=== PATIENT | male | born 1955 | race Caucasian/White ===

== ENCOUNTER 2019-03-19 01:50 | Outpatient (CLI) | payer MEDICARE, BC, SELFPAY ==
--- NOTE | 2019-03-19 14:05 | DI.US_ITS ---
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 The posterior wall thickness is normal. The septum is normal. Left ventricular systolic function is normal. There is normal LV segmental wall motion. LVEF is estimated to be 60-65%. Diastolic function is indeterminate though there is indication of elevat ed LV filling pressures. Right Ventricle : Right ventricle is mildly enlarged. The right ventricular systolic function appears normal. Atria : Left atrium is normal. Right atrium is mildly dilated. Aortic Valve : Aortic valve is trileaflet. No aortic regurgitation is present. There is no aortic dorothy vular stenosis. Mitral Valve : Mitral valve leaflets are mildly thickened. Mild mitral regurgitation. No evidence of mitral valve stenosis. Tricuspid Valve : Mild tricuspid regurgitation. Great Vessels : IVC is normal in size and collapses >50% with inspiration. Estimated RSVP is 36-40 m mHg. There is no prior echocardiogram available for comparison. Wall motion Left Ventricle The left ventricle is normal. Left ventricular systolic function is normal. The posterior wall thickn ess is normal. The septum is normal. There is normal LV segmental wall motion. Diastolic function is indeterminate though there is indication of elevated LV filling pressures. LVEF is estimated to be 60 -65%. Right Ventricle Right ventricle is mildly enlarged. The right ventricular systolic function appears normal. Atria Left atrium is normal. Right atrium is mildly dilated. Aortic Valve Aortic valve is trileaflet. There is no aortic valvular stenosis. No aortic regurgitation is present. Mitral Valve Mitral valve leaflets are mildly thickened. No evidence of mitral valve stenosis. Mild mitral regurgi tation. Tricuspid Valve The tricuspid valve is normal in structure. Mild tricuspid regurgitation. Pulmonic Valve Pulmonic valve is not well visualized. Great Vessels The aortic root size is normal. IVC is normal in size and collapses >50% with inspiration. Estimated RSVP is 36-40 mmHg. Pericardium Prominent anterior epicardial fat pad is present. 2D Dimensions IVSd 1.20 cm M: 0.6-1.2 LV EDV A2C 89.90 mL PWd 0.90 cm M: 0.6 - 1.2 LV EDV A4C 96.80 mL LVDd 4.60 cm M: 4.2 - 5.8 LA Volume Index A2C 25.56 mL/m2 LVDs 2.85 cm M: 2.5 - 4.0 LA Volume Index A4C 34.23 mL/m2 Aortic Root 3.60 cm M: 3.1 - 3.7 LA Volume Index Biplane 30.50 mL/m2 RVID Base (AP4) 4.03 cm (M/F) 2.5-4.1 LA Area A4C 23.20 cm2 RA Area A4C 20.12 cm2 LA Area A2C 19.44 cm2 LVOT 2.15 cm (M/F) 1.5-2.5 EF AP4 62.50 % LVEF (Teich) 68.92 % EF AP2 69.52 % LVEF (Oshea's) 66.24 % M: 52 - 72 EF BP 66.24 % LV Volume 69.88 mL M: 62 - 150 LV Volume Index 30.12 mL/m2 M: 34 - 74 FS 38.55 % LV Diastology E/A Ratio 1.1 MED E' 0.08 (>0.07 m/s) LV E/e MED 13.20 (<14) LAT E' 0.08 (>0.1 m/s) LV E/e LAT 12.85 (<14) Pulm Vein s 0.64 m/s PV S/D Ratio 0.92 Pulm Vein d 0.69 m/s Pulm Vein a 0.35 m/s Aortic Valve LVOT Area 3.74 cm2 LVOT Peak Regino. 1.00 m/s LVOT Mean Regino. 0.65 m/s LVOT Peak Gr. 4.35 mmHg TERRY Vmax Index 1.32 cm2/m2 LVOT Mean Gr. 2.00 mmHg LVOT VTI 0.20 m TERRY Mean Regino. Index 1.11 cm2/m2 AoV Peak Regino. 1.27 (0.5-1.3 m/s) AoV Mean Regino. 0.94 m/s AO Peak GR. 6.46 mmHg AO Mean GR. 3.88 (<5 mmHg) TERRY (VTI) 2.95 (2.5-4.5 cm2) TERRY (VTI) Index 1.27 cm/m2 Mitral Valve MV E Max Regino. 1.00 (0.4-1.3 m/s) MV A Velocity 0.95 (0.4-1.3 m/s) E/A Ratio 1.03 MV Decel. Time 173.20 (160-240 msec) MV Regurg Volume 33.64 mL MV PHT 50.23 msec MV RF 29.43 % MVA PHT 4.35 cm2 Tricuspid Valve TR P. Velocity 3.03 m/s TV Regurg Vmax 3.03 m/s RAP Estimate 3.00 mmHg RVSP 40.00 mmHg TR P. Gradient 36.65 mmHg
== END 2019-03-19 02:10 ==
PROVIDERS: PCP Nurse Practitioner Family; Visit Provider Nurse Practitioner Family
DX: I48.91 Unspecified atrial fibrillation (principal); I34.0 Nonrheumatic mitral (valve) insufficiency; I10 Essential (primary) hypertension
CPT/HCPCS: 93306

== ENCOUNTER 2019-03-19 02:10 | Outpatient (CLI) | payer MEDICARE, BC, SELFPAY ==
--- NOTE | 2019-03-19 08:00 | PFT_ITS ---
DATE: MARCH 19, 2019 REQUESTING PROVIDER: Roseanne Carrington N.P. INTERPRETATION SPIROMETRY: Spirometry shows very severe obstructive airways disease with significant bronchodilator response. IMPRESSION: Very severe obstructive airways disease with significant bronchodilator response. When compared to previous studies on 03/25/07, 05/06/07 and 07/04/08, the patient has substantial decline in FVC of a total of almost 2000 cc., FEV-1 has also almost 1500 cc. decline and there is a sudden decline from 2008 to 2018, before then lung functions were fairly stable.
[2019-03-19] MEDS: Inhaler, Assist Device 1 EACH MC (16:42)
[2019-03-19] MEDS: Albuterol HFA 18 GM 200 PUFF INH IH (16:42)
== END 2019-03-19 02:30 ==
PROVIDERS: PCP Nurse Practitioner Family; Visit Provider Nurse Practitioner Family
DX: J44.9 Chronic obstructive pulmonary disease, unspecified (principal); I48.91 Unspecified atrial fibrillation; I34.0 Nonrheumatic mitral (valve) insufficiency; I10 Essential (primary) hypertension
CPT/HCPCS: 93306; 94060

== ENCOUNTER 2019-03-24 12:07 | Outpatient (RCR) | payer MEDICARE, BC, SELFPAY | END 2019-04-13 23:59 | disposition home or self-care (01) | LOC: PRC 12:07 | PROVIDERS: PCP Nurse Practitioner Family; Visit Provider Family Medicine | DX: Z51.89 Encounter for other specified aftercare (principal) ==

== ENCOUNTER 2019-05-31 16:07 | Outpatient (RCR) | payer MEDICARE, BC, SELFPAY | END 2019-06-12 23:59 | disposition home or self-care (01) | LOC: PRC 16:07 | PROVIDERS: PCP Nurse Practitioner Family; Visit Provider Nurse Practitioner Family | DX: Z51.89 Encounter for other specified aftercare (principal) ==

== ENCOUNTER 2020-03-03 01:58 | Outpatient (CLI) | payer MEDICARE, BC, SELFPAY ==
[2020-03-03 14:21] LABS: Ferritin 226 ng/mL (26-388)
== END 2020-03-03 02:18 ==
PROVIDERS: PCP Nurse Practitioner Family; Visit Provider Nurse Practitioner
DX: M25.569 Pain in unspecified knee (principal)
CPT/HCPCS: 36415; 82728

== ENCOUNTER 2020-12-28 03:22 | Outpatient (CLI) | payer MEDICARE, BC, SELFPAY | END 2020-12-28 03:23 | disposition home or self-care (01) | LOC: RT 03:23 | PROVIDERS: PCP Nurse Practitioner Family; Visit Provider Internal Medicine Interventional Cardiology | DX: Z53.9 Procedure and treatment not carried out, unspecified reason (principal) ==

== ENCOUNTER 2021-02-09 12:40 | Outpatient (REF) | payer MEDICARE, BC, SELFPAY ==
[2021-02-09 13:13] LABS: Abs Immature Grans 0.06 10^3/uL (0.0-0.06); Absolute Basophil Count 0.09 10^3/uL (0.0-0.2); Absolute Eosinophil Count 0.31 10^3/uL (0.0-0.7); Absolute Lymphocyte Count 1.47 10^3/uL (1.2-3.4); Absolute Monocyte Count 0.67 10^3/uL (0.1-0.8); Absolute Neutrophil Count 6.73 10^3/uL (1.2-6.7); Eosinophils % 3.3; HCT 52.3 % (40.0-50.0); Immature Grans % 0.6; Lymphocytes % 15.8; MCH 29.3 pg (27.0-33.0); MCHC 32.5 % (32.0-36.0); MPV 9.9 fL (8.0-11.0); Monocytes % 7.2; Neutrophils % 72.1; Nucleated RBC 0 %; Platelet Count 292 10^3/uL (130-400); RBC 5.81 10^6/uL (4.36-5.78); RDW-SD 43.2 fL; WBC 9.33 10^3/uL (4.4-10.8)
[2021-02-12 09:54] LABS: IgE 127 IU/mL (<158)
== END 2021-02-09 12:41 | disposition home or self-care (01) ==
LOC: LBN 12:40
PROVIDERS: PCP Nurse Practitioner Family; Visit Provider Student in an Organized Health Care Education/Training Program
DX: J44.9 Chronic obstructive pulmonary disease, unspecified (principal)
CPT/HCPCS: 82785; 85025

== ENCOUNTER 2021-08-30 02:55 | Outpatient (CLI) | payer MEDICARE, BC, SELFPAY ==
--- NOTE | 2021-08-30 10:32 | DI.CTLCSR_ITS ---
Exam(s) CT CHEST LUNG CANCER SCREEN EXAM: CT CHEST LUNG CANCER SCREEN CLINICAL HISTORY: SCREENING FOR LUNG CA, FORMER SMOKER, FZ87.891 TECHNIQUE: Imaging Protocol: Axial computed tomography images with coronal and sagittal reformatted images were created and reviewed COMPARISON: No exams were available for comparison FINDINGS: Tracheobronchial tree: Patent where visualized. Pulmonary parenchyma: There is a 3.6 x 3.8 x 4.2 cm soft tissue masslike area centrally in the left l ower lobe. No architectural distortion. There is scarring seen in the lingula and right middle lobe. Lung Nodules: None. Mediastinum and Bettina: No dominant adenopathy or fluid collection. The esophagus is unremarkable. Thyroid gland: Unremarkable. Lymph nodes: Unremarkable. Pleura: No effusion or pneumothorax. Heart: The heart is not dilated. Coronary artery calcifications are present. No pericardial effusion . Aorta: Thoracic aorta non-dilated.Atherosclerosis. Upper abdomen: There is a 3.9 x 3.4 cm right adrenal nodule. The Hounsfield units are -5. Soft Tissues: Bilateral gynecomastia. Bones: Within normal limits. IMPRESSION: 1. 3.6 x 3.8 x 4.2 cm soft tissue mass in the left lower lobe centrally. Neoplasm should be consider ed. A PET-CT scan may be obtained for further evaluation. 2. 3.9 x 3.4 cm hypodense right adrenal nodule. The findings are most suggestive of an adrenal adeno ma. MRI may be obtained for complete confirmation. Category Lung-RADS 1.0 CATEGORIES: Category 0 - Prior chest CT exam(s) being located for comparison. Category 1 - Annual screening in 12 months. No nodules or definitely benign nodules. Category 2 - Annual screening in 12 months. Benign appearance. Nodules with low likelihood of becomin g active cancer. Category 3 - 6-month follow-up. Probably benign. Short-term follow-up suggested. Nodules with low lik elihood of becoming active cancer. Category 4A - 3-month follow-up and CT/PET if >8 mm in size. Suspicious finding. Findings which requi re additional testing. Category 4B - Findings which require additional testing and tissue sampling. Suspicious finding. Category 4X - Category 3 or 4 nodules with additional features or imaging findings that increases the suspicion of malignancy. Modifier S- Potentially clinically significant finding. (Non lung cancer) RADIATION DOSE DELIVERED: 102.08mGy.cm Total DLP !Error CTDIvol 102.08mGy.cm Total DLP 2.21mGy CTDIvol DATA REPOSITORY: All CT scans at this facility are submitted to the National Radiology Data Registry (NRDR) Dose Index Registry (DIR) with the [employer] (A[employer]). RADIATION OPTIMIZATION: All CT scans at this facility use at least one of these dose optimization te chniques: automated exposure control; mA and/or kV adjustment per patient size (includes targeted exa ms where dose is matched to clinical indication); or iterative reconstruction.
== END 2021-08-30 03:15 ==
PROVIDERS: PCP Nurse Practitioner Family; Visit Provider Student in an Organized Health Care Education/Training Program
DX: Z12.2 Encounter for screening for malignant neoplasm of respiratory organs (principal); Z87.891 Personal history of nicotine dependence; R91.8 Other nonspecific abnormal finding of lung field; J98.4 Other disorders of lung; D35.01 Benign neoplasm of right adrenal gland
CPT/HCPCS: 71271

== ENCOUNTER → 2021-10-16 01:49 | Outpatient (CLI) | payer MEDICARE, BC, SELFPAY ==
--- NOTE | 2021-10-16 09:30 | DI.CT_ITS ---
Exam(s) CT CHEST WO EXAM: CT CHEST WO CLINICAL HISTORY: f/u mass after PNA treatment, LUNG MASS, R91.8. TECHNIQUE: Multi planar reconstructions were performed. CONTRAST MATERIAL: None COMPARISON: CT CT CHEST LUNG CANCER SCREEN from 08/30/2021 FINDINGS: CHEST: LUNGS: Again noted is is mass-infiltrate in the left lower lobe infrahilar region without improvement and suspicious for neoplasm. Also some infiltrate medially lower lobe. No pleural effusions on eit her side. Platelike atelectasis noted in the left upper lobe. MEDIASTINUM: There appears to be left hilar adenopathy contiguous with the infiltrate-mass. No right hilar adenopathy. Small subcarinal lymph nodes are noted.Visualized thyroid unremarkable. CARDIAC: Heart size upper normal. No pericardial effusion. Mild coronary artery calcification noted .Caliber of the thoracic aorta is within normal limits. VISUALIZED UPPER ABDOMEN:Hypodense right adrenal gland mass measuring 3.5 x 2.9 centimetres is again noted OSSEOUS: No significant osseous lesions.. Bilateral gynecomastia again noted. IMPRESSION: 1. Compared to 08/30/2021 there is no radiographic improvement in the left para-infrahilar infiltrate -mass. This is suspicious for neoplasm. Appropriate referral recommended. 2. Unchanged right adrenal nodule 3. No pleural effusions. RADIATION DOSE DELIVERED: 841.08mGy.cm Total DLP DATA REPOSITORY: All CT scans at this facility are submitted to the National Radiology Data Registry (NRDR) Dose Index Registry (DIR) with the [employer] (ACR). RADIATION OPTIMIZATION: All CT scans at this facility use at least one of these dose optimization te chniques: automated exposure control; mA and/or kV adjustment per patient size (includes targeted exa ms where dose is matched to clinical indication); or iterative reconstruction.
== END ==
PROVIDERS: PCP Nurse Practitioner Family; Visit Provider Student in an Organized Health Care Education/Training Program
DX: R91.8 Other nonspecific abnormal finding of lung field (principal); E27.9 Disorder of adrenal gland, unspecified
CPT/HCPCS: 71250

== ENCOUNTER 2021-11-12 04:28 | Outpatient (CLI) | payer MEDICARE, BC, SELFPAY ==
[2021-11-12] MEDS: Albuterol HFA 18 GM 200 PUFF INH IH (11:43)
[2021-11-12] MEDS: Inhaler, Assist Device 1 EACH MC (11:43)
--- NOTE | 2021-11-13 18:24 | W.PFT ---
Date of service: 11/12/21 Time of Service: 10:03 Pulmonary Function Test Result Requesting Provider Duchene Indications: Lung mass Interpretation Spirometry: There is severe airflow limitation. There is no significant bronchodilator response. The FVC is low. Lung Volumes: There is significant hyperinflation and air trapping. Diffusion Capacity: The diffusion is low. Airway Pressure: Airways resistance is increased. Impression Severe airflow obstruction with airtrapping a reduced diffusion. The FVC is low due to severe obstruction. Clinical Correlation therefore is recommended.
== END 2021-11-12 04:29 | disposition home or self-care (01) ==
LOC: RT 04:29
PROVIDERS: PCP Nurse Practitioner Family; Visit Provider Student in an Organized Health Care Education/Training Program
DX: R94.2 Abnormal results of pulmonary function studies (principal); R91.8 Other nonspecific abnormal finding of lung field; Z87.891 Personal history of nicotine dependence
CPT/HCPCS: 94060; 94726; 94729

== ENCOUNTER 2021-12-13 05:07 | Outpatient (CLI) | payer MEDICARE, BC, SELFPAY ==
[2021-12-13 10:21] LABS: Abs Immature Grans 0.05 10^3/uL (0.0-0.06); Absolute Basophil Count 0.08 10^3/uL (0.0-0.2); Absolute Eosinophil Count 0.41 10^3/uL (0.0-0.7); Absolute Lymphocyte Count 1.52 10^3/uL (1.2-3.4); Absolute Monocyte Count 0.65 10^3/uL (0.1-0.8); Absolute Neutrophil Count 7.26 10^3/uL (1.2-6.7); Basophils % 0.8; Eosinophils % 4.1; HCT 53.3 % (40.0-50.0); HGB 17.7 g/dL (13.5-17.5); Immature Grans % 0.5; Lymphocytes % 15.2; MCH 29.6 pg (27.0-33.0); MCHC 33.2 % (32.0-36.0); MCV 89 fL (80-95); MPV 9.3 fL (8.0-11.0); Monocytes % 6.5; Neutrophils % 72.9; Platelet Count 261 10^3/uL (130-400); RBC 5.98 10^6/uL (4.36-5.78); RDW 13.5 % (11.8-14.1); RDW-SD 43.8 fL; WBC 9.97 10^3/uL (4.4-10.8)
[2021-12-13 12:28] LABS: ALT 28 U/L (16-63); AST 16 U/L (15-37); Albumin 3.8 g/dL (3.4-5.0); Alkaline Phosphatase 83 U/L (46-116); BUN 14 mg/dL (7-18); Bilirubin, Total 0.8 mg/dL (0.2-1.0); CREATININE 1.1 mg/dL (0.70-1.30); Calcium 8.9 mg/dL (8.5-10.1); Chloride 102 mmol/L (98-107); Estimated GFR 73.58 (mL/min/1.73m2); Glucose 122 mg/dL (74-106); Sodium 140 mmol/L (136-145); Total Protein 7.4 g/dL (6.4-8.2)
== END 2021-12-13 05:08 | disposition home or self-care (01) ==
LOC: LBO 05:07
PROVIDERS: PCP Nurse Practitioner Family; Visit Provider Internal Medicine Medical Oncology
DX: C34.32 Malignant neoplasm of lower lobe, left bronchus or lung (principal)
CPT/HCPCS: 36415; 80053; 85025

== ENCOUNTER 2021-12-31 13:14 | Outpatient (REF) | payer MEDICARE, BC, SELFPAY ==
[2021-12-31 11:51] LABS: Abs Immature Grans 0.06 10^3/uL (0.0-0.06); Absolute Basophil Count 0.11 10^3/uL (0.0-0.2); Absolute Lymphocyte Count 1.72 10^3/uL (1.2-3.4); Absolute Monocyte Count 0.73 10^3/uL (0.1-0.8); Absolute Neutrophil Count 6.43 10^3/uL (1.2-6.7); Basophils % 1.2; Eosinophils % 4.2; HCT 51.6 % (40.0-50.0); Immature Grans % 0.6; Lymphocytes % 18.2; MCH 29.4 pg (27.0-33.0); MCHC 32.9 % (32.0-36.0); MCV 89 fL (80-95); MPV 9.5 fL (8.0-11.0); Monocytes % 7.7; Neutrophils % 68.1; Platelet Count 268 10^3/uL (130-400); RBC 5.79 10^6/uL (4.36-5.78); RDW 13.7 % (11.8-14.1); RDW-SD 44.3 fL; WBC 9.45 10^3/uL (4.4-10.8)
[2021-12-31 12:10] LABS: ALT 30 U/L (16-63); AST 16 U/L (15-37); Albumin 3.7 g/dL (3.4-5.0); Alkaline Phosphatase 87 U/L (46-116); Anion Gap 5.2 mmol/L (3-11); BUN 15 mg/dL (7-18); Bilirubin, Total 0.7 mg/dL (0.2-1.0); CO2 32.8 mmol/L (21.0-32.0); CREATININE 1.1 mg/dL (0.70-1.30); Calcium 9.2 mg/dL (8.5-10.1); Chloride 100 mmol/L (98-107); Estimated GFR 73.58 (mL/min/1.73m2); Glucose 123 mg/dL (74-106); Potassium 4.8 mmol/L (3.5-5.1); Sodium 138 mmol/L (136-145); Total Protein 7.5 g/dL (6.4-8.2)
== END 2021-12-31 13:15 | disposition home or self-care (01) ==
LOC: LBO 13:14
PROVIDERS: PCP Nurse Practitioner Family; Visit Provider Internal Medicine Medical Oncology
DX: C34.32 Malignant neoplasm of lower lobe, left bronchus or lung (principal)
CPT/HCPCS: 36415; 80053; 85025

== ENCOUNTER 2022-01-07 08:33 | Outpatient (CLI) | payer MEDICARE, BC, SELFPAY ==
[2022-01-07 08:33] LABS: Absolute Basophil Count 0.05 10^3/uL (0.0-0.2); Absolute Eosinophil Count 0.39 10^3/uL (0.0-0.7); Absolute Lymphocyte Count 0.59 10^3/uL (1.2-3.4); Basophils % 0.6; Eosinophils % 4.7; HCT 49.5 % (40.0-50.0); HGB 16.4 g/dL (13.5-17.5); Immature Grans % 1.2; Lymphocytes % 7.2; MCH 29.4 pg (27.0-33.0); MCHC 33.1 % (32.0-36.0); MCV 89 fL (80-95); MPV 9.7 fL (8.0-11.0); Monocytes % 2.4; Neutrophils % 83.9; Platelet Count 223 10^3/uL (130-400); RBC 5.57 10^6/uL (4.36-5.78); RDW 13.2 % (11.8-14.1); RDW-SD 43.2 fL; WBC 8.23 10^3/uL (4.4-10.8)
[2022-01-07 08:55] LABS: ALT 32 U/L (16-63); AST 16 U/L (15-37); Albumin 3.4 g/dL (3.4-5.0); Alkaline Phosphatase 91 U/L (46-116); Anion Gap 5.8 mmol/L (3-11); BUN 12 mg/dL (7-18); Bilirubin, Total 0.7 mg/dL (0.2-1.0); CO2 32.2 mmol/L (21.0-32.0); CREATININE 1.1 mg/dL (0.70-1.30); Calcium 9.2 mg/dL (8.5-10.1); Chloride 100 mmol/L (98-107); Estimated GFR 73.58 (mL/min/1.73m2); Glucose 139 mg/dL (74-106); Potassium 4.7 mmol/L (3.5-5.1); Sodium 138 mmol/L (136-145)
== END 2022-01-07 08:34 | disposition home or self-care (01) ==
LOC: LBO 08:34
PROVIDERS: PCP Nurse Practitioner Family; Visit Provider Internal Medicine Medical Oncology
DX: C34.32 Malignant neoplasm of lower lobe, left bronchus or lung (principal)
CPT/HCPCS: 36415; 80053; 85025

== ENCOUNTER 2022-01-07 09:25 | Emergency (ER) | payer MEDICARE, BC, SELFPAY ==
[2022-01-07] VITALS (37 sets, daily range): BP systolic 108–140; BP diastolic 44–97; PULSE 86–162; RESP 4–31; TEMP 31.6–34.2; O2SAT 91–98
--- NOTE | 2022-01-07 09:45 | DI.RAD_ITS ---
Exam(s) XR PORTABLE CHEST AP EXAM: XR PORTABLE CHEST AP CLINICAL HISTORY: cough TECHNIQUE: 2D digital imaging was performed. COMPARISON: CT CT CHEST WO from 10/16/2021 FINDINGS: LUNGS: Clear. No pleural abnormality seen. Stable prominence of the left parahilar region from prior CT. A mass was noted in this location. It is or mass is seen. HEART: Normal. AORTA: Normal. Calcified. Mildly tortuous. BONES: Unremarkable for age. Soft tissues: Unremarkable. IMPRESSION: Left perihilar prominence. Mass seen on prior CT. DATA REPOSITORY: RADIATION DOSE DELIVERED:
--- NOTE | 2022-01-07 09:49 | RT.EKG_ITS ---
APPROVED REPORT Exam: Resting ECG Reason for Exam: fatigue Patient Location: E HR:105 bpm ECG Measurements Heart Rate 105 AXIS AK 175 P 71 QRSd 86 QRS 85 QT 367 T 57 QTc 487 Conclusion Sinus tachycardia...rate> 99 Low voltage, extremity leads...all extremity leads <0.5mV sinus tachycardia at 105, normal axis, low voltage in the extremity leads, no STEMI, nondiagnostic EK G, no prior for comparison
--- NOTE | 2022-01-07 09:56 | ED.GENADUL_ITS ---
Discharge Plan Disposition Patient Disposition: AGAINST MEDICAL ADVICE Discharge Details Clinical Impression: Cough, Atrial fibrillation with rapid ventricular response Primary Care Provider: Roseanne Carrington ED Provider: Kelly Buckley Home Meds and New Rx's Prescriptions: New diltiazem HCl 120 mg capsule,extended release 24 hr 120 mg PO DAILY Qty: 30 0RF Continued metoprolol succinate [Toprol XL] 100 MG tablet extended release 24 hr 100 mg PO BID Eliquis 5 mg tablet 5 mg PO BID Spiriva Respimat 2.5 mcg/actuation mist 2 inh inhalation QAM Qty: 12 3RF albuterol sulfate [Ventolin HFA] 90 mcg/actuation HFA aerosol inhaler 2 puff IH .COMPLEX PRN (Reason: shortness of breath or wheezing) Qty: 25.5 1RF Rx Instructions: 2 puffs inhaled every 4-6 hours PRN; budesonide-formoterol [Symbicort] 160-4.5 mcg/actuation HFA aerosol inhaler 2 puff Inhalation BID Qty: 30.6 12RF Discharge Instructions Instructions: A-fib (Atrial Fibrillation) (ED), Acute Cough (ED) Additional Instructions: You have elected to leave the emergency department AGAINST MEDICAL ADVICE. The risks of doing so are or permanent disability. You may return to emergency department anytime if you change your mind. Please return immediately to the emergency department if you develop any new or worsening symptoms, if your condition does not improve as expected, or if you become otherwise concerned. It is extremely important that you call soon as possible to make an appointment to be seen in follow-up for this visit by your primary care doctor and your oncologist. Referrals: Roseanne Carrington [Primary Care Provider] - Discharge Data Discharge Date/Time-TO BE ENTERED AT DEPARTURE: 01/07/22 13:23 Medical Decision Making Plan for EKG, chest x-ray, screening labs (patient did have CBC and CMP performed earlier today as an outpatient), IV placement, IV fluid hydration, telemetry. Will monitor and reassess. 11:25 patient stated that he needed to get up and move around as he was feeling stiff from lying in the stretcher. With patient moving, heart rate increased to 160s, variable. Patient denying any new symptoms. EKG shows atrial fibrillation. 11:32 patient with rate reduced to 115 after being seated. No change in symptoms. 12:20 patient states that he feels basically well other than feeling tired and would like to go home at this point. Patient sitting up in bed, heart rate 160 on monitor, atrial fibrillation versus atrial flutter. Heart rate decreases to 120 when patient lies back in bed. I discussed with patient that his tachycardia has not been appropriately treated or evaluated at this point, particularly in the setting of his recent illness. I recommended patient be admitted for further treatment. Patient states that he does not want to be hospitalized under any circumstance right now and wants to go home. I discussed with patient the risks of leaving AGAINST MEDICAL ADVICE including , permanent disability. Patient verbalized understanding of these risks and continued to wish to leave AGAINST MEDICAL ADVICE. I did ask if patient would stay for me to discuss his presentation with Dr. Morel of cardiology over the phone. Patient was amenable. Plan for IV diltiazem for A. fib with RVR. 1250: Discussed patient presentation/results with Dr. Morel of cardiology. She states that initial EKG read as sinus tachycardia likely to be atrial flutter. She recommends that 120 mg p.o. diltiazem daily be added to patient's current medication regimen of 100 mg twice daily metoprolol. Recently discussed plan with patient, patient did reiterate that he refuses admission. Patient with decision-making capacity. I had a discussion with Patient regarding return to emergency department precautions, home care, and importance of outpatient follow-up. Pt verbalizes understanding of the plan and is amenable. Patient discharged to home with clear plan for outpatient follow- up. All questions were answered. Disposition decision was made weighing the risks and benefits of hospitalization versus outpatient treatment, the risk for further decompensation, and the patient's wishes. Medical Records Medical records reviewed: Yes I reviewed the patient's medical records. Imaging Data Radiologic Study: Attestation: I personally reviewed and interpreted this imaging study as follows: Radiologist's impression: EXAM:? XR PORTABLE CHEST AP CLINICAL HISTORY:? cough TECHNIQUE:? 2D digital imaging was performed. COMPARISON:? CT CT CHEST WO from 10/16/2021 FINDINGS: LUNGS: Clear. No pleural abnormality seen.? Stable prominence of the left parahilar region from prior CT.? A mass was noted in this location.? It is or mass is seen. HEART: Normal. AORTA: Normal.? Calcified.? Mildly tortuous. BONES: Unremarkable for age.? Soft tissues: Unremarkable. IMPRESSION: Left perihilar prominence.? Mass seen on prior CT.? Lab Data Lab results reviewed: Yes I reviewed the patient's lab results. Labs: 01/07/22 12:35 Blood Blood Culture - Final NO GROWTH 120 HOURS 01/07/22 10:20 Blood Blood Culture - Final NO GROWTH 120 HOURS Laboratory Tests Range/Units 01/07/22 01/07/22 01/07/22 10:00 10:20 10:20 D-Dimer (<500) ng/mlFEU 254 VBG Lactate (0.6-1.4) mmol/L Troponin I (<or=60) ng/L < 50 COVID-19 Source Not Applicable SARS-CoV-2 (PCR) (Negative) Negative Influenza Type A (PCR) (Negative) Negative Influenza Type B (PCR) (Negative) Negative RSV (PCR) (Negative) Negative Range/Units 01/07/22 01/07/22 10:20 12:50 D-Dimer (<500) ng/mlFEU VBG Lactate (0.6-1.4) mmol/L 1.7 H Troponin I (<or=60) ng/L Cancelled COVID-19 Source SARS-CoV-2 (PCR) (Negative) Influenza Type A (PCR) (Negative) Influenza Type B (PCR) (Negative) RSV (PCR) (Negative) ECG Data Attestation: I personally reviewed and interpreted this ECG (s) as follows: Interpretation: EKG shows sinus tachycardia at 105, normal axis, low voltage in the extremity leads, no STEMI, nondiagnostic EKG, no prior for comparison EKG 11:27 shows atrial fibrillation, right axis deviation, ST depression, no STEMI HPI General Mode of arrival: ambulatory . Date/Time Provider Initiated Documentation: 01/07/22 09:33 . Limitations to Documentation: no limitations . Information obtained by: patient, RN notes reviewed and old records reviewed . HPI Narrative: Bipin Rowley is a 66-year-old man with a history of atrial fibrillation on Eliquis, COPD, pulmonary hypertension, recently diagnosed with lung cancer presenting to the emergency department with cough. Patient reports that he started chemotherapy 1 week ago and is due for his second infusion today. Patient reports that for the past 4 to 5 days he has had fatigue, feels rundown, has had cough worse than his baseline with significant sputum production, also with congestion. He denies any pain, SOB, fevers, vomiting, diarrhea, numbness, focal weakness, rash, swelling. He reports that he has had constipation over the past week or so that he is using [id number] meds for and is having improvement with. Patient reports that he has been using his al buterol inhaler regularly which does help with his cough. He reports that he has been eating and drinking fluids well, reports good appetite. Related Data Home Medications Medication Instructions Recorded Confirmed metoprolol succinate 100 mg 100 mg PO BID 07/07/14 01/07/22 tablet,extended release 24 hr (Toprol XL) apixaban 5 mg tablet (Eliquis) 5 mg PO BID 05/04/19 01/07/22 tiotropium bromide 2.5 2 inh inhalation QAM #12 grams 03/05/21 01/07/22 mcg/actuation mist for inhalation (Spiriva Respimat) albuterol sulfate 90 mcg/actuation 2 puff inhalation .COMPLEX PRN 09/21/21 01/07/22 aerosol inhaler (Ventolin HFA) shortness of breath or wheezing #25.5 grams budesonide-formoterol HFA 160 2 puff inhalation BID #30.6 grams 10/26/21 01/07/22 mcg-4.5 mcg/actuation aerosol inhaler (Symbicort) diltiazem HCl 120 mg capsule,24 120 mg PO DAILY #30 caps 01/07/22 hr,extended release Previous Rx's Medication Instructions Recorded tiotropium bromide 2.5 2 inh inhalation QAM #12 grams 03/05/21 mcg/actuation mist for inhalation (Spiriva Respimat) albuterol sulfate 90 mcg/actuation 2 puff inhalation .COMPLEX PRN 09/21/21 aerosol inhaler (Ventolin HFA) shortness of breath or wheezing #25.5 grams budesonide-formoterol HFA 160 2 puff inhalation BID #30.6 grams 10/26/21 mcg-4.5 mcg/actuation aerosol inhaler (Symbicort) diltiazem HCl 120 mg capsule,24 120 mg PO DAILY #30 caps 01/07/22 hr,extended release Allergies Allergy/AdvReac Type Severity Reaction Status Date / Time fluoxetine Allergy rash Unverified 01/07/22 09:45 Penicillins Allergy rash Unverified 01/07/22 09:45 codeine AdvReac N/V, Unverified 01/07/22 09:45 fatigue General Stated Complaint: RespSymp VIKI: 3 Review of Systems Narrative: Constitutional: denies fevers, reports fatigue Eyes: denies eye pain ENT: denies ear pain, dental pain, sore throat Cardiovascular: denies chest pain, edema Respiratory: denies SOB, reports cough GI: denies abdominal pain, vomiting, diarrhea : denies flank pain MSK: denies back pain, neck pain, arthralgias, myalgias Skin: denies rash Neuro: denies headaches, numbness, weakness PFSH All Active Problems (Updated 01/16/22 @ 16:49 by Allegra Pierce MD) Non-small cell carcinoma of lung, stage 3 (Acute) Cough (Acute) Atrial fibrillation with rapid ventricular response (Acute) Personal history of nicotine dependence (Acute) Pulmonary hypertension (Acute) Sleep apnea (Acute) Atrial fibrillation (Chronic) COPD (chronic obstructive pulmonary disease) (Chronic) Medical History (Updated 01/16/22 @ 16:49 by Allegra Pierce MD) Anal condyloma Atrial fibrillation Cervical disc disorder with radiculopathy COPD (chronic obstructive pulmonary disease) Depression ETOH abuse Hyperlipidemia Hypertension Impaired fasting glucose Lung mass Surgical History Fulguration, Anal Warts Repair, Hypospadious Social History Smoking/Tobacco Use Status: Former Tobacco Use Smoking risk assessment performed?: Yes Alcohol Intake: former Drug use: Never Additional Social history: quit smoking 8 years ago 37 months sober from alcohol Exam Narrative Exam Narrative: Constitutional: well and [id number]-ohigdenvq, pleasant, conversing normally HENT: head atraumatic/normocephalic/normal inspection, mucous membranes moist Eyes: conjunctiva normal, sclera normal, pupils 3mm b/l Neck: no stridor, normal ROM, trachea midline Chest: normal inspection Resp: normal work of breathing, LCTAB Cardio: tachycardic rate, normal rhythm GI: abdomen soft, non-tender, non-distended Back: normal inspection, no rash Skin: warm, dry, normal color, no rash Neuro: alert, not altered, grossly non-focal, normal tone Ext: no edema, no posterior calf tenderness to palpation Psych: normal mood, normal affect, normal behavior Course Vital Signs Vital signs: Vital Signs Temperature 31.6 C L 01/07/22 09:28 Pulse 107 H 01/07/22 09:28 Respiratory Rate 22 01/07/22 09:28 Blood Pressure 123/80 01/07/22 09:28 Pulse Oximetry 93 01/07/22 09:28 Temperature 31.6 C L 01/07/22 09:28 Temperature Source Skin 01/07/22 09:28 Pulse 107 H 01/07/22 09:28 Respiratory Rate 01/07/22 09:28 Respiratory Effort 01/07/22 09:47 Blood Pressure 123/80 01/07/22 09:28 Blood Pressure Position Sitting 01/07/22 09:28 Pulse Oximetry 93 01/07/22 09:28 Oxygen Delivery Method Room Air 01/07/22 09:28 Oxygen Flow Rate 0 01/07/22 09:28 Pain Level 0 01/07/22 09:28 Comment hx a-fib 01/07/22 09:28 Lab/Test Results Lab/Test Results: 01/07/22 09:52 Blood Blood Culture - Pending 01/07/22 09:52 Blood Blood Culture - Pending
[2022-01-07] MEDS: Normal Saline 1,000 ML 1000 ML IV (10:20)
[2022-01-07] MEDS: Albuterol/Ipratropium 3 ML UPD VIAL UPD (10:25)
[2022-01-07 10:30] LABS: Lactate 1.7 mmol/L (0.6-1.4)
[2022-01-07 10:55] LABS: Troponin I < 50 ng/L (<or=60)
[2022-01-07 11:04] LABS: D-Dimer 254 ng/mlFEU (<500)
[2022-01-07 11:06] LABS: COVID-19 PCR Negative (Negative); Influenza A PCR Negative (Negative); Influenza B PCR Negative (Negative); RSV PCR Negative (Negative)
--- NOTE | 2022-01-07 11:15 | RT.EKG_ITS ---
APPROVED REPORT Exam: Resting ECG Reason for Exam: tachycardia Patient Location: E HR:143 bpm ECG Measurements Heart Rate 143 AXIS AZ [id number] P [id number] QRSd 73 QRS 93 QT 295 T 27 QTc 456 Conclusion Atrial fibrillation...? atrial activity Right axis deviation...QRS axis ( 91,269) Low voltage, extremity and precordial leads...extremity<0.5mV, precordial<1.0mV no STEMI I have reviewed and interpreted ECG and agree with software generated interpretation.
[2022-01-07] MEDS: Normal Saline Flush 10 ML SYR IVP (12:25)
[2022-01-07] MEDS: dilTIAZem 25 MG/5 ML VIAL 10 MG IVP (12:25)
[2022-01-07] MEDS: Normal Saline 500 ML IV (12:30)
--- NOTE | 2022-01-07 14:59 | NUR.NOTE ---
pt unable to give urine sample not wishing to stay for further treatment/testing Nursing Note:
--- NOTE | 2022-01-10 13:56 | CMACTNOTE_ITS ---
- If Service Date Differs Date of service: 01/10/22 Time of Service: 13:56 Care Management Activity Note Bipin is seen in the ED for a cough and atrial fibrillation with rapid ventricular response. At the request of ED provider, CM contacts his former PCP's office to inquire if he is still an active patient. CM is advised that he is considered active but has not yet been assigned to a new provider. CM faxes his ED Visit Note to [facility] in [place]. The triage nurse wi ll outreach to him to schedule a follow up appointment.
== END 2022-01-07 13:23 | disposition left against medical advice (07) ==
PROVIDERS: Emergency Provider Student in an Organized Health Care Education/Training Program; PCP Nurse Practitioner Family
DX: I48.91 Unspecified atrial fibrillation (principal); R05.9 Cough, unspecified; I10 Essential (primary) hypertension; J44.9 Chronic obstructive pulmonary disease, unspecified; Z79.01 Long term (current) use of anticoagulants; Z79.51 Long term (current) use of inhaled steroids; Z87.891 Personal history of nicotine dependence; C34.90 Malignant neoplasm of unspecified part of unspecified bronchus or lung; Z20.822 Contact with and (suspected) exposure to COVID-19
CPT/HCPCS: 36415; 80053; 87040; 87637; 93005; 94640; 96361; 96374; 99284; 71045; 83605; 84484; 85025; 85379; 93010; J7620

== ENCOUNTER 2022-01-14 04:46 | Outpatient (CLI) | payer MEDICARE, BC, SELFPAY ==
[2022-01-14 08:42] LABS: Abs Immature Grans 0.05 10^3/uL (0.0-0.06); Absolute Basophil Count 0.06 10^3/uL (0.0-0.2); Absolute Lymphocyte Count 0.67 10^3/uL (1.2-3.4); Absolute Monocyte Count 0.11 10^3/uL (0.1-0.8); Absolute Neutrophil Count 3.45 10^3/uL (1.2-6.7); Basophils % 1.3; Eosinophils % 4.4; HCT 43.4 % (40.0-50.0); HGB 14.6 g/dL (13.5-17.5); Immature Grans % 1.1; Lymphocytes % 14.8; MCH 29.9 pg (27.0-33.0); MCHC 33.6 % (32.0-36.0); MCV 89 fL (80-95); MPV 9.8 fL (8.0-11.0); Monocytes % 2.4; Platelet Count 192 10^3/uL (130-400); RBC 4.89 10^6/uL (4.36-5.78); RDW 13.4 % (11.8-14.1); RDW-SD 42.7 fL; WBC 4.54 10^3/uL (4.4-10.8)
[2022-01-14 09:00] LABS: ALT 35 U/L (16-63); AST 20 U/L (15-37); Albumin 3.4 g/dL (3.4-5.0); Alkaline Phosphatase 79 U/L (46-116); Anion Gap 6.2 mmol/L (3-11); BUN 13 mg/dL (7-18); Bilirubin, Total 0.8 mg/dL (0.2-1.0); CO2 28.8 mmol/L (21.0-32.0); CREATININE 0.9 mg/dL (0.70-1.30); Calcium 8.8 mg/dL (8.5-10.1); Chloride 101 mmol/L (98-107); Estimated GFR 93.61 (mL/min/1.73m2); Glucose 132 mg/dL (74-106); Potassium 4.5 mmol/L (3.5-5.1); Sodium 136 mmol/L (136-145); Total Protein 6.8 g/dL (6.4-8.2)
== END 2022-01-14 04:47 | disposition home or self-care (01) ==
LOC: LBO 04:46
PROVIDERS: PCP Nurse Practitioner Family; Visit Provider Internal Medicine Medical Oncology
DX: C34.32 Malignant neoplasm of lower lobe, left bronchus or lung (principal)
CPT/HCPCS: 36415; 80053; 85025

== ENCOUNTER 2022-01-21 02:55 | Outpatient (CLI) | payer MEDICARE, BC, SELFPAY ==
[2022-01-21 08:59] LABS: Abs Immature Grans 0.07 10^3/uL (0.0-0.06); Absolute Basophil Count 0.05 10^3/uL (0.0-0.2); Absolute Eosinophil Count 0.07 10^3/uL (0.0-0.7); Absolute Lymphocyte Count 0.39 10^3/uL (1.2-3.4); Absolute Monocyte Count 0.17 10^3/uL (0.1-0.8); Absolute Neutrophil Count 1.92 10^3/uL (1.2-6.7); Basophils % 1.9; Eosinophils % 2.6; HCT 40.4 % (40.0-50.0); HGB 14.1 g/dL (13.5-17.5); Immature Grans % 2.6; Lymphocytes % 14.6; MCH 30.5 pg (27.0-33.0); MCHC 34.9 % (32.0-36.0); MCV 87 fL (80-95); MPV 9.2 fL (8.0-11.0); Monocytes % 6.4; Neutrophils % 71.9; Platelet Count 226 10^3/uL (130-400); RBC 4.63 10^6/uL (4.36-5.78); RDW 14.3 % (11.8-14.1); RDW-SD 42.2 fL; WBC 2.67 10^3/uL (4.4-10.8)
[2022-01-21 09:14] LABS: ALT 38 U/L (16-63); AST 18 U/L (15-37); Albumin 3.3 g/dL (3.4-5.0); Alkaline Phosphatase 78 U/L (46-116); Anion Gap 7.2 mmol/L (3-11); BUN 14 mg/dL (7-18); Bilirubin, Total 0.5 mg/dL (0.2-1.0); CO2 28.8 mmol/L (21.0-32.0); CREATININE 0.9 mg/dL (0.70-1.30); Calcium 8.7 mg/dL (8.5-10.1); Chloride 103 mmol/L (98-107); Estimated GFR 93.61 (mL/min/1.73m2); Glucose 125 mg/dL (74-106); Potassium 4.2 mmol/L (3.5-5.1); Sodium 139 mmol/L (136-145); Total Protein 6.5 g/dL (6.4-8.2)
== END 2022-01-21 02:56 | disposition home or self-care (01) ==
LOC: LBO 02:55
PROVIDERS: PCP Nurse Practitioner Family; Visit Provider Internal Medicine Medical Oncology
DX: C34.32 Malignant neoplasm of lower lobe, left bronchus or lung (principal)
CPT/HCPCS: 36415; 80053; 85025

== ENCOUNTER 2022-01-28 03:34 | Outpatient (CLI) | payer MEDICARE, BC, SELFPAY ==
[2022-01-28 08:45] LABS: Abs Immature Grans 0.08 10^3/uL (0.0-0.06); Absolute Basophil Count 0.04 10^3/uL (0.0-0.2); Absolute Eosinophil Count 0.02 10^3/uL (0.0-0.7); Absolute Lymphocyte Count 0.41 10^3/uL (1.2-3.4); Absolute Neutrophil Count 2.36 10^3/uL (1.2-6.7); Basophils % 1.3; Eosinophils % 0.6; HGB 14.1 g/dL (13.5-17.5); Immature Grans % 2.6; Lymphocytes % 13.2; MCH 30.3 pg (27.0-33.0); MCHC 34.4 % (32.0-36.0); MCV 88 fL (80-95); MPV 9.2 fL (8.0-11.0); Monocytes % 6.4; Neutrophils % 75.9; Platelet Count 147 10^3/uL (130-400); RBC 4.65 10^6/uL (4.36-5.78); RDW 15.1 % (11.8-14.1); WBC 3.11 10^3/uL (4.4-10.8)
[2022-01-28 08:56] LABS: ALT 39 U/L (16-63); AST 13 U/L (15-37); Albumin 3.5 g/dL (3.4-5.0); Alkaline Phosphatase 81 U/L (46-116); Anion Gap 7.7 mmol/L (3-11); BUN 15 mg/dL (7-18); Bilirubin, Total 0.4 mg/dL (0.2-1.0); CO2 29.3 mmol/L (21.0-32.0); Calcium 8.9 mg/dL (8.5-10.1); Chloride 103 mmol/L (98-107); Estimated GFR 82.49 (mL/min/1.73m2); Glucose 115 mg/dL (74-106); Potassium 4.5 mmol/L (3.5-5.1); Sodium 140 mmol/L (136-145); Total Protein 6.7 g/dL (6.4-8.2)
== END 2022-01-28 03:35 | disposition home or self-care (01) ==
LOC: LBO 03:35
PROVIDERS: PCP Nurse Practitioner Family; Visit Provider Internal Medicine Medical Oncology
DX: C34.32 Malignant neoplasm of lower lobe, left bronchus or lung (principal)
CPT/HCPCS: 36415; 80053; 85025

== ENCOUNTER 2022-02-04 02:35 | Outpatient (CLI) | payer MEDICARE, BC, SELFPAY ==
[2022-02-04 08:45] LABS: Abs Immature Grans 0.02 10^3/uL (0.0-0.06); Absolute Basophil Count 0.02 10^3/uL (0.0-0.2); Absolute Eosinophil Count 0.02 10^3/uL (0.0-0.7); Absolute Lymphocyte Count 0.34 10^3/uL (1.2-3.4); Absolute Monocyte Count 0.17 10^3/uL (0.1-0.8); Absolute Neutrophil Count 1.82 10^3/uL (1.2-6.7); Basophils % 0.8; Eosinophils % 0.8; HCT 38.9 % (40.0-50.0); HGB 13.8 g/dL (13.5-17.5); Immature Grans % 0.8; Lymphocytes % 14.2; MCH 30.9 pg (27.0-33.0); MCHC 35.5 % (32.0-36.0); MCV 87 fL (80-95); MPV 9.9 fL (8.0-11.0); Monocytes % 7.1; Neutrophils % 76.3; Platelet Count 121 10^3/uL (130-400); RBC 4.46 10^6/uL (4.36-5.78); RDW 15.9 % (11.8-14.1); RDW-SD 45.4 fL; WBC 2.39 10^3/uL (4.4-10.8)
[2022-02-04 09:00] LABS: ALT 38 U/L (16-63); AST 15 U/L (15-37); Albumin 3.8 g/dL (3.4-5.0); Alkaline Phosphatase 89 U/L (46-116); Anion Gap 6.4 mmol/L (3-11); BUN 18 mg/dL (7-18); Bilirubin, Total 0.9 mg/dL (0.2-1.0); CO2 30.6 mmol/L (21.0-32.0); Calcium 9.3 mg/dL (8.5-10.1); Chloride 103 mmol/L (98-107); Estimated GFR 82.49 (mL/min/1.73m2); Glucose 117 mg/dL (74-106); Potassium 3.9 mmol/L (3.5-5.1); Sodium 140 mmol/L (136-145); Total Protein 7.1 g/dL (6.4-8.2)
== END 2022-02-04 02:36 | disposition home or self-care (01) ==
LOC: LBO 02:35
PROVIDERS: PCP Nurse Practitioner Family; Visit Provider Internal Medicine Medical Oncology
DX: C34.32 Malignant neoplasm of lower lobe, left bronchus or lung (principal)
CPT/HCPCS: 36415; 80053; 85025

== ENCOUNTER 2022-02-14 03:16 | Outpatient (CLI) | payer MEDICARE, BC, SELFPAY ==
[2022-02-14] MEDS: Inhaler, Assist Device 1 EACH MC (15:22)
[2022-02-14] MEDS: Albuterol HFA 18 GM 200 PUFF INH IH (15:22)
--- NOTE | 2022-02-15 14:32 | W.PFT ---
Date of service: 02/14/22 Time of Service: 13:09 Pulmonary Function Test Result Requesting Provider Yogi Rachel Indications: Lung cancer, recent radiation and chemo Interpretation Spirometry: There is severe airflow limitation. There is a significant bronchodilator response.The FVC is low. Lung Volumes: There is hyperinflation and air trapping Diffusion Capacity: The diffusion is reduced Airway Pressure: Increased airways resistance Impression Severe obstruction with a bronchodilator response, reduced diffusion and air trapping. This is consistent with severe COPD with emphysema. The FVC is due to severe obstruction. Note: When compared to 11/12/21, there is an improvement in the FEV1 and FVC. The diffusion has decreased. Clinical Correlation therefore is recommended.
== END 2022-02-14 03:17 | disposition home or self-care (01) ==
LOC: RT 03:17
PROVIDERS: PCP Nurse Practitioner Family; Visit Provider Internal Medicine Medical Oncology
DX: C34.32 Malignant neoplasm of lower lobe, left bronchus or lung (principal); J44.9 Chronic obstructive pulmonary disease, unspecified; Z92.21 Personal history of antineoplastic chemotherapy; Z92.3 Personal history of irradiation
CPT/HCPCS: 94060; 94726; 94729

== ENCOUNTER → 2022-02-15 01:00 | Outpatient (CLI) | payer MEDICARE, BC, SELFPAY ==
--- OUTSIDE RECORDS SUMMARY | 2022-02-15 01:02 | XMS_ITS | Encounter Summary ---
:1955 [place] [address] Care Team Providers Name Role Phone None Primary Care Provider Unavailable Encounter Details Date Type Department Care Team Description 02/05/2022 Orders Only Hematology/Oncology Yogi Rachel, Pr imary malignant neoplasm of left lower lobe of lung; at [facility] Medication management [address] [place] [id number] HEMATOLOGY/ONCOLOGY [phone] DEPT [place], [place] [address] (Wo rk) Social History Tobacco Use Types Packs/Day Years Used Date Former Smoker Cigarettes 1 Quit: 01/12/20 14 Smokeless Tobacco: Never Used Alcohol Use Standard Drinks/Week Comments Not Currently 0 (1 standard drink = 0.6 oz pure alcoho l) recovering alcoholic 2018 Alcohol Habits Answer Date Recorded How often do you have a drink containing Not asked alcohol? How many drinks containing alcohol do you Not asked have on a typical day when you are drinking? How often do you have six or more drinks on Not asked one occasion? Comment: recovering alcoholic 201812/12/2021 Financial Resource Strain Answer Date Recorded How hard is it for you to pay for the very basics like Not h clarita at all 12/12/2021 food, housing, medical care, and heating? Food Insecurity Answer Date Recorded Within the past 12 months, you worried that your food would Never true 12/12/2021 run out before you got money to buy more. Within the past 12 months, the food you bought just didn't N ever true 12/12/2021 last and you didn't have money to get more. Transportation Needs Answer Date Recorded In the past 12 months, has lack of transportation kept you f rom No 12/12/2021 medical appointments or from getting medications? In the past 12 months, has lack of transportation kept you f rom No 12/12/2021 meetings, work, or getting things needed for daily living? Housing Stability Answer Date Recorded In the last 12 months, was there a time when you were not No 12/12/2021 able to pay the mortgage or rent on time? In the last 12 months, how many places have you lived? Not a sked In the last 12 months, was there a time when you did not hav e No 12/12/[address] or slept in a intermediate (including now)? Sex Assigned at Date Recorded Not on file documented as of this encounter Plan of Treatment Upcoming Encounters Date Type Specialty Care Team Description 02/18/2022 Office Visit Hematology and Oncology Iain Rachel MD [facility] [address] HEMATOLOGY/[place] [address] Whit Sung APRN [facility] [address] [place] [address] 02/18/2022 Infusion Hematology and Oncology Scheduled Orders Name Type Priority Associated Diagnoses Order S chedule TSH Lab Routine Primary malignant neoplasm o f left Expected: 02/12/2022, Expires: lower lobe of lynn ng 08/14/2022 Medication management documented as of this encounter Visit Diagnoses Diagnosis 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
--- OUTSIDE RECORDS SUMMARY | 2022-02-15 01:02 | XMS_ITS | Encounter Summary ---
:1955 Author Organization [facility] [place] [address] Care Team Providers Name Role Phone None Primary Care Provider Unavailable Encounter Details Date Type Department Care Team Description 02/08/2022 Notes Only Radiation Oncology at [facility] Louis MD [address] [facility] RADIATION ONCOLOGY [place], [place] [phone] [place] [address] (Wo rk) Social History Tobacco Use Types [...] place to sleep or slept in a snf (including now)? 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
--- OUTSIDE RECORDS SUMMARY | 2022-02-15 01:02 | XMS_ITS | Clinical Summary ---
:1955 Author Organization [facility] [place] [address] Care Team Providers Name Role Phone None Primary Care Provider Unavailable Allergies Active Allergy Reactions Severity Noted Date Comments Codeine Phosphate Nausea And Vomiting Penicillins Hives Medications Medication Sig Dispensed Refills Start Date End Date Status albuteroL 90 INHALE TWO PUFFS 0 09/21/2021 Active mcg/actuation HFA BY MOUTH EVERY 4 Aerosol Inhaler TO 6 HOURS NEEDED FOR SHORTNESS OF BREATH OR WHEEZING Eliquis 5 mg Tablet Take 5 mg by 0 07/25/2021 Active mouth 2 times daily. budesonide-formoteroL Inhale 2 puffs 0 06/12/2021 Active (Symbicort) 160-4.5 into the lungs 2 mcg/actuation HFA times daily. Aerosol Inhaler Spiriva Respimat 2.5 INHALE 2 PUFFS 0 09/21/2021 Active mcg/actuation Mist BY MOUTH EVERY MORNING metoprolol succinate XL Take 100 mg by 0 08/10/2021 Active (Toprol-XL) 100 mg mouth 2 times Tablet Sustained Release daily. 24 hr ibuprofen (Advil) 200 mg Take 800 mg by 0 Active Tablet mouth every 6 hours as needed for Pain (joint, back pain head ache). prochlorperazine Take 1 tablet by 30 tablet 3 12/31/2021 Active (Compazine) 10 mg Tablet mouth every 6 hours as needed for Nausea. Additional Information Patient not taking. Reported on 01/24/2022 acetaminophen (Tylenol) 500 mg Take 1,000 mg by mouth 0 Active Tablet every 6 hours as needed for Pain. Occasional Stuffy head ache sucralfate (Carafate) 100 Take 10 mLs by mouth 4 420 mL 1 1 Active mg/mL Suspension times daily as needed. Additional Information Patient not taking. Reported on 01/28/2022 omeprazole (PriLOSEC) 20 Take 1 capsule by 30 capsule 3 202101/21/2023 Active mg Capsule, Delayed mouth daily. Release(E.C.) Additional Information Patient not taking. Reported on 02/07/2022 dilTIAZem (TIAZAC) 120 mg Take 1 capsule by 30 capsule 1 01/28 Active Capsule,Sustained Action 24 hr mouth daily. Active Problems Problem Noted Date Primary malignant neoplasm of left lower lobe of lung 11/30/2021 Cancer Staging: Clinical stage from 12/01: Stage IIIA (cT3, cN1, cM0) - Signed by Yogi Rachel MD on 12/01/2021 COPD (chronic obstructive pulmonary disease) Pulmonary hypertension 10/23/2021 Sleep apnea 10/23/2021 Atrial fibrillation 10/23/2021 Depression 10/23/2021 Hypertension 10/23/2021 Hyperlipidemia 10/23/2021 Encounters Date Type Specialty Care Team Description 02/11/2022 Notes Only Radiation Skyla Velazquez Oncology MD Saloni 02/08/2022 Notes Only Radiation Louis Brown Oncology MD Lisa 02/07/2022 Office Visit Radiation Louis Brown Primary tayler Gonzalez MD neoplasm of lef t lower lobe of l edil 02/07/2022 Travel 02/05/2022 Orders Only Hematology and Yogi Rachel ma neoplasm of left lower lobe of lung; Oncology MD Franny Medication xu gement 02/05/2022 Travel 02/04/2022 Infusion Hematology and Primary tayler moon Oncology neoplasm of lef t lower lobe of l edil 02/04/2022 Office Visit Hematology and Yogi Rachel ma Oncology MD Franny neoplasm of left Forauer, Hwit lower lobe of lung A, GYPSUM ROOFER 02/04/2022 Notes Only Hematology and Corina Lawson Oncology ANGELINA Guallpa 01/31/2022 Office Visit Radiation Louis Brown Primary tayler moon Oncology MD Lisa neoplasm of lef t lower lobe of l edil 01/31/2022 Orders Only Hematology and Yogi Rachel ma Oncology MD Franny neoplasm of lef t lower lobe of l edil 01/31/2022 Notes Only Hematology and Renny, Lora Oncology Saloni, RN 01/29/2022 Infusion Hematology and Primary malig nant Oncology neoplasm of lef t lower lobe of l edil 01/29/2022 Notes Only Radiation Renny, Corina Oncology L, RN 01/29/2022 Notes Only Hematology and Fariha Veloz Oncology RESOURCE SPECIALIST TEACHER 01/28/2022 Office Visit Hematology and Yogi Rachel ma neoplasm of left lower lobe of lung; Oncology DMD Chronic obstructive pulmonary disease, u nspecified COPD type; Whit Sung Paroxysmal at rial fibrillation A, GYPSUM ROOFER 01/28/2022 Orders Only Hematology and Yogi Rachel maant Oncology MD Franny neoplasm of lef t lower lobe of l edil 01/28/2022 Notes Only Radiation Sibley, Corina Oncology Saloni, RN 01/24/2022 Office Visit Radiation Louis Brown Primary tayler moon Oncology MD Lisa neoplasm of lef t lower lobe of l edil 01/22/2022 Orders Only Hematology and Yogi Rachel maant Oncology MD Franny neoplasm of lef t lower lobe of l edil 01/22/2022 Telephone Hematology and Cecilia Gutierrez Prior Auth orization Oncology 01/21/2022 Infusion Hematology and Primary malig nant Oncology neoplasm of lef t lower lobe of l edil 01/21/2022 Office Visit Hematology and Yogi Rachel maant Oncology MD Franny neoplasm of left Whit Sung lower lobe of lung A, GYPSUM ROOFER 01/21/2022 Notes Only Radiation Sibley, Lora Oncology Saloni, RN 01/18/2022 Orders Only Hematology and Yogi Rachel ma lignant Oncology MD Franny neoplasm of lef t lower lobe of l edil 01/17/2022 Office Visit Radiation Louis Brown Primary malig nant Oncology SMD neoplasm of lef t lower lobe of l edil 01/17/2022 Notes Only Radiation Renny, Corina Oncology Saloni, RN 01/14/2022 Infusion Hematology and Primary malig nant Oncology neoplasm of lef t lower lobe of l edil 01/14/2022 Office Visit Hematology and Yogi Rachel ma lignant neoplasm of left lower lobe of lung; Oncology DMD Paroxysmal atrial fibrillation Whit Sung A, GYPSUM ROOFER 01/14/2022 Notes Only Hematology and Fariha Veloz Oncology RESOURCE SPECIALIST TEACHER 01/14/2022 External Results Pharmacy Yogi Rachel MD 01/10/2022 Office Visit Radiation Louis Brown Primary tayler moon Oncology MD Lisa neoplasm of lef t lower lobe of l edil 01/09/2022 Notes Only Radiation Renny, Corina Oncology Saloni, RN 01/08/2022 Infusion Hematology and Primary malpro nant Oncology neoplasm of lef t lower lobe of l edil 01/08/2022 Telephone Hematology and Conrado Oncology Anh Gonzalez RN 01/07/2022 Infusion Hematology and Primary malig nant Oncology neoplasm of lef t lower lobe of l edil 01/07/2022 Office Visit Hematology and Yogi Rachel ma neoplasm of left lower lobe of lung; Oncology MD Franny Paroxysmal atrial fibrillation Whit Sung A, GYPSUM ROOFER 01/07/2022 Notes Only Radiation RennyCorina hoff Oncology Saloni RN 01/07/2022 Telephone Hematology and Conrado Oncology Anh Gonzalez RN 01/03/2022 [facility] Lisa neoplasm of lef t lower lobe of l edil 01/03/2022 Notes Only Radiation Corina Lawson Oncology Saloni RN 01/02/2022 Telephone Hematology and Judy, Follow-up (S/ p Oncology Roseanne Parham RN chemotherapy 12/31) 12/31/2021 Infusion Hematology and Primary malpro sidhut Oncology neoplasm of lef t lower lobe of l edil 12/31/2021 Office Visit Hematology and Yogi Rachel ma Oncology MD Franny neoplasm of left Whit Sung lower lobe of lung A, GYPSUM ROOFER 12/31/2021 Notes Only Hematology and Fariha Veloz Oncology RESOURCE SPECIALIST TEACHER 12/31/2021 Orders Only Hematology and Yogi Rachel ma Oncology MD Franny neoplasm of lef t lower lobe of l edil 12/31/2021 Notes Only Radiation Renny, Corina Oncology Saloni RN 12/25/2021 Telephone Radiation Corina Lawson Oncology Saloni RN 12/12/2021 Ancillary Appointment Radiation Louis Brown Oncology MD Lisa 12/12/2021 Office Visit Radiation Stephanie, Louis Primary tayler moon Oncology SMD neoplasm of lef t lower lobe of l edil 12/12/2021 Notes Only Radiation Fariha Veloz L, Oncology RESOURCE SPECIALIST TEACHER 12/12/2021 Orders Only Hematology and Yogi Rachel Primary sq uamous Oncology MD 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 12/05/2021 Hospital Encounter Radiology Yogi Rachel Primar y squamous D, cell carcinoma of lower lobe of l eft lung 12/05/2021 Orders Only Hematology and Yogi Rachel Primary sq uamous Oncology Franny, cell carcinoma of lower lobe of l eft lung 12/04/2021 Multidisciplinary Care Thoracic Surgery Sheldon Corrales , Committee MD 12/03/2021 Hospital Encounter Radiology Sheldon Corrales, Pre-op erative cardiovascular examination, high risk surgery; Malignant neopl asm of bronchus of left lower lobe 11/30/2021 Hospital Encounter Radiology Sheldon Corrales, Malign ant neoplasm MD of bronchus of left lower lobe 11/30/2021 Office Visit Thoracic Surgery Sheldon Corrales, Malignan t neoplasm MD of bronchus of left lower lobe 11/30/2021 Hospital Encounter Hematology and Oncology 11/30/2021 Office Visit Hematology and Yogi Rachel Primary ma lignant Oncology MD Franny neoplasm of left Karley Chairezissa lower lobe o f lung C, GYPSUM ROOFER 11/30/2021 Hospital Encounter Hematology and 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; Oncology Medication xu gement 11/29/2021 Orders Only Hematology and Yogi Rachel Primary sq uamous cell carcinoma of lower lobe of left lung; Oncology MD Franny Medication xu gement 11/29/2021 Telephone Pulmonology Shabana Thomas RN 11/28/2021 Telephone Thoracic Surgery Pratik Gaines 11/28/2021 Orders Only Thoracic Surgery Yunior, Pre-operati ve cardiovascular examination, high risk surgery; Radha Guallpa RN Malignant neopl asm of bronchus of left lower lobe 11/28/2021 Orders Only Thoracic Surgery Yunior, Pulmonary h ypertension; Radha Guallpa RN Malignant neopl asm of bronchus of left lower lobe 11/28/2021 Orders Only Radiation Skyla Velazquez Primary malign ant Oncology MD Saloni neoplasm of lef t lower lobe of l edil 11/20/2021 Telephone Ginny Sanchez Prior Authori scar Gonzalez ([facility] er testing CPT 814 55 is a covered benef it. ) 11/15/2021 Orders Only Hematology and Jada Chairez Primary sq uamous Oncology C, GYPSUM ROOFER cell carcinoma of lower lobe of l eft lung from Last 3 Months Social History Tobacco Use Types Packs/Day Years [...] place to sleep or slept in a long term (including now)? Sex Assigned at Date Recorded Not on file Last Filed Vital Signs Vital Sign Reading Time Taken Comments Blood Pressure 121/68 02/07/2022 10:00 AM EDT Pulse 80 02/07/2022 10:00 AM EDT Temperature 36.1 ??C (97 ??F) 02/07/2022 10:00 AM EDT Respiratory Rate 20 02/07/2022 10:00 AM EDT Oxygen Saturation 98% 02/07/2022 10:00 AM EDT Inhaled Oxygen Concentration - - Weight 123.1 kg (271 lb 6.4 oz) 02/07/2022 10:00 AM EDT Height 177.7 cm (5' 9.96) 02/04/2022 9:00 AM EDT Body Mass Index 38.99 02/04/2022 9:00 AM EDT Plan of Treatment Upcoming Encounters Date Type Specialty Care Team Description 02/18/2022 Office Visit Hematology and Oncology Iain Rachel MD [facility] DR HEMATOLOGY/[place] [address] Whit Sung APRN [facility] [address] [place]EMAT[place]Y [place] [address] 02/18/2022 Infusion Hematology and Oncology Health Maintenance Due Date Last Done Comments Covid-19 Vaccine (#1) 1955 Pneumoccocal Vaccine: 65+ (1 - PCV) 1960 Lipid Screening 1972 Tdap adult 1973 Tetanus vaccine 1973 Colonoscopy 1999 Zoster vaccine (1 of 2) 2004 Advance Directive 2009 AAA Screen 2019 Influenza (Flu) vaccine (1 of 1 - Influenza standard 12/13/2021 series) Diabetes Screening (HgbA1C or Glucose) 11/30/2024 Hepatitis C Screening Completed 11/30/2021 Procedures Procedure Name Priority Date/Time Associated Diagnosis Comme nts LAB SCAN 02/04/2022 12:00 Results for this AM EDT procedure are i n the results section. LAB SCAN 01/28/2022 12:00 Results for this AM EDT procedure are i n the results section. LAB SCAN 01/28/2022 12:00 Results for this AM EDT procedure are i n the results section. LAB SCAN 01/23/2022 12:00 Results for this AM EDT procedure are i n the results section. LAB SCAN 01/21/2022 12:00 Results for this AM EDT procedure are i n the results section. CLINICAL TRIAL SCAN Routine 01/14/2022 CLINICAL TRIAL SCAN Routine 01/14/2022 LAB SCAN 01/14/2022 12:00 Results for this AM EDT procedure are i n the results section. LAB SCAN 01/11/2022 12:00 Results for this AM EDT procedure are i n the results section. LAB SCAN 01/09/2022 12:00 Results for this AM EDT procedure are i n the results section. LAB SCAN 01/07/2022 12:00 Results for this AM EDT procedure are i n the results section. ORDS - PROVIDER CARE 01/04/2022 12:00 Res ults for this SCAN AM EDT procedure are i n the results section. LAB SCAN 12/13/2021 12:00 Results for this AM EDT procedure are i n the results section. CT RAD ONC CHEST Routine 12/12/2021 2:05 Malignant neoplasm of Results for this INTERP ONLY PM EDT lower lobe, left procedure a re in bronchus or lung the results section. RECIST 1.1 Routine 12/05/2021 2:00 Primary squamous cell Res ults for this PM EDT carcinoma of lower procedure are in lobe of left lung the result s section. NM LUNG PERFUSION STAT 12/03/2021 3:29 Pre-operative Result s for this SPECT/CT PM EDT cardiovascular procedure are in examination, high the result s risk surgery section. Malignant neoplasm of bronchus of left lower lobe CT CHEST W CONTRAST Routine 11/30/2021 2:28 Malignant neoplasm of Results for this PM EDT bronchus of left procedure a re in lower lobe the results section. HC HIV SCREEN, 4TH STAT 11/30/2021 11:22 Primary squamous c ell Results for this GENERATION AM EDT carcinoma of lower procedure are in lobe of left lung the result s section. HC HCV QUANTIFICATION STAT 11/30/2021 11:22 Primary squamou s cell Results for this AM EDT carcinoma of lower procedure are in lobe of left lung the result s section. HC HEPATITIS B SURFACE STAT 11/30/2021 11:22 Primary squamo us cell Results for this AB AM EDT carcinoma of lower procedure are in lobe of left lung the result s section. HC TOTAL T3 STAT 11/30/2021 11:22 Primary squamous cell Re sults for this AM EDT carcinoma of lower procedure are in lobe of left lung the result s section. HC FREE THYROXINE (T4) STAT 11/30/2021 11:22 Primary squamo us cell Results for this AM EDT carcinoma of lower procedure are in lobe of left amparo g the results Medication management sectio n. HC THYROID STIMULATING STAT 11/30/2021 11:22 Primary squamo us cell Results for this HORMONE, SERUM AM EDT carcinoma of lower procedu re are in lobe of left amparo g the results Medication management sectio n. EKG 12-LEAD Routine 11/30/2021 10:56 Primary squamous cell Re sults for this AM EDT carcinoma of lower procedure are in lobe of left lung the result s section. EKG 12-LEAD Routine 11/30/2021 10:56 AM EDT DIFFERENTIAL, STAT 11/30/2021 7:50 Primary squamous cell Re sults for this AUTOMATED AM EDT carcinoma of lower procedure are in lobe of left lung the result s section. HEMOGRAM STAT 11/30/2021 7:50 Primary squamous cell Res ults for this AM EDT carcinoma of lower procedure are in lobe of left lung the result s section. HC LACTIC STAT 11/30/2021 7:50 Primary squamous cell Res ults for this DEHYDROGENASE AM EDT carcinoma of lower procedur e are in lobe of left lung the result s section. COMPREHENSIVE STAT 11/30/2021 7:50 Primary squamous cell Re sults for this METABOLIC PANEL AM EDT carcinoma of lower proced ure are in (NON-FASTING) lobe of left lung the resul ts section. HC CBC,PLT & AUTO DIFF STAT 11/30/2021 7:50 Primary squamou s cell AM EDT carcinoma of lower lobe of left lung PFT SCAN 11/15/2021 12:00 Results for this AM EDT procedure are i n the results section. from Last 3 Months Results SCAN DOC: LAB (02/04/2022 12:00 AM EDT)Only the most recent of10 resultswithin the time period is included. Narrative 02/04/2022 12:00 AM EDT This result has an attachment that is no t available. Ordered by an unspecified provider. Scanning Provider MEDIA MGR SCAN EXT ORDR/RSLT Scan Doc: Clinical Trial (01/14/2022)Only the most recent of2 resultswithin the time period is included. Narrative This result has an attachment that is no t available. Yogi Rachel MD MEDIA MGR SCAN EXT ORDR/RSLT SCAN DOC: ORDS - PROVIDER CARE (01/04/2022 12:00 AM EDT) Narrative 01/04/2022 12:00 AM EDT This result has an attachment that is no t available. Ordered by an unspecified provider. Scanning Provider MEDIA MGR SCAN EXT ORDR/RSLT CT Rad Onc Chest Interp Only (12/12/2021 2:05 PM EDT) Anatomical Region Laterality Modality Chest Computed Tomography Specimen (Source) Anatomical Location Collection Method / Collectio n Time Received Time / Laterality Volume Impressions 12/12/2021 3:32 PM EDT Radiation planning CT. No change compared to 11/30/2021. Known 6.5 cm malignancy perihilar in the left lower lobe. Thank you for letting us participate in the care of this patient. ??If you are a health care provider and have any questi ons regarding this report, please contact the number below. ??For patients who have questions please contact the health rn progressive care unit that requested your imaging first. ? Narrative 12/12/2021 3:32 PM EDT EXAMINATION: CT RAD ONC CHEST INTERP ONLY CLINICAL HISTORY: 66M T3N1 adenoca LLL. On [id number]. TECHNIQUE: Limited CT without the use of oral or IV contrast enhancement, performed for the purposes of localizati on for radiation treatment. COMPARISON: 11/30/2021 FINDINGS: Pulmonary parenchyma: Known approximatel y 6.5 cm malignancy perihilar in the left lower lobe. Airways: Minimal layering mucus in the t rachea. Otherwise the central and segmental airways are stable. Mass effec t onto the left lower lobe bronchus from the malignancy as before. Pleura: No effusion. Lymph nodes: No interval enlargement of lymph nodes. Conglomerate left hilar lymphadenopathy is unchanged. Heart and vasculature: Stable findings. Moderate to severe coronary artery atherosclerotic calcifications. Limited upper abdomen: Again seen is the right adrenal mass, favored to be benign on prior PET. Skeleton: Degenerative changes. No acute pathology. Procedure Note Rafaela Gilliland MD - 2021 EXAMINATION: CT RAD ONC CHEST INTERP ONL Y CLINICAL HISTORY: 66M T3N1 adenoca LLL. On [id number]. TECHNIQUE: Limited CT without the use of oral or IV contrast enhancement, performed for the purposes of localizati on for radiation treatment. COMPARISON: 11/30/2021 FINDINGS: Pulmonary parenchyma: Known approximatel y 6.5 cm malignancy perihilar in the left lower lobe. Airways: Minimal layering mucus in the t rachea. Otherwise the central and segmental airways are stable. Mass effec t onto the left lower lobe bronchus from the malignancy as before. Pleura: No effusion. Lymph nodes: No interval enlargement of lymph nodes. Conglomerate left hilar lymphadenopathy is unchanged. Heart and vasculature: Stable findings. Moderate to severe coronary artery atherosclerotic calcifications. Limited upper abdomen: Again seen is the right adrenal mass, favored to be benign on prior PET. Skeleton: Degenerative changes. No acute pathology. IMPRESSION Radiation planning CT. No change compared to 11/30/2021. Known 6.5 cm malignancy perihilar in the left lower lobe. Thank you for letting us participate in the care of this patient. If you are a health care provider and have any questi ons regarding this report, please contact the number below. For patients w ho have questions please contact the health rn progressive care unit that requested your imaging first. Louis Brown MD IMG OUTSIDE INTERPRETATION O RDERABLES RECIST 1.1 (12/05/2021 2:00 PM EDT) Anatomical Region Laterality Modality Other Specimen (Source) Anatomical Location Collection Method / Collectio n Time Received Time / Laterality Volume Narrative 12/06/2021 11:32 AM EDT EXAMINATION: RECIST 1.1 CLINICAL HISTORY: Pt in screening for pr otocol [id number], please perform recist read on CT scan done on 11/30/21. The following indicator lesions were michelle sured using RECIST 1.1 Criteria: Prior study date: 11/30/2021 Current scan date: 10/16/2021 Lesion #1: LEFT lower lobe mass ??Prior study: Series 7, Image 357, 64 mm ??Current study: Series 4, Image 49, 66 mm Lesion #2: LEFT hilar node ??Prior study: Series 2, Image 35, 11 m m ??Current study: Series 3, Image 46, 17 mm short axis Thank you for letting us participate in the care of this patient. ??If you are a health care provider and have any questi ons regarding this report, please contact the number below. ??For patients who have questions please contact the health rn progressive care unit that requested your imaging first. ? Procedure Note Diana Duckworth MD - 12/06/2021Formattin g of this note might be different from the original. EXAMINATION: RECIST 1.1 CLINICAL HISTORY: Pt in screening for pr otocol [id number], please perform recist read on CT scan done on 11/30/21. The following indicator lesions were michelle sured using RECIST 1.1 Criteria: Prior study date: 11/30/2021 Current scan date: 10/16/2021 Lesion #1: LEFT lower lobe mass Prior study: Series 7, Image 357, 64 mm Current study: Series 4, Image 49, 66 m m Lesion #2: LEFT hilar node Prior study: Series 2, Image 35, 11 mm Current study: Series 3, Image 46, 17 m m short axis Thank you for letting us participate in the care of this patient. If you are a health care provider and have any questi ons regarding this report, please contact the number below. For patients w ho have questions please contact the health rn progressive care unit that requested your imaging first. Yogi Rachel MD IMG RESEARCH ORDERABLES NM Lung Perfusion Spect/CT (12/03/2021 3:29 PM EDT) Anatomical Region Laterality Modality Nuclear Medicine Specimen (Source) Anatomical Location Collection Method / Collectio n Time Received Time / Laterality Volume Impressions 12/04/2021 9:33 AM EDT FINDINGS/IMPRESSION: 1. ??Heterogeneous pattern of perfusion throughout both lungs. 2. ??Differential lung perfusion is 40% to the left lung and 60% to the right lung. 3. ??Left lower lobe perfusion is 15% of the total (right plus left) lung perfusion. Thank you for letting us participate in the care of this patient. ??If you are a health care provider and have any questi ons regarding this report, please contact the number below. ??For patients who have questions please contact the health rn progressive care unit that requested your imaging first. ? Narrative 12/04/2021 9:33 AM EDT EXAMINATION: NM LUNG PERFUSION SPECT/CT CLINICAL HISTORY: Surgical Planning 6cm LLL mass, eval for surgical candidac y TECHNIQUE: Following IV administration of 4 mCi ann marie hnetium 99m MAA, SPECT-CT of the lungs was obtained. COMPARISON: None Procedure Note Ender Schultz MD - 12/04/2021Formatti ng of this note might be different from the original. EXAMINATION: NM LUNG PERFUSION SPECT/CT CLINICAL HISTORY: Surgical Planning 6cm LLL mass, eval for surgical candidac y TECHNIQUE: Following IV administration of 4 mCi ann marie hnetium 99m MAA, SPECT-CT of the lungs was obtained. COMPARISON: None IMPRESSION FINDINGS/IMPRESSION: 1. Heterogeneous pattern of perfusion th roughout both lungs. 2. Differential lung perfusion is 40% to the left lung and 60% to the right lung. 3. Left lower lobe perfusion is 15% of t he total (right plus left) lung perfusion. Thank you for letting us participate in the care of this patient. If you are a health care provider and have any questi ons regarding this report, please contact the number below. For patients w ho have questions please contact the health rn progressive care unit that requested your imaging first. Sheldon Corrales MD IMG NM ORDERABLES CT Chest w Contrast (11/30/2021 2:28 PM EDT) Anatomical Region Laterality Modality Chest Computed Tomography Specimen (Source) Anatomical Collection Method Collection Time Re ceived Time Location / / Volume Laterality 11/30/2021 2:39 PM EDT Impressions 11/30/2021 5:29 PM EDT 1. ??6 cm LEFT lower lobe mass extending into LEFT hilar nodes with narrowing of the LEFT lower lobe bronchus. This close ly abuts the LEFT lower lobe pulmonary artery, descending thoracic aorta and LE FT inferior pulmonic vein. 2. ??3 cm RIGHT adrenal myelolipoma/moe rudy Thank you for letting us participate in the care of this patient. ??If you are a health care provider and have any questi ons regarding this report, please contact the number below. ??For patients who have questions please contact the health rn progressive care unit that requested your imaging first. ? Narrative 11/30/2021 5:29 PM EDT EXAMINATION: CT CHEST W CONTRAST CLINICAL HISTORY: Non-small cell lung ca ncer (NSCLC), staging; Surgical Planning Patient with LLL 6cm mass, eval for surg ical candidacy TECHNIQUE: 3.75 mm thick axial contiguou s sections were obtained through the chest via helical acquisition after the intravenous administration of contrast, 60 cc Omnipaque 350. Thin-section recons tructions as well as coronal and sagittal reformatted images were generat ed. COMPARISON: Study from [facility] dated 10/16/2021 FINDINGS: Pulmonary parenchyma: Emphysema. There i s a 6.6 x 4.1 x 6.4 cm LEFT lower lobe mass which abuts the hilum and the LEFT inferior pulmonic vein and LEFT lower lobe pulmonary artery. Similar to recent study It is narrowing the LEFT lower lobe bronchus but the bronchus remains p atent. There is a narrow 5 cm transverse soft tissue which extends inferiorly adj acent to the aorta (best seen on coronal series 601 image 79) which may be furthe r tumor extension versus atelectasis. The LEFT lower lobe mass closely abuts t he aorta and there is no clear fat plane between the mass and aortic wall at the level of the LEFT main bronchus (see series 5 images 235-255) Airways: Dependent fluid in the trachea. Pleura: No significant findings. Lymph nodes: LEFT lower lobe mass is con tinuous with LEFT hilar adenopathy, with an approximately 3 cm LEFT hilar node on conglomerate Heart, pericardium, and great vessels: N o significant findings. Other mediastinal structures: No signifi cant findings. Lower neck: No significant findings. Upper abdomen: 3 cm fat-containing RIGHT adrenal mass consistent with a myelolipoma Body wall soft tissues: Bilateral gyneco mastia Skeletal structures: No significant find ings. Procedure Note Diana Duckworth MD - 11/30/2021Formattin g of this note might be different from the original. EXAMINATION: CT CHEST W CONTRAST CLINICAL HISTORY: Non-small cell lung ca ncer (NSCLC), staging; Surgical Planning Patient with LLL 6cm mass, eval for surg ical candidacy TECHNIQUE: 3.75 mm thick axial contiguou s sections were obtained through the chest via helical acquisition after the intravenous administration of contrast, 60 cc Omnipaque 350. Thin-section recons tructions as well as coronal and sagittal reformatted images were generat ed. COMPARISON: Study from [facility] dated 10/16/2021 FINDINGS: Pulmonary parenchyma: Emphysema. There i s a 6.6 x 4.1 x 6.4 cm LEFT lower lobe mass which abuts the hilum and the LEFT inferior pulmonic vein and LEFT lower lobe pulmonary artery. Similar to recent study It is narrowing the LEFT lower lobe bronchus but the bronchus remains p atent. There is a narrow 5 cm transverse soft tissue which extends inferiorly adj acent to the aorta (best seen on coronal series 601 image 79) which may be furthe r tumor extension versus atelectasis. The LEFT lower lobe mass closely abuts t he aorta and there is no clear fat plane between the mass and aortic wall at the level of the LEFT main bronchus (see series 5 images 235-255) Airways: Dependent fluid in the trachea. Pleura: No significant findings. Lymph nodes: LEFT lower lobe mass is con tinuous with LEFT hilar adenopathy, with an approximately 3 cm LEFT hilar node on conglomerate Heart, pericardium, and great vessels: N o significant findings. Other mediastinal structures: No signifi cant findings. Lower neck: No significant findings. Upper abdomen: 3 cm fat-containing RIGHT adrenal mass consistent with a myelolipoma Body wall soft tissues: Bilateral gyneco mastia Skeletal structures: No significant find ings. IMPRESSION 1. 6 cm LEFT lower lobe mass extending i nto LEFT hilar nodes with narrowing of the LEFT lower lobe bronchus. This close ly abuts the LEFT lower lobe pulmonary artery, descending thoracic aorta and LE FT inferior pulmonic vein. 2. 3 cm RIGHT adrenal myelolipoma/adenom a Thank you for letting us participate in the care of this patient. If you are a health care provider and have any questi ons regarding this report, please contact the number below. For patients w ho have questions please contact the health rn progressive care unit that requested your imaging first. Sheldon Corrales MD IMG CT ORDERABLES Hepatitis C RNA, quantitative, PCR (11/30/2021 11:22 AM EDT) Component Value Ref Test Analysis Performed At [facility] gist Range Method Time Signature HCV Viral <12 IU/mL [facility] LABORATORY HCV Viral Result: <12 IU/mL (Target Not Detected) [facility] Indication for Study: Hepatitis C Infection [facility] Analysis: The [employer] HCV assay is an i n vitro reverse transcriptase LABORATORY polymerase chain reaction (RT-PCR)for the quanti fication of hepatitis C viral (HCV) RNA in human serum or plasma (EDTA) from HCV-infected indivi duals. Sample: plasma/serum Method: [employer] m HCV Assay Linear Range: 12 IU/mL - 100,000,000IU/mL Note: The [employer] HCV Assay has b een approved by the U.S. Food and Drug Administration. Comment: [VERIFIED DATE]11.30.21 Verified By:Maggie Sanford (Electronic Signature) Specimen Anatomical Collection Method Collection Time Receive d Time (Source) Location / / Volume Laterality Blood 11/30/2021 11:22 11/30/2021 AM EDT 11:37 AM EDT Resulting Agency Comment Spec In Lab Yogi Rachel MD IMMUNOLOGY ORDERABLES Performing Organization Address City/State/Z[place] [address] HIV Screen, 4th Generation ([facility]/CGP/APD/NLH) (11/30/2021 11:22 AM EDT) Analysis Performed At [facility] logist Time Signature HIV-1/2 Ab and Negative Negative [facility] LABORATORY Comment: This 4th Generation HIV test screens for the presence of the HIV-1 p24 antigen as well as antibodies reactive against H IV-1 and HIV-2. A negative screen does not rule out an acute HIV infection. If acute HIV infection is suspected, testing should be repeated in 2 - 3 week s or HIV nucleic acid testing performed. HIV Comment Low Risk of HIV Infection [facility] LABORATORY Specimen Anatomical Collection Method Collection Time Receive d Time (Source) Location / / Volume Laterality Blood 11/30/2021 11:22 11/30/2021 AM EDT 11:37 AM EDT Resulting Agency Comment Spec In Lab Yogi Rachel MD IMMUNOLOGY ORDERABLES Performing Organization Address City/[facility]/ZIP Code Phon e Number [address] Hepatitis B Surface Antibody (11/30/2021 11:22 AM EDT) P athologist Signature HepB Surface <3.5 IU/L [facility] Ab Quant [facility] LABORATORY Comment: HepB Surface Ab Quant: Unvaccinated: < 8.5 IU/L Vaccinated: > 11.5 IU/L HepB Surface Ab Negative [facility] LABORATORY Comment: Patient is presumed to be not vaccinated or immune to HBV infection. Expected Results: Vaccinated: Positive Unvaccinated: Negative Specimen Anatomical Collection Method Collection Time Receive d Time (Source) Location / / Volume Laterality Blood 11/30/2021 11:22 11/30/2021 AM EDT 11:37 AM EDT Resulting Agency Comment Spec In Lab Yogi Rachel MD IMMUNOLOGY ORDERABLES Performing Organization Address City/[facility]/[place] [address] T3 Total (11/30/2021 11:22 AM EDT) P athologist Signature T3, Total 120 80 - 200 [facility] ng/dL [facility] LABORATORY Specimen Anatomical Collection Method Collection Time Receive d Time (Source) Location / / Volume Laterality Blood 11/30/2021 11:22 11/30/2021 AM EDT 11:37 AM EDT Resulting Agency Comment Spec In Lab Yogi Rachel MD CHEMISTRY ORDERABLES Performing Organization Address City/[facility]/ZIP Code Phon e Number [address] TSH (11/30/2021 11:22 AM EDT) P athologist Signature TSH 1.75 0.27 - 4.20 [facility] mcIU/mL [facility] LABORATORY Comment: Reference Interval (mcIU/mL): Females: ??First Trimester: 0.23-3.88 ??Second Trimester: 0.22-3.90 ??Third Trimester: 0.44-4.66 Specimen Anatomical Collection Method Collection Time Receive d Time (Source) Location / / Volume Laterality Blood 11/30/2021 11:22 11/30/2021 AM EDT 11:37 AM EDT Resulting Agency Comment Spec In Lab Yogi Rachel MD CHEMISTRY ORDERABLES Performing Organization Address [facility]/ZIP Code Phon e Number [address] T4, free (11/30/2021 11:22 AM EDT) P athologist Signature Free T4 1.28 0.93 - 1.70 [facility] TAYLA ng/dL [facility] LABORATORY Comment: Reference Interval (ng/dL): Females: ??First Trimester: 0.97-1.68 ??Second Trimester: 0.77-1.51 ??Third Trimester: 0.77-1.49 Specimen Anatomical Collection Method Collection Time Receive d Time (Source) Location / / Volume Laterality Blood 11/30/2021 11:22 11/30/2021 AM EDT 11:37 AM EDT Resulting Agency Comment Spec In Lab Yogi Rachel MD CHEMISTRY ORDERABLES Performing Organization Address City/[facility]/ZIP Code Phon e Number [address] EKG 12 Lead (11/30/2021 10:56 AM EDT) Component Value Ref Range Test Analysis Performed Pathologis t Method Time At Signature Ventricular rate 101 BPM MUSE SYSTEM Atrial Rate 101 BPM MUSE SYSTEM P-R Interval 162 ms MUSE SYSTEM QRS Duration 72 ms MUSE SYSTEM Q-T Interval 350 ms MUSE SYSTEM QTC Calculated 453 ms MUSE SYSTEM (Bezet) Calculated P [place] 16 degrees MUSE SYSTEM Calculated R [place] 101 degrees MUSE SYSTEM Calculated T [place] 60 degrees MUSE SYSTEM INTERPRETATION Sinus tachycardia MUSE SY STEM Rightward axis Low voltage QRS Nonspecific ST abnormality Poor R wave progression Abnormal ECG No previous ECGs available I personally reviewed the tracing and edited the fellows int erpretation Confirmed by fellow MD Tip, Marissa ([id number]) on 11/30/2021 7:52:29 PM Confirmed by MD Yunior, Tony ([id number]) on 12/02/2021 12:26:03 PM Specimen Anatomical Collection Method Collection Time Receive d Time (Source) Location / / Volume Laterality 11/30/2021 10:56 12/02/2021 AM EDT 12:26 PM EDT Yogi Rachel MD ECG ORDERABLES Performing Organization Address City/State/ZIP Code Phon e Number MUSE SYSTEM (ABNORMAL) Hemogram (11/30/2021 7:50 AM EDT) Analysis Performed At Patho logist Time Signature WBC 10.1 (H) 4.0 - 9.5 [facility]IAN TAYLA x10(3)/[facility] LABORATORY RBC 6.12 (H) 4.58 - [facility] 5.[address] [facility] x10(6)/[facility] LABORATORY Hemoglobin 18.2 (H) 13.7 - [employer] 16.5 g/dL [facility] LABORATORY Hematocrit 53.8 (H) 40.5 - [employer] 48.5 % [facility] LABORATORY MCV 87.9 82.9 - [employer] 93.1 [facility] LABORATORY MCH 29.7 27.5 - CRISTIAN TAYLA 32.1 pg [facility] LABORATORY MCHC 33.8 32.0 - [employer] 35.7 g/dL [facility] LABORATORY Platelets 263 145 - 357 [employer] x10(3)/[facility] LABORATORY RDWSD 42.5 36.0 - [employer] 45.0 [facility] LABORATORY RDWCV 13.2 11.4 - [employer] 13.8 % [facility] LABORATORY MPV 9.5 7.6 - 12.9 aka-aki networksCK [facility] LABORATORY nRBC % Auto 0.0 % [facility] LABORATORY nRBC Abs Auto 0.000 0.000 - [facility] 0.[address] [facility] x10(3)/[facility] LABORATORY Specimen Anatomical Collection Method Collection Time Receive d Time (Source) Location / / Volume Laterality Blood 11/30/2021 7:50 AM 7:56 EDT AM EDT Resulting Agency Comment Spec In Lab Jada Chairez GYPSUM ROOFER HEMATOLOGY ORDERABLES Performing Organization Address City/State/[place] [address] (ABNORMAL) Differential, Automated (11/30/2021 7:50 AM EDT) [facility] gist Method Time Signature Neutrophils % 70.3 % [facility] LABORATORY Neutr Abs (ANC) 7.10 (H) 1.70 - [facility] 6.[address] [facility] x10(3)/[facility] LABORATORY Lymphocytes % 16.5 % [facility] LABORATORY Lymphocytes Abs 1.7 0.9 - 3.2 [facility] x10(3)/[facility] LABORATORY Monocytes % 6.9 % [facility] LABORATORY Monocyte Abs 0.7 0.3 - 0.9 [facility] x10(3)/[facility] LABORATORY Eosinophils % 4.5 % [facility] LABORATORY Eosinophils Abs 0.4 0.0 - 0.4 [facility] x10(3)/[facility] LABORATORY Basophils % 0.8 % [facility] LABORATORY Basophils Abs 0.1 0.0 - 0.1 [facility] x10(3)/[facility] LABORATORY Immature Gran % 1.00 % [facility] LABORATORY Comment: Immature granulocytes(IG's)percentage an d absolute count will include metamyelocytes, myelocytes, and promyelo cytes. Blood smears from CBCs yielding IG's will be scanned manually for concor dance. If this scan disagrees with the automated IG or if promyelocytes are not ed, a manual differential will be performed. Sharon Gran Abs 0.10 (H) 0.00 - 0.04 x10(3)/[facility] LABORATORY Specimen Anatomical Collection Method Collection Time Receive d Time (Source) Location / / Volume Laterality Blood 11/30/2021 7:50 AM 2 7:56 EDT AM EDT Resulting Agency Comment Spec In Lab Jada Chairez GYPSUM ROOFER HEMATOLOGY ORDERABLES Performing Organization Address City/[facility]/ZIP Code Phon e Number [address] Lactate Dehydrogenase (11/30/2021 7:50 AM EDT) P athologist Signature LDH 170 110 - 220 [facility] unit/L [facility] LABORATORY Specimen Anatomical Collection Method Collection Time Receive d Time (Source) Location / / Volume Laterality Blood 11/30/2021 7:50 AM 2 7:55 EDT AM EDT Resulting Agency Comment Spec In Lab Jada Chairez GYPSUM ROOFER CHEMISTRY ORDERABLES Performing Organization Address City/[facility] [place] [address] Comprehensive metabolic panel (non-fasting) (11/30/2021 7:50 AM EDT) P athologist Signature Glucose Lvl 130 65 - 199 [facility] mg/dL [facility] LABORATORY Comment: Diabetes: >=200 mg/dL plus symp toms BUN 12 10 - 20 mg/dL [facility] LABORATORY Creatinine 0.94 0.80 - 1.50 mg/dL [facility] LABORATORY Sodium 138 135 - 145 mmol/L [facility] LABORATORY Potassium 4.6 3.5 - 5.0 mmol/L [facility] LABORATORY Comment: Please note: ??Patients with WBC >100,00 0 may have falsely elevated Potassium levels. ??For accurate Potassium quantif ication in these patients send serum separator tube (gold top) for subsequent determinations. ??Contact the Clinical Chemistry Laboratory if there are any qu estions. Chloride 99 98 - 107 mmol/L [facility] LABORATORY CO2 29 22 - 31 mmol/L [facility] LABORATORY Anion Gap 10 5 - 15 mmol/L [facility] LABORATORY Calcium 9.2 8.5 - 10.5 mg/dL [facility] LABORATORY Total Protein 7.4 6.1 - 8.0 g/dL [facility] LABORATORY Albumin 4.7 3.2 - 5.2 g/dL [facility] LABORATORY AST 18 0 - 39 unit/L [facility] LABORATORY ALT 19 0 - 55 unit/L [facility] LABORATORY Alk Phos 93 40 - 130 unit/L [facility] LABORATORY Total Bilirubin 0.7 0.2 - 1.3 mg/dL [facility] LABORATORY Estimated GFR 89 >=60 mL/min/1.73 m?? [facility] LABORATORY Comment: This patient's estimated GFR was calcula da using the 2020 CKD-EPI equation. The estimated GFR can vary from the melissa ured GFR by up to 30% in the absence of rapidly changing kidney function. Assess ment of the estimated GFR is not appropriate when creatinine concentratio ns are rapidly changing. For clinical situations in which a more precise estim ate of GFR is necessary, consider alternative methods of GFR estimation hernandez ch as a 24-hour urine creatinine clearance. Assignment of CKD stage 1-5 for patients with an eGFR near the transition point between stages may be based on clinical assessment of muscle mass and symptoms in addition to eGFR. Specimen Anatomical Collection Method Collection Time Receive d Time (Source) Location / / Volume Laterality Blood 11/30/2021 7:50 AM 2 7:55 EDT AM EDT Resulting Agency Comment Spec In Lab Jada Chairez GYPSUM ROOFER CHEMISTRY ORDERABLES Performing Organization Address City/State/[place] [address] SCAN DOC: PFT (11/15/2021 12:00 AM EDT) Narrative This result has an attachment that is no t available. Unknown MEDIA MGR SCAN EXT ORDR/RSLT from Last 3 Months Insurance Payer Benefit Plan / Subscriber ID Effective Phone Address T ype Group Dates MEDICARE MEDICARE PART [id number] 2012-Pres [phone] [place] [address] [employer] [place] [id number] 2018-Prese [phone] [address] [place] [address] [place] [address] Care Teams Dramatic Director Relationship Specialty Start Date End Date None PCP - General 10/25/21 None
--- OUTSIDE RECORDS SUMMARY | 2022-02-15 01:02 | XMS_ITS | Encounter Summary ---
:1955 Author Organization [facility] [place] [address] Care Team Providers Name Role Phone None Primary Care Provider Unavailable Encounter Details Date Type Department Care Team Description 02/07/2022 Travel Social History Tobacco Use Types Packs/Day Years [...] place to sleep or slept in a retirement (including now)? Sex Assigned at Date Recorded Not on file documented as of this encounter Plan of Treatment Upcoming Encounters Date Type Specialty Care Team Description 02/18/2022 Office Visit Hematology and Oncology Iain Rachel MD [facility] DR HEMATOLOGY/[place] [address] Whit Sung APRN [facility] [place] [address] 02/18/2022 Infusion Hematology and Oncology documented as of this encounter Visit Diagnoses Not on filedocumented in this encounter Care Teams National Recruiter Relationship Specialty Start Date End Date None PCP - General 10/25/21 None documented as of this encounter
--- OUTSIDE RECORDS SUMMARY | 2022-02-15 01:03 | XMS_ITS | Encounter Summary ---
:1955 Author Organization [facility] [place] [address] Care Team Providers Name Role Phone None Primary Care Provider Unavailable Encounter Details Date Type Department Care Team Description 01/28/2022 [facility] [address] [phone] Social History Tobacco Use Types Packs/Day Years [...] place to sleep or slept in a group home (including now)? Sex Assigned at Date Recorded Not on file documented as of this encounter Progress Notes Corina Lawson RN - 01/28/2022 9:33 AM EDT RESEARCH NURSE OFFICE NOTE 01/28/2022Friday [id number]: Randomized Phase 3 trial of MED [id number] (durvalumab) as concurrent and consolidative therapy or consolidative therapy alone for unresectable stage 3 NSCLC Randomized to ARM B : [place] and [employer] alone SUBJECTIVE Bipin Franny Rowley presented to med onc clinic as per protocol for day 29 weekly Carbo/taxol planned infusion tomorrow Pt was evaluated by Dr Rachel , please see his note. RN AE table were reviewed and updated accordingly. STUDY ASSESSMENTS COMPLETED Coughing : a little bit. He states is mild and mostly a dry cough. He states that the older blood that he mentioned last month has still resolved. He still coughs up some clear sputum. Some KEYES that has not gotten worse. He uses the Albuterol inhaler BID. He states his breathing status is the same. Denies constipation No nausea or vomiting. He states heart burn that started last week is mild and intermittent. He picked up Prilosec and carafate that Dr Rachel prescribed last week , but has not started taking it yet because he feels it is notsevere enough. No recent stuffy head aches He has not had to take any Tylenol since last week. He is no longer taking Ibuprofen. He states he has these sinus head aches if he keeps the windows open. Some left hip chronic intermittent pain .Chronic Lower back & knee pain, but denying any pain atthis time Hasn't needed Tylenol since last week. Patient reports his fatigue is more this today and since over the weekend . Missed catholic due to fatigue which bothers him him a great deal. He reports feeling easily aggitated. Denies depression. He continues on his new med for A fib(Diltazem) and is feeling better. He will run out in 4 days. German still not found a PCP or film color tester. Edema of both ankles. Right side slightly worse. He denies pain in ether legs. He said he didn't have this when he woke up. PREVIOUS CYCLE SUPPLIES & MEDICATION COLLECTED ??? n/a MEDICATION DISPENSED n/a SUPPLIES DISPENSED ??? na Non Solicited AE/SIDE EFFECT MONITORING # AE Grade (CTCAE v. ) Start date Stop Date Study Related Intervention/Outcome 1 constipation 1 0 0 12/31/21 01/21/22 01/28/22 01/06/22 1 GERD 2 1 01/18/22 01/28/22 Prescribed Prilosec and Carafate 01/21/22 ? Solicited AEs Grade (CTCAE v. ?? Start date?? Stop Date?Study Related Intervention/Outcome?? 1 vomiting 0 ? 2 cough 1 1 1 1 1 1 Baseline 12/31/21 01/07/22 01/14/22 01/21/22 01/28/22 ? Pt states is less?? 3 nausea 0 ? 4 fatigue 1 1 1 1 1 1 Baseline 12/31/21 01/07/22 01/14/22 01/21/22 01/28/22 ? 5 Abdominal pain 0 ? 6 diarrhea 0 ? 7 Edema of limbs 0 1 1 01/19/22 01/28/22? 8 fever 0 ? 9 ALT increased 0 ? 10 AST increased 0 ? 11 Creatinine increased 0 ? 12 anorexia 0 ? 13 myalgia 0 ? 14 dysuria 0 ? 15 pruitus 0 ? 16 pneumonitis 0 ? 17 dypnea 1 1 1 1 1 1 Baseline 12/31/21 01/07/22 01/14/22 01/21/22 01/28/22 ? On exertion 18 hypoxia 0 ? 19 anemia 0 ? 20 Febrile neutropenia 0 ? 21 Neutrophil count decreased 0 ? 22 Heart failure 0 ? 23 Myocardial infraction 0 ? 24 Pericardial effusion 0 ? 25 Ventricular arrhythmia 0 ? 26 myocarditis 0 ? 27 Chest pain-cardiac 0 ? 28 Atrial fibrilation 2 1 1 1 ??01/07/22 patient states h/o 01/08/22 01/21/22 01/28/22 ? See media section [facility] ER note?EDUCATION PROVIDED Advised to contact this office for any questions/concerns, as well as for any new or worsening symptoms. Eat soft bland diet. Contact [employer] regarding getting PCP coverage. PLAN 1. Subject agrees to continue on study [id number] per protocol. Continue daily radiation treatments. 2. Day #29 chemo tomorrow. Will need the optional research blood work ( Misc lab kit) prior to infusion. 3. Dr Rachel & weekly chemo next Friday02/04/22. Patient verbalizes understanding of, and agreement with, plan. documented in this encounter Plan of Treatment Upcoming Encounters Date Type Specialty Care Team Description 02/18/2022 Office Visit Hematology and Oncology Iain Rachel MD [facility] DR HEMATOLOGY/[place] [address] Whit Sung APRN [facility] HEMATOLOGY [place] [address] 02/18/2022 Infusion Hematology and Oncology documented as of this encounter Visit Diagnoses Not on filedocumented in this encounter Care Teams Paving Rammer Relationship Specialty Start Date End Date None PCP - General 10/25/21 None documented as of this encounter
--- OUTSIDE RECORDS SUMMARY | 2022-02-15 01:03 | XMS_ITS | Encounter Summary ---
:1955 Author Organization [facility] [place] [address] Care Team Providers Name Role Phone None Primary Care Provider Unavailable Encounter Details Date Type Department Care Team Description 12/12/2021 Orders Only Hematology and Yogi Rachel, Primary squamous cell Oncology at [facility] [place] carcinoma of [facility] lob e of left lung Drive [address] [place] HEMATOLOGY/ONCOLOGY [id number] DEPT [phone] [place], [place] [address] (Wo rk) Social History Tobacco [...] place to sleep or slept in a assisted (including now)? Sex Assigned at Date Recorded Not on file documented as of this encounter Plan of Treatment Upcoming Encounters Date Type Specialty Care Team Description 02/18/2022 Office Visit Hematology and Oncology Iain Rachel MD [facility] DR HEMATOLOGY/[place] [address] Whit Sung APRN [facility] [address] HEMATOLOGY [place] [address] 02/18/2022 Infusion Hematology and Oncology Scheduled Orders Name Type Priority Associated Diagnoses Order S chedule CBC (with Diff) Lab Routine Primary squamous cell Exp ected: 12/13/2021 carcinoma of lower lobe (Hannah roximate), of left lung Expires: 2022 Comprehensive metabolic Lab Routine Primary squamous cell Expected: 12/13/2021 panel (non-fasting) carcinoma of lower lo be (Approximate), of left lung Expires: 2022 documented as of this encounter Visit Diagnoses Diagnosis 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
--- OUTSIDE RECORDS SUMMARY | 2022-02-15 01:03 | XMS_ITS | Encounter Summary ---
:1955 Author Organization [place] [address] Care Team Providers Name Role Phone None Primary Care Provider Unavailable Encounter Details Date Type Department Care Team Description 12/31/2021 Notes Only [facility] CARE [address], [place] [phone] Social History Tobacco Use Types Packs/Day Years [...] place to sleep or slept in a fpc (including now)? Sex Assigned at Date Recorded Not on file documented as of this encounter Progress Notes Fariha Veloz MSW - 12/31/2021 2:14 PM EDT Follow up with pt during his first infusion. Met after his sim. Inquired is any changes in his situation or if he had any specific needs now. Pt indicated he is managing well. He has a good support system. He drove himself but has others who have offered to help if needed. He did not identify any new needs today. Offered support. Reminded pt of PROBATION AND PATROL AGENT availability and contact information. Will follow as indicated. Brief assessment Supportive Counseling documented in this encounter Plan of Treatment Upcoming Encounters Date Type Specialty Care Team Description 02/18/2022 Office Visit Hematology and Oncology Iain Rachel MD [facility] DR HEMATOLOGY/[place] [address] Whit Sung APRN [facility] [address] HEMATOLOGY [place] [address] 02/18/2022 Infusion Hematology and Oncology documented as of this encounter Visit Diagnoses Not on filedocumented in this encounter Care Teams Adjunct Latin Professor Relationship Specialty Start Date End Date None PCP - General 10/25/21 None documented as of this encounter
--- OUTSIDE RECORDS SUMMARY | 2022-02-15 01:03 | XMS_ITS | Encounter Summary ---
:1955 Author Organization [facility] [place] [address] Care Team Providers Name Role Phone None Primary Care Provider Unavailable Encounter Details Date Type Department Care Team Description 01/14/2022 Office Visit Hematology/Oncology Sarmad Rachel MD [facility] [address] HEMATOLOGY/[place] [address] Primary malignant neoplasm of left lower lobe of lung; at [facility] Whit Sung APRN [facility] [place] [address] Paroxysmal atrial fibrillation [address] [place] [phone] Social History Tobacco Use Types Packs/Day Years [...] place to sleep or slept in a detention (including now)? Sex Assigned at Date Recorded Not on file documented as of this encounter Last Filed Vital Signs Vital Sign Reading Time Taken Comments Blood Pressure 105/71 01/14/2022 9:38 AM EDT Pulse 70 01/14/2022 9:38 AM EDT Temperature 36.5 ??C (97.7 ??F) 01/14/2022 9:38 AM EDT Respiratory Rate 20 01/14/2022 9:38 AM EDT Oxygen Saturation 97% 01/14/2022 9:38 AM EDT Inhaled Oxygen Concentration - - Weight 124.9 kg (275 lb 6.4 oz) 01/14/2022 9:38 AM EDT Height 177.7 cm (5' 9.96) 01/14/2022 9:38 AM EDT Body Mass Index 39.56 01/14/2022 9:38 AM EDT documented in this encounter Progress Notes Yogi Rachel MD - 01/14/2022 9:30 AM EDT Images from the original note were not included. Thoracic Oncology [facility] [place] [address] [phone] Bipin Rowley is being seen for the evaluation of lung cancer. Assessment & Plan: Bipin Rowley is a 66 y.o. male patient with a past medical history significant for COPD, atrial fibrillation, hypertension, hyperlipidemia, depression with a 10-ezrp-bggc smoking history who quit [id number] who underwent a lung cancer screening CT scan on August 30, 2021 that demonstrated a left hilar mas s and as detailed below he was ultimately diagnosed with a [id number] Stage IIIA of the left lower lobewith a station 11 L lymph node involved. He as ultimately determined not to be a surgical candidate. He is enrolled on a clinical trial [id number] A Randomized Phase III trial of durvalumab as concurrent and consolidative therapy or consolidative therapy alone for Unresectable Stage 3 non-small cell lung cancer. He has been randomized to the standard of care arm (Carboplatin/Paclitaxel with concurrent RT) Plan: - Labs and toxicities assessed and acceptable for ongoing treatment with cytotoxic chemotherapy - Atrial fibrillation better rate controlled with the addition of the CCB. His soaker helper has relocated so he is in the process of getting a new PCP and soaker helper -Recommended again that he received the COVID vaccine and he indicated that he was be willing to do so. Plans to do it next week mid-week - Continue concurrent chemotherapyRT as per [id number] protocol Yogi Rachel MD, MS 01/14/2022 Medical Oncology & Hematology [facility] CC: HPI/Interval History/Subjective: Last seen 01/07/2022 Trying to connect with cardiology and new PCP Taking diltiazem. Feels much better than last week Its a miracle drug Breathing energy are better. Feels a little run down by the end of the week. Nothing disabling. A little constipated. Left sided chest discmfort when he went out in the cold. Nothing like a heart attack. Correlates with his tumor site. When he go tback inside it resolved.. Not there currently Did not get a COVID vaccine because he was worried about side but plans to do it next Friday [place] like he was coming down with something he past three days. No fevers. Started coughing. No hemoptysis [place] very light headed and weak. as baseline dyspnea on exertion. Inhalers do help. He can walk 50 yards on flat ground without stopping and can climb 5-6 stairs before needing to stopdue to his low back pain and shortness of breath. Constipated of late- better with prune juice Not covid vaccination to date Hasn't told anyone- father turned 90 and is independent. Daughter 2 grandchildren. 21 and 15. Social History/Support Network: Home situation: . Lives in [facility]. Lives alone. Has a daughter who lives nearby and WEmergycey contact is daughter Carmen Corrales Employment: Retired. Previously worked in the [employer] department Tobacco use: 63-exfl-usvi smoking history. Quit in 2013. Alcohol use: Quit drinking in 2019. 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 Previously [employer] Distress: No reported service: [employer] . No connection to [facility] for himself but father goes there and he hasbeen impressed. Likes hunting and being in the outdoors. Very active in youth baseball soccer and softball. 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 Family History: Mother- at age 43 from complications of smoking and alcoholism Father-alive at age 90 without history of cancer. Lives independently Brother alive and well in his 60s with prior history of CABG surgery No known history of lung cancer Oncology Overview: Cancer Staging Primary malignant neoplasm of left lower lobe of lung Staging form: Lung, AJCC 8th Edition - Clinical stage from 12/01/2021: Stage IIIA (cT3, cN1, cM0) - Signed by Yogi Rachel MD on 12/01/2021 Presentation: Bipin Rowley is a 66 y.o. male patient with a past medical history significant for COPD, atrial fibrillation, hypertension, hyperlipidemia, depression with a 98-vjep-eegb smoking history who quit in 2013 who underwent a lung cancer screening CT scan on August 30, 2021 that demonstrated aleft hilar mass. He was ill at that time and therefore was treated with levofloxacin. A repeat CT scan was obtained on October 16 which showed a persistent left hilar mass with further evaluation as detailed below. Staging/PreTx Eval: October 16 CT chest 11/01/21 Bronchoscopy EBUS-TBNA The Olympus EBUS ([id number]) scope was inserted, lymph node inspection undertaken and transbronchialneedle aspiration obtained from the following stations using the Olympus ViziShot-1 22 gauge TBNA needle: 1) Station 11Rs(superior) with 1 pass (this lymph node was small/unable to re-identify after the first pass) obtained with ROBBIE absent. 2) Station 4R with 3 passes obtained with ROBBIE absent. 3) Station 7 with 3 passes obtained with ROBBIE absent. 4) Station 11L (enlarged/adjacent to LLL mass but not contiguous) with 3 passes obtained with ROBBIE absent. 5) Left lower lobe mass with 6 passes obtainedwith ROBBIE absent. Abundant material was collected in 10% neutral buffered formalin and sent for cytology review. Note, all mediastinal, hilar, lobar and segmental stations are evaluated during the procedure and those not listed were not biopsied due to small lymph node diameter, positive ROBBIE on higher adina staging, alternative diagnosis or inability to continue with the procedure. Specifically, station 4L was not identified 11/09/21 PET scan 1. Approximately 6 cm FDG avid left lower lobe mass contiguous with the posterior left hilum and major fissure, consistent with biopsy-proven lung malignancy. 2. No mediastinal or distant sites of metastasis. 3. Incidental finding of a 3 cm right adrenal myelolipoma. 11/13/2021 MRI brain No metastatic disease 11.15.21 pulmonary function test done at [facility] FEV1 1.31 L which is 37% of predicted post bronchodilators it was 1.42 which is 40% DLCO corrected was 55% Pathology: 11.01.21 Bronchoscopy EBUS-TBNA 11L positive for adenocarcinoma Level 4R negative for malignancy, lymphocytes identified Level 7 negative for malignancy, lymphocytes identified 11R - non diagnostic Left lower lobe of the lung Tissue: Lung, left lower lobe (EBUS-guided FNA) Tumor Proportion Score (TPS): % Expression: 1% DISCUSSION Lung, left lower lobe (EBUS-guided FNA): Non-small cell carcinoma, compatible with adenocarcinoma (see note). Note: The lesional cells are immunoreactive for TTF1(DAKO); they are negative for p40 and synaptophysin. Special stain for mucicarmine highlights intracytoplasm Molecular Data: No actionable EGFR or ALK variants identified. Treatment Course: 12.31.21 Began treatment on a clinical trial [id number] A Randomized Phase III trial of durvalumab as concurrent and consolidative therapy or consolidative therapy alone for Unresectable Stage 3 non-small cell lung cancer. He has been randomized to the standard of care arm (Carboplatin/Paclitaxel with concurrent RT) ONCBCN ONCOLOGY (AMB) 12/31/2021 01/08/2022 CARBOplatin (Paraplatin) IV 282 mg 282 mg PACLitaxeL (Taxol) IV 112 mg 112 mg Patient Active Problem List Diagnosis Date Noted ??? Primary malignant neoplasm of left lower lobe of lung 11/30/2021 ??? COPD (chronic obstructive pulmonary disease) 10/23/2021 ??? Pulmonary hypertension 10/23/2021 ??? Sleep apnea 10/23/2021 ??? Atrial fibrillation 10/23/2021 ??? Depression 10/23/2021 ??? Hypertension 10/23/2021 ??? Hyperlipidemia 10/23/2021 Allergies Allergen Reactions ??? Codeine Phosphate Nausea And Vomiting ??? Penicillins Hives Medications 01/14/22 0951 Medication Sig Taking? dilTIAZem (TIAZAC) 120 mg Capsule,Sustained Action 24 hr Take 120 mg by mouth daily. Yes prochlorperazine (Compazine) 10 mg Tablet Take 1 tablet by mouth every 6 hours as needed for Nausea.Yes albuteroL 90 mcg/actuation HFA Aerosol Inhaler INHALE TWO PUFFS BY MOUTH EVERY 4 TO 6 HOURS NEEDED FOR SHORTNESS OF BREATH OR WHEEZING Yes Eliquis 5 mg Tablet Take 5 mg by mouth 2 times daily. Yes budesonide-formoteroL (Symbicort) 160-4.5 mcg/actuation HFA Aerosol Inhaler Inhale 2 puffs into the lungs 2 times daily. Yes Spiriva Respimat 2.5 mcg/actuation Mist INHALE 2 PUFFS BY MOUTH EVERY MORNING Yes metoprolol succinate XL (Toprol-XL) 100 mg Tablet Sustained Release 24 hr Take 100 mg by mouth 2 times daily. Yes ibuprofen (Advil) 200 mg Tablet Take 800 mg by mouth every 6 hours as needed for Pain (joint, back pain head ache). I reviewed the problem list, allergies, medications, past medical history, social history and familyhistory within the EPIC encounter. Pertinent details are noted above. Pertinent positives and negative from the Review of Systems are as summarized above in the HPI. Physical Exam: Wt Readings from Last 3 Encounters: 01/14/22 124.9 kg (275 lb 6.4 oz) 01/10/22 122.2 kg (269 lb 6.4 oz) 01/08/22 123.4 kg (272 lb) Temp Readings from Last 3 Encounters: 01/14/22 36.5 ??C (97.7 ??F) (Temporal) 01/10/22 36.7 ??C (98 ??F) 01/08/22 36.5 ??C (97.7 ??F) (Temporal) BP Readings from Last 3 Encounters: 01/14/22 105/71 01/10/22 112/51 01/08/22 117/62 Pulse Readings from Last 3 Encounters: 01/14/22 70 01/10/22 84 01/08/22 (!) 160 Body surface area is 2.48 meters squared. Wt Readings from Last 3 Encounters: 01/14/22 124.9 kg (275 lb 6.4 oz) 01/10/22 122.2 kg (269 lb 6.4 oz) 01/08/22 123.4 kg (272 lb) KPS Score ECOG Grade Definition 90-100 0 Fully active, able to carry on all pre-disease performance without restriction X 70-80 1 Restricted in physically strenuous activity but ambulatory and able to carry out work of alight or sedentary nature, e.g., light house work, office work 50-60 2 Ambulatory and capable of all selfcare but unable to carry out any work activities; up and about more than 50% of waking hours 30-40 3 Capable of only limited selfcare; confined to bed or chair more than 50% of waking hours 10-20 4 Completely disabled; cannot carry on any selfcare; totally confined to bed or chair ECOG 1 Physical Exam BP 105/71 (Patient Position: Sitting) Pulse 70 Temp 36.5 ??C (97.7 ??F) (Temporal) Resp 20 Ht 177.7 cm (5' 9.96) Wt 124.9 kg (275 lb 6.4 oz) SpO2 97% BMI 39.56 kg/m?? Physical Exam Constitutional: General: Not in acute distress. Appearance: Normal appearance. Normal weight. Not ill-appearing, toxic- appearing or diaphoretic. HENT: Head: Atraumatic. Eyes: General: No scleral icterus. Right eye: No discharge. Left eye: No discharge. Conjunctiva/sclera: Conjunctivae normal. Pulmonary: Effort: Pulmonary effort is normal. Neurological: General: No focal deficit present. Mental Status: Alert and oriented to person, place, and time. Mental status is at baseline. Psychiatric: Mood and Affect: Mood normal. Behavior: Behavior normal. Thought Content: Thought content normal. Judgment: Judgment normal. Review of Laboratory Data: 01/14/22 With blood cell count 4.54 hemoglobin 14.6 platelet count 192,000 absolute neutrophil count 3.45 Sodium 136 potassium 4.5 chloride 101 BUN 13 creatinine 0.9 from 1.1 glucose 132 calcium 8.8 total bilirubin 0.8 AST 20 ALT 35 alk phos 79 albumin 3.4 01/07/22 White blood cell count 8.23 hemoglobin 16.4 platelet count 223,000 absolute neutrophil count 6.90 Calcium 9.2 glucose 139 BUN 12 creatinine 1.1 total protein 7.0 albumin 3.4 total bilirubin 0.7 alk phos 91 sodium 138 potassium 4.7 CO2 32.2 AST 16 ALT 32 12/31/21 Calcium 9.2 glucose 123 BUN 15 creatinine 1.1 total protein 7.5 albumin 3.7 total bilirubin 0.7 alk phos 87 sodium 138 potassium 4.8 chloride 100 AST 16 ALT 30 CBC generally within normal limits Review of Imaging Data: No new data Review of Pathology Data: No new data Jc Matias RN - 01/14/2022 9:30 AM EDT RESEARCH NURSE OFFICE NOTE 01/14/2022 ? [id number]: Randomized Phase 3 trial of MED 65423 (durvalumab) as concurrent and consolidative therapy or consolidative therapy alone for unresectable stage 3 NSCLC ?? Randomized to ARM B : [place] and BUILDING SERVICES ENGINEER alone ? SUBJECTIVE Bipin Franny Amrik presented to med onc clinic as per protocol, I spoke with Bipin via the telephone during his visit. Pt was evaluated by Dr Rachel , please see his note/s. See RN AE table were reviewed and will be updated accordingly. STUDY ASSESSMENTS COMPLETED He notes having an episode of left sided achy chest pain on Friday that only allowed him to take 1/2a breath, he denied being short of breath and feels his KEYES at baseline. He contributed the pain to the cold air, the pain resolved when back inside and watching the game. He denies fevers, chills, nausea, vomiting or diarrhea. He has continued constipation and is taking prune juice, LBM Friday. He has been monitoring his BP at home and feels it is running a bit low for him, he denies dizziness. Stable energy level. ? PREVIOUS CYCLE SUPPLIES & MEDICATION COLLECTED ?? n/a ?? MEDICATION DISPENSED n/a SUPPLIES DISPENSED ?? na ?? Non Solicited AE/SIDE EFFECT MONITORING # AE Grade (CTCAE v. ) Start date Stop Date Study Related Intervention/Outcome 1 constipation 1 01/14/2022? Taking prune juice? Solicited AEs ? Grade (CTCAE v. ?? Start date?? Stop Date?Study Related Intervention/Outcome?? 1 vomiting 0 ? 2 cough 1 baseline ? Pt states is less?? 3 nausea 0 ? 4 fatigue 1 baseline ? 5 Abdominal pain 0 ? 6 diarrhea 0 ? 7 Edema of limbs 0 ? 8 fever 0 ? 9 ALT increased 0 ? 10 AST increased 0 ? 11 Creatinine increased 0 ? 12 anorexia 0 ? 13 myalgia 0 ? 14 dysuria 0 ? 15 pruitus 0 ? 16 pneumonitis 0 ? 17 dypnea 1 ? On exertion 18 hypoxia 0 ? 19 anemia 0 ? 20 Febrile neutropenia 0 ? 21 Neutrophil count decreased 0 ? 22 Heart failure 0 ? 23 Myocardial infraction 0 ? 24 Pericardial effusion 0 ? 25 Ventricular arrhythmia 0 ? 26 myocarditis 0 ? 27 Chest pain-cardiac 0 ? 28 Atrial fibrilation 2 ??patient states h/o ? See media section [facility] ER note?EDUCATION PROVIDED Advised to contact this office for any questions/concerns, as well as for any new or worsening symptoms. Dr Rachel advised that he get COVID vaccine, pt agreed to do so . Pt instructed to report to ER with any new symptoms of lightheaded or ness chest pain. ? PLAN 1. Subject agrees to continue on study [id number] per protocol. Continue daily radiation treatments. 2. Dr Rachel, weekly chemo as scheduled ? Patient verbalizes understanding of, and agreement with, plan. documented in this encounter Plan of Treatment Upcoming Encounters Date Type Specialty Care Team Description 02/18/2022 Office Visit Hematology and Oncology Iain Rachel MD [facility] DR HEMATOLOGY/[place] [address] Whit Sung APRN [facility] [place] [address] 02/18/2022 Infusion Hematology and Oncology documented as of this encounter Visit Diagnoses Diagnosis Primary malignant neoplasm of left lower lobe of lung Malignant neoplasm of lower lobe, bronch us, or lung Paroxysmal atrial fibrillation Atrial fibrillation documented in this encounter Care Teams Photographic Editor Relationship Specialty Start Date End Date None PCP - General 10/25/21 None documented as of this encounter
--- OUTSIDE RECORDS SUMMARY | 2022-02-15 01:03 | XMS_ITS | Encounter Summary ---
:1955 Author Organization [facility] [address] Care Team Providers Name Role Phone None Primary Care Provider Unavailable Encounter Details Date Type Department Care Team Description 01/31/2022 Office Visit Radiation Oncology at [facility] rim[facility] malignant [facility] neoplasm of left [address] lower lobe of lung [place], [place] RADIATION ONCOL OGY [id number] [place], [place] [phone] (Wo rk) Social History Tobacco Use Types [...] place to sleep or slept in a mcc (including now)? Sex Assigned at Date Recorded Not on file documented as of this encounter Last Filed Vital Signs Vital Sign Reading Time Taken Comments Blood Pressure 110/67 01/31/2022 9:00 AM EDT Pulse 78 01/31/2022 9:00 AM EDT Temperature 36.5 ??C (97.7 ??F) 01/31/2022 9:00 AM EDT Respiratory Rate 20 01/31/2022 9:00 AM EDT Oxygen Saturation 97% 01/31/2022 9:00 AM EDT Inhaled Oxygen Concentration - - Weight 122.5 kg (270 lb) 01/31/2022 9:00 AM EDT Height - - Body Mass Index 38.78 01/29/2022 8:22 AM EDT documented in this encounter Progress Notes Skyla Velazquez MD - 01/31/2022 10:45 AM EDT Images from the original note were not included. [facility] Medicine Radiation Oncology Radiation Oncology On-treatment Visit Note Patient ID Patient name: Bipin Rowley Date of : 1955 Referring: Tawana Rivera APRN PCP: None Chief complaint: Cancer Staging Primary malignant neoplasm of left lower lobe of lung Staging form: Lung, AJCC 8th Edition - Clinical stage from 12/01/2021: Stage IIIA (cT3, cN1, cM0) - Signed by Yogi Rachel MD on 12/01/2021 Bipin Rowley is a 66 y.o. year old male with Stage III NSCLC of the LLL. On study- [id number] (control arm). Treatment Details Intent: Definitive (Curative) Concurrent Therapy: Carboplatin/Paclitaxel (from Dr Rachel) Modality: VMAT Treatment Site Left Lung Prescribed Dose 60Gy in 30 fractions Current Dose: 48 Gy in 24 fractions Flamer After Lasting Campbell from Current Plan (minimum 30 Gy isodose volume shown): Interval Clinical Course General: Overall feels well. Continued fatigue. GI: Some GERD with spicy food yesteraday. Has carafate and omperazole, hasn't started using either yet. Lungs: Increased cough w/ white sputum production periodically. No hemoptysis. Baseline SOB. Pain: Pain score today is 0/10 in his chest. Chronic back and hip pain. Nutrition: Weight at start of therapy was 274lbs. Eating normal diet. Performance Status KPS Score ECOG Grade Definition 90-100 0 Fully active, able to carry on all pre-disease performance without restriction 70-80 1 Restricted in physically strenuous activity but ambulatory and able to carry out work of a light or sedentary nature, e.g., light house work, office work XX 50-60 2 Ambulatory and capable of all selfcare but unable to carry out any work activities; up and about more than 50% of waking hours 30-40 3 Capable of only limited selfcare; confined to bed or chair more than 50% of waking hours 10-20 4 Completely disabled; cannot carry on any selfcare; totally confined to bed or chair Medications Medications 01/31/22 0950 Medication Sig Taking? dilTIAZem (TIAZAC) 120 mg Capsule,Sustained Action 24 hr Take 1 capsule by mouth daily. Yes omeprazole (PriLOSEC) 20 mg Capsule, Delayed Release(E.C.) Take 1 capsule by mouth daily. Yes acetaminophen (Tylenol) 500 mg Tablet Take 1,000 mg by mouth every 6 hours as needed for Pain. Occasional Stuffy head ache Yes ibuprofen (Advil) 200 mg Tablet Take 800 mg by mouth every 6 hours as needed for Pain (joint, back pain head ache). Yes albuteroL 90 mcg/actuation HFA Aerosol Inhaler INHALE [...] mg by mouth 2 times daily. Yes sucralfate (Carafate) 100 mg/mL Suspension Take 10 mLs by mouth 4 times daily as needed. Patient not taking: No sig reported prochlorperazine (Compazine) 10 mg Tablet Take 1 tablet by mouth every 6 hours as needed for Nausea. Patient not taking: No sig reported Exam Vitals: BP 110/67 (Patient Position: Sitting) Pulse 78 Temp 36.5 ??C (97.7 ??F) Resp 20 Wt 122.5 kg(270 lb) SpO2 97% BMI 38.78 kg/m?? General: Appears well, in no distress CV Regular rate and rhythm Resp Expiratory wheezes in left lower lobe. Imaging/Labs Interval setup imaging has been checked and approved. See [facility] for details. Impression/Plan Tolerance to radiotherapy: Tolerating as anticipated. Continue as planned. Has prescription for carafate and omeprazole from Dr. Rachel- we recommended start using omeprazole given heartburn. Followup: RTC for on-treatment assessment next week. Sohail Velazquez MD PGY3 No orders of the defined types were placed in this encounter. ??? National Cancer Coker (NCI) Comprehensive Cancer [facility] ??? [employer] Commission on Cancer (ACS Lyn) Accredited Cancer Program ??? [employer] (ACR) Accredited Radiation Oncology Program I have seen the patient in person, reviewed and edited the resident's above history and I agree withthe details as written. The assessment and plan were formulated in discussion with me and I agree with them as documented. Pertinent History: Patient stable. Pertinent Exam: Appears well, in no distress. Major issues addressed: Assess for toxic effects of radiation therapy and whether to continue. Assessment / Plan: he is tolerating treating as expected. No significant toxicity noted other than those described above. Continue RT without changes. [facility] MD, [facility] Hospice Registered Nurse Radiation Oncology documented in this encounter Plan of Treatment Upcoming Encounters Date Type Specialty Care Team Description 02/18/2022 Office Visit Hematology and Oncology Iain Rachel MD [facility] DR HEMATOLOGY/[place] [address] Whit Sung APRN [facility] [place] [address] 02/18/2022 Infusion Hematology and Oncology documented as of this encounter Visit Diagnoses Diagnosis Primary malignant neoplasm of left lower lobe of lung Malignant neoplasm of lower lobe, bronch us, or lung documented in this encounter Care Teams Real Estate Marketing Coordinator Relationship Specialty Start Date End Date None PCP - General 10/25/21 None documented as of this encounter
--- OUTSIDE RECORDS SUMMARY | 2022-02-15 01:03 | XMS_ITS | Encounter Summary ---
:1955 Author Organization [facility] [place] [address] Care Team Providers Name Role Phone None Primary Care Provider Unavailable Encounter Details Date Type Department Care Team Description 01/21/2022 [facility] [address] [phone] Social History Tobacco Use [...] place to sleep or slept in a half-way (including now)? Sex Assigned at Date Recorded Not on file documented as of this encounter Progress Notes Corina Lawson RN - 01/21/2022 1:08 PM EDT RESEARCH NURSE OFFICE NOTE 01/21/2022Friday [id number]: Randomized Phase 3 trial of MED [id number] (durvalumab) as concurrent and consolidative therapy or consolidative therapy alone for unresectable stage 3 NSCLC Randomized to ARM B : [place] and COAL OR ORE CONTROLLER alone SUBJECTIVE Bipin Franny Rowley presented to med onc clinic as per protocol for day #22 weekly Carbo/taxol Pt was evaluated by Dr Rachel , please see Note. RN AE table were reviewed and updated accordingly. STUDY ASSESSMENTS COMPLETED Coughing : a little bit mostly following inhaler use. He states is mild. He states that the older blood that he mentioned last month has still resolved. He still coughs up some clear sputum. Some KEYES that has not gotten worse. C/o constipation relieved by prune juice and and tried Miralax. However it caused some fecal incontinence on day #2 after taking 1 cap daily , 2 days in a row and he is afraid to continue using it. No nausea or vomiting. He has not taken any compazine since last week. He has denied recent bloatedfeelings. He has developed tremendous indigestion or heart burn. This started Friday evening 3 days ago. No recent stuffy head aches He has not had to take any Tylenol since last week. He is no longer taking Ibuprofen. He states he has these sinus head aches if he keeps the windows open. Some left hip chronic intermittent pain . Lower back chronic Knees are grading 2/10 today. Hasn't needed Tylenol since last week. Patient reports his fatigue is more this today and since over the weekend . He reports good mood andattitude. Denies depression. He continues on his new med for A fib and is feeling better. He c/o occasional lightheadedness from time to time. orthostatic vitals were checked today with no changes. See flow sheet. He states he is drinking plenty of fluids. He still has not hard word on a new PCP yet and plans to go [facility] to [facility] soon if he doesn't hear of something soon. He is hopeful that when he sees his [employer] Dr Portillo later this week he can mention it and that might get things moving. He developed edema of both ankles. Right side slightly worse. He denies pain in ether legs. He said this started Friday. 2 days ago. PREVIOUS CYCLE SUPPLIES & MEDICATION COLLECTED ??? n/a MEDICATION DISPENSED n/a SUPPLIES DISPENSED ??? na Non Solicited AE/SIDE EFFECT MONITORING # AE Grade (CTCAE v. ) Start date Stop Date Study Related Intervention/Outcome 1 constipation 1 0 12/31/21 01/21/22 01/06/22 1 GERD 2 01/18/22 Start Prilosec and Carafate 01/21/22 ? Solicited AEs Grade (CTCAE v. ?? Start date?? Stop Date?Study Related Intervention/Outcome?? 1 vomiting 0 ? 2 cough 1 1 1 1 1 Baseline 12/31/21 01/07/22 01/14/22 01/21/22 ? Pt states is less?? 3 nausea 0 ? 4 fatigue 1 1 1 1 1 Baseline 12/31/21 01/07/22 01/14/22 01/21/22 ? 5 Abdominal pain 0 ? 6 diarrhea 0 ? 7 Edema of limbs 0 1 01/19/22? 8 fever 0 ? 9 ALT increased 0 ? 10 AST increased 0 ? 11 Creatinine increased 0 ? 12 anorexia 0 ? 13 myalgia 0 ? 14 dysuria 0 ? 15 pruitus 0 ? 16 pneumonitis 0 ? 17 dypnea 1 1 1 1 1 Baseline 12/31/21 01/07/22 01/14/22 01/21/22 ? On exertion 18 hypoxia 0 ? 19 anemia 0 ? 20 Febrile neutropenia 0 ? 21 Neutrophil count decreased 0 ? 22 Heart failure 0 ? 23 Myocardial infraction 0 ? 24 Pericardial effusion 0 ? 25 Ventricular arrhythmia 0 ? 26 myocarditis 0 ? 27 Chest pain-cardiac 0 ? 28 Atrial fibrilation 2 1 1 ??01/07/22 patient states h/o 01/08/22 01/21/22 ? See media section [facility] ER note?EDUCATION PROVIDED Advised to contact this office for any questions/concerns, as well as for any new or worsening symptoms. Eat soft bland diet. Contact [employer] Work Instructor regarding getting PCP coverage. PLAN 1. Subject agrees to continue on study [id number] per protocol. Continue daily radiation treatments. 2. Dr Rachel & weekly chemo next Friday01/28/22. Will need the optional research blood work priorto infusion. Patient verbalizes understanding of, and agreement with, plan. documented in this encounter Plan of Treatment Upcoming Encounters Date Type Specialty Care Team Description 02/18/2022 Office Visit Hematology and Oncology Iain Rachel MD [facility] HEMATOLOGY/[place] [address] Whit Sung APRN [facility] HEMATOLOGY [place] [address] 02/18/2022 Infusion Hematology and Oncology documented as of this encounter Visit Diagnoses Not on filedocumented in this encounter Care Teams Building Operator Relationship Specialty Start Date End Date None PCP - General 10/25/21 None documented as of this encounter
--- OUTSIDE RECORDS SUMMARY | 2022-02-15 01:03 | XMS_ITS | Encounter Summary ---
:1955 Author Organization [facility] [address] Care Team Providers Name Role Phone None Primary Care Provider Unavailable Encounter Details Date Type Department Care Team Description 12/31/2021 [facility] [address] [phone] Social History Tobacco Use [...] encounter Progress Notes Corina Lawson RN - 12/31/2021 1:18 PM EDT RESEARCH NURSE OFFICE NOTE DAY #1 12/31/2021 [id number]: Randomized Phase 3 trial of MED [id number] (durvalumab) as concurrent and consolidative therapy or consolidative therapy alone for unresectable stage 3 NSCLC Randomized to ARM B : [place] and EMPLOYEE 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 Pt was evaluated by Dr Rachel, please see his note. See RN AE table were reviewed and will be updated accordingly. STUDY ASSESSMENTS COMPLETED Coughing : a little bit mostly following inhaler use.tickle in back of throat. He states is mild. Brings up older blood that is he sees this daily most every AM. Not at any particuar time of day. Usually after heavy coughing spell. Ever since bronchoscopy. He attributes to Eliquis. He denies seeing bright red newer blood. C/o Shortness of breath with exertion. not able to walk up stairs easily. albuter inhaler helps BID. C/o constipation with last BM yesterday. Some left hip chronic intermittent pain . Lower back chronic Intermittent pain. He denies any pain at the moment of clinic visit. PREVIOUS CYCLE SUPPLIES & MEDICATION COLLECTED ?[place] [facility] [place] to [place] administered. Shipped per protocol via [employer] with assistance of Wagner PA. MEDICATION DISPENSED n/a SUPPLIES DISPENSED ??? na Non Solicited AE/SIDE EFFECT MONITORING # AE Grade (CTCAE v. ) Start date Stop Date Study Related Intervention/Outcome 1 constipatoin 1 12/31/21 ? Solicited AEs ? 1 vomiting 0 ? 2 cough 1 bsaeline ? 3 nausea 0 ? 4 fatigue 1 [...] 16 pneumonitis 0 ? 17 dypnea 1 baseline? On exertion 18 hypoxia 0 ? 19 anemia 0 ? 20 Febrile neutropenia 0 ? 21 Neutrophil count decreased 0 ? 22 Heart failure 0 ? 23 Myocardial infraction 0 ? 24 Pericardial effusion 0 ? 25 Ventricular arrhythmia 0 ? 26 myocarditis 0 ? 27 Chest pain-cardiac 0 ? 28 Atrial fibrilation 0 ?EDUCATION PROVIDED Call clinic with any questions or concerns. Take 1 tablespoon miralax as needed for constipation. PLAN 1. Subject agrees to continue on study [id number] per protocol. Daily radiation treatment 2. Next visit next week to include: weekly labs. Patient verbalizes understanding of, and agreement with, plan. Advised to contact this office for any questions/concerns, as well as for any new or worsening symptoms. documented in this encounter Plan of Treatment Upcoming Encounters Date Type Specialty Care Team Description 02/18/2022 Office Visit Hematology and Oncology Iain Rachel MD [facility] DR HEMATOLOGY/[place] [address] Whit Sung APRN [facility] [place] [address] 02/18/2022 Infusion Hematology and Oncology documented as of this encounter Visit Diagnoses Diagnosis Primary malignant neoplasm of left lower lobe of lung Malignant neoplasm of lower lobe, bronch us, or lung documented in this encounter Care Teams Fast Food Shift Supervisor Relationship Specialty Start Date End Date None PCP - General 10/25/21 None documented as of this encounter
--- OUTSIDE RECORDS SUMMARY | 2022-02-15 01:03 | XMS_ITS | Encounter Summary ---
:1955 Author Organization [facility] [place] [address] Care Team Providers Name Role Phone None Primary Care Provider Unavailable Encounter Details Date Type Department Care Team Description 12/31/2021 Office Visit Hematology/Oncology Sarmad Rachel MD [facility] DR HEMATOLOGY/[place] [address] Primary malignant at [facility] Whit Sung APRN [facility] HEMATOLOGY [place] [address] neoplasm of left [address] [place] [address] Drive [place] [address] Social History Tobacco Use Types Packs/Day [...] Not asked one occasion? Comment: recovering alcoholic 2019 12/12/2021 Financial Resource Strain Answer Date Recorded How [...] place to sleep or slept in a custodial (including now)? Sex Assigned at Date Recorded Not on file documented as of this encounter Last Filed Vital Signs Vital Sign Reading Time Taken Comments Blood Pressure 128/77 12/31/2021 12:00 PM EDT Pulse 103 12/31/2021 12:00 PM EDT Temperature 36.1 ??C (96.9 ??F) 12/31/2021 12:00 PM EDT Respiratory Rate 20 12/31/2021 12:00 PM EDT Oxygen Saturation 94% 12/31/2021 12:00 PM EDT Inhaled Oxygen Concentration - - Weight 125.8 kg (277 lb 6.4 oz) 12/31/2021 12:00 PM EDT Height 177.7 cm (5' 9.96) 12/31/2021 12:00 PM EDT Body Mass Index 39.85 12/31/2021 12:00 PM EDT documented in this encounter Patient Instructions Patient InstructionsYogi Rachel MD - 12/31/2021 12:00 PM EDT The plan is for you to receive TWO chemotherapy drugs (Carboplatin & Paclitaxel) WEEKLY with concurrent DAILY RADIATION for 6-7 weeks (schedules may vary a touch) to treat your lung cancer. This isbeing done as part of the clinical trial that you kindly agreed to participate in. Antitumor Therapy Schedule: Pre-medications are given to prevent nausea and reduce the chance of reactions to the treatments Carboplatin infuses over 30 minutes Paclitaxel infuses over 60 minutes Plan for approximately 2-3 hrs in infusion on the days that your receive chemotherapy. The days thatyour receive just radiation will be shorter. Laboratory Tests: Prior to each treatment we will check blood counts, kidney and liver function and electrolytes. Sometimes if these are too low we will need to delay your treatment or reduce your dose Provider Visits: Weekly during treatment Possible Side Effects include, but are not limited to: Carboplatin and Paclitaxel: The most common side effects include decrease in blood counts (decrease in white blood cells, red blood cells and platelets resulting in increased risk of infection, anemia and bleeding), nausea and vomiting, taste changes, decreased appetite, constipation (or less likely di arrhea), fatigue. Less common side effects include infusion reaction, rash, mouth sores, kidney dysfunction, electrolyte abnormalities. Medications: the following prescriptions should be picked up before starting treatment Prochlorperazine (aka Compazine) 10 mg oral every 6 hours as needed for nausea Optional: Ondansetron (aka Zofran) 4-8 mg oral every 8 hours as needed for nausea (do not take for 3days after chemotherapy because we give you a long acting form of this on the day of infusion that lasts 72 hours) General recommendations: Call if temperature of 100.4 or greater or signs of symptoms of an infection. It is very important to practice good hand hygiene and wash your hands frequently. Please call if your experience bleeding, new/increasing SOB, or chest pain chest pain. Call if nausea/vomiting persists despite trying your antinausea medcations. Try to stay hydrated. Water is the best option Smaller/ more frequent meals and blander foods may be better tolerated. Call if you develop mouth sores so we can discuss mouth rinses, dietary recommendations and strategies for pain management. Please tell us if you experience numbness/tingling/changes in sensation in hands or feet You should use a barrier method of protection if sexually active on days of chemotherapy and for 48 hours afterwards Try to stay active if at all possible. This helps reduce or limit fatigue. It is ok to take naps andrest if you need to. At the end of the 6-7 week period we will repeat a CT scan. Then, assuming the results look fine, we would consider starting a monthly drug called Durvalumab. This is a immunotherapy drug (as opposed to a chemotherapy drug) that helps the bodies immune system attack rogue left over cancer cells that are still left behind. This has been shown in studies to increase the chances that the chemotherapy and radiation therapy will cure you of this cancer. We will talk more about this drug later on in your treatment. It generally has fewer side effects and easier to tolerate than the chemotherapy and radiation. It is given monthly for 12 months. It takes about 1 hour to be infused. documented in this encounter Progress Notes Yogi Rachel MD - 12/31/2021 12:00 PM EDT Images from the original note were not included. [place] [address] [phone] Bipin Rowley is being seen for the evaluation of lung cancer. Assessment & Plan: Bipin Rowley is a 66 y.o. male patient with a past medical history significant for COPD, atrial fibrillation, hypertension, hyperlipidemia, depression with a 30-xgbt-ifpr smoking history who quit [id number] who underwent a lung cancer screening CT scan on August 30, 2021 that demonstrated a left hilar mas s and as detailed below he was ultimately diagnosed with a [id number] Stage IIIA of the left lower lobewith a station 11 L lymph node involved. He as ultimately determined not to be a surgical candidate. He is enrolled on a clinical trial CU9025 A Randomized Phase III trial of durvalumab as concurrent and consolidative therapy or consolidative therapy alone for Unresectable Stage 3 non-small cell lung cancer. He has been randomized to the standard of care arm (Carboplatin/Paclitaxel with concurrent RT) Plan: - Labs and toxicities assessed and acceptable for ongoing treatment. - Start concurrent chemotherapyRT as per [id number] protocol - Discussed precautions and management of side effects as detailed in the patient instructions below. Yogi Rachel MD, MS 12/31/2021 Medical Oncology & Hematology [facility]: Patient Instructions The plan is for you to receive TWO chemotherapy drugs (Carboplatin & Paclitaxel) WEEKLY with concurrent DAILY RADIATION for 6-7 weeks (schedules may vary a touch) to treat your lung cancer. This isbeing done as part of the clinical trial that you kindly agreed to participate in. Antitumor Therapy Schedule: Pre-medications are given to prevent nausea and reduce the chance of reactions to the treatments Carboplatin infuses over 30 minutes Paclitaxel infuses over 60 minutes Plan for approximately 2-3 hrs in infusion on the days that your receive chemotherapy. The days thatyour receive just radiation will be shorter. Laboratory Tests: Prior to each treatment we will check blood counts, kidney and liver function and electrolytes. Sometimes if these are too low we will need to delay your treatment or reduce your dose Provider Visits: Weekly during treatment Possible Side Effects include, but are not limited to: Carboplatin and Paclitaxel: The most common side effects include decrease in blood counts (decrease in white blood cells, red blood cells and platelets resulting in increased risk of infection, anemia and bleeding), nausea and vomiting, taste changes, decreased appetite, constipation (or less likely di arrhea), fatigue. Less common side effects include infusion reaction, rash, mouth sores, kidney dysfunction, electrolyte abnormalities. Medications: the following prescriptions should be picked up before starting treatment ??? Prochlorperazine (aka Compazine) 10 mg oral every 6 hours as needed for nausea ??? Optional: Ondansetron (aka Zofran) 4-8 mg oral every 8 hours as needed for nausea (do not take for 3 days after chemotherapy because we give you a long acting form of this on the day of infusion that lasts 72 hours) General recommendations: ??? Call if temperature of 100.4 or greater or signs of symptoms of an infection. ??? It is very important to practice good hand hygiene and wash your hands frequently. ??? Please call if your experience bleeding, new/increasing SOB, or chest pain chest pain. ??? Call if nausea/vomiting persists despite trying your antinausea medcations. ??? Try to stay hydrated. Water is the best option ??? Smaller/ more frequent meals and blander foods may be better tolerated. ??? Call if you develop mouth sores so we can discuss mouth rinses, dietary recommendations and strategies for pain management. ??? Please tell us if you experience numbness/tingling/changes in sensation in hands or feet ??? You should use a barrier method of protection if sexually active on days of chemotherapy and for48 hours afterwards ??? Try to stay active if at all possible. This helps reduce or limit fatigue. It is ok to take napsand rest if you need to. At the end of the 6-7 week period we will repeat a CT scan. Then, assuming the results look fine, we would consider starting a monthly drug called Durvalumab. This is a immunotherapy drug (as opposed to a chemotherapy drug) that helps the bodies immune system attack rogue left over cancer cells that are still left behind. This has been shown in studies to increase the chances that the chemotherapy and radiation therapy will cure you of this cancer. We will talk more about this drug later on in your treatment. It generally has fewer side effects and easier to tolerate than the chemotherapy and radiation. It is given monthly for 12 months. It takes about 1 hour to be infused. HPI/Interval History/Subjective: Generally doing well. Has some occasional blood mixed in with the mucus that he coughs up. Remains on the eliquis Bowels are ok-tending towards constipation of late. Started using prune juice No baseline neuropathy Has baseline dyspnea on exertion. Inhalers do help. He can walk 50 yards on flat ground without stopping and can climb 5-6 stairs before needing to stopdue to his low back pain and shortness of breath. Constipated of late Not covid vaccinationt to date Hasn't told anyone- father turned 90 and is independent. Daughter 2 grandchildren. 21 and 15. Social History/Support Network: Home situation: . Lives in [facility]. Lives alone. Has a daughter who lives nearby and [facility] is daughter Carmen Corrales Employment: Retired. Previously worked in the [employer] department Tobacco use: 67-krrv-biks smoking history. Quit in 2014. Alcohol use: Quit drinking in 2019. 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 Previously [employer] Distress: No reported service: [employer] . No connection to [facility] for himself but father goes there and he hasbeen impressed. Likes hunting and being in the outdoors. Very active in youth baseball soccer and softball. 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 Family History: Mother- at age 43 from [...] IIIA (cT3, cN1, cM0) - Signed by oYgi Rachel MD on 12/01/2021 Presentation: Bipin Rowley is a 66 y.o. male patient with a past medical history significant for COPD, atrial fibrillation, hypertension, hyperlipidemia, depression with a 90-dqsc-nglw smoking history who quit in 2013 who [...] chest 11/01/21 Bronchoscopy EBUS-TBNA The Olympus EBUS ([id number]) scope was inserted, lymph node inspection undertaken [...] 12.31.21 Began treatment on a clinical trial [id number] A Randomized Phase III trial of durvalumab as concurrent and consolidative therapy or consolidative therapy alone for Unresectable Stage 3 non-small cell lung cancer. He has been randomized to the standard of care arm (Carboplatin/Paclitaxel with concurrent RT) No flowsheet data found. Patient Active Problem List Diagnosis Date Noted ??? Primary malignant neoplasm of left lower lobe of lung 11/30/2021 ??? COPD (chronic obstructive pulmonary disease) 10/23/2021 ??? Pulmonary hypertension 10/23/2021 ??? Sleep apnea 10/23/2021 ??? Atrial fibrillation 10/23/2021 ??? Depression 10/23/2021 ??? Hypertension 10/23/2021 ??? Hyperlipidemia 10/23/2021 Allergies Allergen Reactions ??? Codeine Phosphate Nausea And Vomiting ??? Penicillins Hives Medications 12/31/21 1210 Medication Sig Taking? ibuprofen (Advil) 200 mg Tablet Take 800 [...] mg by mouth 2 times daily. Yes prochlorperazine (Compazine) 10 mg Tablet Take 1 tablet by mouth every 6 hours as needed for Nausea. I reviewed the problem list, allergies, medications, past medical history, social history and familyhistory within the EPIC encounter. Pertinent details are noted above. Pertinent positives and negative from the Review of Systems are as summarized above in the HPI. Physical Exam: Wt Readings from Last 3 Encounters: 12/31/21 125.8 kg (277 lb 6.4 oz) 12/12/21 126.1 kg (278 lb) 11/30/21 125 kg (275 lb 9.6 oz) Temp Readings from Last 3 Encounters: 12/31/21 36.1 ??C (96.9 ??F) 12/12/21 36.7 ??C (98.1 ??F) 11/30/21 36.8 ??C (98.2 ??F) BP Readings from Last 3 Encounters: 12/31/21 128/77 12/12/21 (!) 138/95 11/30/21 138/76 Pulse Readings from Last 3 Encounters: 12/31/21 (!) 103 12/12/21 96 11/30/21 100 Body surface area is 2.49 meters squared. Wt Readings from Last 3 Encounters: 12/31/21 125.8 kg (277 lb 6.4 oz) 12/12/21 126.1 kg (278 lb) 11/30/21 125 kg (275 lb 9.6 oz) KPS Score ECOG Grade Definition 90-100 0 [...] confined to bed or chair ECOG 1 Constitutional: Oriented to person, place, and time. No distress. Appears well- developed. Due to hischronic back issues he walks hesitantly HENT: Mouth/Throat: Wearing a mask Eyes: No scleral icterus. Cardiovascular: Normal rate and regular rhythm. Exam reveals no friction rub. No murmur heard. Pulmonary/Chest: Effort normal. No stridor. No respiratory distress. No wheezes. No rales. Abdominal: Soft. No distension. No tenderness.No rebound. Musculoskeletal: Normal range of motion. No edema. Lymphadenopathy: No cervical adenopathy. Neurological: Alert and oriented to person, place, and time. CN are grossly intact and non-focal. Skin: Skin is warm and dry. No rash noted. No erythema. Psychiatric: Normal mood and affect. Behavior is normal. Thought content normal. Review of Laboratory Data: 12/31/21 Calcium 9.2 glucose 123 BUN 15 creatinine 1.1 total protein 7.5 albumin 3.7 total bilirubin 0.7 alk phos 87 sodium 138 potassium 4.8 chloride 100 AST 16 ALT 30 CBC generally within normal limits Review of Imaging Data: No new data Review of Pathology Data: No new data documented in this encounter Plan of Treatment Upcoming Encounters Date Type Specialty Care Team Description 02/18/2022 Office Visit Hematology and Oncology Iain Rachel MD [facility] DR HEMATOLOGY/[place] [address] Whit Sung APRN [facility] HEMATOLOGY [place] [address] 02/18/2022 Infusion Hematology and Oncology documented as of this encounter Visit Diagnoses Diagnosis Primary malignant neoplasm of left lower lobe of lung Malignant neoplasm of lower lobe, bronch us, or lung documented in this encounter Care Teams Web Application Dev Specialist Relationship Specialty Start Date End Date None PCP - General 10/25/21 None documented as of this encounter
--- OUTSIDE RECORDS SUMMARY | 2022-02-15 01:03 | XMS_ITS | Encounter Summary ---
:1955 Author Organization [facility] [place] [address] Care Team Providers Name Role Phone None Primary Care Provider Unavailable Encounter Details Date Type Department Care Team Description 12/31/2021 Orders Only Hematology/Oncology Yogi Rachel, Pr imary malignant at [facility] MD neoplasm of [address] [place] [address] HEMATOLOGY/ONCOLOGY [phone] [place], [place] [address] (Wo rk) Social History Tobacco Use Types [...] place to sleep or slept in a halfway (including now)? Sex Assigned at Date Recorded Not on file documented as of this encounter Plan of Treatment Upcoming Encounters Date Type Specialty Care Team Description 02/18/2022 Office Visit Hematology and Oncology Iain Rachel MD [facility] DR HEMATOLOGY/[place] [address] Whit Sung APRN [facility] DR [place] [address] 02/18/2022 Infusion Hematology and Oncology Scheduled Orders Name Type Priority Associated Diagnoses Order S chedule Miscellaneous Lab request Lab Routine Primary maligna nt Expected: 12/31/2021, neoplasm of left lower Expir es: 07/02/2022 lobe of lung documented as of this encounter Visit Diagnoses Diagnosis 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
--- OUTSIDE RECORDS SUMMARY | 2022-02-15 01:03 | XMS_ITS | Encounter Summary ---
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 Yogi Rachel MD Procedures CT Chest w Contrast [facility] HEMATOLOGY/[place] [address] Referral ID Status Reason Start Expiration Visits Visits Date Date Requested Authorized [id number] New Request Specialty 07/20/2023 1 1 Service 2 Requested Encounter Details Date Type Department Care Team Description 01/18/2022 Orders Only Hematology/Oncology Yogi Rachel, Pr imary malignant at [facility] MD neoplasm of [address] [place] [address] HEMATOLOGY/ONCOLOGY [phone] DEPT [place], [place] [address] (Wo rk) Social History Tobacco Use Types [...] place to sleep or slept in a fci (including now)? Sex Assigned at Date Recorded Not on file documented as of this encounter Plan of Treatment Upcoming Encounters Date Type Specialty Care Team Description 02/18/2022 Office Visit Hematology and Oncology Iain Rachel MD [facility] DR HEMATOLOGY/[place] [address] Whit Sung APRN [facility] DR HEMATOLOGY [place] [address] 02/18/2022 Infusion Hematology and Oncology Scheduled Orders Name Type Priority Associated Diagnoses Order S chedule CT Chest w Contrast Imaging Routine Primary malignant Exp ected: 02/15/2022 neoplasm of left lower (Appr oximate), Expires: lobe of lung 08/17/2022 documented as of this encounter Visit Diagnoses Diagnosis 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
--- OUTSIDE RECORDS SUMMARY | 2022-02-15 01:03 | XMS_ITS | Encounter Summary ---
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 Yogi Rachel MD [facility] Hem Onc Infusion Oncology Procedures TC CARBOPLATIN, 50MG, INJECTION (PARAPLATIN) TC PACLITAXEL, 1MG, INJ [id number] CARBOPLATIN [id number] TAXOL [address] [place] [address] [place] [id number] Referral ID Status Reason Start Date Expiration Date Visits V isits Requested Authorized [id number] Authorized 12/31/2021 04/13/2022 99 99 Encounter Details Date Type Department Care Team Description 01/14/2022 Infusion Hematology Oncology at [facility] malignant neoplasm [facility] of left lower lobe of lung [address] [place] [phone] Social History Tobacco Use Types [...] place to sleep or slept in a fdc (including now)? Sex Assigned at Date Recorded Not on file documented as of this encounter Progress Notes Ramses Colin RN - 01/14/2022 10:00 AM EDT INFUSION THERAPY ADMINISTRATION NOTES DIAGNOSIS: Lung cancer CYCLE #:1, Day15 Cabo/Taxol (research protocol) REASON FOR VISIT: Chemotherapy SUBJECTIVE Bipin Rowley offers no complaints. Seen by Provider and cleared for treatment. OBJECTIVE LAB DATA: Within normal limits for today's chemo IV ACCESS: PIV placed and removed after treatment. Pre administration: Chemotherapy orders independently verified for drug name, route, and dosage per patient's height, weight and BSA by RAMSES COLIN RN & on-site pharmacist. REACTIONS (DESCRIPTION, TIME, INTERVENTION AND EFFECTIVENESS) none ASSESSMENT Bipin Rowley was awake, alert and tolerated treatment well. Study labs drawn and sent via [employer] PLAN Return to clinic per routine. 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 Malignant neoplasm of lower lobe, bronch us, or lung documented in this encounter Administered Medications Inactive Administered Medications - up to 3 most recent administrations Medication Order MAR Action Action Date Dose Rate Site aprepitant (CINVANTI) injection Given 01/14/2022 11:57 AM EDT 13 0 mg Emul 130 mg 130 mg, Intravenous, ONCE, 1 dose, On Fri01/14/22 at 1130, Pre-PALitaxel Alternative administration of IV push over 2 minutes is a recommendation from the ductfixing plumber., Routine CARBOplatin (Paraplatin) 300 mg in New Bag 01/14/2022 1:55 PM EDT 300 mg 560 mL/hr dextrose 5% 280 mL infusion 300 mg, Intravenous, ONCE, 1 dose, On Fri01/14/22 at 1145, Administer over 30 Minutes, Warning Vesicant/Irritant Medication dexAMETHasone (Decadron) (10 mg/mL) injection Given 11:50 AM EDT 10 mg 10 mg 10 mg, Intravenous, ONCE, 1 dose, On Fri01/14/22 at 1130, 30 minutes Pre-PACLitaxel diphenhydrAMINE (Benadryl) (50 mg/mL) Given 01/14/2022 11:50 AM EDT 25 mg injection 25 mg 25 mg, Intravenous, ONCE, 1 dose, On Fri01/14/22 at 1130, 30 minutes Pre-PACLitaxel, Routine famotidine (Pepcid) (10 mg/mL) injection 20 Given 01/14/2022 11:50 AM EDT 20 mg mg 20 mg, Intravenous, ONCE, 1 dose, On Fri01/14/22 at 1130, 30 minutes Pre-PACLitaxel PACLitaxeL (Taxol) 112 mg in New Bag 01/14/2022 12:36 PM EDT 112 m g 268.7 mL/hr sodium chloride 0.9% Non-PVC 268.67 mL infusion 112 mg, Intravenous, ONCE, 1 dose, On Fri01/14/22 at 1145, Administer over 1 Hours, Warning Vesicant/Irritant Medication palonosetron (Aloxi) (0.05 mg/mL) injection Given 06/2021 11:57 AM EDT 0.25 mg 0.25 mg 0.25 mg, Intravenous, ONCE, 1 dose, On Fri01/14/22 at 1130, Pre-PAClitaxel, Routine documented in this encounter Care Teams Detective Sergeant Relationship Specialty Start Date End Date None PCP - General 10/25/21 None documented as of this encounter
--- OUTSIDE RECORDS SUMMARY | 2022-02-15 01:03 | XMS_ITS | Encounter Summary ---
:1955 Author Organization [facility] [place] [address] Care Team Providers Name Role Phone None Primary Care Provider Unavailable Encounter Details Date Type Department Care Team Description 01/09/2022 [facility] [address] [phone] Social History Tobacco Use [...] place to sleep or slept in a nursing home (including now)? Sex Assigned at Date Recorded Not on file documented as of this encounter Progress Notes Corina Lawson RN - 01/09/2022 11:35 AM EDT RESEARCH NURSE OFFICE NOTE 01/09/2022 [id number]: Randomized Phase 3 trial of MED [id number] (durvalumab) as concurrent and consolidative therapy or consolidative therapy alone for unresectable stage 3 NSCLC Randomized to ARM B : [place] and UTILITY MANAGER alone SUBJECTIVE Bipin Franny Rowley presented to rad onc clinic as per protocol for daily radiation treatments. STUDY ASSESSMENTS COMPLETED He states he picked up his new med for his A fib (Diltiazem 120mg per ER records found in the media section of ed ) pt states he is taking it once a day and within hours of taking it he began to feel better. He has a BP monitor at home th. at checks bp and pulse and BP runs around 135/80 and puls is around 55 to 70's. He said his pulse used to be in the 120's He states his second time worker is Dr Bipin Morales at ( [facility] in [facility]. However, he moved to [facility] and he has decided that is too far for him to travel to. According to note from yesterday , he is working with local [facility] Automatic Paint Sprayer Operator to obtain local PCP and a local second time worker. He is feeling much better now today. Vitals were checked by Izabella Gallardo RN: T 97.3 - P 73 94% 111/78 she said the pulse 73 was taken by the machine and she checked it manually and was 55. PREVIOUS CYCLE SUPPLIES & MEDICATION COLLECTED ??? n/a MEDICATION DISPENSED n/a SUPPLIES DISPENSED ??? na Non Solicited AE/SIDE EFFECT MONITORING # AE Grade (CTCAE v. ) Start date Stop Date Study Related Intervention/Outcome 1 constipation 1 12/31/21 01/06/22 ? Solicited AEs Grade (CTCAE v. ?? Start date?? Stop Date?Study Related Intervention/Outcome?? 1 vomiting 0 ? 2 cough 1 1 1 Baseline 12/31/21 01/07/22 ? Pt states is less?? 3 nausea 0 ? 4 fatigue 1 1 1 Baseline 12/31/21 01/07/22 ? 5 Abdominal pain 0 ? 6 diarrhea 0 ? 7 Edema of limbs 0 ? 8 fever 0 ? 9 ALT increased 0 ? 10 AST increased 0 ? 11 Creatinine increased 0 ? 12 anorexia 0 ? 13 myalgia 0 ? 14 dysuria 0 ? 15 pruitus 0 ? 16 pneumonitis 0 ? 17 dypnea 1 1 1 Baseline 12/31/21 ? On exertion 18 hypoxia 0 ? 19 anemia 0 ? 20 Febrile neutropenia 0 ? 21 Neutrophil count decreased 0 ? 22 Heart failure 0 ? 23 Myocardial infraction 0 ? 24 Pericardial effusion 0 ? 25 Ventricular arrhythmia 0 ? 26 myocarditis 0 ? 27 Chest pain-cardiac 0 ? 28 Atrial fibrilation 2 1 ??01/07/22 patient states h/o 01/08/22 ? See media section [facility] ER note?? Improved once he started diltiazem ?EDUCATION PROVIDED Advised to contact this office for any questions/concerns, as well as for any new or worsening symptoms. Dr Rachel advised that he get COVID vaccine, pt agreed to do so . Pt instructed to report to ER with any new symptoms of lightheaded or ness chest pain. PLAN 1. Subject agrees to continue on study [id number] per protocol. Continue daily radiation treatments. 2. Dr Rachel, weekly chemo tomorrow due to lateness in day today [facility]. Patient verbalizes understanding of, and agreement with, plan. documented in this encounter Plan of Treatment Upcoming Encounters Date Type Specialty Care Team Description 02/18/2022 Office Visit Hematology and Oncology Iain Rachel MD [facility] DR HEMATOLOGY/[place] [address] Whit Sung APRN [facility] [place] [address] 02/18/2022 Infusion Hematology and Oncology documented as of this encounter Visit Diagnoses Not on filedocumented in this encounter Care Teams Field Sales Engineer Relationship Specialty Start Date End Date None PCP - General 10/25/21 None documented as of this encounter
--- OUTSIDE RECORDS SUMMARY | 2022-02-15 01:03 | XMS_ITS | Encounter Summary ---
:1955 Author Organization [facility] Address [facility] [place] [address] Care Team Providers Name Role Phone None Primary Care Provider Unavailable Encounter Details Date Type Department Care Team Description 01/14/2022 External Results Pharmacy Yogi Rachel MD [facility] [address] HEMATOLOGY/[place] [address] DEPT [phone] [place], [place] [address] (Wo rk) Social History Tobacco [...] place to sleep or slept in a senior living (including now)? Sex Assigned at Date Recorded Not on file documented as of this encounter Plan of Treatment Upcoming Encounters Date Type Specialty Care Team Description 02/18/2022 Office Visit Hematology and Oncology Iain Rachel MD [facility] DR HEMATOLOGY/[place] [address] Whit Sung APRN [facility] [place] [address] 02/18/2022 Infusion Hematology and Oncology documented as of this encounter Procedures Procedure Name Priority Date/Time Associated Diagnosis Comme nts CLINICAL TRIAL SCAN Routine 01/14/2022 CLINICAL TRIAL SCAN Routine 01/14/2022 documented in this encounter Results Scan Doc: Clinical Trial (01/14/2022) Narrative This result has an attachment that is no t available. Yogi Rachel MD MEDIA MGR SCAN EXT ORDR/RSLT Scan Doc: Clinical Trial (01/14/2022) Narrative This result has an attachment that is no t available. Yogi Rachel MD MEDIA MGR SCAN EXT ORDR/RSLT documented in this encounter Visit Diagnoses Not on filedocumented in this encounter Care Teams Mincing Machine Operator Relationship Specialty Start Date End Date None PCP - General 10/25/21 None documented as of this encounter
--- OUTSIDE RECORDS SUMMARY | 2022-02-15 01:03 | XMS_ITS | Encounter Summary ---
:1955 Author Organization [facility] [place] [address] Care Team Providers Name Role Phone None Primary Care Provider Unavailable Encounter Details Date Type Department Care Team Description 02/04/2022 Notes [facility] [address] [phone] Social History Tobacco Use [...] encounter Progress Notes Corina Lawson RN - 02/04/2022 9:38 AM EDT RESEARCH NURSE OFFICE NOTE 02/04/2022Friday [id number]: Randomized Phase 3 trial of MED 43229 (durvalumab) as concurrent and consolidative therapy or consolidative therapy alone for unresectable stage 3 NSCLC Randomized to ARM B : [place] and FIELD CONSULTANT alone SUBJECTIVE Bipin Franny Rowley presented to med onc clinic as per protocol for day 36 weekly Carbo/taxol planned infusion. Pt was evaluated by Dr Rachel , please see his note. RN AE table was reviewed and updated accordingly. STUDY ASSESSMENTS COMPLETED Cough :He c/o light chest cough that is more consistent. ??denying hemoptysis. Stating it is mostly a dry cough, but will occasionally bring up some white sputum. His inhalers help and he notices his cough is worse when he is due for his inhalers. He is not using any cough syrup or cough drops as he he feels it is not severe enough. He is sleeping well. His cough does not interrupt his sleep. He is able to sleep flate. His KEYES is no worse or better this week. ?? Denies constipation or diarrhea. No nausea or vomiting. He states heart burn that started last week is mild and intermittent. He picked up Prilosec and carafate that Dr Rachel prescribed , but has not started taking it yet because he feels it is not severe enough. He had pepperoni pizza recently and tolerated it well and enjoyed it. He lost some weight from last week, ( 270lbs last week and 267.4lbs this week). He states this weekend he was very fatigued. So tired that yesterday he didn't go anywhere. He denies problems with his apppetite, how he admits he didn't eat much because he was tired. He admits to some light headedness when he first stand up. BP sitting 131/83 pulse 108 and Standing 107/[address] Rachel notified. ?? He continues on his med for A fib(Diltazem) and is feeling well. He picked up his refill that Dr Rachel prescribed for him. Last I spoke to him last week, he has still not found a PCP or manager case management. Mild bilateral edema of both ankles. No pitting. Improvement christian last week. He denies pain in ether legs. He said he doesnt have this when he wakes up. He also states this has happened in the past and his previous manager case management was not concerned. He took Tylenol this morning for a mild stuffy head ache with relief. Some left hip chronic intermittent pain .Chronic Lower back & knee pain, but denying any pain atthis time in these areas although he c/o of being stff today. PREVIOUS CYCLE SUPPLIES & MEDICATION COLLECTED ??? n/a MEDICATION DISPENSED n/a SUPPLIES DISPENSED ??? na Non Solicited AE/SIDE EFFECT MONITORING # AE Grade (CTCAE v. ) Start date Stop Date Study Related Intervention/Outcome 1 constipation 1 0 0 0 12/31/21 01/21/22 01/28/22 02/04/22 01/06/22 2 GERD 2 1 1 01/18/22 01/28/22 02/04/22 Prescribed Prilosec and Carafate 01/21/22 3 Low platelets 1 02/04/22 02/04/22 platelets 121 ? Solicited AEs Grade (CTCAE v. ?? Start date?? Stop Date?Study Related Intervention/Outcome?? 1 vomiting 0 ? 2 cough 1 1 1 1 1 1 1 Baseline 12/31/21 01/07/22 01/14/22 01/21/22 01/28/22 02/04/22 ? 3 nausea 0 ? 4 fatigue 1 1 1 1 1 1 1 Baseline 12/31/21 01/07/22 01/14/22 01/21/22 01/28/22 02/04/22 ? 5 Abdominal pain 0 ? 6 diarrhea 0 ? 7 Edema of limbs 0 1 1 1 1 01/19/22 01/28/22 01/29/22 02/04/22 ? 8 fever 0 ? 9 ALT increased 0 ? 10 AST increased 0 ? 11 Creatinine increased 0 ? 12 anorexia 0 ? 13 myalgia 0 ? 14 dysuria 0 ? 15 pruitus 0 ? 16 pneumonitis 0 ? 17 dypnea 1 1 1 1 1 1 1 Baseline 12/31/21 01/07/22 01/14/22 01/21/22 01/28/22 02/04/22 ? On exertion 18 hypoxia 0 ? 19 anemia 0 ? 20 Febrile neutropenia 0 ? 21 Neutrophil count decreased 0 ? 22 Heart failure 0 ? 23 Myocardial infraction 0 ? 24 Pericardial effusion 0 ? 25 Ventricular arrhythmia 0 ? 26 myocarditis 0 ? 27 Chest pain-cardiac 0 ? 28 Atrial fibrilation 2 1 1 1 1 ??01/07/22 patient states h/o 01/08/22 01/21/22 01/28/22 02/04/22 ? See media section [facility] ER note?EDUCATION PROVIDED Advised to contact this office for any questions/concerns, as well as for any new or worsening symptoms. Drink more fluids. PLAN 1. Subject agrees to continue on study [id number] per protocol. Continue daily radiation treatments. 2. Day #36 chemo today 3. Last radiation treatment 02/08/22. 3. PFT and CT next week at [facility]. Will need to have appointment with Dr Rachel after this to review results and determine eligibility into consolidation phase. Patient verbalizes understanding of, and agreement with, plan. documented in this encounter Plan of Treatment Upcoming Encounters Date Type Specialty Care Team Description 02/18/2022 Office Visit Hematology and Oncology Iain Rachel MD [facility] DR HEMATOLOGY/[place] [address] Whit Sung APRN [facility] DR HEMATOLOGY [place] [address] 02/18/2022 Infusion Hematology and Oncology documented as of this encounter Visit Diagnoses Not on filedocumented in this encounter Care Teams Finisher Operator Relationship Specialty Start Date End Date None PCP - General 10/25/21 None documented as of this encounter
--- OUTSIDE RECORDS SUMMARY | 2022-02-15 01:03 | XMS_ITS | Encounter Summary ---
:1955 Author Organization [facility] [place] [address] Care Team Providers Name Role Phone None Primary Care Provider Unavailable Encounter Details Date Type Department Care Team Description 01/28/2022 Office Visit Hematology/Oncology Sarmad Rachel MD [facility] HEMATOLOGY/[place] [address] Primary malignant neoplasm of left lower lobe of lung; at [facility] Whit Sung APRN [facility] [place] [address] Chronic obstructive pulmonary disease, u nspecified COPD type; [address] Paroxysmal [place] [address] Social History Tobacco Use Types [...] place to sleep or slept in a skilled nursing (including now)? Sex Assigned at Date Recorded Not on file documented as of this encounter Last Filed Vital Signs Vital Sign Reading Time Taken Comments Blood Pressure 105/69 01/28/2022 9:00 AM EDT Pulse 94 01/28/2022 9:00 AM EDT Temperature 36.1 ??C (97 ??F) 01/28/2022 9:00 AM EDT Respiratory Rate 22 01/28/2022 9:00 AM EDT Oxygen Saturation 97% 01/28/2022 9:00 AM EDT Inhaled Oxygen Concentration - - Weight 123.4 kg (272 lb) 01/28/2022 9:00 AM EDT Height 177.7 cm (5' 9.96) 01/28/2022 9:00 AM EDT Body Mass Index 39.07 01/28/2022 9:00 AM EDT documented in this encounter Progress Notes Yogi Rachel MD - 01/28/2022 9:30 AM EDT Images from the original note were not included. Thoracic Oncology [facility] [place] [address] [phone] Bipin Rowley is being seen for the evaluation of lung cancer. Assessment & Plan: Bipin Rowley is a 66 y.o. male patient with a past medical history significant for COPD, atrial fibrillation, hypertension, hyperlipidemia, depression with a 53-bydp-htqo smoking history who quit [id number] who underwent a lung cancer screening CT scan on August 30, 2021 that demonstrated a left hilar mas s and as detailed below he was ultimately diagnosed with a [id number] Stage IIIA of the left lower lobewith a station 11 L lymph node involved. He as ultimately determined not to be a surgical candidate. He is enrolled on a clinical trial [id number] A Randomized Phase III trial of durvalumab [...] with the addition of the CCB. His lathmaker has relocated so he is in the process of getting a new PCP and lathmaker. I will write for the diltiazem now but emphasized the need for him to again get a new PCP - Management of dysphagia with PRN carafate if it worsens -Recommended again that he received the COVID vaccine and he indicated that he was be willing to do so but just hasn't yet - Continue concurrent chemotherapyRT as per [id number] protocol Yogi Rachel MD, MS 01/28/2022 Medical Oncology & Hematology [facility] CC: HPI/Interval History/Subjective: Last seen 01/21/2022 Did not need the PPI or the carafate. Dysphagia wasn't that bad he felt. Would use them if he neededthem Had a good visit with Dr. Mcgraw pulmonary- no changes to his meds. 6 months followup planned Taking diltiazem. Afib is not acting up and he feels good. Will run out of the diltiazem in about 2 weeks. Does have less and less energy week by week. He was expecting it but its hard. Had to miss Religious onSunday. Able to take care of his household needs though. Did not get the COVID vaccine but plans to Breathing is stable Bowels have been good. No issues with constipation. No neuropathy symptoms. . Has baseline dyspnea on exertion. Inhalers do help. He can walk 50 yards on flat ground without stopping and can climb 5-6 stairs before needing to stopdue to his low back pain and shortness of breath. Spoke with is father about his diagnosis. Daughter Also aware 2 grandchildren. 21 and 15. Social History/Support Network: Home situation: . Lives in [facility]. Lives alone. Has a daughter who lives nearby and WEmergycey contact is daughter Carmen Corrales Employment: Retired. Previously worked in the [employer] department Tobacco use: 11-hkxv-lkwv smoking history. Quit in 2013. Alcohol use: Quit drinking in 2019. 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 Previously [employer] Distress: No reported service: [employer] . No connection to [facility] for himself but father goes there and he hasbeen impressed. Likes hunting and being in the outdoors. Very active in youth baseball soccer and softball. 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 Family History: Mother- at age 43 from [...] atrial fibrillation, hypertension, hyperlipidemia, depression with a 99-qjds-fvgq smoking history who quit in 2013 who [...] chest 11/01/21 Bronchoscopy EBUS-TBNA The Olympus EBUS (BF-[id number]) scope was inserted, lymph node inspection undertaken [...] myelolipoma. 11/13/2021 MRI brain No metastatic disease .08.03 pulmonary function test done at [facility] [...] 12.31.21 Began treatment on a clinical trial [id number] A Randomized Phase III trial of durvalumab as concurrent and consolidative therapy or consolidative therapy alone for Unresectable Stage 3 non-small cell lung cancer. He has been randomized to the standard of care arm (Carboplatin/Paclitaxel with concurrent RT) ONCBCN ONCOLOGY (AMB) 12/31/2021 01/08/2022 01/14/2022 01/21/2022 CARBOplatin (Paraplatin) IV 282 mg 282 mg 300 mg 300 mg PACLitaxeL (Taxol) IV 112 mg 112 mg 112 mg 112 mg Patient Active Problem List Diagnosis Date Noted ??? Primary malignant neoplasm of left lower lobe of lung 11/30/2021 ??? COPD (chronic obstructive pulmonary disease) 10/23/2021 ??? Pulmonary hypertension 10/23/2021 ??? Sleep apnea 10/23/2021 ??? Atrial fibrillation 10/23/2021 ??? Depression 10/23/2021 ??? Hypertension 10/23/2021 ??? Hyperlipidemia 10/23/2021 Allergies Allergen Reactions ??? Codeine Phosphate Nausea And Vomiting ??? Penicillins Hives Medications 01/28/22 09 Medication Sig Taking? dilTIAZem (TIAZAC) 120 mg Capsule,Sustained Action 24 hr Take 120 mg by mouth daily. Yes albuteroL 90 mcg/actuation HFA Aerosol Inhaler [...] needed. Patient not taking: No sig reported omeprazole (PriLOSEC) 20 mg Capsule, Delayed Release(E.C.) Take 1 capsule by mouth daily. Patient not taking: Reported on 01/28/2022 acetaminophen (Tylenol) 500 mg Tablet Take 1,000 mg by mouth every 6 hours as needed for Pain. Occasional Stuffy head ache prochlorperazine (Compazine) 10 mg Tablet Take 1 tablet by mouth every 6 hours as needed for Nausea. Patient not taking: No sig reported ibuprofen (Advil) 200 mg Tablet Take 800 [...] Exam: Wt Readings from Last 3 Encounters: 01/28/22 123.4 kg (272 lb) 01/21/22 124.4 kg (274 lb 3.2 oz) 01/17/22 123.6 kg (272 lb 6.4 oz) Temp Readings from Last 3 Encounters: 01/28/22 36.1 ??C (97 ??F) 01/24/22 36.3 ??C (97.3 ??F) 01/21/22 36.1 ??C (97 ??F) (Temporal) BP Readings from Last 3 Encounters: 01/28/22 105/69 01/24/22 107/60 01/21/22 107/61 Pulse Readings from Last 3 Encounters: 01/28/22 94 01/24/22 74 01/21/22 71 Body surface area is 2.47 meters squared. Wt Readings from Last 3 Encounters: 01/28/22 123.4 kg (272 lb) 01/21/22 124.4 kg (274 lb 3.2 oz) 01/17/22 123.6 kg (272 lb 6.4 oz) KPS Score ECOG Grade Definition 90-100 [...] or chair ECOG 1 Physical Exam BP 105/69 Pulse 94 Temp 36.1 ??C (97 ??F) Resp 22 Ht 177.7 cm (5' 9.96) Wt 123.4 kg (272 lb) SpO2 97% BMI 39.07 kg/m?? Physical Exam Constitutional: General: Not in [...] Judgment: Judgment normal. Review of Laboratory Data: 01.28.22 White blood cell count 3.11 hemoglobin 14.1 platelet count 147,000 absolute neutrophil count 2.36 Sodium 140 potassium 4.5 BUN 15 creatinine 1.0 glucose 115 calcium 8.9 total bilirubin 0.4 AST 13 ALT 39 alk phos 81 total protein 6.7 albumin 3.5 01.21.22 White blood cell count 2.67 hemoglobin 14.1 platelet count 226,000 absolute neutrophil count 1.92 absolute lymphocyte count 0.39 Calcium 8.7 glucose 125 BUN 14 creatinine 0.9 which is stable total protein 6.5 albumin 3.3 total bilirubin 0.5 alk phos 78 sodium 139 potassium 4.2 chloride 103 AST 18 ALT 38 01/14/22 With blood cell count 4.54 hemoglobin [...] Visit Hematology and Oncology Iain Rachel MD [facility] DR HEMATOLOGY/[place] [address] Whit Sung APRN [facility] [place] [address] 02/18/2022 Infusion Hematology and Oncology documented as of this encounter Visit Diagnoses Diagnosis Primary malignant neoplasm of left lower lobe of lung Malignant neoplasm of lower lobe, bronch us, or lung Chronic obstructive pulmonary disease, u nspecified COPD type Paroxysmal atrial fibrillation Atrial fibrillation documented in this encounter Care Teams Special Delivery Carrier Relationship Specialty Start Date End Date None PCP - General 10/25/21 None documented as of this encounter
--- OUTSIDE RECORDS SUMMARY | 2022-02-15 01:03 | XMS_ITS | Encounter Summary ---
:1955 Author Organization [facility] [place] [address] Care Team Providers Name Role Phone None Primary Care Provider Unavailable Encounter Details Date Type Department Care Team Description 01/14/2022 Notes Only [facility] OFFICE OF CARE [address] [place] [phone] Social History Tobacco Use Types Packs/Day Years [...] place to sleep or slept in a [place] health care facility (including now)? Sex Assigned at Date Recorded Not on file documented as of this encounter Progress Notes Fariha Veloz MSW - 01/14/2022 12:06 PM EDT Follow up with Bipin during his infusion visit today. He indicated he is managing day to day at home. He has not issues with transportation. He has told only a couple of people about his situation. He has some people as a back up if he needs anything. He is managing this his way. Bipin did not identify any new needs today. Offered support. Reminded Bipin of SW availability and contact information. Will continue to follow as indicated. Brief assessment Supportive Counseling documented in this encounter Plan of Treatment Upcoming Encounters Date Type Specialty Care Team Description 02/18/2022 Office Visit Hematology and Oncology Iain Rachel MD [facility] DR HEMATOLOGY/[place] [address] Whit Sung APRN [facility] [place] [address] 02/18/2022 Infusion Hematology and Oncology documented as of this encounter Visit Diagnoses Not on filedocumented in this encounter Care Teams Barrel Bung Remover And Dumper Relationship Specialty Start Date End Date None PCP - General 10/25/21 None documented as of this encounter
--- OUTSIDE RECORDS SUMMARY | 2022-02-15 01:03 | XMS_ITS | Encounter Summary ---
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 Yogi Rachel MD [facility] Hem Onc Infusion Oncology Procedures TC CARBOPLATIN, 50MG, INJECTION (PARAPLATIN) TC PACLITAXEL, 1MG, INJ [id number] CARBOPLATIN [id number] TAXOL [address] [place] [address] [place] [id number] Referral ID Status Reason Start Date Expiration Date Visits V isits Requested Authorized [id number] Authorized 12/31/2021 04/13/2022 99 99 Encounter Details Date Type Department Care Team Description 12/31/2021 Infusion Hematology Oncology at [facility] malignant neoplasm [facility] of left lower lobe of lung [address] [place] [phone] Social History Tobacco Use Types [...] place to sleep or slept in a penitentiary (including now)? Sex Assigned at Date Recorded Not on file documented as of this encounter Progress Notes Ramses Colin RN - 12/31/2021 12:30 PM EDT INFUSION THERAPY ADMINISTRATION NOTES DIAGNOSIS: Lung cancer CYCLE #:1, Day 1 Cabo/Taxol (research protocol) REASON FOR VISIT: Chemotherapy SUBJECTIVE Bipin Rowley offers no complaints. Seen by Provider and cleared for treatment. OBJECTIVE LAB DATA: WDL for today's chemo IV ACCESS: PIV placed and removed after treatment. Pre administration: Chemotherapy orders independently verified for drug name, route, and dosage per patient's height, weight and BSA by RAMSES COLIN, ANGELINA & REACTIONS (DESCRIPTION, TIME, INTERVENTION AND EFFECTIVENESS) none ASSESSMENT Bipin Rowley was awake, alert and tolerated treatment well. Initial study labs drawn and given torolivia RN. PLAN Return to clinic per routine. Pt. chemo teaching instructions included: During clinic hours (8am-5pm Friday-Friday): pt. can call [phone] with questions or concerns. After clinic hours (5pm-8am Friday-Friday and weekends) pt can call [phone] and ask for the mule tender/oncologist operations associate. Bipin Rowley verbalized understanding of potential chemotherapy side effects and home care including but not limited to- handwashing to prevent infection, signs and symptoms of low blood counts (fever, fatigue, bleeding), to call with a fever of 100.4 or greater, any significant constipation/diarrhea, importance of nutrition and fluid intake (drinking at least 32-64 ounces of non-caffeinated beverages/day), mouth care. Bipin Rowley verbalized understanding of how to take prescription medications given for home use after chemotherapy. documented in this encounter Plan of Treatment Upcoming Encounters Date Type Specialty Care Team Description 02/18/2022 Office Visit Hematology and Oncology Iain Rachel MD [facility] DR HEMATOLOGY/[place] [address] Whit Sung APRN [facility] [place] [address] 02/18/2022 Infusion Hematology and Oncology documented as of this encounter Visit Diagnoses Diagnosis Primary malignant neoplasm of left lower lobe of lung Malignant neoplasm of lower lobe, bronch us, or lung documented in this encounter Administered Medications Inactive Administered Medications - up to 3 most recent administrations Medication Order MAR Action Action Date Dose Rate Site aprepitant (CINVANTI) injection Given 12/31/2021 1:23 PM EDT 130 mg Emul 130 mg 130 mg, Intravenous, ONCE, 1 dose, On Fri12/31/21 at 1315, Pre-PALitaxel Alternative administration of IV push over 2 minutes is a recommendation from the bone crusher., Routine CARBOplatin (Paraplatin) 282 mg New Bag 12/31/2021 3:19 PM EDT 282 mg 556.4 mL/hr in dextrose 5% 278.2 mL infusion 282 mg, Intravenous, ONCE, 1 dose, On Fri12/31/21 at 1315, Administer over 30 Minutes, Warning Vesicant/Irritant Medication dexAMETHasone (Decadron) (10 mg/mL) injection Given 1:15 PM EDT 10 mg 10 mg 10 mg, Intravenous, ONCE, 1 dose, On Fri12/31/21 at 1315, 30 minutes Pre-PACLitaxel diphenhydrAMINE (Benadryl) (50 mg/mL) Given 12/31/2021 1:23 PM E DT 25 mg injection 25 mg 25 mg, Intravenous, ONCE, 1 dose, On Fri12/31/21 at 1315, 30 minutes Pre-PACLitaxel, Routine famotidine (Pepcid) (10 mg/mL) injection 20 mg Given 12/31/2021 1:15 PM EDT 20 mg 20 mg, Intravenous, ONCE, 1 dose, On Fri12/31/21 at 1315, 30 minutes Pre-PACLitaxel PACLitaxeL (Taxol) 112 mg in New Bag 12/31/2021 2:06 PM EDT 112 mg 268.7 mL/hr sodium chloride 0.9% Non-PVC 268.67 mL infusion 112 mg, Intravenous, ONCE, 1 dose, On Fri12/31/21 at 1315, Administer over 1 Hours, Warning Vesicant/Irritant Medication palonosetron (Aloxi) (0.05 mg/mL) injection Given 12/13 1:23 PM EDT 0.25 mg 0.25 mg 0.25 mg, Intravenous, ONCE, 1 dose, On Fri12/31/21 at 1315, Pre-PAClitaxel, Routine documented in this encounter Care Teams Croze Cutter Relationship Specialty Start Date End Date None PCP - General 10/25/21 None documented as of this encounter
--- OUTSIDE RECORDS SUMMARY | 2022-02-15 01:03 | XMS_ITS | Encounter Summary ---
:1955 [place] [address] Care Team Providers Name Role Phone None Primary Care Provider Unavailable Encounter Details Date Type Department Care Team Description 01/22/2022 Orders Only Hematology and Yogi Rachel, Primary malignant Oncology at [facility] MD neoplasm of left [facility] low er lobe of lung [address] [place] HEMATOLOGY/ONCOLOGY [address] DEPT [phone] [place], [place] [address] (Wo rk) Social History Tobacco [...] place to sleep or slept in a care home (including now)? Sex Assigned at Date Recorded Not on file documented as of this encounter Plan of Treatment Upcoming Encounters Date Type Specialty Care Team Description 02/18/2022 Office Visit Hematology and Oncology Iain Rachel MD [facility] DR HEMATOLOGY/[place] [address] Whit Sung APRN [facility] [place] [address] 02/18/2022 Infusion Hematology and Oncology Scheduled Orders Name Type Priority Associated Diagnoses Order S chedule Pulmonary Function PFT Routine Primary malignant Expe cted: 02/21/2022 Testing neoplasm of left lower (Appr oximate), lobe of lung Expires: 2022 documented as of this encounter Visit Diagnoses Diagnosis Primary malignant neoplasm of left lower lobe of lung Malignant neoplasm of lower lobe, bronch us, or lung documented in this encounter Care Teams Foreign Service Teacher Relationship Specialty Start Date End Date None PCP - General 10/25/21 None documented as of this encounter
--- OUTSIDE RECORDS SUMMARY | 2022-02-15 01:03 | XMS_ITS | Encounter Summary ---
:1955 Author Organization [place] [address] Care Team Providers Name Role Phone None Primary Care Provider Unavailable Encounter Details Date Type Department Care Team Description 12/12/2021 [facility] OFFICE OF CARE [address] [place] [phone] Social History Tobacco Use Types Packs/Day Years [...] place to sleep or slept in a [facility] (including now)? Sex Assigned at Date Recorded Not on file documented as of this encounter Progress Notes Magdiel Fariha L, RICKSHAW DRIVER - 12/12/2021 2:31 PM EDT Reason for Referral: Brief assessment of social and emotional needs. Met with pt after his sim todayto introduce myself and role of social service liaison to assess/address barriers to getting to and through treatments; address support needs and connect with community services and resources as needed. Family/Social Supports: Pt identified his daughter Carmen as his primary support. She has a daughter and a son. Pt's father lives in the area and he mentioned a brother in [place]. Living Situation/Daily Activities/Transportation: Pt lives alone and manages his daily chores and activities. He does not expect any issues with transportation. Work/Finances/Insurance: Pt retired in 2009 from work in [employer]. He has Medicare and BCBS for insurance. Advance Directives: Pt has not completed his advance directive. He may be interested in completing. If interested can discuss again once he starts his treatments. Utilization of Community Resources: None at this time. Fatou/Spirtuality: Pt shared he is a man of great fatou. Adjustment to Illness/Mental Health Concerns: Pt indicated he has not told anyone other than his brother about his health situation. He plans to tell a hand full of people when the time is right. He plans to tell his daughter, her children, their fathers. He plans to tell his father tonight. He feels as though he is coping as best he can. He has a lot of fatou which is a comfort to him. Offered support. Identified Needs: Pt did not identify any specific needs at this time. Referrals: None at this time. Social Work Interventions: Brief assessment Supportive Counseling Advance care planning Plan: Informed pt of RICKSHAW DRIVER availability and contact information. Will follow to assess/address psychosocial needs. SUNIL Hauser, HEAD CHOPPER, OSW-C [place] [facility] documented in this encounter Plan of Treatment Upcoming Encounters Date Type Specialty Care Team Description 02/18/2022 Office Visit Hematology and Oncology Iain Rachel MD [facility] DR HEMATOLOGY/[place] [address] Whit Sung APRN [facility] [place] [address] 02/18/2022 Infusion Hematology and Oncology documented as of this encounter Visit Diagnoses Not on filedocumented in this encounter Care Teams Mine Geologist Relationship Specialty Start Date End Date None PCP - General 10/25/21 None documented as of this encounter
--- OUTSIDE RECORDS SUMMARY | 2022-02-15 01:03 | XMS_ITS | Encounter Summary ---
:1955 Author Organization [place] [address] Care Team Providers Name Role Phone None Primary Care Provider Unavailable Encounter Details Date Type Department Care Team Description 01/07/2022 [facility] [address] [phone] Social History Tobacco Use [...] place to sleep or slept in a prison (including now)? Sex Assigned at Date Recorded Not on file documented as of this encounter Progress Notes Corina Lawson RN - 01/07/2022 4:09 PM EDT RESEARCH NURSE OFFICE NOTE 01/07/2022 [id number]: Randomized Phase 3 trial of MED 15817 (durvalumab) as concurrent and consolidative therapy or consolidative therapy alone for unresectable stage 3 NSCLC Randomized to ARM B : Cahto and FISH FILLETER alone SUBJECTIVE Bipin Franny Rowley presented to med onc clinic as per protocol. Pt was evaluated by Dr Rachel , please see his note/s. See RN AE table were reviewed and will be updated accordingly. STUDY ASSESSMENTS COMPLETED Coughing : a little bit mostly following inhaler use. He states is mild. He states that the older blood that he mentioned last week has still resolved. . He has not seen it for the last since last week. He still coughs up some clear sputum. Patient state he had a bad coughing spell yesterday C/o constipation relieved by prune juice. No nausea or vomiting. Not taking any antiemetics.No difficulty or pain with swallowing. He had what he describes as a slight head ache this AM that was relieved by Ibuprofen. He states he has these sinus head aches if he keeps the windows open. Some left hip chronic intermittent pain . Lower back chronic Intermittent pain. He denies any pain at the moment of clinic visit. Patient reports his fatigue has improved some since a couple days ago . He reports a very good mood and attitude. Denies depression. He reported to clinic today with c/o lightheadedness and feeling very weak and feeling like he mighthave the flu or COVID. He was seen by the clinical program coordinator this morning and it was agreed pt & oil well services supervisor that he would got to [facility] ER for evaluation. He comes to us now about 3 hours later stating that he had a spell of A Fib which he has a H/O. He states he takes metoprolol and eliquis for it. He said he has had spells like this before, he just didn't think to put it together that it would be the A Fib causing his symptoms. He states his clinical exercise specialist is Dr Bipin Morales at ( [facility]) [facility] in [facility]. He is feeling much better now. PREVIOUS CYCLE SUPPLIES & MEDICATION COLLECTED ??? n/a MEDICATION DISPENSED n/a SUPPLIES DISPENSED ??? na Non Solicited AE/SIDE EFFECT MONITORING # AE Grade (CTCAE v. ) Start date Stop Date Study Related Intervention/Outcome 1 constipation 1 0 12/31/21 01/06/22 ? Solicited AEs Grade (CTCAE [...] 16 pneumonitis 0 ? 17 dypnea 1 ??baseline ? On exertion 18 hypoxia 0 ? 19 anemia 0 ? 20 Febrile neutropenia 0 ? 21 Neutrophil count decreased 0 ? 22 Heart failure 0 ? 23 Myocardial infraction 0 ? 24 Pericardial effusion 0 ? 25 Ventricular arrhythmia 0 ? 26 myocarditis 0 ? 27 Chest pain-cardiac 0 ? 28 Atrial fibrilation 2 ??01/07/22 patient states h/o ? See media section [facility] ER note?EDUCATION PROVIDED Advised to contact this office for any questions/concerns, as well as for any new or worsening symptoms. Dr Rachel advised that he get COVID vaccine, pt agreed to do so . PLAN 1. Subject agrees to continue on study [id number] per protocol. Continue daily radiation treatments. 2. Dr Rachel, weekly chemo tomorrow due to lateness in day today 3. Misc lab kit due next week. Patient verbalizes understanding of, and agreement with, plan. documented in this encounter Plan of Treatment Upcoming Encounters Date Type Specialty Care Team Description 02/18/2022 Office Visit Hematology and Oncology Iain Rachel MD [facility] DR HEMATOLOGY/[place] [address] Whit Sung APRN [facility] [place] [address] 02/18/2022 Infusion Hematology and Oncology documented as of this encounter Visit Diagnoses Not on filedocumented in this encounter Care Teams Gill Net Stringer Relationship Specialty Start Date End Date None PCP - General 10/25/21 None documented as of this encounter
--- OUTSIDE RECORDS SUMMARY | 2022-02-15 01:03 | XMS_ITS | Encounter Summary ---
:1955 Author Organization [facility] [place] [address] Care Team Providers Name Role Phone None Primary Care Provider Unavailable Encounter Details Date Type Department Care Team Description 01/07/2022 [facility] [address] [place], [place] [phone] Social History Tobacco Use Types [...] on file documented as of this encounter Miscellaneous Notes Telephone Encounter - Anh Camp RN - 01/07/2022 10:22 AM EDT Patient presented to [facility] for appt with Dr. Rachel and consideration of concurrent chemo/XRT. Reports that he is not feeling well. Reports symptoms of fatigue, weakness, dizziness beginning last. Reports that he developed sore throat, chest congestion and worsening cough on Friday. Feels very weak today. He has not taken temp throughout weekend, no chills this weekend but felt cold this morning. States I feel like I'm coming down with the flu. He has not taken a COVID test. He is unvaccinated. Instructed that patient needed to go to have COVID test, recommended that he could go to local pharmacy and picking belt operator rapid test to take. He stated that he didn't feel well enough to do that but wants toget his chemo. Advised that we would not be able to give him chemo without COVID test and/or if he is feeling this poorly. Advised that if he didn't feel well enough to go get a COVID test that he should go to ED for evaluation and testing. Mr. Rowley agreed with this plan and will go to ED now. RN call to [facility] ED with report including diagnosis, current treatment, symptoms and concern for COVID infection. Spoke with ANGELINA Peña. Dr. Rachel updated and agrees with treatment plan. documented in this encounter Plan of Treatment Upcoming Encounters Date Type Specialty Care Team Description 02/18/2022 Office Visit Hematology and Oncology Iain Rachel MD [facility] DR HEMATOLOGY/[place] [address] Whit Sung APRN [facility] [address] [place] [address] 02/18/2022 Infusion Hematology and Oncology documented as of this encounter Visit Diagnoses Not on filedocumented in this encounter Care Teams Academic Computing Director Relationship Specialty Start Date End Date None PCP - General 10/25/21 None documented as of this encounter
--- OUTSIDE RECORDS SUMMARY | 2022-02-15 01:03 | XMS_ITS | Encounter Summary ---
:1955 Author Organization [facility] [place] [address] Care Team Providers Name Role Phone None Primary Care Provider Unavailable Encounter Details Date Type Department Care Team Description 02/04/2022 Office Visit Hematology/Oncology Sarmad Rachel MD [facility] DR HEMATOLOGY/[place] [address] Primary malignant at [facility] Whit Sung APRN [facility] [place] [address] neoplasm of left [address] [place] [address] Drive [place] [address] Social History Tobacco Use Types [...] place to sleep or slept in a chcf (including now)? Sex Assigned at Date Recorded Not on file documented as of this encounter Last Filed Vital Signs Vital Sign Reading Time Taken Comments Blood Pressure 107/65 02/04/2022 9:34 AM EDT Pulse 108 02/04/2022 9:34 AM EDT Temperature 36.4 ??C (97.5 ??F) 02/04/2022 9:00 AM EDT Respiratory Rate 20 02/04/2022 9:00 AM EDT Oxygen Saturation 97% 02/04/2022 9:00 AM EDT Inhaled Oxygen Concentration - - Weight 121.3 kg (267 lb 6.4 oz) 02/04/2022 9:00 AM EDT Height 177.7 cm (5' 9.96) 02/04/2022 9:00 AM EDT Body Mass Index 38.41 02/04/2022 9:00 AM EDT documented in this encounter Progress Notes Yogi Rachel MD - 02/04/2022 9:30 AM EDT Images from the original note were not included. Thoracic Oncology [facility] [place] [address] [phone] Bipin Rowley is being seen for the evaluation of lung cancer. Assessment & Plan: Bipin Rowley is a 66 y.o. male patient with a past medical history significant for COPD, atrial fibrillation, hypertension, hyperlipidemia, depression with a 28-elcs-tiua smoking history who quit [id number] who underwent a lung cancer screening CT scan on August 30, 2021 that demonstrated a left hilar mas s and as detailed below he was ultimately diagnosed with a [id number] Stage IIIA of the left lower lobewith a station 11 L lymph node involved. He as ultimately determined not to be a surgical candidate. He is enrolled on a clinical trial [id number] A Randomized Phase III trial of durvalumab [...] with the addition of the CCB. His resolution expert has relocated so he is in the process of getting a new PCP and resolution expert. I will write for the diltiazem for now but emphasized the need for him to again get a new PCP - Management of dysphagia with PRN carafate if it worsens - Have previously Recommended that he received the COVID vaccine and he indicated that he was be willing to do so but just hasn't yet - Continue concurrent chemotherapyRT as per [id number] protocol - Restage and get PFTS with aim to start immunotherapy withn 14 days of the end of treatment Yogi Rachel MD, MS 02/04/2022 Medical Oncology & Hematology [facility] CC: HPI/Interval History/Subjective: Last seen 01/28/2022 ATte a pizza and that was really satisfying Energy getting less but hanging in there. Moves slowly and staying at home but he's up and around. Cough is bit worse. No fevers. Otherwise breathing is stable Not hydrating Did not need the PPI or the carafate. Dysphagia wasn't that bad he felt. Would use them if he neededthem Taking diltiazem. Afib is not acting up and he feels good. Did not get the COVID vaccine but plans to Bowels have been good. No issues with [...] History/Support Network: Home situation: . Lives in [facility]. Lives alone. Has a daughter who lives nearby and WEmeryungy contact is daughter Carmen Corrales Employment: Retired. Previously worked in the [employer] department Tobacco use: 23-ywrq-iptq smoking history. Quit in 2013. Alcohol use: Quit drinking in 2019. 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 Previously [employer] Distress: No reported service: [employer] . No connection to [facility] for himself but father goes there and he hasbeen impressed. Likes hunting and being in the outdoors. Very active in youth baseball soccer and softball. 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 Family History: Mother- at age 43 from [...] atrial fibrillation, hypertension, hyperlipidemia, depression with a 67-baev-cipu smoking history who quit in 2013 who [...] chest 11/01/21 Bronchoscopy EBUS-TBNA The Olympus EBUS (BF-AR701S) scope was inserted, lymph node inspection undertaken [...] 12.31.21 Began treatment on a clinical trial [id number] A Randomized Phase III trial of durvalumab as concurrent and consolidative therapy or consolidative therapy alone for Unresectable Stage 3 non-small cell lung cancer. He has been randomized to the standard of care arm (Carboplatin/Paclitaxel with concurrent RT) ONCBCN ONCOLOGY (AMB) 12/31/2021 01/08/2022 01/14/2022 01/21/2022 01/29/2022 CARBOplatin (Paraplatin) IV 282 mg 282 mg 300 mg 300 mg 300 mg PACLitaxeL (Taxol) IV 112 mg 112 mg 112 mg 112 mg 112 [...] Nausea And Vomiting ??? Penicillins Hives Medications 02/04/22 0937 Medication Sig Taking? dilTIAZem (TIAZAC) 120 mg Capsule,Sustained Action 24 hr Take 1 capsule by mouth daily. Yes acetaminophen (Tylenol) 500 mg Tablet Take 1,000 mg by mouth every 6 hours as needed for Pain. Occasional Stuffy head ache Yes albuteroL 90 mcg/actuation HFA Aerosol Inhaler [...] mouth daily. Patient not taking: Reported on 02/04/2022 prochlorperazine (Compazine) 10 mg Tablet Take 1 [...] Exam: Wt Readings from Last 3 Encounters: 02/04/22 121.3 kg (267 lb 6.4 oz) 01/31/22 122.5 kg (270 lb) 01/29/22 123.4 kg (272 lb 0.8 oz) Temp Readings from Last 3 Encounters: 02/04/22 36.4 ??C (97.5 ??F) 01/31/22 36.5 ??C (97.7 ??F) 01/29/22 36.4 ??C (97.5 ??F) (Temporal) BP Readings from Last 3 Encounters: 02/04/22 107/65 01/31/22 110/67 01/29/22 96/63 Pulse Readings from Last 3 Encounters: 02/04/22 (!) 108 01/31/22 78 01/29/22 91 Body surface area is 2.45 meters squared. Wt Readings from Last 3 Encounters: 02/04/22 121.3 kg (267 lb 6.4 oz) 01/31/22 122.5 kg (270 lb) 01/29/22 123.4 kg (272 lb 0.8 oz) KPS Score ECOG Grade Definition 90-100 [...] or chair ECOG 1 Physical Exam BP 107/65 (Patient Position: Standing) Pulse (!) 108 Temp 36.4 ??C (97.5 ??F) Resp 20 Ht 177.7 cm (5' 9.96) Wt 121.3 kg (267 lb 6.4 oz) SpO2 97% BMI 38.41 kg/m?? Physical Exam Physical Exam BP 107/65 (Patient Position: Standing) Pulse (!) 108 Temp 36.4 ??C (97.5 ??F) Resp 20 Ht 177.7 cm (5' 9.96) Wt 121.3 kg (267 lb 6.4 oz) SpO2 97% BMI 38.41 kg/m?? Constitutional: Oriented to person, place, and time. Appears well-developed. No distress. Mouth/Throat: Oropharynx is clear and moist. No oropharyngeal exudate. Eyes: No conjunctival icterus. Cardiovascular: Irregular rhythm. Exam reveals no friction rub. No murmur heard. Pulmonary/Chest: Normal respiratory effort. Lung clear to ascultation bilaterally. No wheezes or rales. Abdominal: +BS. Soft. No distension. No tenderness. No rebound. Musculoskeletal: Generally normal strength UE and LE. Normal range of motion. No edema. Lymphadenopathy: No cervical adenopathy. Neurological: Alert and oriented to person, place, and time. Grossly non-focal. Skin: Skin is warm and dry. No rash noted. No erythema. Psychiatric: Normal mood and affect. Thought content normal. Review of Laboratory Data: 02.04.22 White blood cell count 2.39 hemoglobin 13.8 platelet count 121,000 absolute neutrophil count 1.82 Sodium 140 potassium 3.9 chloride 103 BUN creatinine 1.0 with a BUN of 18 Glucose 117 calcium 9.3 total bilirubin 0.9 AST 15 ALT 38 alk phos 89 albumin 3.8 01.28.22 White blood cell count 3.11 hemoglobin 14.1 platelet count 147,000 absolute neutrophil count 2.36 Sodium 140 potassium 4.5 BUN 15 creatinine 1.0 glucose 115 calcium 8.9 total bilirubin 0.4 AST 13 ALT 39 alk phos 81 total protein 6.7 albumin 3.5 10..22 White blood cell count 2.67 hemoglobin 14.1 [...] Visit Hematology and Oncology Iain Rachel MD [facility] DR HEMATOLOGY/[place] [address] Whit Sung APRN [facility] [place] [address] 02/18/2022 Infusion Hematology and Oncology documented as of this encounter Visit Diagnoses Diagnosis Primary malignant neoplasm of left lower lobe of lung Malignant neoplasm of lower lobe, bronch us, or lung documented in this encounter Care Teams Souvenir Assembler Relationship Specialty Start Date End Date None PCP - General 10/25/21 None documented as of this encounter
--- OUTSIDE RECORDS SUMMARY | 2022-02-15 01:03 | XMS_ITS | Encounter Summary ---
:1955 Author Organization [facility] [place] [address] Care Team Providers Name Role Phone None Primary Care Provider Unavailable Encounter Details Date Type Department Care Team Description 02/05/2022 Travel Social History Tobacco Use Types Packs/Day [...] Visit Hematology and Oncology Iain Rachel MD [facility] DR HEMATOLOGY/[place] [address] Whit Sung APRN [facility] [place] [address] 02/18/2022 Infusion Hematology and Oncology documented as of this encounter Visit Diagnoses Not on filedocumented in this encounter Care Teams Shop Worker Relationship Specialty Start Date End Date None PCP - General 10/25/21 None documented as of this encounter
--- OUTSIDE RECORDS SUMMARY | 2022-02-15 01:03 | XMS_ITS | Encounter Summary ---
:1955 Author Organization [facility] [place] [address] Care Team Providers Name Role Phone None Primary Care Provider Unavailable Encounter Details Date Type Department Care Team Description 01/17/2022 Notes [facility] [address] [phone] Social History Tobacco Use [...] encounter Progress Notes Corina Lawson RN - 01/17/2022 11:54 AM EDT RESEARCH NURSE OFFICE NOTE 01/17/2022 [id number]: Randomized Phase 3 trial of MED [id number] (durvalumab) as concurrent and consolidative therapy or consolidative therapy alone for unresectable stage 3 NSCLC Randomized to ARM B : [place] and PHOTOGRAPHIC HAND DEVELOPER alone SUBJECTIVE Bipin Rowley presented to med onc clinic as per protocol. Pt was evaluated by Dr Mariely Velazquez & Stephanie , please see their note/s. See RN AE table were reviewed and will be updated accordingly. STUDY ASSESSMENTS COMPLETED Coughing : a little bit mostly following inhaler use. He states is mild. He states that the older blood that he mentioned last month has still resolved. He still coughs up some clear sputum. Some KEYES that has not gotten worse. C/o constipation relieved by prune juice. No nausea or vomiting. He has taken the compazine for a bloated feeling Which helped. No difficulty or pain with swallowing. He has occasional stuffy head aches that are relieved by ylenol. He is no longer taking Ibuprofen. He states he has these sinus head aches if he keeps the windows open. Some left hip chronic intermittent pain . Lower back chronic Knees are grading 2/10 today Patient reports his fatigue is more this today . He reports good mood and attitude. Denies depression. He continues on his new med for A fib and is feeling better. He still has not hard word on a new PCPyet and plans to go [facility] to [facility] if he doesn't hear of something soon. PREVIOUS CYCLE SUPPLIES & MEDICATION COLLECTED ??? n/a MEDICATION DISPENSED n/a SUPPLIES DISPENSED ??? na Non Solicited AE/SIDE EFFECT MONITORING # AE Grade (CTCAE v. ) Start date Stop Date Study Related Intervention/Outcome 1 constipation 1 12/31/21 01/06/22 ? Solicited AEs Grade (CTCAE v. ?? Start date?? Stop Date?Study Related Intervention/Outcome?? 1 vomiting 0 ? 2 cough 1 1 1 1 Baseline 12/31/21 01/07/22 01/14/22 ? Pt states is less?? 3 nausea 0 ? 4 fatigue 1 1 1 1 Baseline 12/31/21 01/07/22 01/14/22 ? 5 Abdominal pain 0 ? 6 diarrhea 0 ? 7 Edema of limbs 0 ? 8 fever 0 ? 9 ALT increased 0 ? 10 AST increased 0 ? 11 Creatinine increased 0 ? 12 anorexia 0 ? 13 myalgia 0 ? 14 dysuria 0 ? 15 pruitus 0 ? 16 pneumonitis 0 ? 17 dypnea 1 1 1 1 Baseline 12/31/21 01/14/22 ? On exertion 18 hypoxia 0 ? [...] as for any new or worsening symptoms. PLAN 1. Subject agrees to continue on study [id number] per protocol. Continue daily radiation treatments. 2. Dr Rachel & weekly chemo next Friday01/21/22 Patient verbalizes understanding of, and agreement with, plan. documented in this encounter Plan of Treatment Upcoming Encounters Date Type Specialty Care Team Description 02/18/2022 Office Visit Hematology and Oncology Iain Rachel MD [facility] DR HEMATOLOGY/[place] [address] Whit Sung APRN [facility] [place] [address] 02/18/2022 Infusion Hematology and Oncology documented as of this encounter Visit Diagnoses Not on filedocumented in this encounter Care Teams Human Services Instructor Relationship Specialty Start Date End Date None PCP - General 10/25/21 None documented as of this encounter
--- OUTSIDE RECORDS SUMMARY | 2022-02-15 01:03 | XMS_ITS | Encounter Summary ---
:1955 Author Organization [facility] [place] [address] Care Team Providers Name Role Phone None Primary Care Provider Unavailable Encounter Details Date Type Department Care Team Description 01/29/2022 Notes [facility] OFFICE OF CARE [address] [place] [phone] Social History Tobacco Use Types Packs/Day Years [...] encounter Progress Notes Fariha Veloz MSW - 01/29/2022 9:20 AM EDT Follow up with Bipin during his infusion visit today. He indicated he is 5 weeks into his treatments. He shared he feels all has gone really well. He is appreciative of the care he has received. He continues to manage at home. He has only told a limited number of people which is how he prefers it. Bipin did not identify any new needs today. Offered support. Reminded pt of MONOTYPER availability and will continue to follow. Brief assessment Supportive Counseling documented in this encounter Plan of Treatment Upcoming Encounters Date Type Specialty Care Team Description 02/18/2022 Office Visit Hematology and Oncology Iain Rachel MD [facility] DR HEMATOLOGY/[place] [address] Whit Sugn APRN [facility] DR HEMATOLOGY [place] [address] 02/18/2022 Infusion Hematology and Oncology documented as of this encounter Visit Diagnoses Not on filedocumented in this encounter Care Teams Apigee Developer Relationship Specialty Start Date End Date None PCP - General 10/25/21 None documented as of this encounter
--- OUTSIDE RECORDS SUMMARY | 2022-02-15 01:03 | XMS_ITS | Encounter Summary ---
:1955 Author Organization [facility] [place] [address] Care Team Providers Name Role Phone None Primary Care Provider Unavailable Encounter Details Date Type Department Care Team Description 01/17/2022 Office Visit Radiation Oncology at [facility] malignant [facility] neoplasm of left [address] lower lobe of lung [place], [place] RADIATION ONCOL OGY [address] [place], [place] [phone] (Wo rk) Social History Tobacco Use Types [...] place to sleep or slept in a long-term (including now)? Sex Assigned at Date Recorded Not on file documented as of this encounter Last Filed Vital Signs Vital Sign Reading Time Taken Comments Blood Pressure 104/65 01/17/2022 11:00 AM EDT Pulse 74 01/17/2022 11:00 AM EDT Temperature 36.7 ??C (98 ??F) 01/17/2022 11:00 AM EDT Respiratory Rate 24 01/17/2022 11:00 AM EDT Oxygen Saturation 98% 01/17/2022 11:00 AM EDT Inhaled Oxygen Concentration - - Weight 123.6 kg (272 lb 6.4 oz) 01/17/2022 11:00 AM EDT Height - - Body Mass Index 39.13 01/14/2022 9:38 AM EDT documented in this encounter Progress Notes Skyla Velazquez MD - 01/17/2022 11:15 AM EDT Images from the original note were not included. [facility] Medicine Radiation Oncology Radiation Oncology On-treatment [...] III NSCLC of the LLL. On study- [id number]. Treatment Details Intent: Definitive (Curative) Concurrent Therapy: Carboplatin/Paclitaxel (from Dr Rachel) Modality: VMAT Treatment Site Left Lung Prescribed Dose 60Gy in 30 fractions Current Dose: 28 Gy in 14 fractions Professional Employer Consultant Campbell from Current Plan (minimum 30 Gy isodose volume shown): Interval Clinical Course General: Overall feels fair. Continued fatigue. Lungs: Less coughing. No new SOB but ongoing severe KEYES (requires w/c here in clinic). No hemoptysis. Some chest discomfort on Friday with cold air. Uses inhalers daily. Pain: Pain score today is 0/10 in his chest. Chronic back and hip pain. Nutrition: Weight today at start of therapy was 274lbs --> 269lbs today. Eating normal diet. Performance Status KPS Score [...] confined to bed or chair Medications Medications 01/17/22 1150 Medication Sig Taking? acetaminophen (Tylenol) 500 mg Tablet Take 1,000 mg by mouth every 6 hours as needed for Pain. Occasional Stuffy head ache Yes dilTIAZem (TIAZAC) 120 mg Capsule,Sustained Action 24 [...] for Pain (joint, back pain head ache). Exam Vitals: BP 104/65 Pulse 74 Temp 36.7 ??C (98 ??F) Resp 24 Wt 123.6 kg (272 lb 6.4 oz) SpO2 98% BMI 39.13 kg/m?? General: Appears well, in no distress CV Irregular heart rhythm, heart rate WNL Resp CTAB- decreased breath sounds in all lung [facility] Interval setup imaging has been checked and approved. See Aria for details. Impression/Plan Tolerance to radiotherapy: Tolerating as anticipated. Continue as planned. Followup: RTC for on-treatment assessment next week. Sohail Velazquez MD PGY3 No orders of the defined types were placed in this encounter. ??? National Cancer [place] (NCI) Comprehensive Cancer Center ??? [employer] Commission on Cancer (ACS Lyn) Accredited Cancer Program ??? [employer] (ACR) Accredited Radiation Oncology [...] RT without changes. Louis Brown MD, MS Station Tender Radiation Oncology documented in this encounter Plan of Treatment Upcoming Encounters Date Type Specialty Care Team Description 02/18/2022 Office Visit Hematology and Oncology Iain Rachel MD [facility] DR HEMATOLOGY/[place] [address] Whit Sung APRN [facility] DR [place] [address] 02/18/2022 Infusion Hematology and Oncology documented as of this encounter Visit Diagnoses Diagnosis Primary malignant neoplasm of left lower lobe of lung Malignant neoplasm of lower lobe, bronch us, or lung documented in this encounter Care Teams Bar And Filler Assembler Relationship Specialty Start Date End Date None PCP - General 10/25/21 None documented as of this encounter
--- OUTSIDE RECORDS SUMMARY | 2022-02-15 01:03 | XMS_ITS | Encounter Summary ---
:1955 Author Organization [facility] [place] [address] Care Team Providers Name Role Phone None Primary Care Provider Unavailable Encounter Details Date Type Department Care Team Description 01/08/2022 Telephone Hematology Oncology at [facility], Maxim[facility] RN [address] [place] [phone] Social History Tobacco Use Types [...] place to sleep or slept in a longterm (including now)? Sex Assigned at Date Recorded Not on file documented as of this encounter Miscellaneous Notes Telephone Encounter - Anh Camp RN - 01/08/2022 3:48 PM EDT Phone call to [facility] cardiology to discuss seeing patient as NPW as patient was found to be in A-Fib while in ED yesterday. Left message from ANGELINA García in cardiology. ANGELINA García called back. She discussed with Carmen Marina RN primary care pediatrician for Emergency Room at [facility]. Patient does not have PCP either so they will work with patient to get PCP. Cardiology is booking out into March so will not be able to see patient in timely manner but will collaborate with PCP in management. Plan: Carmen from [facility] primary care pediatrician will help to set patient up with new PCP. Nursing to follow-up with patient tomorrow to see if he has spoken with Carmen to find PCP, make sure that he picked up Diltiazem and assess HR while in clinic. documented in this encounter Plan of Treatment Upcoming Encounters Date Type Specialty Care Team Description 02/18/2022 Office Visit Hematology and Oncology Iain Rachel MD [facility] HEMATOLOGY/[place] [address] Whit Sung APRN [facility] [place] [address] 02/18/2022 Infusion Hematology and Oncology documented as of this encounter Visit Diagnoses Not on filedocumented in this encounter Care Teams Junior Systems Administrator Relationship Specialty Start Date End Date None PCP - General 10/25/21 None documented as of this encounter
--- OUTSIDE RECORDS SUMMARY | 2022-02-15 01:03 | XMS_ITS | Encounter Summary ---
:1955 Author Organization [facility] [place] [address] Care Team Providers Name Role Phone None Primary Care Provider Unavailable Reason for Visit Consultation (Routine) - Closed Specialty Diagnoses / Procedures Referred By Contact Refer red To Contact Radiation Oncology Diagnoses Primary malignant neoplasm of left lower lobe of lung Skyla Velazquez MD [facility] Rad Onc Office Procedures Simulation for Radiation Therapy Planning [address] [place] [phone] Fax: Referral ID Status Reason Start Date Expiration Date Visits V isits Requested Authorized [id number] Closed Consult, 11/28/2021 02/11/2022 30 30 Test & Treat Encounter Details Date Type Department Care Team Description 12/12/2021 Ancillary Appointment Radiation Oncology at [facility] [address] [place] [address] RADIATION ONCOL OGY [id number] [place], [place] [phone] (Wo rk) Social History Tobacco Use Types [...] documented as of this encounter Progress Notes Louis Brown MD - 12/12/2021 1:00 PM EDT Simulation Note for External Beam Radiation Treatment Planning [facility] Coy Rowley is a 66 y.o. year old male with Stage III NSCLC who was simulated for definitive radiotherapy to the left lung and hilum today. No changes were made from the plan as documented in the original simulation order and instructions. Briefly, he was immobilized using a vacloc bag and a 2.5mm slice thickness CT scan of the patient's chest was then obtained. This scan was performed to delineate both target volumes and organs/structures at risk. These images will be used to create a customized treatment plan employing multileaf collimators and beams-eye view to treat the target to prescription dose while maximally sparing organs at risk, with the overall goal of maximizing the likelihood of a favorable disease response while minimizing the likelihood of any short term side effects or lobsterman complications of therapy. In addition, respiratory gating was used to determine the extent of target motion during the normal respiratory cycle. During the planning process, a determination will be made regarding whether an internal target volume (ITV) or gated plan will be necessary to treat this patient. I anticipate his prescription dose will be 60 Gy to the lung tumor and regional lymph nodes, delivered in daily 2 Gy fractions over the course of 6 weeks. Anticipate therapy to begin within the next 7-10 days. Furthermore, I anticipate this patient will require 3D conformal treatment planning as multiple conformal portals will be contructed to adequately cover the critical structures of interest (in this case, the tumor) with close margins that protect immediately adjacent sensitive structures (including his esophagus, normal lung, heart, skin and spinal cord). If dosimetric constraints for a safe and efficacious radiotherapy plan cannot be met using 3D conformal therapy, a IMRT or VMAT approach will be considered. The patient tolerated this procedure well, and was provided instructions with regard to upcoming appointments. documented in this encounter Plan of Treatment Upcoming Encounters Date Type Specialty Care Team Description 02/18/2022 Office Visit Hematology and Oncology Iain Rachel MD [facility] DR HEMATOLOGY/[place] [address] [facility] [address] [place]EMATOLOGY [place] [address] 02/18/2022 Infusion Hematology and Oncology Scheduled Orders Name Type Priority Associated Diagnoses Order S chedule Simulation for Procedures Routine Primary malignant Ordered: 11/28/2021 Radiation Therapy neoplasm of left lower Planning lobe of lung documented as of this encounter Visit Diagnoses Not on filedocumented in this encounter Care Teams Commissary Helper Relationship Specialty Start Date End Date None PCP - General 10/25/21 None documented as of this encounter
--- OUTSIDE RECORDS SUMMARY | 2022-02-15 01:03 | XMS_ITS | Encounter Summary ---
:1955 Author Organization [facility] [address] Care Team Providers Name Role Phone None Primary Care Provider Unavailable Encounter Details Date Type Department Care Team Description 01/03/2022 Notes [facility] [address] [phone] Social History Tobacco Use [...] for the very basics like Not h calrita at all 12/12/2021 food, housing, medical care, [...] place to sleep or slept in a usp (including now)? Sex Assigned at Date Recorded Not on file documented as of this encounter Progress Notes Corina Lawson RN - 01/03/2022 12:32 PM EDT RESEARCH NURSE OFFICE NOTE 01/03/2022 [id number]: Randomized Phase 3 trial of MED [id number] (durvalumab) as concurrent and consolidative therapy or consolidative therapy alone for unresectable stage 3 NSCLC Randomized to ARM B : [place] and ROCKET [employer]OR MECH[employer]IC alone SUBJECTIVE Bipin Rowley presented to rad onc clinic for daily radiation treatment as per protocol. Pt was evaluated by Dee Dee Velazquez and Stephanie for weekly on-treatment visit , please see their note/s. See RN AE table were reviewed and will be updated accordingly. STUDY ASSESSMENTS COMPLETED Coughing : a little bit mostly following inhaler use. He states is mild. He states that the older blood that he mentioned 3 days ago has stopped. He has not seen it for the last 2 days. He still coughs up some clear sputum. Patient state he is coughing less , very infrequent. He states he rushed in from the rain and experienced some shortness of breath upon arrival for his daily radiation treatment today and requested a wheelchair. He states he is feeling better now howeversince he still has the wheel chair, he prefers to keep it for the convenience. He still has the baseline shortness of breath with exertion. not able to walk up stairs easily. albuter inhaler helps BID. C/o constipation with last BM yesterday. He has not tried the miralax that was recommended at Dr Rachel's recent visit. He is afraid of diarrhea and incontinence. He is drinking prune juice. He admits that he isn't drinking as much water these last couple days. No nausea or vomiting. Not taking any antiemetics.No difficulty or pain with swallowing. He had what he describes as a slight head ache this AM that was relieved by Ibuprofen. Some left hip chronic intermittent pain . Lower back chronic Intermittent pain. He denies any pain at the moment of clinic visit. Patient reports his fatigue has improved some since a couple days ago . He reports a very good mood and attitude. Denies depression. PREVIOUS CYCLE SUPPLIES & MEDICATION COLLECTED ??? n/a MEDICATION DISPENSED n/a SUPPLIES DISPENSED ??? na Non Solicited AE/SIDE EFFECT MONITORING # AE Grade (CTCAE v. ) Start date Stop Date Study Related Intervention/Outcome 1 constipation 1 ? Solicited AEs ? 1 vomiting 0 ? 2 cough 1 bsaeline ? Pt states is less?? 3 nausea [...] ? 28 Atrial fibrilation 0 ?EDUCATION PROVIDED Advised to contact this office for any questions/concerns, as well as for any new or worsening symptoms. Take 1 tablespoon miralax as needed for constipation. Drink more water and juices. Obtain a thermometer to monitor for fever as needed ( he states he doesn't have one ) He agreed to do this. PLAN 1. Subject agrees to continue on study [id number] per protocol. Continue daily radiation treatments. 2. 01/07/22 weekly labs , Dr Rachel, weekly chemo Patient verbalizes understanding of, and agreement with, plan. documented in this encounter Plan of Treatment Upcoming Encounters Date Type Specialty Care Team Description 02/18/2022 Office Visit Hematology and Oncology Iain Rachel MD [facility] DR HEMATOLOGY/[place] [address] [facility] [place] [address] 02/18/2022 Infusion Hematology and Oncology documented as of this encounter Visit Diagnoses Not on filedocumented in this encounter Care Teams It Applications Analyst Relationship Specialty Start Date End Date None PCP - General 10/25/21 None documented as of this encounter
--- OUTSIDE RECORDS SUMMARY | 2022-02-15 01:03 | XMS_ITS | Encounter Summary ---
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 of left lower lobe of lung [address] [place] [phone] Social History Tobacco Use Types [...] place to sleep or slept in a correction (including now)? Sex Assigned at Date Recorded Not on file documented as of this encounter Plan of Treatment Upcoming Encounters Date Type Specialty Care Team Description 02/18/2022 Office Visit Hematology and Oncology Iain Rachel MD [facility] DR HEMATOLOGY/[place] [address] Whit Sung APRN [facility] [address] HEMATOLOGY [place] [address] 02/18/2022 Infusion Hematology and Oncology documented as of this encounter Visit Diagnoses Diagnosis Primary malignant neoplasm of left lower lobe of lung Malignant neoplasm of lower lobe, bronch us, or lung documented in this encounter Care Teams Cinema Operator Relationship Specialty Start Date End Date None PCP - General 10/25/21 None documented as of this encounter
--- OUTSIDE RECORDS SUMMARY | 2022-02-15 01:03 | XMS_ITS | Encounter Summary ---
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 Yogi Rachel MD [facility] Hem Onc Infusion Oncology Procedures TC CARBOPLATIN, 50MG, INJECTION (PARAPLATIN) TC PACLITAXEL, 1MG, INJ J9045 CARBOPLATIN [id number] TAXOL [address] [place] [address] [place] [id number] Referral ID Status Reason Start Date Expiration Date Visits V isits Requested Authorized [id number] Authorized 12/31/2021 04/13/2022 99 99 Encounter Details Date Type Department Care Team Description 01/08/2022 Infusion Hematology Oncology at [facility] malignant neoplasm [facility] of left lower lobe of lung [address] [place] [phone] Social History Tobacco Use Types [...] Sign Reading Time Taken Comments Blood Pressure 117/62 01/08/2022 10:23 AM EDT Pulse 160 01/08/2022 10:23 AM EDT Temperature 36.5 ??C (97.7 ??F) 01/08/2022 10:23 AM EDT Respiratory Rate 20 01/08/2022 10:23 AM EDT Oxygen Saturation 100% 01/08/2022 10:23 AM EDT Inhaled Oxygen Concentration - - Weight 123.4 kg (272 lb) 01/08/2022 10:23 AM EDT Height - - Body Mass Index 39.07 01/07/2022 2:00 PM EDT documented in this encounter Progress Notes Estefany Munoz RN - 01/08/2022 10:00 AM EDT INFUSION THERAPY ADMINISTRATION NOTES DIAGNOSIS: Lung cancer CYCLE #:1, Day 8 Cabo/Taxol (research protocol) REASON FOR VISIT: Chemotherapy SUBJECTIVE Bipin Rowley offers no complaints. Seen by Provider yesterday and cleared for treatment. OBJECTIVE LAB DATA: Within normal limits for today's chemo IV ACCESS: PIV placed and removed after treatment. Pre administration: Chemotherapy orders independently verified for drug name, route, and dosage per patient's height, weight and BSA by Estefany Justin RN & on-site pharmacist. REACTIONS (DESCRIPTION, TIME, INTERVENTION AND EFFECTIVENESS) none ASSESSMENT Bipin Rowley was awake, alert and tolerated treatment well. RN spoke with Dr. Rachel about patient's status prior to starting treatment. Manual apical pulse was 160 bpm and RN was concerned regarding his pulse due to being seen in the emergency room yesterday with afib RVR. Dr. Rachel stated as long julisa was feeling better than yesterday that because his treatment had curative intent, we should continue with treatment today. He was educated on the necessity to pickle solution maker his Diltiazem that he was prescribed yesterday in the ER and to start taking immediately. He was also educated on the necessity to follow up with his PCP or portfolio assistant. During this conversation Bipin elaborated that his PCP had re tired from [place] and he did not currently have a new one. Also, his portfolio assistant retired as well and did not have one at the moment. RN is working on setting up a new patient appointment with the cardiology department at [facility] and contacting his doctor's office to set up a follow up with a provider there or determining if he needs to transfer to an office closer to be seen. Dr. Rachel stressed that he needed to be working with his portfolio assistant while getting chemotherapy and XRT. PLAN Return to clinic per routine. documented in this encounter Plan of Treatment Upcoming Encounters Date Type Specialty Care Team Description 02/18/2022 Office Visit Hematology and Oncology Iain Rachel MD [facility] DR HEMATOLOGY/[place] [address] Whit Sung APRN [facility] HEMATOLOGY [place] [address] 02/18/2022 Infusion Hematology and Oncology documented as of this encounter Visit Diagnoses Diagnosis Primary malignant neoplasm of left lower lobe of lung Malignant neoplasm of lower lobe, bronch us, or lung documented in this encounter Administered Medications Inactive Administered Medications - up to 3 most recent administrations Medication Order MAR Action Action Date Dose Rate Site aprepitant (CINVANTI) injection Given 01/08/2022 11:39 AM EDT 13 0 mg Emul 130 mg 130 mg, Intravenous, ONCE, 1 dose, On 01/08/22 at 1000, Pre-PALitaxel Alternative administration of IV push over 2 minutes is a recommendation from the buckle inspector., Routine CARBOplatin (Paraplatin) 282 mg New Bag 01/08/2022 1:47 PM EDT 282 mg 556.4 mL/hr in dextrose 5% 278.2 mL infusion 282 mg, Intravenous, ONCE, 1 dose, On 01/08/22 at 1130, Administer over 30 Minutes, Warning Vesicant/Irritant Medication dexAMETHasone (Decadron) (10 mg/mL) injection Given 11:32 AM EDT 10 mg 10 mg 10 mg, Intravenous, ONCE, 1 dose, On 01/08/22 at 1000, 30 minutes Pre-PACLitaxel diphenhydrAMINE (Benadryl) (50 mg/mL) Given 01/08/2022 11:34 AM EDT 25 mg injection 25 mg 25 mg, Intravenous, ONCE, 1 dose, On 01/08/22 at 1000, 30 minutes Pre-PACLitaxel, Routine famotidine (Pepcid) (10 mg/mL) injection 20 Given 01/08/2022 11:31 AM EDT 20 mg mg 20 mg, Intravenous, ONCE, 1 dose, On 01/08/22 at 1000, 30 minutes Pre-PACLitaxel PACLitaxeL (Taxol) 112 mg in New Bag 01/08/2022 12:25 PM EDT 112 m g 268.7 mL/hr sodium chloride 0.9% Non-PVC 268.67 mL infusion 112 mg, Intravenous, ONCE, 1 dose, On 01/08/22 at 1030, Administer over 1 Hours, Warning Vesicant/Irritant Medication palonosetron (Aloxi) (0.05 mg/mL) injection Given 12/14 11:38 AM EDT 0.25 mg 0.25 mg 0.25 mg, Intravenous, ONCE, 1 dose, On Fri01/08/22 at 1000, Pre-PAClitaxel, Routine documented in this encounter Care Teams Visual Inspector Relationship Specialty Start Date End Date None PCP - General 10/25/21 None documented as of this encounter
--- OUTSIDE RECORDS SUMMARY | 2022-02-15 01:03 | XMS_ITS | Encounter Summary ---
:1955 Author Organization [facility] [place] [address] Care Team Providers Name Role Phone None Primary Care Provider Unavailable Reason for Visit Consultation (Routine) - Closed Specialty Diagnoses / Procedures Referred By Contact Refer red To Contact Radiation Oncology Diagnoses Lung mass Tawana Rivera Thomas, Charles R APRN Jr., MD [facility] Pulmonary Medicine RADIATION [place]COLOG[place], [place] [id number] [place] [phone] Fax: Referral ID Status Reason Start Date Expiration Date Visits V isits Requested Authorized [id number] Closed Consult, 11/16/2021 11/16/2022 1 1 Test & Treat Encounter Details Date Type Department Care Team Description 12/12/2021 [facility] neoplasm of left [address] lower lobe of lung [place], [place] RADIATION ONCOL OGY [address] [place], [place] [phone] (Wo rk) Social History Tobacco Use Types [...] Sign Reading Time Taken Comments Blood Pressure 138/95 12/12/2021 11:00 AM EDT Pulse 96 12/12/2021 11:00 AM EDT Temperature 36.7 ??C (98.1 ??F) 12/12/2021 11:00 AM EDT Respiratory Rate 20 12/12/2021 11:00 AM EDT Oxygen Saturation 96% 12/12/2021 11:00 AM EDT Inhaled Oxygen Concentration - - Weight 126.1 kg (278 lb) 12/12/2021 11:00 AM EDT Height - - Body Mass Index 39.93 11/30/2021 9:04 AM EDT documented in this encounter Progress Notes Louis Brown MD - 12/12/2021 12:00 PM EDT Images from the original note were not included. Radiation Oncology Consult Note Louis Brown MD, MS [facility] [phone] PATIENT IDENTIFICATION: PATIENT NAME: Bipin Rowley DATE OF : 1955 REFERRING PROVIDER: Dr Savanna Pierce PRIMARY CARE PROVIDER: James Calle REASON FOR CONSULTATION: Cancer Staging Primary malignant neoplasm of left lower lobe of lung Staging form: Lung, AJCC 8th Edition - Clinical stage from 12/01/2021: Stage IIIA (cT3, cN1, cM0) - Signed by Yogi Rachel MD on 12/01/2021 DATE OF SERVICE: 12/12/2021 HISTORY OF PRESENT ILLNESS: Bipin is a 66M diagnosed with a locally advanced NSCLC in the setting of a screening CT of the chest. He was referred to Dr Davies after diagnostic CT chest 10/18/21 showed a left hilar mass. Working withEBUS, PET/CT and brain MRI were recommended. The endoscopy 11/01/21 showed no obvious endobronchial disease. LN sampling of stations 11R/L, 4R, 7 and the mass itself demonstrated adenocarcinoma in the mass and the 11L node. PET/CT 11/09/21 and MRI brain 11/13/21 did not show any evidence of distant disease. He established care with Dee Dee Corrales and Virginie subsequently. Based on tumor location and PFTs he is not medically operable. Dr Rachel discussed a definitive chemoradiation approach as well as clinical trial [id number], for which Bipin has consented. I am meeting Bipin today to review the role of radiotherapy in the management of his locally advanced NSCLC. REVIEW OF SYSTEMS: On further questioning, he reports some KEYES, sometimes feels SOB with anxiety. No cough or hemoptysis. He has some back pain. REVIEW OF SYSTEMS 12/12/2021 Constitutional Weight gain, Fatigue, lack of energy, Drowsiness Ear / nose / throat / mouth Hearing difficulty, Change in the way food tastes, Hoarseness Eyes Blurry vision Respiratory Wheezing, Shortness of breath, Other respiratory symptoms (lungs, breathing) Cardiovascular None of the above Gastrointestinal Feeling bloated Skin, hair None of the above Musculoskeletal Joint stiffness, Reduced range of motion, Unable to walk/difficulty walking Neurological Balance difficulty, dizziness Hematologic / Lymphatic None of the above He is not vaccinated for COVID. A comprehensive 14 point review of systems was conducted with this patient and is otherwise negativeexcept as documented above. PAST MEDICAL AND SURGICAL HISTORY: No past medical history on file. Past Surgical History: Procedure Laterality Date ? ? PRO [facility] EBUS GUIDED SAMPL 3/> NODE STATION/STRUX N/A 11/01/2021 BRONCH, W ENDOBRONCHIAL ULTRASOUND (EBUS) GUIDED SAMPLING, 3+ NODES (WRVU 5.21) performed by Alek Davies MD at [facility] ENDOSCOPY CONTRAINDICATIONS TO RADIATION THERAPY: None Prior Radiation to this Site: No Active Connective Tissue Disease (Lupus or Scleroderma) No MEDICATIONS AND ALLERGIES: Medications 12/01/21 0717 Medication Sig Taking? albuteroL 90 mcg/actuation HFA Aerosol Inhaler INHALE [...] for Pain (joint, back pain head ache). buPROPion (WELLBUTRIN SR) 100 mg 12 hr tablet 100 MG = 1 Tablet(s), PO, Once daily X 3 days then Twice daily Allergies Allergen Reactions ??? Codeine Phosphate Nausea And Vomiting ??? 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 PHYSICAL EXAM BP (!) 138/95 Pulse 96 Temp 36.7 ??C (98.1 ??F) Resp 20 Wt 126.1 kg (278 lb) SpO2 96% BMI 39.93 kg/m?? General: alert, appears stated age, and in no distress sitting in exam room Resp: clear bilaterally TODAY'S PERFORMANCE STATUS: KPS Score ECOG Grade Definition 90-100 0 Fully active, able to carry on all pre-disease performance without restriction XX 70-80 1 Restricted in physically strenuous activity [...] selfcare; totally confined to bed or chair IMAGING REVIEW: PET/CT 11/09/21 FDG avid left hilar mass No distant disease Application Defense Manager Images: PATHOLOGY REVIEW: Source: EBUS Provider / Location: Dr Davies Date: 11/01/21 Histology / Grade Adenocarcinoma - LLL mass, L11 Other PDL1 = 1% ASSESSMENT / PLAN: Bipin is a 66-year-old man with a locally advanced non-small cell lung cancer. He is consented forinical trial [id number], with randomization pending at time of today's consultation. He has already met with Drs. Corrales and Virginie, and as such is very well-informed regarding the rationale and intent of therapy. Today's conversation focused on the logistics, toxicities and potential complications. He is aware that prior to beginning radiotherapy a planning simulation CT must be performed. This is scheduled for later this afternoon. We discussed the radiation fractionation regimen of 60 Bustillo in 30 fractions, to be delivered concurrently with chemotherapy. He may also receive additional immunotherapy as part of the clinical trial mentioned above. I anticipate treatment to start on 12/31/21, which will allow for time for radiation planning and to obtain external review as required forthe trial. In terms of toxicities, we reviewed the risks of fatigue, radiation induced dyspnea as well as cough. We also discussed the likelihood of radiation esophagitis towards the middle or end of treatment. In terms of long-term complications, he is aware of the risk of symptomatic radiation pneumonitis and/or fibrosis. Informed consent was obtained today in clinic, with simulation to follow. All of Bipin's questionswere answered to his fullest satisfaction, and we have provided him with our contact information should any further questions or concerns arise. SUMMARY OF PLAN / RECOMMENDATION: 1. Intent of therapy: Curative 2. Clinical Trial Availability: Yes - patient enrolled on [id number] 3. Informed consent obtained for radiotherapy to the left lung/hilum, anticipate 30 fractions to be delivered in St. . 4. Simulation later today TIME ATTESTATION: I certify spending at least 60 minutes in providing care to this patient today, 12/12/21 as reflected by the following activities: - review of his medical record in the chart, including interpretation of imaging, laboratory and pathologic studies referenced above - discussion of the above with the patient as part of shared medical decision making - documenting the outcome of today's visit as above LOUIS BROWN MD, MS Corina Lawson RN - 12/12/2021 12:00 PM EDT RADIATION ONCOLOGY NURSING INITIAL NURSING ASSESSMENT IDENTIFICATION: Bipin Rowley is a 66 y.o. year-old male with lung ca REVIEW OF SYSTEMS: Review of Systems - Oncology REVIEW OF SYSTEMS 12/12/2021 Constitutional Weight gain, Fatigue, lack of energy, Drowsiness Ear / nose / throat / mouth Hearing difficulty, Change in the way food tastes, Hoarseness Eyes Blurry vision Respiratory Wheezing, Shortness of breath, Other respiratory symptoms (lungs, breathing) Cardiovascular None of the above Gastrointestinal Feeling bloated Skin, hair None of the above Musculoskeletal Joint stiffness, Reduced range of motion, Unable to walk/difficulty walking Neurological Balance difficulty, dizziness Hematologic / Lymphatic None of the above pt states he has COPD. Denies coughing. Some shortness of breath with anxiety, but otherwise e not at rest. IN THE PAST 12 MONTHS HAVE YOU: Fallen more than one time? No Injured yourself as result of the fall? No Experienced difficulty with walking/problems with balance? Yes he attributes to his A fib Do you use any assistive devices? No Any history of collagen vascular diseases:Yes A fib Any Implanted Devices/Hardware: No If yes please put alert in ARIA patient summary Prior Radiotherapy: No Prior Chemotherapy: No Prior Hormone Therapy: N/A Other: Patient denies history of Scleroderma and Lupus Patient states he has not received COVID vaccination. LEARNING ASSESSMENT REVIEWED: Yes ADVANCED DIRECTIVE: Not discussed today. PAIN ASSESSMENT: [2] out of 10 *eD-H Adult PCS Flow Sheet if 4 or above Lower back SOCIAL ASSESSMENT: See EDH social assessment information entered. Support Systems: lives alone. Daughter lives in the area ( doesn't know his dx) . Brother in [place] knows he as cancer. Barriers to treatment: none discussed today Referrals/Interventions: clam bed worker visit on per routine. RADIATION SPECIFIC TEACHING:Will provide the following information on day [facility] Radiation Therapy and You Site specific teaching : Other: PLAN: Per Dr Brown documented in this encounter Plan of Treatment Upcoming Encounters Date Type Specialty Care Team Description 02/18/2022 Office Visit Hematology and Oncology Iain Rachel MD [facility] [address] HEMATOLOGY/[place] [address] Whit Sung APRN [facility] HEMATOLOGY [place] [address] 02/18/2022 Infusion Hematology and Oncology documented as of this encounter Visit Diagnoses Diagnosis Primary malignant neoplasm of left lower lobe of lung Malignant neoplasm of lower lobe, bronch us, or lung documented in this encounter Care Teams Universal Grinder Tool Relationship Specialty Start Date End Date None PCP - General 10/25/21 None documented as of this encounter
--- OUTSIDE RECORDS SUMMARY | 2022-02-15 01:03 | XMS_ITS | Encounter Summary ---
:1955 Author Organization [facility] [place] [address] Care Team Providers Name Role Phone None Primary Care Provider Unavailable Encounter Details Date Type Department Care Team Description 01/21/2022 Office Visit Hematology/Oncology Sarmad Rachel MD [facility] [address] HEMATOLOGY/[place] [address] Primary malignant at [facility] Whit Sung APRN [facility] [address] [place]ATOLOGY [place] [address] neoplasm of left [address] [place] [address] Drive [place] [address] Social History Tobacco Use Types [...] Sign Reading Time Taken Comments Blood Pressure 112/62 01/21/2022 9:29 AM EDT Pulse 92 01/21/2022 9:00 AM EDT Temperature 36.4 ??C (97.5 ??F) 01/21/2022 9:00 AM EDT Respiratory Rate 20 01/21/2022 9:00 AM EDT Oxygen Saturation 99% 01/21/2022 9:29 AM EDT Inhaled Oxygen Concentration - - Weight 124.4 kg (274 lb 3.2 oz) 01/21/2022 9:00 AM EDT Height 177.7 cm (5' 9.96) 01/21/2022 9:00 AM EDT Body Mass Index 39.39 01/21/2022 9:00 AM EDT documented in this encounter Patient Instructions Patient InstructionsYogi Rachel MD - 01/21/2022 9:30 AM EDT I think you are doing very well. The symptoms and side effects you are experiencing are par for thecourse. They will likely get worse before they get better but that is typical. Therefore our plan to help with the indigestion and difficulty swallowing will be : 1) Start taking OMEPRAZOLE 20mg each morning. This will reduce the stomach acid. It works dfiferently than TUMS so you need to take it every day to work. Not just when you feel the symptoms. 2) Start using SULCRAFATE (aka CARAFATE) three or four times a day as needed to help soothe and coatyour esophagus. This works best if you use it 1-2 hours BEFORE eating. 3) Do try to get the COVID vaccine and the FLU shot as soon as you can. There is no perfect time so just get them when you can. 4) For the constipation - if you get blocked up again try a smaller dose (like 1 teaspoon) of the miralax to try and get things moving again. documented in this encounter Progress Notes Yogi Rachel MD - 01/21/2022 9:30 AM EDT Images from the original note were not included. Thoracic Oncology [facility] [place] [address] [phone] Bipin Rowley is being seen for the evaluation of lung cancer. Assessment & Plan: Bipin Rowley is a 66 y.o. male patient with a past medical history significant for COPD, atrial fibrillation, hypertension, hyperlipidemia, depression with a 57-mjbz-wvek smoking history who quit [id number] who underwent a lung cancer screening CT scan on August 30, 2021 that demonstrated a left hilar mas s and as detailed below he was ultimately diagnosed with a [id number] Stage IIIA of the left lower lobewith a station 11 L lymph node involved. He as ultimately determined not to be a surgical candidate. He is enrolled on a clinical trial [id number] A Randomized Phase III trial of durvalumab [...] with the addition of the CCB. His senior paralegal has relocated so he is in the process of getting a new PCP and senior paralegal - Management of dysphagia as below in the patient instructions -Recommended again that he received the COVID vaccine and he indicated that he was be willing to do so but just hasn't yet - Continue concurrent chemotherapyRT as per [id number] protocol Yogi Rachel MD, MS 01/21/2022 Medical Oncology & Hematology [facility]: Patient Instructions I think you are doing very well. The symptoms and side effects you are experiencing are par for thecourse. They will likely get worse before they get better but that is typical. Therefore our plan to help with the indigestion and difficulty swallowing will be : 1) Start taking OMEPRAZOLE 20mg each morning. This will reduce the stomach acid. It works dfiferently than TUMS so you need to take it every day to work. Not just when you feel the symptoms. 2) Start using SULCRAFATE (aka CARAFATE) three or four times a day as needed to help soothe and coatyour esophagus. This works best if you use it 1-2 hours BEFORE eating. 3) Do try to get the COVID vaccine and the FLU shot as soon as you can. There is no perfect time so just get them when you can. 4) For the constipation - if you get blocked up again try a smaller dose (like 1 teaspoon) of the miralax to try and get things moving again. HPI/Interval History/Subjective: Last seen 01/14/2022 Still trying to connect with cardiology and new PCP. Has an a with pulmonary Dr. Mcgraw this Friday. Taking diltiazem. Feels much better than two weeks ago. Did not get the COVID vaccine. More dysphagia and indigestion Breathing energy are better. Feels a little run down by the end of the week. Nothing disabling. Had some issues with constipation and doing well. Did not get a COVID vaccine because he was worried about side but plans to do it next Friday Brandon very light headed and weak. as baseline [...] History/Support Network: Home situation: . Lives in [facility] [place]. Lives alone. Has a daughter who lives nearby and WEmergycey contact is daughter Carmen Corrales Employment: Retired. Previously worked in the [employer] department Tobacco use: 20-ltjk-zjwo smoking history. Quit in 2013. Alcohol use: Quit drinking in 2019. 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 Previously [employer] Distress: No reported service: Friendsee . No connection to [facility] for himself but father goes there and he hasbeen impressed. Likes hunting and being in the outdoors. Very active in youth baseball soccer and softball. 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 Family History: Mother- at age 43 from [...] atrial fibrillation, hypertension, hyperlipidemia, depression with a 53-mfdv-kzpo smoking history who quit in 2013 who [...] chest 11/01/21 Bronchoscopy EBUS-TBNA The Olympus EBUS ([id number]) scope was inserted, lymph node inspection undertaken [...] myelolipoma. 11/13/2021 MRI brain No metastatic disease 8.08.03 pulmonary function test done at [facility] [...] 12.31.21 Began treatment on a clinical trial [id number] A Randomized Phase III trial of durvalumab as concurrent and consolidative therapy or consolidative therapy alone for Unresectable Stage 3 non-small cell lung cancer. He has been randomized to the standard of care arm (Carboplatin/Paclitaxel with concurrent RT) ONCN ONCOLOGY (AMB) 12/31/2021 01/08/2022 01/14/2022 CARBOplatin (Paraplatin) IV 282 mg 282 mg 300 mg PACLitaxeL (Taxol) IV 112 mg 112 mg 112 mg Patient [...] Nausea And Vomiting ??? Penicillins Hives Medications 01/21/22 0937 Medication Sig Taking? dilTIAZem (TIAZAC) 120 [...] mg by mouth 2 times daily. Yes acetaminophen (Tylenol) 500 mg Tablet Take 1,000 mg by mouth every 6 hours as needed for Pain. Occasional Stuffy head ache prochlorperazine (Compazine) 10 mg Tablet Take 1 tablet by mouth every 6 hours as needed for Nausea. Patient not taking: Reported on 01/21/2022 ibuprofen (Advil) 200 mg Tablet Take 800 [...] Exam: Wt Readings from Last 3 Encounters: 01/21/22 124.4 kg (274 lb 3.2 oz) 01/17/22 123.6 kg (272 lb 6.4 oz) 01/14/22 124.9 kg (275 lb 6.4 oz) Temp Readings from Last 3 Encounters: 01/21/22 36.4 ??C (97.5 ??F) 01/17/22 36.7 ??C (98 ??F) 01/14/22 36.5 ??C (97.7 ??F) (Temporal) BP Readings from Last 3 Encounters: 01/21/22 112/62 01/17/22 104/65 01/14/22 105/71 Pulse Readings from Last 3 Encounters: 01/21/22 92 01/17/22 74 01/14/22 70 Body surface area is 2.48 meters squared. Wt Readings from Last 3 Encounters: 01/21/22 124.4 kg (274 lb 3.2 oz) 01/17/22 123.6 kg (272 lb 6.4 oz) 01/14/22 124.9 kg (275 lb 6.4 oz) KPS Score ECOG Grade [...] or chair ECOG 1 Physical Exam BP 112/62 (Patient Position: Standing) Pulse 92 Temp 36.4 ??C (97.5 ??F) Resp 20 Wt 124.4 kg(274 lb 3.2 oz) SpO2 99% BMI 39.39 kg/m?? Physical Exam Constitutional: General: Not in [...] Judgment: Judgment normal. Review of Laboratory Data: 01.21.22 White blood cell count 2.67 hemoglobin [...] and Oncology Iain Rachel MD [facility] HEMATOLOGY/[place] [address] Whit Sung APRN [facility] [address] HEMATOLOGY [place] [address] 02/18/2022 Infusion Hematology and Oncology documented as of this encounter Visit Diagnoses Diagnosis Primary malignant neoplasm of left lower lobe of lung Malignant neoplasm of lower lobe, bronch us, or lung documented in this encounter Care Teams Brand Designer Relationship Specialty Start Date End Date None PCP - General 10/25/21 None documented as of this encounter
--- OUTSIDE RECORDS SUMMARY | 2022-02-15 01:03 | XMS_ITS | Encounter Summary ---
:1955 Author Organization [facility] [place] [address] Care Team Providers Name Role Phone None Primary Care Provider Unavailable Encounter Details Date Type Department Care Team Description 01/03/2022 Office Visit Radiation Oncology at [facility] rimary malignant [facility] neoplasm of left [address] lower lobe of lung [place], [place] RADIATION ONCOL OGY [address] [place], [place] [phone] (Wo rk) Social History Tobacco Use Types [...] place to sleep or slept in a residential (including now)? Sex Assigned at Date Recorded Not on file documented as of this encounter Last Filed Vital Signs Vital Sign Reading Time Taken Comments Blood Pressure 111/70 01/03/2022 11:00 AM EDT Pulse 79 01/03/2022 11:00 AM EDT Temperature 36.7 ??C (98 ??F) 01/03/2022 11:00 AM EDT Respiratory Rate 22 01/03/2022 11:00 AM EDT Oxygen Saturation 96% 01/03/2022 11:00 AM EDT Inhaled Oxygen Concentration - - Weight 124.4 kg (274 lb 3.2 oz) 01/03/2022 11:00 AM EDT Height - - Body Mass Index 39.39 12/31/2021 12:00 PM EDT documented in this encounter Progress Notes Skyla Velazquez MD - 01/03/2022 12:00 PM EDT Images from the original note were not included. [facility] Medicine Radiation Oncology Radiation Oncology On-treatment Visit [...] y.o. year old male with Stage III NSCLC. On study- [id number]. Treatment Details Intent: Definitive (Curative) Concurrent Therapy: Carboplatin/Paclitaxel (from Dr Rachel) Modality: VMAT Treatment Site Left Lung Prescribed Dose 60Gy in 30 fractions Current Dose: 8 Gy in 4 fractions Reducing Machine Operator Campbell from Current Plan (minimum 30 Gy isodose volume shown): Interval Clinical Course General: No changes since last seen. Started this week. Lungs: Friday- coughed up some old blood- no further episodes. Coughing up clear sputum currently. Some SOB with exertion, no SOB at rest. Pain: Pain score today is 0/10 in his chest. Chronic back and hip pain. Nutrition: Weight today at start of therapy is 125.8. Eating normal diet. Performance Status KPS Score [...] confined to bed or chair Medications Medications 01/03/22 1206 Medication Sig Taking? ibuprofen (Advil) 200 mg [...] for Nausea. Patient not taking: Reported on 01/03/2022 Exam Vitals: BP 111/70 Pulse 79 Temp 36.7 ??C (98 ??F) Resp 22 SpO2 96% General: Appears well, in no distress Imaging/Labs Interval setup imaging has been checked and approved. See Britney for details. Impression/Plan Tolerance to radiotherapy: Tolerating as anticipated. Continue as planned. Followup: RTC for on-treatment assessment next week. No orders of the defined types were placed in this encounter. Sohail Velazquez MD PGY3 ??? National [facility] [place] (NCI) Comprehensive Cancer [facility] ??? [place] [employer] Commission on Cancer (ACS Lyn) Accredited Cancer Program ??? [place] [employer] (ACR) Accredited Radiation Oncology [...] those described above. Continue RT without changes. Lousi Brown MD, MS [facility] Radiation Oncology documented in this encounter Plan of Treatment Upcoming Encounters Date Type Specialty Care Team Description 02/18/2022 Office Visit Hematology and Oncology Iain Rachel MD [facility] DR HEMATOLOGY/[place] [address] Whit Sung APRN [facility] [place] [address] 02/18/2022 Infusion Hematology and Oncology documented as of this encounter Visit Diagnoses Diagnosis Primary malignant neoplasm of left lower lobe of lung Malignant neoplasm of lower lobe, bronch us, or lung documented in this encounter Care Teams Rougher Merchant Mill Relationship Specialty Start Date End Date None PCP - General 10/25/21 None documented as of this encounter
--- OUTSIDE RECORDS SUMMARY | 2022-02-15 01:03 | XMS_ITS | Encounter Summary ---
:1955 [place] [address] Care Team Providers Name Role Phone None Primary Care Provider Unavailable Encounter Details Date Type Department Care Team Description 01/28/2022 Orders Only Hematology and Yogi Rachel, Primary malignant Oncology at [facility] MD neoplasm of left Replaced by [facility] low er lobe of lung Drive [address] Sosa [place] HEMATOLOGY/ONCOLOGY [address] DEPT [phone] [place], [place] [address] (Wo rk) Social History Tobacco [...] Visit Hematology and Oncology Iain Rachel MD [facility] DR HEMATOLOGY/[place] [address] Whit Sung APRN [facility] [place] [address] 02/18/2022 Infusion Hematology and Oncology Scheduled Orders Name Type Priority Associated Diagnoses Order S chedule Miscellaneous Lab request Lab Routine Primary maligna nt Expected: 01/29/2022 neoplasm of left lower (Appr oximate), lobe of lung Expires: 2022 documented as of this encounter Visit Diagnoses Diagnosis Primary malignant neoplasm of left lower lobe of lung Malignant neoplasm of lower lobe, bronch us, or lung documented in this encounter Care Teams Load Planner Relationship Specialty Start Date End Date None PCP - General 10/25/21 None documented as of this encounter
--- OUTSIDE RECORDS SUMMARY | 2022-02-15 01:03 | XMS_ITS | Encounter Summary ---
:1955 Author Organization [place] [address] Care Team Providers Name Role Phone None Primary Care Provider Unavailable Encounter Details Date Type Department Care Team Description 01/31/2022 Orders Only Hematology/Oncology Yogi Rachel, Pr imary malignant at [facility] MD neoplasm of [address] [place] [address] HEMATOLOGY/ONCOLOGY [phone] [place], [place] [address] (Wo rk) Social History Tobacco Use Types [...] to sleep or slept in a senior care (including now)? Sex Assigned at Date Recorded Not on file documented as of this encounter Plan of Treatment Upcoming Encounters Date Type Specialty Care Team Description 02/18/2022 Office Visit Hematology and Oncology Iain Rachel MD [facility] DR HEMATOLOGY/[place] [address] Whit Sung APRN [facility] [address] [place] [address] 02/18/2022 Infusion Hematology and Oncology Scheduled Orders Name Type Priority Associated Diagnoses Order S chedule RECIST 1.1 Imaging Routine Primary malignant neoplasm o f Expected: 02/15/2022, left lower lobe of lung Expi res: 08/17/2022 documented as of this encounter Visit Diagnoses Diagnosis 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
--- OUTSIDE RECORDS SUMMARY | 2022-02-15 01:04 | XMS_ITS | Encounter Summary ---
:1955 Author Organization [facility] [place] [address] Care Team Providers Name Role Phone None Primary Care Provider Unavailable Reason for Referral Diagnostic Test (Emergency) - Closed Specialty Diagnoses / Procedures Referred By Contact Refer red To Contact Radiology Diagnoses Pre-operative cardiovascular examination, high risk surgery Malignant neoplasm of bronchus of left lower lobe Sheldon Corrales MD [facility] Rad Nuclear Med Procedures NM Lung Perfusion Spect/CT [address] [place] [address] Phone: Fax: Referral ID Status Reason Start Date Expiration Date Visits V isits Requested Authorized [id number] Closed Specialty 11/28/2021 05/31/2023 1 1 Service Requested Encounter Details Date Type Department Care Team Description 11/28/2021 Orders Only Thoracic Surgery at [facility] Pre- operative cardiovascular examination, high risk surgery; [facility], RN Malignant neoplasm of bronch [place] [address] Social History Tobacco Use Types Packs/Day Years Used Date Former Smoker Cigarettes 1 Quit: 01/12/20 14 Smokeless Tobacco: Never Used Financial Resource Strain Answer Date Recorded How [...] Visit Hematology and Oncology Iain Rachel MD [facility] DR HEMATOLOGY/[place] [address] Whit Sung APRN [facility] DR [place] [address] 02/18/2022 Infusion Hematology and Oncology documented as of this encounter Results NM Lung Perfusion Spect/CT (12/03/2021 3:29 PM [...] who have questions please contact the health vehicle care specialist that requested your imaging first. ? Narrative [...] ho have questions please contact the health vehicle care specialist that requested your imaging first. Sheldon Corrales MD IMG NM ORDERABLES documented in this encounter Visit Diagnoses Diagnosis Pre-operative cardiovascular examination , high risk surgery Pre-operative cardiovascular examination Malignant neoplasm of bronchus of left l ower lobe Pre-operative cardiovascular examination , high risk surgery Pre-operative cardiovascular examination Malignant neoplasm of bronchus of left l ower lobe documented in this encounter Care Teams Fishing Captain Relationship Specialty Start Date End Date None PCP - General 10/25/21 None documented as of this encounter
--- OUTSIDE RECORDS SUMMARY | 2022-02-15 01:04 | XMS_ITS | Encounter Summary ---
:[address] [place] [address] Care Team Providers Name Role Phone None Primary Care Provider Unavailable Encounter Details Date Type Department Care Team Description 11/15/2021 Orders Only Hematology and Jada Chairez, Primary squamous cell Oncology at [facility] carcinoma of lower [facility] lob e of left [place] [address] HEMATOLOGY-ONCOLOG [phone] Y DEPT. [place], [place] [address] Social History Tobacco Use Types Packs/Day Years [...] Visit Hematology and Oncology Iain Rachel MD [facility] DR HEMATOLOGY/[place] [address] Whit Sung APRN [facility] DR [place] [address] 02/18/2022 Infusion Hematology and Oncology documented as of this encounter Results Comprehensive metabolic panel (non-fasting) (11/30/2021 7:50 AM EDT) athologist Signature Glucose Lvl 130 65 - 199 [facility] mg/dL [facility] Comment: Diabetes: >=200 mg/dL plus symp toms BUN 12 10 - 20 mg/dL [facility] Creatinine 0.94 0.80 - 1.50 mg/dL [facility] Sodium 138 135 - 145 mmol/L [facility] Potassium 4.6 3.5 - 5.0 mmol/L [facility] Comment: Please note: ??Patients with WBC >100,00 0 may have falsely elevated Potassium levels. ??For accurate Potassium quantif ication in these patients send serum separator tube (gold top) for subsequent determinations. ??Contact the Clinical Chemistry Laboratory if there are any qu estions. Chloride 99 98 - 107 mmol/L [facility] CO2 29 22 - 31 mmol/L [facility] Anion Gap 10 5 - 15 mmol/L [facility] Calcium 9.2 8.5 - 10.5 mg/dL [facility] Total Protein 7.4 6.1 - 8.0 g/dL [facility] Albumin 4.7 3.2 - 5.2 g/dL [facility] AST 18 0 - 39 unit/L [facility] ALT 19 0 - 55 unit/L [facility] Alk Phos 93 40 - 130 unit/L [facility] Total Bilirubin 0.7 0.2 - 1.3 mg/dL [facility] Estimated GFR 89 >=60 mL/min/1.73 m?? [facility] Comment: This patient's estimated GFR [...] Agency Comment Spec In Lab [facility] CHEMISTRY ORDERABLES Performing Organization Address City/State/[place] [address] Lactate Dehydrogenase (11/30/2021 7:50 AM EDT) P athologist Signature LDH 170 110 - 220 [facility] unit/L [facility] Specimen Anatomical Collection Method Collection Time Receive d Time (Source) Location / / Volume Laterality Blood 11/30/2021 7:50 AM 2 7:55 EDT AM EDT Resulting Agency Comment Spec In Lab [facility] CHEMISTRY ORDERABLES Performing Organization Address City/State/[place] [address] documented in this encounter Visit Diagnoses Diagnosis 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
--- OUTSIDE RECORDS SUMMARY | 2022-02-15 01:04 | XMS_ITS | Encounter Summary ---
:1955 Author Organization [facility] [place] [address] Care Team Providers Name Role Phone None Primary Care Provider Unavailable Encounter Details Date Type Department Care Team Description 11/13/2021 Multidisciplinary Care Pulmonology at [facility] Tawana Rivera Committee [facility] C, [address] [facility] [address] [address] Pulmonary [phone] [place] [address] Social History Tobacco Use Types Packs/Day Years [...] documented as of this encounter Progress Notes Tawana Rivera APRN - 11/13/2021 9:03 AM EDT Thoracic - Tumor Board Note Date Presented: 11/13/2021 Presenting Physician: Tawana Rivera APRN Diagnosis/Tumor Site: Left lower lobe lung mass Is this Metastatic Disease: No Synopsis of History/HPI: Mr. Rowley presented with a 6 cm LLL lung mass. He is s/p EBUS and navigational bronchoscopy with NSCLC (adenocarcinoma) findings in his LLL mass and lymph node 11L. Lymphocytesfound in 4R and station 7. PET scan completed on 11/09/2021 with findings of PET avid LLL mass and nodistal mets, the renal mass was not concerning for metastatic disease. Jc MRI was completed todayand is is pending. Imaging: CT chest, PET/CT,brain MRI (pending) Pathology/Histology: NSCLC Stage: T3N1M0 (IIIA) unless findings of metastatic disease from his brain MRI Clinical Data (Exams, Labs, etc.): PFTs completed 07/18/21 with FEV 1.19/33%, and DLCO was not completed, former smoker (quit 8 years ago) Molecular Pathology Results: pending Clinical Trial Availability: not discussed Options Discussed: Med/onc and rad/onc referral. PFTs were scheduled, but Mr. Rowley missed his appt,will attempt to reschedule for DLCO to see if he may be a surgical candidate Recommendations: Medical Oncology consult and Radiation Oncology consult DISCLAIMER: The patient was discussed and the tumor board made recommendations but it is ultimately up to the treatment provider(s) and the patient to determine the patient???s care. documented in this encounter Plan of Treatment Upcoming Encounters Date Type Specialty Care Team Description 02/18/2022 Office Visit Hematology and Oncology Iain Rachel MD [facility] HEMATOLOGY/[place] [address] Whit Sung APRN [facility] [place] [address] 02/18/2022 Infusion Hematology and Oncology documented as of this encounter Visit Diagnoses Not on filedocumented in this encounter Care Teams Investor Relations Manager Relationship Specialty Start Date End Date None PCP - General 10/25/21 None documented as of this encounter
--- OUTSIDE RECORDS SUMMARY | 2022-02-15 01:04 | XMS_ITS | Encounter Summary ---
:1955 Author Organization [facility] [place] [address] Care Team Providers Name Role Phone James Calle MD Primary Care Provider Encounter Details Date Type Department Care Team Description 10/22/2021 Telephone [place]ology at [facility] [place] [address] Social History Tobacco Use Types Packs/Day Years Used Date Never Assessed Financial Resource Strain Answer Date Recorded How [...] Visit Hematology and Oncology Iain Rachel MD [facility] DR HEMATOLOGY/[place] [address] Whit Sung APRN [facility] HEMATOLOGY [place] [address] 02/18/2022 Infusion Hematology and Oncology documented as of this encounter Visit Diagnoses Not on filedocumented in this encounter Care Teams Plywood Layup Line Core Layer Relationship Specialty Start Date End Date James Calle MD PCP - General 03/06/10 10/24/[address] [place] [phone] documented as of this encounter
--- OUTSIDE RECORDS SUMMARY | 2022-02-15 01:04 | XMS_ITS | Encounter Summary ---
:1955 Author Organization [facility] [place] [address] Care Team Providers Name Role Phone None Primary Care Provider Unavailable Encounter Details Date Type Department Care Team Description 11/28/2021 Orders Only Thoracic Surgery at [facility] onary hypertension; [facility] [place], RN Malignant neoplasm of [place] [address] Social History Tobacco Use Types Packs/Day [...] [facility] DR HEMATOLOGY/[place] [address] Whit Sung APRN [facility] DR [place] [address] 02/18/2022 Infusion Hematology and Oncology documented as of this encounter Visit Diagnoses Diagnosis Pulmonary hypertension Other chronic pulmonary heart diseases Malignant neoplasm of bronchus of left l ower lobe documented in this encounter Care Teams Fourdrinier Machine Operator Relationship Specialty Start Date End Date None PCP - General 10/25/21 None documented as of this encounter
--- OUTSIDE RECORDS SUMMARY | 2022-02-15 01:04 | XMS_ITS | Encounter Summary ---
:1955 Author Organization [facility] [place] [address] Care Team Providers Name Role Phone None Primary Care Provider Unavailable Reason for Visit Reason Onset Date Comments Pre Procedure Call 10/31/2021 Bronchoscopy Encounter Details Date Type Department Care Team Description 10/31/2021 Telephone Pul[place]ology at [facility] Shabana Thomas, Pre Procedure Call [facility] Franny michaels RN (Bronchoscopy) [place] [address] Social History Tobacco Use Types Packs/Day [...] this encounter Miscellaneous Notes Telephone Encounter - Shabana Thomas RN - 10/31/2021 8:43 AM EDT Made scheduled call to review instructions prior to interventional pulmonary procedure: 1. [x] Informed patient of date, time, and location of procedure or pre- procedure imaging or tests as applicable. Scheduled Bronchoscopy with EBUS on 11/01/2021 at 3:45 in [facility] under [place] with Dr. Davies. Arrive at 4T at 2:45 to check in. 2. [x] Informed patient they must have armored truck driver who accompanies them into , if asked for a code at the entrance tell them 5288. Pt will be staying at a local hotel and taking a taxi, approved by Najma Dacosta in [facility]. 3. [x] Reviewed home oxygen or ventilation use: [x] Patient not on home ventilator or oxygen [] Patient is on home oxygen and/or ventilator (document amount and type of oxygen device): [x] Patient confirms they will bring necessary supplies for transport to and from pt has upper dentures [] Patient identifies this potential supply issue: Will document and contact their DME for assistance. 4. [x] Medication review: Confirm any new medications since last seen in Pulmonary. Only need to review blood thinners, insulin and rescue inhaler. [x] Patient has rescue inhaler (e.g., albuterol) and will bring to procedure pt has albuterol [x] Anticoagulation and anti-platelet therapy reviewed: [] No anticoagulation or anti-platelet therapy [x] Patient will hold anticoagulation or anti-platelet therapy as directed (See IP job aid for standard instructions or MD note for special instructions) Pt confirms stopping Eliquis on 10/30/2021. [x] Insulin use reviewed: [x] No insulin therapy [] Patient taking insulin: Instructed to take half of long acting dose, and NOT take short acting dose morning of procedure [x] Patient understands they are to take all other medications the day of procedure unless specifically addressed 5. [x] NPO instructions reviewed with patient: Do not have anything to eat after midnight the day of your procedure. You are permitted to have any amount of clear liquids up to two hours before your scheduled procedure. This includes water, laura george, apple juice, black coffee or tea. Sugar or sugarsubstitutes are fine in your coffee or tea, however you are not permitted to have any dairy products(or dairy substitutes) after midnight. You can not have any milk, cream, or creamers (regardless if dairy-free or not). Failure to abide to these instructions may result in cancellation of your procedure. Okay to take small sips of water to take allowed medications. 6. [x] COVID screening [x] Patient denies current symptoms or exposures as per most recent COVID Screening Job Aid 7. Other questions addressed during this call: N/A SANIA Claros, RN Department of Pulmonary 5C, [facility] Pager: [phone] documented in this encounter Plan of Treatment Upcoming Encounters Date Type Specialty Care Team Description 02/18/2022 Office Visit Hematology and Oncology Iain Rachel MD [facility] DR HEMATOLOGY/[place] [address] Whit Sung APRN [facility] [place] [address] 02/18/2022 Infusion Hematology and Oncology documented as of this encounter Visit Diagnoses Not on filedocumented in this encounter Care Teams Shoe Repairer Apprentice Relationship Specialty Start Date End Date None PCP - General 10/25/21 None documented as of this encounter
--- OUTSIDE RECORDS SUMMARY | 2022-02-15 01:04 | XMS_ITS | Encounter Summary ---
:1955 Author Organization [facility] [place] [address] Care Team Providers Name Role Phone None Primary Care Provider Unavailable Reason for Referral Diagnostic Test (Routine) - Closed Specialty Diagnoses / Procedures Referred By Contact Refer red To Contact Radiology Diagnoses Malignant neoplasm of bronchus of left lower lobe Sheldon Corrales MD [facility] Rad Ct Scan Procedures [place] [address] [place] [address] Referral ID Status Reason Start Date Expiration Date Visits V isits Requested Authorized [id number] Closed Specialty 11/30/2021 01/28/2022 1 1 Service Requested Reason for Visit Reason Comments Advice Only Encounter Details Date Type Department Care Team Description 11/30/2021 Office Visit Thoracic Surgery at Sheldon Corrales MD Malignant neoplasm of [facility] [place] [address] [place], [place] [phone] (Work) [phone] Social History Tobacco Use Types Packs/Day Years [...] Sign Reading Time Taken Comments Blood Pressure 138/76 11/30/2021 9:04 AM EDT Pulse 100 11/30/2021 9:04 AM EDT Temperature 36.8 ??C (98.2 ??F) 11/30/2021 9:04 AM EDT Respiratory Rate 22 11/30/2021 9:04 AM EDT Oxygen Saturation 94% 11/30/2021 9:04 AM EDT Inhaled Oxygen Concentration - - Weight - - Height - - Body Mass Index - - documented in this encounter Patient Instructions Patient InstructionsRadha Mojica RN - 11/30/2021 12:15 PM EDT Thank you for visiting Dr. Corrales in clinic 11/30/21 Dr. Corrales would like to see you back in clinic with a CT Scan with Contrast and a VQ Scan of your lungs. Exercise each day for 30 minutes or longer. Daily aerobic exercise for at least 30 minutes will helpimprove your endurance and improve the breathing capacity of your lungs. This means that you are breathing hard, your heart is beating fast and that you are sweating. Examples of this include walking, biking, swimming, and using a treadmill or stationary bike. Please call Thoracic surgery at with any questions or concerns. documented in this encounter H&P Notes Bina Sifuentes APRN - 11/30/2021 12:15 PM EDT Thoracic Surgery Attending Outpatient Consultation Note Sheldon Corrales MD [place] [address] FAX: Date of Consultation: 11/30/2021 This consultation has been requested by PCP: None Phone: None Referring Physician: Yogi Rachel MD Purpose for Consultation: LLL adenocarcinoma HPI: Bipin Rowley is a 66 y.o. male with a PMHx significant for COPD, pulmonary hypertension, JESUS, former smoker, Afib, h/o alcohol abuse (sober 3 years), HTN and HLD. He is followed for his COPD byhis pulmonolgist at an OSH who obtained a lung cancer CT Chest in August 2021 noting this Left hilar mass. He was treated with antibiotics and a repeat CT Chest was obtained on 10/18/21 which noted no changes in the Left hilar mass. He was then referred to IP who performed a Bronch/EBUS noting the Left hilar mass to be positive for adenocarcinoma as well as a positive 11L lymph node. A PET scan and brain MRI were obtained which noted no evidence of metastatic disease. He also had PFTs on 11/12/21 which noted FVC 3.33L (70%), FEV1 1.31 (37%), DLCO 59%. He was seen by Medical Oncology today to discuss chemotherapy and is meeting with radiation oncology next week. He is referred to Thoracic Surgery to discuss role of surgical resection. Today he reports shortness of breath with activity such as walking into clinic today and up 1 flightof stairs, chronic back pain which makes ambulation more difficulty, and wheezing, and since his bronchoscopy on 11/01/21 he notes flecks of blood in his sputum about once per day. He denies chest pain,fever, chills, nausea, vomiting, dysphagia, weight loss. He is a former smoker with a 40 pack year history, quit in 2013. He denies drug use and is sober from alcohol for the last 3 years. 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 Past Medical History: Patient Active Problem List Diagnosis Date Noted ??? Primary malignant neoplasm of left lower lobe of lung 11/30/2021 ??? COPD (chronic obstructive pulmonary disease) 10/23/2021 ??? Pulmonary hypertension 10/23/2021 ??? Sleep apnea 10/23/2021 ??? Atrial fibrillation 10/23/2021 ??? Depression 10/23/2021 ??? Hypertension 10/23/2021 ??? Hyperlipidemia 10/23/2021 No past medical history on file. Past Surgical History: Past Surgical History: Procedure Laterality Date ? ? [facility] EBUS GUIDED SAMPL 3/> NODE STATION/STRUX N/A 11/01/2021 BRONCH, W ENDOBRONCHIAL ULTRASOUND (EBUS) GUIDED SAMPLING, 3+ NODES (WRVU 5.21) performed by Alek Davies MD at [facility] ENDOSCOPY Medications: No outpatient medications have been marked as taking for the 11/30/21 encounter (Office Visit) with Sheldon Corrales MD. Allergies: Allergies Allergen Reactions ??? Codeine Phosphate Nausea And Vomiting ??? Penicillins Hives Family History: No family history on file. Social History: Social History Socioeconomic History ??? Marital status: Spouse name: Not on file ??? Number of children: Not on file ??? Years of education: Not on file ??? Highest education level: Not on file Occupational History ??? Not on file Tobacco Use ??? Smoking status: Former Smoker Packs/day: 1.00 Types: Cigarettes Quit date: 01/11/2014 Years since quittin.8 ??? Smokeless tobacco: Never Used Vaping Use ??? Vaping Use: Never used Substance and Sexual Activity ??? Alcohol use: Not on file ??? Drug use: Not on file ??? Sexual activity: Not on file Other Topics Concern ??? Not on file Social History Narrative ??? Not on file Social Determinants of Health Financial Resource Strain: Not on file Food Insecurity: Not on file Transportation Needs: Not on file Physical Activity: Not on file Housing Stability: Not on file REVIEW OF SYSTEMS: General: Denies fatigue, weight loss, chills, night sweats Neuro: Denies seizure, TIA, CVA, neurologic deficits including tremor, incoordination, paresthesias,difficulties with memory or speech, sensory or motor disturbances, or muscular coordination Psychiatric: Denies depression, anxiety, thoughts of suicide in the past, PTSD, substance abuse, previous hallucinations, other psychiatric diagnoses Cardiovascular: + Afib, HTN, HLD, Denies CAD, family history of cardiac disease, CHF Respiratory: + COPD, hemoptysis, wheezing, Denies asthma, emphysema, dyspnea, stridor, respiratory infection, TB or exposure to TB GI: Denies ulcer disease, irritable bowel syndrome, denies past GI bleed, jaundice : Denies urgency, frequency, dysuria, nocturia, polyuria,denies oliguria, stones, UTI, nephritis Hematologic: Denies history of DVT, PE, petechiae, bleeding diathesis Endocrine: Denies diabetes mellitus, denies thyroid disease, other endocrine disorder Musculoskeletal: + Chronic back pain, Denies fractures, arthritis Integument: Denies skin cancer Physical Exam: Blood Pressure 138/76 Pulse 100 Temperature 36.8 ??C (98.2 ??F) Respiration 22 Oxygen Saturation 94% General Appearance: Alert, cooperative, no distress, appears stated age, appropriate for situation HEENT: PERRL, MMM, non-icteric Neck: Supple, symmetrical, trachea midline, no adenopathy; thyroid: not enlarged, symmetric, no tenderness/mass/nodules Lungs: Clear to auscultation on right, rhonchi heard in left base, respirations unlabored, no wheezes or crackles Heart: Irregularly irregular rate and rhythm, S1 and S2 normal, no murmur, rub, or gallop Abdomen: Soft, non-tender, bowel sounds normo-active in all four quadrants, no masses, no organomegaly Extremities: Extremities normal, no cyanosis, clubbing. +1 pitting edema in bilateral extremities Neurologic: A+Ox3, cranial nerves II-XII grossly intact Musculoskeletal: 5/5 in BUE, 4/5 in BLE, with normal gait, slow to get on exam table Diagnostics: I have independently visualized all relevant imaging studies, including: CT Chest (10/16/21): 1. Compared to 08/30/21 there is no radiographic improvement of the left para- infrahilar infiltrate mass. This is suspicious for neoplasm. 2. Unchanged right adrenal nodule 3. No pleural effusion PET (11/09/21): 1. Approximately 6 cm FDG avid left lower lobe mass contiguous with the posterior left hilum and major fissure, consistent with biopsy-proven lung malignancy. 2. No mediastinal or distant sites of metastasis. 3. Incidental finding of a 3 cm right adrenal myelolipoma. Pathology (11/01/21): LLL mass - Non-small cell carcinoma, compatible with adenocarcinoma (see note). 11L LN - positive for malignancy 4R, 7 LN - negative for malignancy PFT (11/12/21): FVC 3.33L (70%), FEV1 1.31,L (37%) DLCO 59%, DLCO/VA 64% MRI Brain (11/13/21): Age related microvascular ischemic changes in the cerebral white matter bilaterally. No metastatic disease is identified. Incidental note made of developmental venous anomaly within the carline. Assessment: Bipin Rowley is a 66 y.o. male with T3N1M0 adenocarcinoma of the LLL. Further testingis needed to determine whether he is a surgical candidate. Plan of Management: 1. Obtain CT Chest with contrast to better assess hilar involvement 2. Obtain Quant V/Q scan given PFTs 3. Present at [facility] 4. 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 Will follow up after above testing to discuss next steps 6. Follow up with Medical ONcolgoy as scheduled 7. Please call with any questions or concerns Bina Sifuentes APRN 11/30/2021 Thoracic Surgery [facility] Sheldon Corrales MD - 11/30/2021 12:15 PM EDT Thoracic Surgery Attending Outpatient Consultation Note Sheldon Corrales MD [place], [place] [address] FAX: Date of Consultation: 11/30/2021 This consultation has been requested by PCP: None Phone: None Referring Physician: Yogi Rachel MD Purpose for Consultation: LLL adenocarcinoma HPI: Bipin Rowley is a 66 y.o. male with a PMHx significant for COPD, pulmonary hypertension, JESUS, former smoker, Afib, h/o alcohol abuse (sober 3 years), HTN and HLD. He is followed for his COPD byhis pulmonolgist at an OSH who obtained a lung cancer CT Chest in August 2021 noting this Left hilar mass. He was treated with antibiotics and a repeat CT Chest was obtained on 10/18/21 which noted no changes in the Left hilar mass. He was then referred to IP who performed a Bronch/EBUS noting the Left hilar mass to be positive for adenocarcinoma as well as a positive 11L lymph node. A PET scan and brain MRI were obtained which noted no evidence of metastatic disease. He also had PFTs on 11/12/21 which noted FVC 3.33L (70%), FEV1 1.31 (37%), DLCO 59%. He was seen by Medical Oncology today to discuss chemotherapy and is meeting with radiation oncology next week. He is referred to Thoracic Surgery to discuss role of surgical resection. Today he reports shortness of breath with activity such as walking into clinic today and up 1 flightof stairs, chronic back pain which makes ambulation more difficulty, and wheezing, and since his bronchoscopy on 11/01/21 he notes flecks of blood in his sputum about once per day. He denies chest pain,fever, chills, nausea, vomiting, dysphagia, weight loss. He is a former smoker with a 40 pack year history, quit in 2013. He denies drug use and is sober from alcohol for the last 3 years. 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 Past Medical History: Patient Active Problem List Diagnosis Date Noted ??? Primary malignant neoplasm of left lower lobe of lung 11/30/2021 ??? COPD (chronic obstructive pulmonary disease) 10/23/2021 ??? Pulmonary hypertension 10/23/2021 ??? Sleep apnea 10/23/2021 ??? Atrial fibrillation 10/23/2021 ??? Depression 10/23/2021 ??? Hypertension 10/23/2021 ??? Hyperlipidemia 10/23/2021 No past medical history on file. Past Surgical History: Past Surgical History: Procedure Laterality Date ? ? [facility] EBUS GUIDED SAMPL 3/> NODE STATION/STRUX N/A 11/01/2021 BRONCH, W ENDOBRONCHIAL ULTRASOUND (EBUS) GUIDED SAMPLING, 3+ NODES (WRVU 5.21) performed by Alek Davies MD at [facility] ENDOSCOPY Medications: No outpatient medications have been marked as taking for the 11/30/21 encounter (Office Visit) with Sheldon Corrales MD. Allergies: Allergies Allergen Reactions ??? Codeine Phosphate Nausea And Vomiting ??? Penicillins Hives Family History: No family history on file. Social History: Social History Socioeconomic History ??? Marital status: Spouse name: Not on file ??? Number of children: Not on file ??? Years of education: Not on file ??? Highest education level: Not on file Occupational History ??? Not on file Tobacco Use ??? Smoking status: Former Smoker Packs/day: 1.00 Types: Cigarettes Quit date: 01/11/2014 Years since quittin.8 ??? Smokeless tobacco: Never Used Vaping Use ??? Vaping Use: Never used Substance and Sexual Activity ??? Alcohol use: Not on file ??? Drug use: Not on file ??? Sexual activity: Not on file Other Topics Concern ??? Not on file Social History Narrative ??? Not on file Social Determinants of Health Financial Resource Strain: Not on file Food Insecurity: Not on file Transportation Needs: Not on file Physical Activity: Not on file Housing Stability: Not on file REVIEW OF SYSTEMS: General: Denies fatigue, weight loss, chills, night sweats Neuro: Denies seizure, TIA, CVA, neurologic deficits including tremor, incoordination, paresthesias,difficulties with memory or speech, sensory or motor disturbances, or muscular coordination Psychiatric: Denies depression, anxiety, thoughts of suicide in the past, PTSD, substance abuse, previous hallucinations, other psychiatric diagnoses Cardiovascular: + Afib, HTN, HLD, Denies CAD, family history of cardiac disease, CHF Respiratory: + COPD, hemoptysis, wheezing, Denies asthma, emphysema, dyspnea, stridor, respiratory infection, TB or exposure to TB GI: Denies ulcer disease, irritable bowel syndrome, denies past GI bleed, jaundice : Denies urgency, frequency, dysuria, nocturia, polyuria,denies oliguria, stones, UTI, nephritis Hematologic: Denies history of DVT, PE, petechiae, bleeding diathesis Endocrine: Denies diabetes mellitus, denies thyroid disease, other endocrine disorder Musculoskeletal: + Chronic back pain, Denies fractures, arthritis Integument: Denies skin cancer Physical Exam: Blood Pressure 138/76 Pulse 100 Temperature 36.8 ??C (98.2 ??F) Respiration 22 Oxygen Saturation 94% General Appearance: Alert, cooperative, no distress, appears stated age, appropriate for situation HEENT: PERRL, MMM, non-icteric Neck: Supple, symmetrical, trachea midline, no adenopathy; thyroid: not enlarged, symmetric, no tenderness/mass/nodules Lungs: Clear to auscultation on right, rhonchi heard in left base, respirations unlabored, no wheezes or crackles Heart: Irregularly irregular rate and rhythm, S1 and S2 normal, no murmur, rub, or gallop Abdomen: Soft, non-tender, bowel sounds normo-active in all four quadrants, no masses, no organomegaly Extremities: Extremities normal, no cyanosis, clubbing. +1 pitting edema in bilateral extremities Neurologic: A+Ox3, cranial nerves II-XII grossly intact Musculoskeletal: 5/5 in BUE, 4/5 in BLE, with normal gait, slow to get on exam table Diagnostics: I have independently visualized all relevant imaging studies, including: CT Chest (10/16/21): 1. Compared to 08/30/21 there is no radiographic improvement of the left para- infrahilar infiltrate mass. This is suspicious for neoplasm. 2. Unchanged right adrenal nodule 3. No pleural effusion PET (11/09/21): 1. Approximately 6 cm FDG avid left lower lobe mass contiguous with the posterior left hilum and major fissure, consistent with biopsy-proven lung malignancy. 2. No mediastinal or distant sites of metastasis. 3. Incidental finding of a 3 cm right adrenal myelolipoma. Pathology (11/01/21): LLL mass - Non-small cell carcinoma, compatible with adenocarcinoma (see note). 11L LN - positive for malignancy 4R, 7 LN - negative for malignancy PFT (11/12/21): FVC 3.33L (70%), FEV1 1.31,L (37%) DLCO 59%, DLCO/VA 64% MRI Brain (11/13/21): Age related microvascular ischemic changes in the cerebral white matter bilaterally. No metastatic disease is identified. Incidental note made of developmental venous anomaly within the carline. Assessment: Bipin Rowley is a 66 y.o. male with T3N1M0 adenocarcinoma of the LLL. Further testingis needed to determine whether he is a surgical candidate. Plan of Management: 1. Obtain CT Chest with contrast to better assess hilar involvement 2. Obtain Quant V/Q scan given PFTs 3. Present at [facility] 4. 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 Will follow up after above testing to discuss next steps 6. Follow up with Medical ONcolgoy as scheduled 7. Please call with any questions or concerns Bina Sifuentes, MIAH 11/30/2021 Thoracic Surgery [facility] Attending Attestation: I have seen the patient in person and reviewed the resident's above history and I agree with the details as written. The assessment and plan were formulated in discussion with me and I agree with them as documented. Pertinent History: 66y/o male presenting with a left lower lobe lung mass that is biopsy proven adenocarcinoma. He also has hilar lymph node involvement. Pertinent Exam: Older gentleman. Well fed body habitus. Alert and Oriented. Breathing non-labored. RRR. Mild pedal edema. Major issues addressed: Findings on CT scan and PET, treatment options for lung cancer, next steps. Assessment: Mr. Rowley is a very pleasant 66y/o male who presented with a left hilar mass concerning for a lung cancer on a screening CT. His first scan was in August followed by a repeat scan in October 2021 that demonstrated growth of the lesion. He presents to me for surgical consultation. I spent a significant amount of time reviewing his CT scan and PET with him. His scan demonstrates alarge hilar mass of the left lower lobe, however, I explained to him that I am concerned that this mass may also be involving the left upper lobe, and that it may require a pneumonectomy to remove. Unfortunately, his PFTs are prohibitive of this as his FEV1 is 30%. His DLCO is a bit higher at 64% (DLCO/VA). I told him that the next needed steps would be to proceed with Contrast CT along with a quantitativeV/Q scan to assess flow. I will also plan to discuss his case at our [facility] conference this upcoming Friday. I spent the remainder of the appointment answering his questions and concerns. Plan of Management: 1. Obtain CT Chest with contrast to better assess hilar involvement 2. Obtain Quant V/Q scan given PFTs 3. Present at [facility] 4. 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 Will follow up after above testing to discuss next steps 6. Follow up with Medical and Radiation Occolgoy as scheduled 7. Please call with any questions or concerns It was a pleasure meeting Mr. Rowley today. We will speak with him soon following the completion of the above studies. Sheldon Corrales MD Thoracic Surgery documented in this encounter Plan of Treatment Upcoming Encounters Date Type Specialty Care Team Description 02/18/2022 Office Visit Hematology and Oncology Iain Rachel MD [facility] DR HEMATOLOGY/[place] [address] Whit Sung APRN [facility] [address] [place] [address] 02/18/2022 Infusion Hematology and Oncology documented as of this encounter Results CT Chest w Contrast (11/30/2021 2:28 PM [...] who have questions please contact the health md do resident urgent care that requested your imaging first. ? Electronically signed by: Adrianna Meneses, [facility] ([phone]), at 11/30/2021 5:29 PM Narrative 11/30/2021 5:29 PM EDT EXAMINATION: CT [...] images were generat ed. COMPARISON: Study from [facility] dated 10/16/2021 FINDINGS: Pulmonary parenchyma: Emphysema. [...] images were generat ed. COMPARISON: Study from [facility] dated 10/16/2021 FINDINGS: Pulmonary parenchyma: Emphysema. [...] ho have questions please contact the health md do resident urgent care that requested your imaging first. Electronically signed by: Adrianna Meneses, [facility] ([phone]), at 11/30/2021 5:29 PM Sheldon Corrales MD IMG CT ORDERABLES documented in this encounter Visit Diagnoses Diagnosis Malignant neoplasm of bronchus of left l ower lobe Malignant neoplasm of bronchus of left l ower lobe documented in this encounter Care Teams Manager Of Product Relationship Specialty Start Date End Date None PCP - General 10/25/21 None documented as of this encounter
--- OUTSIDE RECORDS SUMMARY | 2022-02-15 01:04 | XMS_ITS | Encounter Summary ---
:1955 [place] [address] Care Team Providers Name Role Phone None Primary Care Provider Unavailable Reason for Visit Reason Onset Date Comments Other 10/26/2021 Holding TheraCell re Bronchoscopy Encounter Details Date Type Department Care Team Description 10/26/2021 Telephone Pulmonology at [facility] Shabana Thomas, Other (Holding [facility] Franny michaels RN before Bronchoscopy) [place] [phone] Social History Tobacco Use Types Packs/Day [...] Telephone Encounter - Shabana Thomas RN - 10/26/2021 12:45 PM EDT I have called pt and instructed to hold Eliquis 2 days before his Bronchoscopy. Pt verbally expressed understanding and repeated back instructions that he will stop Eliquis on 10/30/2021. I have also asked pt if he is currently using home oxygen. Pt states he is currently not on home oxygen. I have notified pt that I will call him back on 10/31/2021 for a more detailed instructions on his Bronchoscopy. No other questions/ concerns from pt at this time. SANIA Claros, RN Department of Pulmonary 5C, [facility] Pager: [phone] documented in this encounter Plan of Treatment Upcoming Encounters Date Type Specialty Care Team Description 02/18/2022 Office Visit Hematology and Oncology Iain Rachel MD [facility] DR HEMATOLOGY/[place] [address] Whit Sung APRN [facility] HEMATOLOGY [place] [address] 02/18/2022 Infusion Hematology and Oncology documented as of this encounter Visit Diagnoses Not on filedocumented in this encounter Care Teams Interactive Multimedia Designer Relationship Specialty Start Date End Date None PCP - General 10/25/21 None documented as of this encounter
--- OUTSIDE RECORDS SUMMARY | 2022-02-15 01:04 | XMS_ITS | Encounter Summary ---
:1955 Author Organization [facility] [place] [address] Care Team Providers Name Role Phone None Primary Care Provider Unavailable Encounter Details Date Type Department Care Team Description 11/30/2021 Hospital Encounter Hematology and Oncol margot at [facility] [place] [address] Social History Tobacco Use Types Packs/Day [...] on file documented as of this encounter Medications at Time of Discharge Medication Sig Dispensed Refills Start Date End Date albuteroL 90 INHALE TWO PUFFS BY 0 09/21/2021 mcg/actuation HFA MOUTH EVERY 4 TO 6 Aerosol Inhaler HOURS NEEDED FOR SHORTNESS OF BREATH OR WHEEZING Eliquis 5 mg Tablet Take 5 mg by mouth 2 0 2021 times daily. budesonide-formoteroL Inhale 2 puffs into 0 06/12 (Symbicort) 160-4.5 the lungs 2 times mcg/actuation HFA daily. Aerosol Inhaler Spiriva Respimat 2.5 INHALE 2 PUFFS BY 0 09/22/19 22 mcg/actuation Mist MOUTH EVERY MORNING metoprolol succinate XL Take 100 mg by mouth 0 (Toprol-XL) 100 mg 2 times daily. Tablet Sustained Release 24 hr levoFLOXacin (Levaquin) Take 750 mg by mouth 0 12/12/2021 750 mg Tablet daily. buPROPion (WELLBUTRIN 100 MG = 1 Tablet(s), 0 12/31/2021 SR) 100 mg 12 hr tablet PO, Once daily X 3 days then Twice daily documented as of this encounter Plan of Treatment Upcoming Encounters Date Type Specialty Care Team Description 02/18/2022 Office Visit Hematology and Oncology Iain Rachel MD [facility] DR HEMATOLOGY/[place] [address] Whit Sung APRN [facility] [place] [address] 02/18/2022 Infusion Hematology and Oncology documented as of this encounter Visit Diagnoses Not on filedocumented in this encounter Care Teams Medicaid Biller Relationship Specialty Start Date End Date None PCP - General 10/25/21 None documented as of this encounter
--- OUTSIDE RECORDS SUMMARY | 2022-02-15 01:04 | XMS_ITS | Encounter Summary ---
:1955 Author Organization [facility] [place] [address] Care Team Providers Name Role Phone None Primary Care Provider Unavailable Encounter Details Date Type Department Care Team Description 10/26/2021 [place] [facility] [place] Paul [facility] [place] [address] Social History Tobacco Use Types Packs/Day [...] Visit Hematology and Oncology Iain Rachel MD [facility] DR HEMATOLOGY/[place] [address] Whit Sung APRN [facility] [place] [address] 02/18/2022 Infusion Hematology and Oncology documented as of this encounter Visit Diagnoses Not on filedocumented in this encounter Care Teams Senior Web Applications Developer Relationship Specialty Start Date End Date None PCP - General 10/25/21 None documented as of this encounter
--- OUTSIDE RECORDS SUMMARY | 2022-02-15 01:04 | XMS_ITS | Encounter Summary ---
:1955 Author Organization [facility] [place] [address] Care Team Providers Name Role Phone None Primary Care Provider Unavailable Encounter Details Date Type Department Care Team Description 12/04/2021 Multidisciplinary Care Thoracic Surgery at Elysia Corrales Committee [facility] MD [facility], [facility] [address], [place] [address] [phone] Social History Tobacco Use Types Packs/Day Years [...] documented as of this encounter Progress Notes Sheldon Corrales MD - 12/04/2021 11:59 PM EDT Thoracic - Tumor Board Note Date Presented: 12/04/2021 Presenting Physician: Sheldon Corrales MD Diagnosis/Tumor Site: Lef t lower lobe Is this Metastatic Disease: NA Synopsis of History/HPI: 66y/o male presenting with large LLL lung mass demonstrating biopsy proven Lung cancer Imaging: CT, PET, Perfusion study Pathology/Histology: Adenocarcinoma Stage: T3-4N0M0 Clinical Data (Exams, Labs, etc.): As per chart Molecular Pathology Results: Pending Clinical Trial Availability: Possible Options Discussed: Definitive chemoRT vs surgical resection. Given low PFTs FEV1 37% and possible need for pneumonectomy, will recommend definitive MEDICAL ASSISTING INSTRUCTOR. Recommendations: Medical Oncology consult and Radiation Oncology consult. Definitive MEDICAL ASSISTING INSTRUCTOR for LLL lung mass with curative intent. DISCLAIMER: The patient was discussed and the tumor board made recommendations but it is ultimately up to the treatment provider(s) and the patient to determine the patient???s care. documented in this encounter Plan of Treatment Upcoming Encounters Date Type Specialty Care Team Description 02/18/2022 Office Visit Hematology and Oncology Iain Rachel MD [facility] DR HEMATOLOGY/[place] [address] Whit Sung APRN [facility] HEMATOLOGY [place] [address] 02/18/2022 Infusion Hematology and Oncology documented as of this encounter Visit Diagnoses Not on filedocumented in this encounter Care Teams Paintings Restorer Relationship Specialty Start Date End Date None PCP - General 10/25/21 None documented as of this encounter
--- OUTSIDE RECORDS SUMMARY | 2022-02-15 01:04 | XMS_ITS | Encounter Summary ---
:1955 Author Organization [place] [address] Care Team Providers Name Role Phone None Primary Care Provider Unavailable Encounter Details Date Type Department Care Team Description 11/01/2021 Anesthesia Event [place]ology [place] [facility] [place]y Fierro MD [facility] [place] [address] [facility] Marine Anglin CRNA [facility] [place] [address] [place] [address] Anesthesia Record Procedure Summary Procedure Name Responsible Anesthesia Start Anesthesia Stop Anesthesiologist Time Time BRONCH, W Jacky Fierro MD 11/01/21 1512 11/01/21 162 3 ENDOBRONCHIAL ULTRASOUND (EBUS) GUIDED SAMPLING, 3+ NODES (WRVU 5.21) (N/A ) Events Date Time Event Comment 11/01/2021 1459 1512 AN Verify 1512 Start 1512 An Start Data 1519 An Induction 1521 An Intubation 1524 Anesthesia Ready 1540 Quick Note Trying multiple different NIBP cuff sizes to obtain BP, treat ing with Phenylephrine in the interim 1619 Extubation/LMA Out 1622 an stop data 1622 Recovery or ICU Handoff Patient care was transferred to the destination unit staff after review of the patient's medica l history, current anesthetic/surgi constance status and plan, according to the Provider Handoff Checklist. 1623 Stop Name Total Propofol 300 mg Propofol INF 733.43 mg PHENYLephrine 1,600 mcg Ondansetron 4 mg Dexamethasone 4 mg Succinylcholine 140 mg Esmolol 100 mg Vasopressin 1 Units Lactated Ringers 900 mL Agents Name O2 Air N2O Sevoflurane (et) Blood No blood administrations on file. Lines, Drains, and Airways Type Details Placement Removal PIV 11/01/21; 1504; cephalic vein 11/01/21 1504 by Wagner bowden, 02/04/22 1124 by Cristi, (lateral side of arm), right; ANGELINA Edgar RN [id number] catheter system; Anatomical Landmarks; US Not Used; 20 gauge; Izabella Quintero RN; LDA not present upon assessment; 02/04/22; 1124 ETT Mask Ventilation: Adjunct (2) 11/01/21 1526 by Adrianna brownlee, 11/01/21 1619 by (100mmOA); ETT Type: Cuffed, RICHMOND Mcmahon Amy L, CRNA Oral; ETT Size: 9 mm; Mac Blade: 4; Notes: Asleep, Pre-O2, Stylette; Attempts: 1; Laryngoscopy Grade: 1; ETT Placement Verified By: Auscultation, Capnometry, Visual; Secured at Teeth: 22 cm; Inserted by: marine conway crna documented in this encounter Social History Tobacco Use Types Packs/Day Years [...] on file documented as of this encounter OR Notes Anesthesia Postprocedure Evaluation - Jacky Fierro MD - 11/01/2021 4:33 PM EDT Department of Anesthesiology Post-procedure Note Patient: Bipin Rowley Procedure Summary Date: 11/01/21 Room / Location: [facility] ENDO 1 / [facility] ENDOSCOPY Anesthesia Start: 1511 Anesthesia Stop: 162 Procedure: BRONCH, W ENDOBRONCHIAL ULTRASOUND (EBUS) GUIDED SAMPLING, 3+ NODES (WRVU 5.21) (N/A ) Diagnosis: Lung mass (Lung mass/ Bronchsocopy with EBUS/ GA/ Aniceto) Surgeons: Alek Davies MD Responsible Provider: Jacky Fierro MD Anesthesia Type: general ASA Status: 3 All Anesthesia Providers: Anesthesiologist: Jacky Fierro MD MANAGER UI: Marine Conway CRNA Vitals Value Taken Time BP 99/68 11/01/21 1700 Temp Pulse Resp 22 11/01/21 1630 SpO2 89 % 11/01/21 1708 Pain Level 0 11/01/21 1639 Vitals shown include unvalidated device data. Patient Location: PACU/[facility] Level of Consciousness: Conscious but Sleepy Pain Management: Satisfactory Analgesia PONV: None Cardiovascular Status: Hemodynamically Stable and At Baseline Respiratory Status: Supplemental O2 (NC or FM) and Stable Respiratory Status Postoperative Fluid Status: Intravascular EUvolemia Possible Anesthetic Complications: NONE apparent at time of evaluation Final Primary Anesthesia Type: General (The anesthetic type performed was the same as planned.) Comments: Anesthesia Preprocedure Evaluation - Jacky Fierro MD - 11/01/2021 2:58 PM EDT Images from the original note were not included. Pre-Anesthesia Evaluation for: Bipin Rowley a 66 y.o. male. Procedure(s): BRONCH, W ENDOBRONCHIAL ULTRASOUND (EBUS) GUIDED SAMPLING, 3+ NODES (WRVU 5.21) Patient Active Problem List Diagnosis Date Noted ??? COPD (chronic obstructive pulmonary disease) 10/23/2021 ??? Pulmonary hypertension 10/23/2021 ??? Sleep apnea 10/23/2021 ??? Atrial fibrillation 10/23/2021 ??? Depression 10/23/2021 ??? Hypertension 10/23/2021 ??? Hyperlipidemia 10/23/2021 No past medical history on file. No past surgical history on file. Social History Tobacco Use ??? Smoking status: Former Smoker Packs/day: 1.00 Types: Cigarettes Quit date: 01/11/2014 Years since quittin.8 ??? Smokeless tobacco: Never Used Substance Use Topics ??? Alcohol use: Not on file Social History Substance and Sexual Activity Drug Use Not on file Allergies Allergen Reactions ??? Codeine Phosphate Nausea And Vomiting ??? Penicillins Hives Medications: MAR and/or home medications have been reviewed. Physical Exam: Preprocedure Vitals Current as of 11/01/21 1458 BP: 146/102 Pulse: 99 Resp: 18 SpO2: 96 Temp: 36.3 ??C (97.3 ??F) Height: 180.3 cm (5' 11) (11/01/21) Weight: 127 kg (280 lb) (11/01/21) BMI: 39.05 IBW: 75.3 kg (165 lb 14.8 oz) Last edited 11/01/21 1454 by KN Airway Assessment: Mallampati: II TM distance: >3 FB Neck ROM: full Cardiovascular Assessment: Rate: normal Pulmonary Assessment: (+) wheezes and decreased breath sounds Dental Assessment: (+) upper dentures Misc Assessment: Last Filed Perioperative Cognitive Screening None Anesthesia Plan: ASA 3 general, with a(n) intravenous induction 66 y/o man with a PMH of A-fib, HTN, HLD, obesity, JESUS, pulm HTN, COPD and lung mass here for EBUS. Denied issues with GA in the past. NPO. Plan for GA, ETT. Region - Intrathoracic Non-Cardiac Informed Consent: Anesthetic plan and risks discussed with patient. Plan discussed with MANAGER UI and attending. Anesthesia Screening documented in this encounter Plan of Treatment Upcoming Encounters Date Type Specialty Care Team Description 02/18/2022 Office Visit Hematology and Oncology Iain Rachel MD [facility] DR HEMATOLOGY/[place] [address] Whit Sung APRN [facility] [place] [address] 02/18/2022 Infusion Hematology and Oncology documented as of this encounter Visit Diagnoses Not on filedocumented in this encounter Administered Medications Inactive Administered Medications - up to 3 most recent administrations Medication Order MAR Action Action Date Dose Rate Site dexAMETHasone (Decadron) injection Given 11/01/2021 3:19 PM EDT 4 mg Intravenous, PRN, Starting on Carisa 11/01/21 at 1519, Until Carisa 11/01/21 at 1623, Anesthesia Intra-op, Routine esmoloL (Brevibloc) (10 mg/mL) injection Given 11/01/2021 3:29 PM EDT 10 mg Intravenous, PRN, Starting on Carisa 11/01/21 at 1526, Until Carisa 11/01/21 at 1623, Anesthesia Intra-op, Routine Given 11/01/2021 3:26 PM EDT 15 mg Given 11/01/2021 3:24 PM EDT 25 mg lactated ringers infusion New Bag 11/01/2021 3:12 PM EDT Intravenous, CONTINUOUS PRN, Starting on Carisa 11/01/21 at 1512, Until Carisa 11/01/21 at 1623, Anesthesia Intra-op ondansetron (pf) (Zofran) (2 mg/mL) inje ction Given 11/01/2021 4:21 PM EDT 4 mg Intravenous, PRN, Starting on Carisa 11/01/21 at 1621, Until Carisa 11/01/21 at 1629, Anesthesia Intra-op, Routine PHENYLephrine in NS (PF) (JADA-SYNEPHRINE) 0.8 Given 4:02 PM EDT 80 mcg mg/10 mL (80 mcg/mL) multi-dose injection Syrg Intravenous, PRN, Starting on Carisa 11/01/21 at 1533, Until Carisa 11/01/21 at 1623, Anesthesia Intra-op, Routine Given 11/01/2021 4:01 PM EDT 160 mcg Given 11/01/2021 3:59 PM EDT 160 mcg propofoL (Diprivan) (10 Rate/Dose 11/01/2021 3:47 100 mcg/kg/min 76. 2 mL/hr mg/mL) infusion Change PM EDT Intravenous, CONTINUOUS PRN, Starting on Carisa 11/01/21 at 1518, Until Carisa 11/01/21 at 1623, Anesthesia Intra-op, Routine Rate/Dose Change 11/01/2021 3:38 PM EDT 150 mcg/kg/min 114.3 mL/hr Rate/Dose Change 11/01/2021 3:27 PM EDT 175 mcg/kg/min 133.35 mL/hr propofoL (Diprivan) 10 mg/mL bolus injection Given 3:25 PM EDT 50 mg (Anesthesia) Intravenous, PRN, Starting on Carisa 11/01/21 at 1519, Until Carisa 11/01/21 at 1623, Anesthesia Intra-op Given 11/01/2021 3:21 PM EDT 50 mg Given 11/01/2021 3:19 PM EDT 200 mg succinylcholine (Anectine;Quelicin) (20 Given 11/01/2021 3:20 PM EDT 140 mg mg/mL) injection Intravenous, PRN, Starting on Carisa 11/01/21 at 1520, Until Carisa 11/01/21 at 1623, Anesthesia Intra-op, Routine vasopressin (Vasostrict) injection Given 11/01/2021 4:06 PM EDT 1 Units Intravenous, PRN, Starting on Carisa 11/01/21 at 1606, Until Carisa 11/01/21 at 1623, Anesthesia Intra-op, Routine documented in this encounter Care Teams Control Supervisor Relationship Specialty Start Date End Date None PCP - General 10/25/21 None documented as of this encounter
--- OUTSIDE RECORDS SUMMARY | 2022-02-15 01:04 | XMS_ITS | Encounter Summary ---
:1955 Author Organization [facility] [place] [address] Care Team Providers Name Role Phone None Primary Care Provider Unavailable Encounter Details Date Type Department Care Team Description 11/06/2021 Multidisciplinary Care Pulmonology at [facility] Jaqueline Moreland [facility] James Parham MD [facility] [address] PULMONARY [phone] [place] [address] Social History Tobacco Use Types Packs/Day Years [...] documented as of this encounter Progress Notes James Moreland MD - 11/06/2021 2:14 PM EDT Thoracic - Tumor Board Note Date Presented: 11/06/2021 Presenting Physician: James Moreland MD Diagnosis/Tumor Site: LLL mass Is this Metastatic Disease: No Synopsis of History/HPI: 66yo with new dx LLL adeno CA Imaging: PET/MRI pending, has R adrenal mass Pathology/Histology: adeno LLL and 11L, lymphs from 4R and 7 Stage: [id number], IIb Clinical Data (Exams, Labs, etc.): PFTs pending Molecular Pathology Results: pending Options Discussed: Await PFTs, PET and MRI. If R adrenal is FDG avid, plan biopsy, if FDG negative will get MRI. If MR brain and PET negative and adrenal is + can consider treating as oligometastatic disease. If all negative likely neoadjuvant chemo / surgery. Recommendations: Plan to re-present at [facility] following PET/MRI DISCLAIMER: The patient was discussed and the tumor board made recommendations but it is ultimately up to the treatment provider(s) and the patient to determine the patient???s care. James Moreland MD, 11/06/2021, 2:15 PM Interventional Pulmonology Section of Pulmonary & Critical Care Pager: [phone] documented in this encounter Plan of Treatment Upcoming Encounters Date Type Specialty Care Team Description 02/18/2022 Office Visit Hematology and Oncology Iain Rachel MD [facility] DR HEMATOLOGY/[place] [address] Whit Sung APRN [facility] [place] [address] 02/18/2022 Infusion Hematology and Oncology documented as of this encounter Visit Diagnoses Not on filedocumented in this encounter Care Teams Knot Cutter Relationship Specialty Start Date End Date None PCP - General 10/25/21 None documented as of this encounter
--- OUTSIDE RECORDS SUMMARY | 2022-02-15 01:04 | XMS_ITS | Encounter Summary ---
:1955 [place] [address] Care Team Providers Name Role Phone None Primary Care Provider Unavailable Encounter Details Date Type Department Care Team Description 12/05/[address] [place] at [facility] [place] Yogi Rachel, Primary [facility] MD cell carcinoma of [facility] [place] [address] HEMATOLOGY/ONCOLOG [phone] Y DEPT [place], [place] [address] Social History Tobacco Use Types [...] [facility] DR HEMATOLOGY/[place] [address] Whit Sung APRN [facility] HEMATOLOGY [place] [address] 02/18/2022 Infusion Hematology and Oncology documented as of this encounter Procedures Procedure Name Priority Date/Time Associated Diagnosis Comme nts RECIST 1.1 Routine 12/05/2021 2:00 PM Primary squamous cell Results for this EDT carcinoma of lower procedure are in the lobe of left lung results se ction. documented in this encounter Results RECIST 1.1 (12/05/2021 2:00 PM EDT) Anatomical Region Laterality Modality Other Specimen (Source) Anatomical Location Collection Method / Collectio n Time Received Time / Laterality Volume Narrative 12/06/2021 11:32 AM EDT EXAMINATION: RECIST 1.1 CLINICAL HISTORY: Pt in screening for pr otocol [id number], please perform recist read on CT scan [...] who have questions please contact the health med care manager that requested your imaging first. ? Procedure Note Diana Duckworth MD - 12/06/2021Formemoryin g of this note might be different from the original. EXAMINATION: RECIST 1.1 CLINICAL HISTORY: Pt in screening for pr otocol [id number], please perform recist read on CT scan [...] ho have questions please contact the health med care manager that requested your imaging first. 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
--- OUTSIDE RECORDS SUMMARY | 2022-02-15 01:04 | XMS_ITS | Encounter Summary ---
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; [place] [facility] [place] Medication management [facility] [address] [place] H[place]ATOLOGY/ONCOLOGY [id number] DEPT [phone] [place], [place] [address] (Wo rk) Social History Tobacco [...] Hematology and Oncology Iain Rachel MD [facility] DR HEMATOLOGY/[place] [address] Whit Sung APRN [facility] [address] [place] [address] 02/18/2022 Infusion Hematology and Oncology documented as of this encounter Results HIV Screen, 4th Generation ([facility]CGP/APD/NLH) (11/30/2021 11:22 AM EDT) Analysis Performed At [facility] logist Time Signature HIV-1/2 Ab and Negative Negative [facility] LABORATORY Comment: This 4th Generation HIV test [...] Low Risk of HIV Infection [facility] LABORATORY Specimen Anatomical Collection Method Collection Time Receive d Time (Source) Location / / Volume Laterality Blood 11/30/2021 11:22 11/30/2021 AM EDT 11:37 AM EDT Resulting Agency Comment Spec In Lab Yogi Rachel MD IMMUNOLOGY ORDERABLES Performing Organization Address City/State/ZIP [place] [address] Hepatitis C RNA, quantitative, PCR (11/30/2021 11:22 AM EDT) Component Value Ref Test Analysis Performed At [facility] gist Range Method Time Signature HCV Viral <12 IU/mL [facility] LABORATORY HCV Viral Result: <12 IU/mL (Target Not Detected) [facility]: Hepatitis C Infection [facility] Analysis: The [place] Alinity m HCV assay is an i n [...] Rachel MD IMMUNOLOGY ORDERABLES Performing Organization Address City/[facility] [place] [address] Hepatitis B Surface Antibody (11/30/2021 11:22 AM EDT) P athologist Signature HepB Surface <3.5 IU/L [facility] Ab Quant [facility] LABOR[facility]ORY Comment: HepB Surface Ab Quant: Unvaccinated: < 8.5 IU/L Vaccinated: > 11.5 IU/L HepB Surface Ab Negative [facility] LABORATORY Comment: Patient is presumed to be not vaccinated or immune to HBV infection. Expected Results: Vaccinated: Positive Unvaccinated: Negative Specimen Anatomical Collection Method Collection Time Receive d Time (Source) Location / / Volume Laterality Blood 11/30/2021 11:22 11/30/2021 AM EDT 11:37 AM EDT Resulting Agency Comment Spec In Lab Yogi Rachel MD IMMUNOLOGY ORDERABLES Performing Organization Address City/[facility] Phon e Number [address] T3 Total (11/30/2021 11:22 AM EDT) athologist Signature T3, Total 120 80 - 200 [facility] TAYLA ng/dL [facility] LABORATORY Specimen Anatomical Collection Method Collection Time Receive d Time (Source) Location / / Volume Laterality Blood 11/30/2021 11:22 11/30/2021 AM EDT 11:37 AM EDT Resulting Agency Comment Spec In Lab Yogi Rachel MD CHEMISTRY ORDERABLES Performing Organization Address City/[facility]/ZIP Code Phon e Number [address] T4, free (11/30/2021 11:22 AM EDT) P athologist Signature Free T4 1.28 0.93 - 1.70 CRISTIAN TAYLA ng/dL [facility] LABOR[facility]ORY Comment: Reference Interval (ng/dL): Females: ??First Trimester: 0.97-1.68 ??Second Trimester: 0.77-1.51 ??Third Trimester: 0.77-1.49 Specimen Anatomical Collection Method Collection Time Receive d Time (Source) Location / / Volume Laterality Blood 11/30/2021 11:22 11/30/2021 AM EDT 11:37 AM EDT Resulting Agency Comment Spec In Lab Yogi Rachel MD CHEMISTRY ORDERABLES Performing Organization Address City/[facility]/ZIP Code Phon e Number [address] TSH (11/30/2021 11:22 AM EDT) P athologist Signature TSH 1.75 0.27 - 4.20 CRISTIAN TAYLA mcIU/mL [facility] LAB[facility] Comment: Reference Interval (mcIU/mL): Females: ??First Trimester: 0.23-3.88 ??Second Trimester: 0.22-3.90 ??Third Trimester: 0.44-4.66 Specimen Anatomical Collection Method Collection Time Receive d Time (Source) Location / / Volume Laterality Blood 11/30/2021 11:22 11/30/2021 AM EDT 11:37 AM EDT Resulting Agency Comment Spec In Lab Yogi Rachel MD CHEMISTRY ORDERABLES Performing Organization Address City/[facility]/ZIP Code Phon e Number [address] EKG 12 Lead (11/30/2021 10:56 AM EDT) Component Value Ref Range Test Analysis Performed Pathologis t Method Time At Signature Ventricular rate 101 BPM MUSE SYSTEM Atrial Rate 101 BPM MUSE SYSTEM P-R Interval 162 ms MUSE SYSTEM QRS Duration 72 ms MUSE SYSTEM Q-T Interval 350 ms MUSE SYSTEM QTC Calculated 453 ms MUSE SYSTEM (Bezet) Calculated P [place] 16 degrees MUSE SYSTEM Calculated R [place] 101 degrees MUSE SYSTEM Calculated T [place] 60 degrees MUSE SYSTEM INTERPRETATION Sinus tachycardia MUSE SY STEM Rightward axis Low voltage QRS Nonspecific ST abnormality Poor R wave progression Abnormal ECG No previous ECGs available I personally reviewed the tracing and edited the fellows int erpretation Confirmed by fellow MD Tip, Marissa ([id number]) on 11/30/2021 7:52:29 PM Confirmed by MD Yunior, Tony ([id number]) on 12/02/2021 12:26:03 PM Specimen Anatomical Collection Method Collection Time Receive d Time (Source) Location / / Volume Laterality 11/30/2021 10:56 12/02/2021 AM EDT 12:26 PM EDT Yogi Rachel MD ECG ORDERABLES Performing Organization Address City/State/ZIP Code Phon e Number MUSE SYSTEM documented in this encounter Visit Diagnoses Diagnosis 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
--- OUTSIDE RECORDS SUMMARY | 2022-02-15 01:04 | XMS_ITS | Encounter Summary ---
:1955 Author Organization [facility] [place] [address] Care Team Providers Name Role Phone None Primary Care Provider Unavailable Encounter Details Date Type Department Care Team Description 11/01/2021 Hospital Encounter [place] [facility] [place]k Davies, [facility] [place] [phone] [facility] [phone] [facility] [place], [place] [address] Social History Tobacco Use Types [...] Sign Reading Time Taken Comments Blood Pressure 146/102 11/01/2021 2:54 PM EDT Pulse 99 11/01/2021 2:54 PM EDT Temperature 36.3 ??C (97.3 ??F) 11/01/2021 2:54 PM EDT Respiratory Rate 22 11/01/2021 4:30 PM EDT Oxygen Saturation 96% 11/01/2021 2:54 PM EDT Inhaled Oxygen Concentration - - Weight 127 kg (280 lb) 11/01/2021 2:54 PM EDT Height 180.3 cm (5' 11) 11/01/2021 2:54 PM EDT Body Mass Index 39.05 11/01/2021 2:54 PM EDT documented in this encounter Medications at Time of Discharge [...] Twice daily documented as of this encounter H&P Notes Alek Davies MD - 11/01/2021 2:53 PM EDT Interventional Pulmonology Pre-Procedure History & Physical SECTION OF PULMONARY/CRITICAL CARE MEDICIE Procedure: Bronchoscopy, endobronchial ultrasound (EBUS) and biopsy Reason for procedure: Lung mass See last note from Tawana Rivera APRN PHYSICAL EXAM: Mental Status: Alert and oriented x3 Airway examination: Feasible Pulmonary: Clear to ausculation bilaterally CV: RRR, no murmurs or gallops ASA Grade: ASA III (Patient has severe systemic disease that is not incapacitating) Assessment & Plan: ?? Consent to be signed ?? Proceed with procedure as stated Alke Davies MD, 11/01/2021, 2:53 PM Interventional Pulmonology Section of Pulmonary & Critical Care Pager: [phone] documented in this encounter Miscellaneous Notes Op Note - Alek Davies MD - 11/01/2021 3:25 PM EDT Images from the original note were not included. INTERVENTIONAL PULMONOLOGY PROCEDURE NOTE SECTION OF PULMONARY & CRITICAL CARE MEDICINE Patient Name: Bipin Rowley Patient Patient : 1955 Procedure Date: 11/01/2021 Procedure(s): A flexible bronchoscopy Airway examination EBUS-TBNA (5 sites(s)) Therapeutic suctioning Procedure Location: Endoscopy unit Indication: Lung mass Attending(s) of Record: Alek Davies MD Others Present: None Medications: General Anesthesia - See anesthesia flowsheet for details Sedation Time: Per anesthesia care provider Time Out: Performed The patient's medical record has been reviewed. The indication for the procedure was reviewed. The necessary history and physical examination was performed and reviewed. The risks, benefits and alternatives of the procedure were discussed with the patient in detail and he had the opportunity to ask questions. I discussed in particular the potential complications including risks of minor or life-threatening bleeding and/or infection, hemoptysis, fever, respiratory failure, voice hoarseness, pneumothorax, and discomfort. Sedation risks were also discussed including abnormal heart rhythms, low blood pressure, and respiratory failure. All questions were answered to the best of my ability. Informed consent was obtained. The proposed procedure and the patient's identification were verified prior to theprocedure by the physician and the nurse. After clinical evaluation and reviewing the indication, risks, alternatives and benefits of the procedure the patient was deemed to be in satisfactory condition to undergo the procedure. Procedure Descriptions: Airway Examination: An Olympus P190 flexible bronchoscope was used for the procedure. The bronchoscope was inserted through the endotracheal tube and inspection undertaken. A complete airway examination was performed from the distal trachea to the subsegmental level in each lobe of both lungs. Pertinent findings include 100% obstruction of LB6 secondary to extrinsic compression; there is no zafar endobronchial tumor however the mucosa here is abnormal/thickened and suspicious for early infiltrative tumor change in the wall. There is mild extrinsic compression of LB9-10. EBUS-TBNA (5 sites): The Olympus EBUS ([id number]-[id number]) scope was inserted, lymph node inspection undertaken and transbronchial needle aspiration obtained from the following stations using the Olympus [id number]-1 22 gauge TBNA needle: 1) Station 11Rs(superior) with 1 pass (this lymph node was small/unable tore-identify after the first pass) obtained with ROBBIE absent. 2) Station 4R with 3 passes obtained with ROBBIE absent. 3) Station 7 with 3 passes obtained with ROBBIE absent. 4) Station 11L (enlarged/adjacent to LLL mass but not contiguous) with 3 passes obtained with ROBBIE absent. 5) Left lower lobe mass with 6 passes obtained with ROBBIE absent. Abundant material was collected in 10% neutral buffered formalin and sent for cytology review. Note, all mediastinal, hilar, lobar and segmental stations are evaluated during the procedure and those not listed were not biopsied due to small lymph node diameter, positive ROBBIE on higher adina staging, alternative diagnosis or inability to continue with the procedure. Specifically, station 4L was not identified. Therapeutic Suctioning (77697): A significant portion of operative time was spent clearing out the airway of debris, blood and/or secretions prior to or during the intervention. Any disposable equipment was visually inspected and deemed to be intact immediately post procedure. Estimated Blood Loss: 5 mL Complications: None Relevant Pictures EBUS-TBNA of LLL mass Recommendations: ??? Successful flexible bronchoscopy and EBUS-TBNA (5 site(s)) ??? Await pending results in the next 3-5 business days ??? Case to be discussed at upcoming tumor board (CTOP) conference ??? Follow-up with referring provider as previously arranged Alek Davies MD, 11/01/2021, 4:01 PM Interventional Pulmonology Section of Pulmonary & Critical Care Pager: [phone] documented in this encounter Plan of Treatment Upcoming Encounters Date Type Specialty Care Team Description 02/18/2022 Office Visit Hematology and Oncology Iain Rachel MD [facility] DR HEMATOLOGY/[place] [address] Whit Sung APRN [facility] HEMATOLOGY [place] [address] 02/18/2022 Infusion Hematology and Oncology documented as of this encounter Procedures Procedure Name Priority Date/Time Associated Comments Diagnosis NON-INFECTION PREVENTION SPECIALIST FINAL REPORT Routine 11/01/2021 4:00 PM R esults for this EDT procedure are i n the results section. NON-INFECTION PREVENTION SPECIALIST FINAL REPORT Routine 11/01/2021 4:00 PM R esults for this EDT procedure are i n the results section. CYTOPATHOLOGY Routine 11/01/2021 4:00 PM Results for this NON-GYNECOLOGICAL EDT procedure are in the results section. CYTOPATHOLOGY Routine 11/01/2021 4:00 PM Results for this NON-GYNECOLOGICAL EDT procedure are in the results section. CYTOPATHOLOGY Routine 11/01/2021 4:00 PM Results for this NON-GYNECOLOGICAL EDT procedure are in the results section. CYTOPATHOLOGY Routine 11/01/2021 4:00 PM Results for this NON-GYNECOLOGICAL EDT procedure are in the results section. CYTOPATHOLOGY Routine 11/01/2021 4:00 PM Results for this NON-GYNECOLOGICAL EDT procedure are in the results section. BRONCH, W 11/01/2021 3:14 PM Lung mass ENDOBRONCHIAL EDT ULTRASOUND (EBUS) GUIDED SAMPLING, 3+ NODES (WRVU 5.21) SOLID TUMOR NGS PANEL Routine 11/01/2021 12:00 PM EDT NON-INFECTION PREVENTION SPECIALIST FINAL REPORT Routine 11/01/2021 12:00 Res ults for this PM EDT procedure are i n the results section. NON-INFECTION PREVENTION SPECIALIST FINAL REPORT Routine 11/01/2021 12:00 Res ults for this PM EDT procedure are i n the results section. NON-INFECTION PREVENTION SPECIALIST FINAL REPORT Routine 11/01/2021 12:00 Res ults for this PM EDT procedure are i n the results section. documented in this encounter Results Non-Tin Container Straightener Final Report (11/01/2021 4:00 PM EDT) Component Value Ref Test Analysis Performed At [facility] Range Method Time Signature Non-Tin Container Straightener Final [id number] ? Location: 4T; EA; [facility] TAYLA The signing pathologist has (i) examined the relevant preparation(s) for the MEMORIAL specimen(s) and (ii) rendered or confirmed the diagnosis(es) . HOSPITAL LABORATORY . ? No n-Tin Container Straightener Final DIAGNOSIS Unsatisfactory Electronically signed by: ?Nelida Olmedo MD Verified: ??11/06/2021 10:30 ??Pathologist Performed at: ??-[facility] [place]. [place], [place], [place] DISCUSSION Lymph node, station 11R (EBUS-guided FNA): Predominantly blood and few respiratory epithelial cells pre sent. No definite evidence of lymph node sampling identified. The material might not be videotape sales representative of the target les ion. Clinical and radiologic correlation is required. CLINICAL INFORMATION Specimen Source : Lymph node, station 11R (EBUS-guided FNA) Pertinent Clinical Data and Significant Therapy: LLL mass Clinical Impression : Possible cancer Pertinent Radiologic Findings ??: (not provided) Gross Description: Received ??in Formalin appro ximately 50 mL total volume of ?? cloudy, pink fluid, with clots. Total Preparation: Cell Block 1. Specimen (Source) Anatomical Collection Method Collection Time Re ceived Time Location / / Volume Laterality 11/01/2021 4:00 PM EDT Alek Davies MD PATHOLOGY/CYTOLOGY ORDERABLE S Performing Organization Address City/State/ZIP Code Phon [place] [address] Non-Tin Container Straightener Final Report (11/01/2021 4:00 PM EDT) Component Value Ref Test Analysis Performed At [facility] Range Method Time Signature Non-Tin Container Straightener [id number] ? Location: 4T; EA09; A [facility] Final Report [place] The signing pathologist has (i) examined the relevant preparation(s) for the MEMORIAL specimen(s) and (ii) rendered or confirmed the diagnosis(es) . HOSPITAL LABORATORY . ? No n-Tin Container Straightener Final DIAGNOSIS Positive for Malignancy Electronically signed by: ?Honorio GAFFNEY, Nelida Verified: ??11/06/2021 10:24 ??Pathologist Performed at: ??-[facility] Dept. of Pathology, [facility], [place], [place] DISCUSSION Lymph node, station 11L (EBUS-guided FNA): Non-small cell carcinoma, compatible with adenocarcinoma (se e note). Note: The lesional cells are immunoreactive for TTF1(DAKO), supporting the diagnosis. In view of patient's histor y of lung mass, the immunostain findings are ? consistent with lung origin if other p ossible ?? primary ??sites can be excluded clinically. Please see the concurrent FN A specimen of ?left lower lobe lung, [id number]. --- Immunohistochemistry Studies --- Interpretation: See note. ? Immunohistochemical a ssays were performed (on paraffin-embedded cell block sections fixed in 10% neutr al buffered formalin for 6-72 hours) using the polymer technique with appropriate controls. The sections are studied for ? TTF1(DAKO). These immunohistochemical st udies provide ancillary information and are used only in conjunction with standard diagnostic procedures. CLINICAL INFORMATION Specimen Source : Lymph node, station 11L (EBUS-guided FNA) Pertinent Clinical Data and Significant Therapy: LLL mass Clinical Impression : LLL mass Pertinent Radiologic Findings ??: (not provided) Gross Description: Received ??in Formalin appro ximately 50 mL total volume of ?? cloudy, red fluid, with clots. Total Preparation: Cell Block 1. Specimen (Source) Anatomical Collection Method Collection Time Re ceived Time Location / / Volume Laterality 11/01/2021 4:00 PM EDT Alek Davies MD PATHOLOGY/CYTOLOGY ORDERABLE S Performing Organization Address City/[facility]/ZIP Code Phon e Number [address] Cytopathology Non-Gynecological (11/01/2021 4:00 PM EDT) Specimen Anatomical Collection Method Collection Time Receive d Time (Source) Location / / Volume Laterality AP Specimen 11/01/2021 4:00 PM 2 4:01 EDT PM EDT Narrative [facility] - 11/01/2021 4:00 PM EDT Specimen requisition ordered. ??Separate Pathology report to follow Alek Davies MD PATHOLOGY/CYTOLOGY ORDERABLE S Performing Organization Address City/[facility]/ZIP Code Phon e Number [address] Cytopathology Non-Gynecological (11/01/2021 4:00 PM EDT) Specimen Anatomical Collection Method Collection Time Receive d Time (Source) Location / / Volume Laterality AP Specimen 11/01/2021 4:00 PM 2 4:00 EDT PM EDT Narrative [facility] - 11/01/2021 4:00 PM EDT Specimen requisition ordered. ??Separate Pathology report to follow Alek Davies MD PATHOLOGY/CYTOLOGY ORDERABLE S Performing Organization Address City/[facility]/ZIP Code Phon e Number [address] Cytopathology Non-Gynecological (11/01/2021 4:00 PM EDT) Specimen Anatomical Collection Method Collection Time Receive d Time (Source) Location / / Volume Laterality AP Specimen 11/01/2021 4:00 PM 2 4:00 EDT PM EDT Narrative [facility] - 11/01/2021 4:00 PM EDT Specimen requisition ordered. ??Separate Pathology report to follow Alek Davies MD PATHOLOGY/CYTOLOGY ORDERABLE S Performing Organization Address [facility]/[place] [address] Cytopathology Non-Gynecological (11/01/2021 4:00 PM EDT) Specimen Anatomical Collection Method Collection Time Receive d Time (Source) Location / / Volume Laterality AP Specimen 11/01/2021 4:00 PM 2 4:00 EDT PM EDT Narrative [facility] - 11/01/2021 4:00 PM EDT Specimen requisition ordered. ??Separate Pathology report to follow Alek Davies MD PATHOLOGY/CYTOLOGY ORDERABLE S Performing Organization Address [facility]/[place] [address] Cytopathology Non-Gynecological (11/01/2021 4:00 PM EDT) Specimen Anatomical Collection Method Collection Time Receive d Time (Source) Location / / Volume Laterality AP Specimen 11/01/2021 4:00 PM 2 4:00 EDT PM EDT Narrative [facility] - 11/01/2021 4:00 PM EDT Specimen requisition ordered. ??Separate Pathology report to follow Alek Davies MD PATHOLOGY/CYTOLOGY ORDERABLE S Performing Organization Address City/[facility]/[place] [address] Non-Tin Container Straightener Final Report (11/01/2021 12:00 PM EDT) Component Value Ref Test Analysis Performed At [facility] Range Method Time Signature Non-Tin Container Straightener Final [id number] ? Location: 4T; EA09; A [facility] Karma TAY[place] The signing pathologist has (i) examined the relevant preparation(s) for the [facility]ORIAL specimen(s) and (ii) rendered or confirmed the diagnosis(es) . HOSPITAL LABORATORY . ? No n-Tin Container Straightener Final DIAGNOSIS Negative for Malignancy Electronically signed by: ?Honorio GAFFNEY, Aprilfranklyn Verified: ??11/06/2021 10:38 ??Pathologist Performed at: ??-[facility] Dept. of [place]ology, [place], [place] DISCUSSION Lymph node, station 7 (EBUS-guided FNA): Fragments of lymphoid tissue present, ?? consist ent with lymph node sampling. Negative for metastatic carcinoma. CLINICAL INFORMATION Specimen Source : Lymph node, station 7 (EBUS-guided FNA) Pertinent Clinical Data and Significant Therapy: LLL mass Clinical Impression : LLL mass Pertinent Radiologic Findings ??: (not provided) Gross Description: Received ??in Formalin appro ximately 50 mL total volume of ?? cloudy, pink fluid, with clots. Total Preparation: Cell Block 1. Specimen (Source) Anatomical Collection Method Collection Time Re ceived Time Location / / Volume Laterality 11/01/2021 12:00 PM EDT Alek Davies MD PATHOLOGY/CYTOLOGY ORDERABLE S Performing Organization Address City/State/[place] [address] Non-Tin Container Straightener Final Report (11/01/2021 12:00 PM EDT) Component Value Ref Test Analysis Performed At [facility] Range Method Time Signature Non-Tin Container Straightener Final [id number] ? Location: 4T; EA09; A [facility] The signing pathologist has (i) examined the relevant preparation(s) for the [facility] specimen(s) and (ii) rendered or confirmed the diagnosis(es) . HOSPITAL LABORATORY . ? No n-Tin Container Straightener Final DIAGNOSIS Negative for Malignancy Electronically signed by: ?Nelida Olmedo MD Verified: ??11/06/2021 10:35 ??Pathologist Performed at: ??-[facility] [place]. of [place], [place], [place] DISCUSSION Lymph node, station 4R (EBUS-guided FNA): Fragments of lymphoid tissue present, ?? consist ent with lymph node sampling. Negative for metastatic carcinoma. CLINICAL INFORMATION Specimen Source : Lymph node, station 4R (EBUS-guided FNA) Pertinent Clinical Data and Significant Therapy: LLL mass Clinical Impression : LLL mass Pertinent Radiologic Findings ??: (not provided) Gross Description: Received ??in Formalin appro ximately 50 mL total volume of ?? cloudy, red fluid, with clots. Total Preparation: Cell Block 1. Specimen (Source) Anatomical Collection Method Collection Time Re ceived Time Location / / Volume Laterality 11/01/2021 12:00 PM EDT Alek Davies MD PATHOLOGY/CYTOLOGY ORDERABLE S Performing Organization Address City/State/ZIP Code Ph[place] [address] [facility] [address] Non-Tin Container Straightener Final Report (11/01/2021 12:00 PM EDT) Component Value Ref Test Analysis Performed At [facility] gist Range Method Time Signature Non-Tin Container Straightener [id number] ? Location: 4T; EA09; A [place] Final Report [place] The signing pathologist has (i) examined the relevant preparation(s) for the [facility] specimen(s) and (ii) rendered or confirmed the diagnosis(es) . HOSPITAL LABORATORY . ? Addendum ADDENDUM DISCUSSION Tissue: ??Lung, left lower lobe (EBUS-guided FNA) Tumor Proportion Score (TPS): ?% Expression: 1% Interpretation Table: PD-L1 assay (22C3 pharmDX) for Keytruda Tumor Proportion Score (TPS): ? <1% ?PD-L1 Negative ? >=1% ? PD-L1 Expression Immunohistochemical assay wa s performed on paraffin-embedded tissue sections fixed in 10% neutral buffered for donn for 6-72 hours using the polymer system technique with appropriate controls. The assay was performed according to the senior oracle soa developer's instructions using Anti-PD-L1 (22C3, pharmDX) antibody. Electronically signed by: ?MD Cora, Cem Al Verified: ??11/09/2021 17:30 ??Pathologist Performed at: ??-[facility] Dept. of Pathology, [place], [place] ? No n-Tin Container Straightener Final DIAGNOSIS Positive for Malignancy Electronically signed by: ?Nelida Olmedo MD Verified: ??11/06/2021 10:11 ??Pathologist Performed at: ??-[facility] Dept. of Pathology, [place], [place] DISCUSSION Lung, left lower lobe (EBUS-guided FNA): Non-small cell carcinoma, compatible with adenocarcinoma (se e note). Note: The lesional cells are immunoreactive for TTF1(DAKO); they are negative for p40 and synaptophysin. Special stain for mucicarmine highlights intracytoplasmic mucin in lesional cells. The special and immu nostain results support the diagnosis. Immunohistochemical assay fo r PD-L1 is being ordered; results will be issued in an addendum report. Molecular studies are being ordered; results will be issued in molecular pathology reports. --- Immunohistochemistry Studies --- Interpretation: See note. ? Immunohistochemical a ssays were performed (on paraffin-embedded cell block sections fixed in 10% neutr al buffered formalin for 6-72 hours) using the polymer technique with appropriate controls. The sections are studied for ? TTF1(DAKO), p40 and synaptophysin. . DISCUSSION These immunohistochemical st udies provide ancillary information and are used only in conjunction with standard diagnostic procedures. CLINICAL INFORMATION Specimen Source : Lung, left lower lobe (EBUS-guided FNA) Pertinent Clinical Data and Significant Therapy: LLL mass Clinical Impression : LLL mass Pertinent Radiologic Findings ??: (not provided) Gross Description: Received ??in Formalin appro ximately 50 mL total volume of ?? cloudy, red fluid, with clots. Total Preparation: Cell Block 1. Specimen (Source) Anatomical Collection Method Collection Time Re ceived Time Location / / Volume Laterality 11/01/2021 12:00 PM EDT Alek Davies MD PATHOLOGY/CYTOLOGY ORDERABLE S Performing Organization Address City/[facility] [place] [address] Solid Tumor NGS Panel (11/01/2021 12:00 PM EDT) Specimen Anatomical Collection Method Collection Time Receive d Time (Source) Location / / Volume Laterality Tissue 11/01/2021 12:00 11/08/2021 8:08 PM EDT AM EDT Resulting Agency Comment Spec In Lab Alek Davies MD PATHOLOGY/CYTOLOGY ORDERABLE S Performing Organization Address City/[facility] [place] [address] documented in this encounter Visit Diagnoses Not on filedocumented in this encounter Care Teams County Manager Relationship Specialty Start Date End Date None PCP - General 10/25/21 None documented as of this encounter
--- OUTSIDE RECORDS SUMMARY | 2022-02-15 01:04 | XMS_ITS | Encounter Summary ---
:1955 Author Organization [facility] [place] [address] Care Team Providers Name Role Phone None Primary Care Provider Unavailable Encounter Details Date Type Department Care Team Description 11/01/2021 Surgery Gastroenterology at [facility] Alek Davies, BRONCH, W ENDOBRONCHIAL [facility] Franny michaels MD ULTRASOUND ([place]US) [place] [address] [employer]UIDED SAMPLING, 3+ [phone] [place] (WRVU 5.21) PULMONARY MEDICINE [place] [address] Social History Tobacco Use Types Packs/Day Years [...] signed ?? Proceed with procedure as stated Alek Davies MD, 11/01/2021, 2:53 PM Interventional Pulmonology Section of Pulmonary & Critical Care Pager: [phone] documented in this encounter Miscellaneous Notes Op [...] LB9-10. EBUS-TBNA (5 sites): The Olympus EBUS ([id number]) scope was inserted, lymph node inspection undertaken [...] station 4L was not identified. Therapeutic Suctioning (31163): A significant portion of operative time was [...] Section of Pulmonary & Critical Care Pager: [phone] documented in this encounter Plan of Treatment Upcoming Encounters Date Type Specialty Care Team Description 02/18/2022 Office Visit Hematology and Oncology Iain Rachel MD [facility] DR HEMATOLOGY/[place] [address] Whit Sung APRN [facility] [place] [address] 02/18/2022 Infusion Hematology and Oncology documented as of this encounter Procedures Procedure Name Priority Date/Time Associated Comments Diagnosis NON-RUNNING RIGGER FINAL REPORT Routine 11/01/2021 4:00 PM R esults for this EDT procedure are i n the results section. NON-RUNNING RIGGER FINAL REPORT Routine 11/01/2021 4:00 PM R [...] NGS PANEL Routine 11/01/2021 12:00 PM EDT NON-RUNNING RIGGER FINAL REPORT Routine 11/01/2021 12:00 Res ults for this PM EDT procedure are i n the results section. NON-RUNNING RIGGER FINAL REPORT Routine 11/01/2021 12:00 Res ults for this PM EDT procedure are i n the results section. NON-RUNNING RIGGER FINAL REPORT Routine 11/01/2021 12:00 Res ults for this PM EDT procedure are i n the results section. documented in this encounter Results Non-Market Analyst Final Report (11/01/2021 4:00 PM EDT) Component Value Ref Test Analysis Performed At [facility] gist Range Method Time Signature Non-Market Analyst Final [id number] ? Location: 4; [facility]; [facility] The signing pathologist has (i) examined the relevant preparation(s) for the MEMORIAL specimen(s) and (ii) rendered or confirmed the diagnosis(es) . HOSPITAL LABORATORY . ? No n-Market Analyst Final DIAGNOSIS Unsatisfactory Electronically signed by: ?Honorio GAFFNEY, Nelida Verified: ??11/06/2021 10:30 ??Pathologist Performed at: ??-[facility] Dept. of Pathology, [place], [place] DISCUSSION Lymph node, station 11R (EBUS-guided FNA): Predominantly blood and few respiratory epithelial cells pre sent. No definite evidence of lymph node sampling identified. The material might not be food products sales representative of the target les ion. [...] City/State/ZIP Code Phon e Number [place] [address] Non-Market Analyst Final Report (11/01/2021 4:00 PM EDT) Component Value Ref Test Analysis Performed At [facility] gist Range Method Time Signature Non-Market Analyst -[id number] ? Location: 4T; EA09; A CRISTIAN Final Report TAYLA The signing pathologist has (i) examined the relevant preparation(s) for the MEMORIAL specimen(s) and (ii) rendered or confirmed the diagnosis(es) . HOSPITAL LABORATORY . ? No n-Market Analyst Final DIAGNOSIS Positive for Malignancy Electronically signed by: ?Honorio GAFFNEY, Nelida Verified: ??11/06/2021 10:24 ??Pathologist Performed at: ??-[facility] Dept. of Pathology, [place], [place] DISCUSSION Lymph node, station 11L (EBUS-guided [...] A specimen of ?left lower lobe lung, 0734. --- Immunohistochemistry Studies --- Interpretation: See note. [...] MD PATHOLOGY/CYTOLOGY ORDERABLE S Performing Organization Address [facility] Phon e Number [address] Cytopathology Non-Gynecological (11/01/2021 4:00 PM EDT) Specimen Anatomical Collection Method Collection Time Receive d Time (Source) Location / / Volume Laterality AP Specimen 11/01/2021 4:00 PM 2 4:01 EDT PM EDT Narrative [facility] OR - 11/01/2021 4:00 PM EDT Specimen requisition ordered. ??Separate Pathology report to follow Alek Davies MD PATHOLOGY/CYTOLOGY ORDERABLE S Performing Organization Address City/[facility]/ZIP Code Phon e Number [address] Cytopathology Non-Gynecological (11/01/2021 4:00 PM EDT) Specimen Anatomical Collection Method Collection Time Receive d Time (Source) Location / / Volume Laterality AP Specimen 11/01/2021 4:00 PM 2 4:00 EDT PM EDT Narrative [facility] ORY - 11/01/2021 4:00 PM EDT Specimen requisition ordered. ??Separate Pathology report to follow Alek Davies MD PATHOLOGY/CYTOLOGY ORDERABLE S Performing Organization Address City/[facility]/ZIP Code Phon e Number [address] Cytopathology Non-Gynecological (11/01/2021 4:00 PM EDT) Specimen Anatomical Collection Method Collection Time Receive d Time (Source) Location / / Volume Laterality AP Specimen 11/01/2021 4:00 PM 2 4:00 EDT PM EDT Narrative [facility] - 11/01/2021 4:00 PM EDT Specimen requisition ordered. ??Separate Pathology report to follow Alek Davies MD PATHOLOGY/CYTOLOGY ORDERABLE S Performing Organization Address [facility]/[place] [address] Cytopathology Non-Gynecological (11/01/2021 4:00 PM EDT) Specimen Anatomical Collection Method Collection Time Receive d Time (Source) Location / / Volume Laterality AP Specimen 11/01/2021 4:00 PM 2 4:00 EDT PM EDT Narrative [facility] - 11/01/2021 4:00 PM EDT Specimen requisition ordered. ??Separate Pathology report to follow Alek Davies MD PATHOLOGY/CYTOLOGY ORDERABLE S Performing Organization Address [facility]/[place] [address] Cytopathology Non-Gynecological (11/01/2021 4:00 PM EDT) Specimen Anatomical Collection Method Collection Time Receive d Time (Source) Location / / Volume Laterality AP Specimen 11/01/2021 4:00 PM 2 4:00 EDT PM EDT Narrative [facility] - 11/01/2021 4:00 PM EDT Specimen requisition ordered. ??Separate Pathology report to follow Alek Davies MD PATHOLOGY/CYTOLOGY ORDERABLE S Performing Organization Address City/[facility]/[place] [address] Non-Market Analyst Final Report (11/01/2021 12:00 PM EDT) Component Value Ref Test Analysis Performed At [facility] gist Range Method Time Signature Non-Market Analyst Final [id number] ? Location: 4T; EA09; A [place] The signing pathologist has (i) examined the relevant preparation(s) for the MEMORIAL specimen(s) and (ii) rendered or confirmed the diagnosis(es) . HOSPITAL LABORATORY . ? No n-Market Analyst Final DIAGNOSIS Negative for Malignancy Electronically signed by: ?Honorio GAFFNEY, Nelida Verified: ??11/06/2021 10:38 ??Pathologist Performed at: ??-[facility] Dept. of Pathology, [place], [place] DISCUSSION Lymph node, station 7 (EBUS-guided [...] City/State/ZIP Code Phon [place] [address] Non-Market Analyst Final Report (11/01/2021 12:00 PM EDT) Component Value Ref Test Analysis Performed At [facility] Range Method Time Signature Non-Market Analyst Final [id number] ? Location: 4T; EA09; A [place] [place] The signing pathologist has (i) examined the relevant preparation(s) for the [facility] specimen(s) and (ii) rendered or confirmed the diagnosis(es) . HOSPITAL LABORATORY . ? No n-Market Analyst Final DIAGNOSIS Negative for Malignancy Electronically signed by: ?Honorio GAFFNEY, Nelida Verified: ??11/06/2021 10:35 ??Pathologist Performed at: ??-[facility] Dept. of Pathology, [place], [place] DISCUSSION Lymph node, station 4R (EBUS-guided [...] Organization Address City/State/[place] [address] [facility] [address] Non-Market Analyst Final Report (11/01/2021 12:00 PM EDT) Component Value Ref Test Analysis Performed At [facility] gist Range Method Time Signature Non-Market Analyst [id number] ? Location: 4T; EA09; A [facility] Final Report [place] The signing pathologist has (i) examined the relevant preparation(s) for the [facility] specimen(s) and (ii) rendered or confirmed the [...] The assay was performed according to the chicken and fish cleaner's instructions using Anti-PD-L1 (22C3, pharmDX) antibody. Electronically signed by: ?MD Cora, Cem Al Verified: ??11/09/2021 17:30 ??Pathologist Performed at: ??-[facility] Dept. of Pathology, [place], [place] ? No n-Market Analyst Final DIAGNOSIS Positive for Malignancy Electronically signed by: ?Honorio GAFFNEY, Nelida Verified: ??11/06/2021 10:11 ??Pathologist Performed at: ??-[facility] Dept. of Pathology, [place], [place] DISCUSSION Lung, left lower lobe (EBUS-guided [...] MD PATHOLOGY/CYTOLOGY ORDERABLE S Performing Organization Address [facility] [place] [address] Solid Tumor NGS Panel (11/01/2021 12:00 PM EDT) Specimen Anatomical Collection Method Collection Time Receive d Time (Source) Location / / Volume Laterality Tissue 11/01/2021 12:00 11/08/2021 8:08 PM EDT AM EDT Resulting Agency Comment Spec In Lab Alek Davies MD PATHOLOGY/CYTOLOGY ORDERABLE S Performing Organization Address [facility] [place] [address] documented in this encounter Visit Diagnoses Diagnosis Lung mass Swelling, mass, or lump in chest documented in this encounter Care Teams Programming Intern Relationship Specialty Start Date End Date None PCP - General 10/25/21 None documented as of this encounter
--- OUTSIDE RECORDS SUMMARY | 2022-02-15 01:04 | XMS_ITS | Encounter Summary ---
:1955 Author Organization [facility] [place] [address] Care Team Providers Name Role Phone None Primary Care Provider Unavailable Reason for Referral Diagnostic Test (Routine) - Closed Specialty Diagnoses / Procedures Referred By Contact Refer red To Contact Radiology Diagnoses Lung mass Alek Davies MD [facility] Rad Nuclear Med Procedures NM PET CT Skull Base to Mid-thigh [facility] [place]ARY [place] [address] [place] [address] Referral ID Status Reason Start Date Expiration Date Visits V isits Requested Authorized [id number] Closed Specialty 10/19/2021 04/21/2023 1 1 Service Requested Reason for Visit Diagnostic Test (Routine) - Closed Specialty Diagnoses / Procedures Referred By Contact Refer red To Contact Radiology Diagnoses Lung mass Alek Davies MD [facility] Rad Nuclear Med Procedures NM PET CT Skull Base to Mid-thigh [facility] [place]MONARY [place] [address] [place] [address] Referral ID Status Reason Start Date Expiration Date Visits V isits Requested Authorized [id number] Closed Specialty 10/19/2021 04/21/2023 1 1 Service Requested Encounter Details Date Type Department Care Team Description 11/09/2021 Hospital Encounter Nuclear Medicine at Judith Davies MD Lung mass Bessie [facility] [address] [place] [address] [place] [address] [phone] (Wo rk) Social History Tobacco Use Types [...] and Oncology Iain Rachel MD [facility] [address] HEMATOLOGY/[place] [address] Whit Sung APRN [facility] HEMATOLOGY [place] [address] 02/18/2022 Infusion Hematology and Oncology documented as of this encounter Procedures Procedure Name Priority Date/Time Associated Diagnosis Comme nts NM PET CT SKULL Routine 11/09/2021 9:50 AM Lung mass Result s for this BASE TO MID-THIGH EDT procedure are in (LCSR) the results section. documented in this encounter Results NM PET CT Skull Base to Mid-thigh (11/09/2021 9:50 AM EDT) Anatomical Region Laterality Modality Positron Emission To mography (PET) Specimen (Source) Anatomical Location Collection Method / Collectio n Time Received Time / Laterality Volume Impressions 11/09/2021 3:49 PM EDT 1. ??Approximately 6 cm FDG avid left lower lobe mass contiguous with the posterior left hilum and major fissure, consistent with biopsy-proven lung malignancy. 2. ??No mediastinal or distant sites of metastasis. 3. ??Incidental finding of a 3 cm right adrenal myelolipoma. I have personally reviewed the image(s) and the resident's interpretation and agree with the findings, Adrianna Hernandez at 11/09/2021 3:49 PM Thank you for letting us participate in the care of this patient. ??If you are a health care provider and have any questi ons regarding this report, please contact the number below. ??For patients who have questions please contact the health primary care provider that requested your imaging first. ? Electronically signed by: Ender Schultz MD, [facility] ([phone]), at 11/09/2021 3:49 PM Narrative 11/09/2021 3:49 PM EDT EXAMINATION: NM PET CT STANDARD SKULL BASE TO MID-THIGH CLINICAL HISTORY: Lower lobe adenocarcin rudy. Initial treatment evaluation. Has not yet started treatment. TECHNIQUE: Following IV injection of 18- hflahg-5-dhnuwsogmevo (FDG) a standard uptake of approximately 60 minutes, a no ncontrast CT scan followed by a PET scan were acquired from the base of the skull to mid thighs. The noncontrast CT was used for anatomic localization and photo n attenuation correction of the PET scan. Blood glucose level: 112 (mg/dL) FDG dose: 18 mCi COMPARISON: CT chest 10/16/2021 FINDINGS: HEAD/NECK: Normal activity in all soft tissue regio ns of the neck and visualized lower head. No adenopathy. CHEST: Approximately 6 cm FDG avid left lower l obe mass contiguous with the posterior left hilum and major fissure (centered o n axial image 109). Outside of the left hilum, there is no s ignificant adenopathy. No other suspicious pulmonary nodule. Coronary and aortic calcifications prese nt. ABDOMEN/PELVIS: Mildly FDG avid 3 cm heterogeneously att enuating right adrenal nodule with small foci of macroscopic fat (axial image 153 ), consistent with a benign adrenal myelolipoma. No significant adenopathy. Small simple appearing hepatic cyst in t he posteromedial right hepatic lobe (axial image 151). SKELETON/EXTREMITIES: Normal activity in all regions of the ax ial and visualized appendicular skeleton. No suspicious osseous lesion. Procedure Note Ender Schultz MD - 11/09/2021Formatti ng of this note might be different from the original. EXAMINATION: NM PET CT STANDARD SKULL BA SE TO MID-THIGH CLINICAL HISTORY: Lower lobe adenocarcin rudy. Initial treatment evaluation. Has not yet started treatment. TECHNIQUE: Following IV injection of 18- cftgfh-0-tdivdqlkkdzf (FDG) a standard uptake of approximately 60 minutes, a no ncontrast CT scan followed by a PET scan were acquired from the base of the skull to mid thighs. The noncontrast CT was used for anatomic localization and photo n attenuation correction of the PET scan. Blood glucose level: 112 (mg/dL) FDG dose: 18 mCi COMPARISON: CT chest 10/16/2021 FINDINGS: HEAD/NECK: Normal activity in all soft tissue regio ns of the neck and visualized lower head. No adenopathy. CHEST: Approximately 6 cm FDG avid left lower l obe mass contiguous with the posterior left hilum and major fissure (centered o n axial image 109). Outside of the left hilum, there is no s ignificant adenopathy. No other suspicious pulmonary nodule. Coronary and aortic calcifications prese nt. ABDOMEN/PELVIS: Mildly FDG avid 3 cm heterogeneously att enuating right adrenal nodule with small foci of macroscopic fat (axial image 153 ), consistent with a benign adrenal myelolipoma. No significant adenopathy. Small simple appearing hepatic cyst in t he posteromedial right hepatic lobe (axial image 151). SKELETON/EXTREMITIES: Normal activity in all regions of the ax ial and visualized appendicular skeleton. No suspicious osseous lesion. IMPRESSION 1. Approximately 6 cm FDG avid left lowe r lobe mass contiguous with the posterior left hilum and major fissure, consistent with biopsy-proven lung malignancy. 2. No mediastinal or distant sites of me tastasis. 3. Incidental finding of a 3 cm right ad renal myelolipoma. I have personally reviewed the image(s) and the resident's interpretation and agree with the findings, Adrianna Hernandez at 11/09/2021 3:49 PM Thank you for letting us participate in the care of this patient. If you are a health care provider and have any questi ons regarding this report, please contact the number below. For patients w ho have questions please contact the health primary care provider that requested your imaging first. Alek Davies MD IMG PET ORDERABLES documented in this encounter Visit Diagnoses Diagnosis Lung mass Swelling, mass, or lump in chest documented in this encounter Administered Medications Inactive Administered Medications - up to 3 most recent administrations Medication Order MAR Action Action Date Dose Rate Site fludeoxyglucose (F-18) FDG Given 11/09/2021 8:30 AM EDT 18 mCi Left Arm injection 0-20 mCi 0-20 mCi, Intravenous, ONCE PRN, 1 dose, Starting on Fri11/09/21 at 0834, Until Fri11/09/21 at 0830, Per Protocol, Radiology Contrast, Routine documented in this encounter Care Teams Restaurant Team Member Relationship Specialty Start Date End Date None PCP - General 10/25/21 None documented as of this encounter
--- OUTSIDE RECORDS SUMMARY | 2022-02-15 01:04 | XMS_ITS | Encounter Summary ---
:1955 [place] [address] Care Team Providers Name Role Phone None Primary Care Provider Unavailable Encounter Details Date Type Department Care Team Description 11/06/2021 Telephone Medicine Critical Ca re Alek Davies MD [facility] [place] [address] PULMONARY MEDICINE [phone] [place], [place] [address] (Wo rk) Social History Tobacco [...] this encounter Miscellaneous Notes Telephone Encounter - Alek Davies MD - 11/06/2021 10:45 AM EDT Interventional Pulmonology Telephone Encounter: I called . Bipin Rowley on 11/06/2021 at 10:46 AM. We discussed the results from his recent bronchoscopy pertinent for non-small cell lung cancer. The lesion is not measured on the outside radiology report and is slightly difficult to measure given irregularity and some surrounding opacity but appears to be >40 mm in largest dimension - at a minimum this is [id number] (IIB) but may be higher stage and stage IV disease not ruled out as the PET/CT and MR brain are still pending for 11/09/21 and 11/13/21 respectively (with attention to be made to the adrenal mass). Unfortunately, his FEV1 is likely prohibitive to surgery if this is lower confirmed lower stage and we do not have a DLco on file. I will start with referral to medical oncology at a minimum and we can plan to present his case at tumor board on 11/13/21. Recommend his in house cra obtain a DLco locally if possible. Mr. Rowley was providedample time to ask questions which were answered to his liking. Alek Davies MD, 11/06/2021, 10:46 AM Interventional Pulmonology Section of Pulmonary & Critical Care Pager: [phone] documented in this encounter Plan of Treatment Upcoming Encounters Date Type Specialty Care Team Description 02/18/2022 Office Visit Hematology and Oncology Iain Rachel MD [facility] HEMATOLOGY/[place] [address] Whit Sung APRN [facility] [place] [address] 02/18/2022 Infusion Hematology and Oncology documented as of this encounter Visit Diagnoses Not on filedocumented in this encounter Care Teams Leaf Stripper Relationship Specialty Start Date End Date None PCP - General 10/25/21 None documented as of this encounter
--- OUTSIDE RECORDS SUMMARY | 2022-02-15 01:04 | XMS_ITS | Encounter Summary ---
:1955 Author Organization [facility] [place] [address] Care Team Providers Name Role Phone None Primary Care Provider Unavailable Reason for Referral Diagnostic Test (Routine) - Closed Specialty Diagnoses / Procedures Referred By Contact Refer red To Contact Radiology Diagnoses Lung mass Alek Davies MD [facility] Rad Mri Procedures MRI Brain wwo Contrast (Generic) [facility] [place] [address] [place] [address] Referral ID Status Reason Start Date Expiration Date Visits V isits Requested Authorized [id number] Closed Specialty 10/19/2021 04/21/2023 1 1 Service Requested Reason for Visit Diagnostic Test (Routine) - Closed Specialty Diagnoses / Procedures Referred By Contact Refer red To Contact Radiology Diagnoses Lung mass Alek Davies MD [facility] Rad Mri Procedures MRI Brain wwo Contrast (Generic) [facility] [place] [address] [place] [address] Referral ID Status Reason Start Date Expiration Date Visits V isits Requested Authorized [id number] Closed Specialty 10/19/2021 04/21/2023 1 1 Service Requested Encounter Details Date Type Department Care Team Description 11/13/2021 Hospital Encounter MRI at [facility] Alek Davies MD Lung mass [place] [address] PULMONARY MEDICINE [phone] [place], [place] [address] (Wo rk) Social History Tobacco Use Types [...] [facility] DR HEMATOLOGY/[place] [address] Whit Sung APRN [facility] [place] [address] 02/18/2022 Infusion Hematology and Oncology documented as of this encounter Procedures Procedure Name Priority Date/Time Associated Diagnosis Comme nts MRI BRAIN WWO Routine 11/13/2021 8:05 AM Lung mass Results for this CONTRAST (GENERIC) EDT procedure are in the results section. documented in this encounter Results MRI Brain wwo Contrast (Generic) (11/13/2021 8:05 AM EDT) Anatomical Region Laterality Modality Head Magnetic Resonance Specimen (Source) Anatomical Location Collection Method / Collectio n Time Received Time / Laterality Volume Impressions 11/13/2021 10:11 AM EDT Age related microvascular ischemic changes in the cerebral white matter bilaterally. No metastatic disease is identified. 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 Thank you for letting us participate in the care of this patient. ??If you are a health care provider and have any questi ons regarding this report, please contact the number below. ??For patients who have questions please contact the health careers counsellor that requested your imaging first. ? Electronically signed by: Jack willis MD, [facility] ([phone]), at 11/13/2021 10:11 AM Narrative 11/13/2021 10:11 AM EDT EXAMINATION: MRI BRAIN WWO CONTRAST (GENERIC) CLINICAL HISTORY: Metastatic disease jef luation LLL lung mass TECHNIQUE: MRI of the brain was performed before an d after the intravenous administration of cc Dotarem. The dose was not documented on the image s COMPARISON: No prior brain studies. Previous PET sca n 11/09/[address] 10/16/2021 FINDINGS: Age-related atrophy is noted. No bone le sions are seen. There are no areas of restricted diffusi on. No significant susceptibility changes. Scattered numerous white matter hyperintensities noted on FLAIR images consistent with microvascular disease. Following contrast administration of int ravenous angioma/developmental venous anomaly is noted in the carline. I note no convincing evidence of parenchymal or leptomeningeal pathologic enhancement. N o brain metastases are seen. The cranial nerves which are visualized appear pablo l. Procedure Note Jack Garcia MD - 11/13/2021Forma tting of this note might be different from the original. EXAMINATION: MRI BRAIN WWO CONTRAST (GEN JOSE FRANCISCO) CLINICAL HISTORY: Metastatic disease jef luation LLL lung mass TECHNIQUE: MRI of the brain was performed before an d after the intravenous administration of cc Dotarem. The dose was not documented on the image s COMPARISON: No prior brain studies. Previous PET sca n 11/09/[address] 10/16/2021 FINDINGS: Age-related atrophy is noted. No bone le sions are seen. There are no areas of restricted diffusi on. No significant susceptibility changes. Scattered numerous white matter hyperintensities noted on FLAIR images consistent with microvascular disease. Following contrast administration of int ravenous angioma/developmental venous anomaly is noted in the carline. I note no convincing evidence of parenchymal or leptomeningeal pathologic enhancement. N o brain metastases are seen. The cranial nerves which are visualized appear pablo l. IMPRESSION Age related microvascular ischemic santiago es in the cerebral white matter bilaterally. No metastatic disease is identified. 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 Thank you for letting us participate in the care of this patient. If you are a health care provider and have any questi ons regarding this report, please contact the number below. For patients w ho have questions please contact the health careers counsellor that requested your imaging first. Electronically signed by: Jack willis MD, [facility] ([phone]), at 11/13/2021 10:11 AM Alek Davies MD IMG MRI ORDERABLES documented in this encounter Visit Diagnoses Diagnosis Lung mass Swelling, mass, or lump in chest documented in this encounter Administered Medications Inactive Administered Medications - up to 3 most recent administrations Medication Order MAR Action Action Date Dose Rate Site gadoterate meglumine (Dotarem) Given 11/13/2021 7:46 AM EDT 26 m Ls (0.5 mMol/mL) injection solution 0-100 mL 0-100 mL, Intravenous, ONCE PRN, 1 dose, Starting on Fri11/13/21 at 0752, Until Fri11/13/21 at 0746, Per Protocol, Radiology Contrast, Routine documented in this encounter Care Teams Immunology Specialist Relationship Specialty Start Date End Date None PCP - General 10/25/21 None documented as of this encounter
--- OUTSIDE RECORDS SUMMARY | 2022-02-15 01:04 | XMS_ITS | Encounter Summary ---
:1955 Author Organization [place] [address] Care Team Providers Name Role Phone None Primary Care Provider Unavailable Encounter Details Date Type Department Care Team Description 11/28/2021 Telephone Thoracic Surgery at [facility] Pratik Gaines [facility] [place] [address] Social History Tobacco Use Types Packs/Day [...] this encounter Miscellaneous Notes Telephone Encounter - Pratik Gaines - 11/28/2021 12:55 PM EDT Message left requesting return call. Dr. Corrales would like patient to have a VQ scan. There is nothing available on 11/30 around patients other appointments, but there is one available 11/29/21. Please confirm patient will be available for this appointment. Spoke to patient, he is unable to come twice. He also wishes to attend his various consults (med onc, rad onc, thoracic surgery) before undergoing additional testing. Appointment cancelled, will be rescheduled after consultations if patient wishes to proceed. documented in this encounter Plan of Treatment Upcoming Encounters Date Type Specialty Care Team Description 02/18/2022 Office Visit Hematology and Oncology Iain Rachel MD [facility] DR HEMATOLOGY/[place] [address] Whit Sung APRN [facility] [address] [place] [address] 02/18/2022 Infusion Hematology and Oncology documented as of this encounter Visit Diagnoses Not on filedocumented in this encounter Care Teams Flaking Roll Operator Relationship Specialty Start Date End Date None PCP - General 10/25/21 None documented as of this encounter
--- OUTSIDE RECORDS SUMMARY | 2022-02-15 01:04 | XMS_ITS | Encounter Summary ---
:1955 Author Organization [facility] Address [facility] [place] [address] Care Team Providers Name Role Phone None Primary Care Provider Unavailable Reason for Visit Reason Onset Date Comments Prior Authorization 11/20/2021 Molecular cancer niru ting CPT 28872 is a covered benefit. Encounter Details Date Type Department Care Team Description 11/20/2021 Telephone Revenue Management Ginny Sanchez Prior Authorization Division (Molecular cancer testing [facility] CPT [address] benefit. ) [place] [address] Social History Tobacco Use Types Packs/Day [...] place to sleep or slept in a jail (including now)? Sex Assigned at Date Recorded Not on file documented as of this encounter Miscellaneous Notes Telephone Encounter - Ginny Sanchez - 11/20/2021 7:30 AM EDTSummary: Genetics Molecular cancer testing: CPT 17477 is a covered benefit: I received an e-mail from Sobia in Clinical web care [employer] ([id number]) requesting coverage review for CPT 61765 which is to be done on the patient's left lung cancer tissue obtained on 11/01/21. Ordering provider: Alek Davies MD. Upon review, the patient's traditional Medicare policy [id number] is active. No secondary policy was found. Per Medicare's website, CPT 34319 is a covered benefit with no authorization needed. I will e-mail Sobia to let her know of approved coverage. documented in this encounter Plan of Treatment Upcoming Encounters Date Type Specialty Care Team Description 02/18/2022 Office Visit Hematology and Oncology Iain Rachel MD [facility] DR HEMATOLOGY/[place] [address] Whit Sung APRN [facility] [place] [address] 02/18/2022 Infusion Hematology and Oncology documented as of this encounter Visit Diagnoses Not on filedocumented in this encounter Care Teams Lithographic Press Feeder Relationship Specialty Start Date End Date None PCP - General 10/25/21 None documented as of this encounter
--- OUTSIDE RECORDS SUMMARY | 2022-02-15 01:04 | XMS_ITS | Encounter Summary ---
:1955 Author Organization [facility] [place] [address] Care Team Providers Name Role Phone None Primary Care Provider Unavailable Reason for Visit Diagnostic Test (Routine) - Closed Specialty Diagnoses / Procedures Referred By Contact Refer red To Contact Radiology Diagnoses Lung mass Alek Davies MD [facility] Rad Nuclear Med Procedures NM PET CT Skull Base to Mid-thigh [facility] [place] [address] [place] [address] Referral ID Status Reason Start Date Expiration Date Visits V isits Requested Authorized [id number] Closed Specialty 10/19/2021 04/21/2023 1 1 Service Requested Encounter Details Date Type Department Care Team Description 11/09/2021 [facility] Cassie [place] [address] [place] [address] [phone] (Wo rk) Social History Tobacco Use Types [...] [facility] DR HEMATOLOGY/[place] [address] Whit Sung APRN [facility] [place] [address] 02/18/2022 Infusion Hematology and Oncology documented as [...] who have questions please contact the health healthcare corporate account director that requested your imaging first. ? Narrative 11/09/2021 3:49 PM EDT EXAMINATION: NM PET CT STANDARD SKULL BASE TO MID-THIGH CLINICAL HISTORY: Lower lobe adenocarcin rudy. Initial treatment evaluation. Has not yet started treatment. TECHNIQUE: Following IV injection of 18- euqrhj-7-vhvvjggdshtn (FDG) a standard uptake of approximately 60 [...] treatment. TECHNIQUE: Following IV injection of 18- bwqspb-1-dtntqfhngvab (FDG) a standard uptake of approximately 60 [...] ho have questions please contact the health healthcare corporate account director that requested your imaging first. Alek Davies MD IMG PET ORDERABLES documented in this encounter Visit Diagnoses Not on filedocumented in this encounter Care Teams Wastewater Plant Operator Relationship Specialty Start Date End Date None PCP - General 10/25/21 None documented as of this encounter
--- OUTSIDE RECORDS SUMMARY | 2022-02-15 01:04 | XMS_ITS | Encounter Summary ---
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 Skyla Velazquez MD [facility] Rad Onc Office Procedures Simulation for Radiation Therapy Planning [address] [place] [phone] Fax: Referral ID Status Reason Start Date Expiration Date Visits V isits Requested Authorized [id number] Closed Consult, 11/28/2021 02/11/2022 30 30 Test & Treat Encounter Details Date Type Department Care Team Description 11/28/2021 Orders Only Radiation Oncology at Skyla Velazquez, Pr imary malignant [facility] neoplasm of left lower [facility] [place] [address] RADIATION ONCOLOGY [phone] [place], [place] [address] Social History Tobacco Use Types [...] [facility] DR HEMATOLOGY/[place] [address] Whit Sung APRN [facility] [place]OLOG[place] [address] 02/18/2022 Infusion Hematology and Oncology Scheduled Orders [...] lung documented in this encounter Care Teams Rad Tech Relationship Specialty Start Date End Date None PCP - General 10/25/21 None documented as of this encounter
--- OUTSIDE RECORDS SUMMARY | 2022-02-15 01:04 | XMS_ITS | Encounter Summary ---
:1955 Author Organization [facility] [place] [address] Care Team Providers Name Role Phone James Calle MD Primary Care Provider Encounter Details Date Type Department Care Team Description 10/16/2021 Ancillary Procedure Radiology Library at Travis Calle [facility] [address] [place] [phone] Social History Tobacco Use Types Packs/Day Years [...] Visit Hematology and Oncology Iain Rachel MD [facility] DR HEMATOLOGY/[place] [address] Whit Sung APRN [facility] [place] [address] 02/18/2022 Infusion Hematology and Oncology documented as of this encounter Procedures Procedure Name Priority Date/Time Associated Diagnosis Comme nts FILM LIBRARY Routine 10/16/2021 12:00 AM Results for this STORAGE ONLY CT EDT procedure ar e in CHEST the results section. documented in this encounter Results Film Library- Storage Only CT Chest (10/16/2021 12:00 AM EDT) Specimen (Source) Anatomical Location Collection Method / Collectio n Time Received Time / Laterality Volume Narrative RAD - 10/18/2021 3:12 PM EDT This exam is auto-finalizing. It's purpo se is for storage only. James Calle MD IM FILM LIBRARY ORDERABLES Performing Organization Address City/State/ZIP Code Phon e Number [place], [place] documented in this encounter Visit Diagnoses Not on filedocumented in this encounter Care Teams Tube Turner Relationship Specialty Start Date End Date James Calle MD PCP - General 03/06/10 10/24/21 [address] [place] [phone] documented as of this encounter
--- OUTSIDE RECORDS SUMMARY | 2022-02-15 01:04 | XMS_ITS | Encounter Summary ---
:1955 Author Organization [facility] [place] [address] Care Team Providers Name Role Phone None Primary Care Provider Unavailable Reason for Referral Consultation (Routine) - Closed Specialty Diagnoses / Procedures Referred By Contact Refer red To Contact Radiation Oncology Diagnoses Lung mass Sosa Rivera, Juan Garces APRN, Jr., MD [facility] Pulmonary Medicine RADIATION ONCOLOGY [place], [place] [address] [place] [address] Fax: Referral ID Status Reason Start Date Expiration Date Visits V isits Requested Authorized [id number] Closed Consult, 11/16/2021 11/16/2022 1 1 Test & Treat Consultation (Routine) - Closed Specialty Diagnoses / Procedures Referred By Contact Refer red To Contact Thoracic Surgery Diagnoses Lung mass Lung mass Sosa Rivera, [facility] [address] [place] [address] Pulmonary Medicine [place] [id number] Referral ID Status Reason Start Date Expiration Date Visits V isits Requested Authorized [id number] Closed Consult, 11/16/2021 11/16/2022 1 1 Test & Treat Encounter Details Date Type Department Care Team Description 11/13/2021 Telephone Pulmonology at [facility] [place] [address] Pulmonary Medicine [phone] [place], [place] [address] (Wo rk) Social History Tobacco [...] documented as of this encounter Miscellaneous Notes Addendum Note - Sosa Rivera APRN - 11/16/2021 4:38 PM EDT Addended by: SOSA RIVERA on: 11/16/2021 04:38 PM Modules accepted: Orders Telephone Encounter - Sosa Rivera APRN - 11/16/2021 4:34 PM EDT I received Mr. Rowley's updated PFTS from 11/12/2021 (in the media tab): Post bronchodilator: FEV1 1.42/40% pred DLCOcor 55% I spoke with Mr. Rowley and he is interested in meeting with both thoracic surgery and radiation oncology. He has an appt scheduled with medical oncology on 11/30/2021. Referrals placed to thoracic surgery as well as radiation oncology. Recommended that Mr. Rowley increase his activity to 30 minutes/day in anticipation for possible surgery. Sosa Rivera APRN, 11/16/2021, 4:38 PM Interventional Pulmonology Section of Pulmonary & Critical Care Pager: [phone] Telephone Encounter - Sosa Rivera APRN - 11/13/2021 11:25 AM EDT Interventional Pulmonology Telephone Encounter: I called Mr. Bipin Rowley on 11/13/2021 at 11:26 AM. We discussed the results from his recent brainMRI and tumor board discussion pertinent for no metastatic disease seen on his brain MRI. Additionally his PFTs had demonstrated a low FEV1 or 1.19/33% predicted in July 2021, DLCO was not completed at this time. He completed PFTs on 11/12/[address] [facility] and we will request these. If his results make him a potential surgical candidate then we will plan to refer him to thoracic surgery in addition to his medical oncology referral. If he's not a surgical candidate, then plan for a referral to radiationoncology. Mr. Rowley is interested in surgery if it is an option. He was provided ample time to ask qu estions which were answered to his liking. Sosa Rivera APRN, 11/13/2021, 11:26 AM Interventional Pulmonology Section of Pulmonary & Critical Care Pager: [phone] documented in this encounter Plan of Treatment Upcoming Encounters Date Type Specialty Care Team Description 02/18/2022 Office Visit Hematology and Oncology Iain Rachel MD [facility] DR HEMATOLOGY/[place] [address] Whit Sung APRN [facility] [place] [address] 02/18/2022 Infusion Hematology and Oncology Scheduled Referrals Name Type Priority Associated Diagnoses Order S chedule Amb Ref To Thoracic Outpatient Referral Routine Lung mass O rdered: Surgery 11/16/2021 Referral to Outpatient Referral Routine Lung mass Ordered: Radiation Oncology 2 documented as of this encounter Visit Diagnoses Diagnosis Lung mass Swelling, mass, or lump in chest documented in this encounter Care Teams Him Assistant Relationship Specialty Start Date End Date None PCP - General 10/25/21 None documented as of this encounter
--- OUTSIDE RECORDS SUMMARY | 2022-02-15 01:04 | XMS_ITS | Encounter Summary ---
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; Oncology at [facility] [place] [place] [address] Social History Tobacco Use Types Packs/Day [...] [facility] DR HEMATOLOGY/[place] [address] Whit Sung APRN [facility] [address] HEMATOLOGY [place] [address] 02/18/2022 Infusion Hematology and Oncology documented as of this encounter Procedures Procedure Name Priority Date/Time Associated Comments Diagnosis HC HCV QUANTIFICATION STAT 11/30/2021 11:22 Primary squamou s Results for this AM EDT cell carcinoma of procedure are in lower lobe of left the resul ts lung section. HC HIV SCREEN, 4TH STAT 11/30/2021 11:22 Primary squamous R esults for this GENERATION AM EDT cell carcinoma of procedure are in lower lobe of left the resul ts lung section. HC HEPATITIS B SURFACE STAT 11/30/2021 11:22 Primary squamo us Results for this AB AM EDT cell carcinoma of procedure are in lower lobe of left the resul ts lung section. HC TOTAL T3 STAT 11/30/2021 11:22 Primary squamous Results for this AM EDT cell carcinoma of procedure are in lower lobe of left the resul ts lung section. HC THYROID STIMULATING STAT 11/30/2021 11:22 Primary squamo us Results for this HORMONE, SERUM AM EDT cell carcinoma of procedur e are in lower lobe of left the resul ts lung section. Medication management HC FREE THYROXINE (T4) STAT 11/30/2021 11:22 Primary squamo us Results for this AM EDT cell carcinoma of procedure are in lower lobe of left the resul ts lung section. Medication management EKG 12-LEAD Routine 11/30/2021 10:56 Primary squamous Results for this AM EDT cell carcinoma of procedure are in lower lobe of left the resul ts lung section. HEMOGRAM STAT 11/30/2021 7:50 AM Primary squamous Resul ts for this EDT cell carcinoma of procedure are in lower lobe of left the resul ts lung section. DIFFERENTIAL, AUTOMATED STAT 11/30/2021 7:50 AM Primary squ amous Results for this EDT cell carcinoma of procedure are in lower lobe of left the resul ts lung section. HC CBC,PLT & AUTO DIFF STAT 11/30/2021 7:50 AM Primary squa mous EDT cell carcinoma of lower lobe of left lung HC LACTIC DEHYDROGENASE STAT 11/30/2021 7:50 AM Primary squ amous Results for this EDT cell carcinoma of procedure are in lower lobe of left the resul ts lung section. COMPREHENSIVE METABOLIC STAT 11/30/2021 7:50 AM Primary squ amous Results for this PANEL (NON-FASTING) EDT cell carcinoma of pro cedure are in lower lobe of left the resul ts lung section. documented in this encounter Results HIV Screen, 4th Generation (MC/CGP/APD/NLH) (11/30/2021 11:22 AM EDT) Analysis Performed At [facility] Time Signature HIV-1/2 Ab and Negative Negative [facility] LABORATORY Comment: This 4th Generation HIV test [...] HIV Comment Low Risk of HIV Infection [facility] Specimen Anatomical Collection Method Collection Time Receive d Time (Source) Location / / Volume Laterality Blood 11/30/2021 11:22 11/30/2021 AM EDT 11:37 AM EDT Resulting Agency Comment Spec In Lab Yogi Rachel MD IMMUNOLOGY ORDERABLES Performing Organization Address City/State/ZIP Code Phon e Number [address] Hepatitis C RNA, quantitative, PCR (11/30/2021 11:22 AM EDT) Component Value Ref Test Analysis Performed At [facility] gist Range Method Time Signature HCV Viral <12 IU/mL [facility] LABORATORY HCV Viral Result: <12 IU/mL (Target Not Detected) [facility] Indication for Study: Hepatitis C Infection [facility] Analysis: The [place] Al[place] m HCV [...] Rachel MD IMMUNOLOGY ORDERABLES Performing Organization Address City/[facility]/ZIP Code Phon e Number [address] Hepatitis B Surface Antibody (11/30/2021 11:22 AM EDT) athologist Signature HepB Surface <3.5 IU/L [facility] Ab Quant [facility] LABORATORY Comment: HepB Surface Ab Quant: Unvaccinated: < 8.5 IU/L Vaccinated: > 11.5 IU/L HepB Surface Ab Negative [facility] LABORATORY Comment: Patient is presumed to be not vaccinated or immune to HBV infection. Expected Results: Vaccinated: Positive Unvaccinated: Negative Specimen Anatomical Collection Method Collection Time Receive d Time (Source) Location / / Volume Laterality Blood 11/30/2021 11:22 11/30/2021 AM EDT 11:37 AM EDT Resulting Agency Comment Spec In Lab Yogi Rachel MD IMMUNOLOGY ORDERABLES Performing Organization Address City/[facility]/ZIP Code Phon e Number [address] T3 Total (11/30/2021 11:22 AM EDT) P athologist Signature T3, Total 120 80 - 200 [facility] ng/dL [facility] LABOR[facility]ORY Specimen Anatomical Collection Method Collection Time Receive d Time (Source) Location / / Volume Laterality Blood 11/30/2021 11:22 11/30/2021 AM EDT 11:37 AM EDT Resulting Agency Comment Spec In Lab Yogi Rachel MD CHEMISTRY ORDERABLES Performing Organization Address City/[facility]/[place] [address] T4, free (11/30/2021 11:22 AM EDT) P athologist Signature Free T4 1.28 0.93 - 1.70 [facility] ng/dL [facility] LABOR[facility]ORY Comment: Reference Interval (ng/dL): Females: ??First Trimester: 0.97-1.68 ??Second Trimester: 0.77-1.51 ??Third Trimester: 0.77-1.49 Specimen Anatomical Collection Method Collection Time Receive d Time (Source) Location / / Volume Laterality Blood 11/30/2021 11:22 11/30/2021 AM EDT 11:37 AM EDT Resulting Agency Comment Spec In Lab Yogi Rachel MD CHEMISTRY ORDERABLES Performing Organization Address City/[facility]/[place] [address] TSH (11/30/2021 11:22 AM EDT) P athologist Signature TSH 1.75 0.27 - 4.20 [facility] mcIU/mL [facility] LABORATORY Comment: Reference Interval (mcIU/mL): Females: ??First Trimester: 0.23-3.88 ??Second Trimester: 0.22-3.90 ??Third Trimester: 0.44-4.66 Specimen Anatomical Collection Method Collection Time Receive d Time (Source) Location / / Volume Laterality Blood 11/30/2021 11:22 11/30/2021 AM EDT 11:37 AM EDT Resulting Agency Comment Spec In Lab Yogi Rachel MD CHEMISTRY ORDERABLES Performing Organization Address City/[facility]/ZIP Code Phon e Number [facility] TAYLA [place] [phone] [facility] [address] EKG 12 Lead (11/30/2021 10:56 AM EDT) Component Value Ref Range Test Analysis Performed Pathologis t Method Time At Signature Ventricular rate 101 BPM MUSE SYSTEM Atrial Rate 101 BPM MUSE SYSTEM P-R Interval 162 ms MUSE SYSTEM QRS Duration 72 ms MUSE SYSTEM Q-T Interval 350 ms MUSE SYSTEM QTC Calculated 453 ms MUSE SYSTEM (Bezet) Calculated P [place] 16 degrees MUSE SYSTEM Calculated R [place] 101 degrees MUSE SYSTEM Calculated T [place] 60 degrees MUSE SYSTEM INTERPRETATION Sinus tachycardia MUSE SY STEM Rightward axis Low voltage QRS Nonspecific ST abnormality Poor R wave progression Abnormal ECG No previous ECGs available I personally reviewed the tracing and edited the fellows int erpretation Confirmed by fellow MD Tip, Marissa ([id number]) on 11/30/2021 7:52:29 PM Confirmed by MD Yunior, Tony ([id number]) on 12/02/2021 12:26:03 PM Specimen Anatomical Collection Method Collection Time Receive d Time (Source) Location / / Volume Laterality 11/30/2021 10:56 12/02/2021 AM EDT 12:26 PM EDT Yogi Rachel MD ECG ORDERABLES Performing Organization Address City/[facility]/ZIP Code Phon e Number MUSE SYSTEM (ABNORMAL) Differential, Automated (11/30/2021 7:50 AM EDT) Patholo gist Method Time Signature Neutrophils % 70.3 % [facility] LABORATORY Neutr Abs (ANC) 7.10 (H) 1.70 - [facility] 6.10 [facility] x10(3)/[facility] LABORATORY Lymphocytes % 16.5 % [facility] LABORATORY Lymphocytes Abs 1.7 0.9 - 3.2 [facility] x10(3)/[facility] LABORATORY Monocytes % 6.9 % [facility] LABORATORY Monocyte Abs 0.7 0.3 - 0.9 [facility] x10(3)/[facility] LABORATORY Eosinophils % 4.5 % [facility] LABORATORY Eosinophils Abs 0.4 0.0 - 0.4 [facility] x10(3)/[facility] LABORATORY Basophils % 0.8 % [facility] LABORATORY Basophils Abs 0.1 0.0 - 0.1 [facility] x10(3)/[facility] LABORATORY Immature Gran % 1.00 % [facility] LABORATORY Comment: Immature granulocytes(IG's)percentage an d absolute count will include metamyelocytes, myelocytes, and promyelo cytes. Blood smears from CBCs yielding IG's will be scanned manually for concor dance. If this scan disagrees with the automated IG or if promyelocytes are not ed, a manual differential will be performed. Sharon Gran Abs 0.10 (H) 0.00 - 0.04 x10(3)/[facility] LABORATORY Specimen Anatomical Collection Method Collection Time Receive d Time (Source) Location / / Volume Laterality Blood 11/30/2021 7:50 AM 7:56 EDT AM EDT Resulting Agency Comment Spec In Lab Jada Chairez CENTRAL CONTROL ROOM OPERATOR HEMATOLOGY ORDERABLES Performing Organization Address City/State/[place] [address] (ABNORMAL) Hemogram (11/30/2021 7:50 AM EDT) Analysis Performed At Patho logist Time Signature WBC 10.1 (H) 4.0 - 9.5 [facility] x10(3)/[facility] LABORATORY RBC 6.12 (H) 4.58 - [facility] 5.54 [facility] x10(6)/[facility] LABORATORY Hemoglobin 18.2 (H) 13.7 - [facility] 16.5 g/dL [facility] LABORATORY Hematocrit 53.8 (H) 40.5 - [facility] 48.5 % [facility] LABORATORY MCV 87.9 82.9 - [facility] 93.1 [facility] LABORATORY MCH 29.7 27.5 - [facility] 32.1 pg [facility] LABORATORY MCHC 33.8 32.0 - [facility] 35.7 g/dL [facility] LABOR[facility]ORY Platelets 263 145 - 357 [facility] x10(3)/[facility] LABORATORY RDWSD 42.5 36.0 - [facility] 45.0 [facility] LABORATORY RDWCV 13.2 11.4 - [facility] 13.8 % [facility] LABORATORY MPV 9.5 7.6 - 12.9 [facility] LABORATORY nRBC % Auto 0.0 % [facility] LABORATORY nRBC Abs Auto 0.000 0.000 - [facility] T[facility]LA 0.000 [facility] x10(3)/[facility] LABORATORY Specimen Anatomical Collection Method Collection Time Receive d Time (Source) Location / / Volume Laterality Blood 11/30/2021 7:50 AM 2 7:56 EDT AM EDT Resulting Agency Comment Spec In Lab Jada Chairez CENTRAL CONTROL ROOM OPERATOR HEMATOLOGY ORDERABLES Performing Organization Address City/[facility]/[place] [address] Lactate Dehydrogenase (11/30/2021 7:50 AM EDT) P athologist Signature LDH 170 110 - 220 [facility] unit/L [facility] LABORATORY Specimen Anatomical Collection Method Collection Time Receive d Time (Source) Location / / Volume Laterality Blood 11/30/2021 7:50 AM 2 7:55 EDT AM EDT Resulting Agency Comment Spec In Lab Jada Chairez CENTRAL CONTROL ROOM OPERATOR CHEMISTRY ORDERABLES Performing Organization Address City/[facility]/[place] [address] Comprehensive metabolic panel (non-fasting) (11/30/2021 7:50 AM EDT) athologist Signature Glucose Lvl 130 65 - 199 [facility] mg/dL [facility] LABOR[facility]ORY Comment: Diabetes: >=200 mg/dL plus symp toms BUN 12 10 - 20 mg/dL [facility] LABORATORY Creatinine 0.94 0.80 - 1.50 mg/dL [facility] LABORATORY Sodium 138 135 - 145 mmol/L [facility] LABORATORY Potassium 4.6 3.5 - 5.0 mmol/L [facility] LABOR[facility]ORY Comment: Please note: ??Patients with WBC >100,00 0 may have falsely elevated Potassium levels. ??For accurate Potassium quantif ication in these patients send serum separator tube (gold top) for subsequent determinations. ??Contact the Clinical Chemistry Laboratory if there are any qu estions. Chloride 99 98 - 107 mmol/L [facility] LABORATORY CO2 29 22 - 31 mmol/L [facility]OR[facility] Anion Gap 10 5 - 15 mmol/L [facility] LAB[facility]ATORY Calcium 9.2 8.5 - 10.5 mg/dL [facility] Total Protein 7.4 6.1 - 8.0 g/dL [facility] LABOR[facility]ORY Albumin 4.7 3.2 - 5.2 g/dL [facility] LABOR[facility] AST 18 0 - 39 unit/L [facility] ALT 19 0 - 55 unit/L [facility] LABOR[facility]ORY Alk Phos 93 40 - 130 unit/L [facility]OR[facility] Total Bilirubin 0.7 0.2 - 1.3 mg/dL [facility] LABORATORY Estimated GFR 89 >=60 mL/min/1.73 m?? 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
--- OUTSIDE RECORDS SUMMARY | 2022-02-15 01:04 | XMS_ITS | Encounter Summary ---
:1955 Author Organization [facility] [place] [address] Care Team Providers Name Role Phone None Primary Care Provider Unavailable Reason for Visit Reason Comments Advice Only Consultation (Routine) - Closed Specialty Diagnoses / Procedures Referred By Contact Refer red To Contact Hematology and Oncology Diagnoses NSCLC of left lung Alek Davies MD [facility] [address] PULMONARY MEDICINE [place] [phone] Fax: Referral ID Status Reason Start Date Expiration Date Visits V isits Requested Authorized [id number] Closed Consult, 11/06/2021 11/06/2022 1 1 Test & Treat Encounter Details Date Type Department Care Team Description 11/30/2021 Office Visit Hematology and Yogi Rachel MD [facility] DR HEMATOLOGY/[place] [address] Primary malignant Oncology at [facility] Jada Chairez, MIAH [facility] DR HEMATOLOGY-[place] [address] neoplasm of left [facility] [place] [address] Social History Tobacco Use Types [...] EDT Inhaled Oxygen Concentration - - Weight 125 kg (275 lb 9.6 oz) 11/30/2021 9:04 AM EDT Height 177.7 cm (5' 9.96) 11/30/2021 9:04 AM EDT Body Mass Index 39.59 11/30/2021 9:04 AM EDT documented in this encounter Progress Notes Yogi Rachel MD - 11/30/2021 9:00 AM EDT Images from the original note were not included. Thoracic Oncology [place] [address] [phone] Bipin Rowley is being seen for the evaluation of lung cancer. Assessment & Plan: Bipin Rowley is a 66 y.o. male patient with a past medical history significant for COPD, atrial fibrillation, hypertension, hyperlipidemia, depression with a 18-ivad-xlfx smoking history who quit [id number] who underwent a lung cancer screening CT scan on August 30, 2021 that demonstrated a left hilar mas s and as detailed below he was ultimately diagnosed with a [id number] Stage IIIA of the left lower lobewith a station 11 L lymph node involved. He has some generally well compensated comorbidities though his pulmonary function tests are borderline suitable. He is not limited by his cancer significantly in terms of his performance status and has minimal attributable symptoms. His mobility and exertional capacity are limited somewhat by his lakshmi thing but perhaps more so by his chronic low back pain and spinal issues . Discussed that the treatment paradigm for a stage IIIa non-small cell lung cancer would most likely be either preoperative induction chemoimmunotherapy followed by surgical resection or if he was not felt to be medically operable or did not wish to pursue surgery, definitive concurrent chemo therapy and radiation therapy followed by consolidative durvalumab based on the [place] trial. Discussed that while both these approaches are with curative intent that even if he completes all recommended therapy there is still a relatively high chance (estimated at 50%+) that he will have a recurrence of his malignancy. We discussed the potential side effects and toxicities of these different approaches and specifically discussed side effects and toxicities of chemotherapy and immunotherapy including fatigue, hair loss, nausea/vomiting, bowel changes, taste changes, mouth sores, neuropathy, myelosuppression with an increase risk of serious infections, need for blood transfusions, organ injury, rashes immune mediatedside effects and allergic reactions among others. Discussed that he is potentially eligible for a clinical trial: [id number] A Randomized Phase III trial of durvalumab as concurrent and consolidative therapy or consolidative therapy alone for UnresectableStage 3 non-small cell lung cancer. I explained that his participation in a clinical trial is entirely voluntary and he may withdraw consent at any point. We reviewed the informed consent form and he expressed a desire to participate andsigned the informed consent. He was given a copy of the signed consent form. Plan: - To see thoracic surgery and plan is for quantitative VQ scan to help determine operability - To meet with radiation oncology in [facility] - Did not discuss in detail today but will urge him to consider a COVID vaccination prior to treatment - Followup in [facility] to be determine once treatment plan finalized Yogi Rachel MD, MS 11/30/2021 Thoracic Oncology [facility] CC: Primary retired recently and has not met with a new primary yet Sheldon Davies MD HPI/Interval History/Subjective: Bipin Rowley is a 66 y.o. male patient with a past medical history significant for COPD, atrial fibrillation (on eliquis), hypertension, hyperlipidemia, depression with a 55-baex-iigv smoking history who quit in 2013 who underwent a lung cancer screening CT scan on August 30, 2021 that demonstrated a left hilar mass. He was ill at that time and therefore was treated with levofloxacin. A repeat CT scan was obtained on October 18 which showed a persistent left hilar mass with further evaluation as detailed below. He does have some dyspnea on exertion. Inhalers do help. He has intentionally lost over 20 pounds this spring though with the stress of his diagnosis he notes that he is gaining some of that weight back. He can walk 50 yards on flat ground without stopping and can climb 5-6 stairs before needing to stopdue to his low back pain and shortness of breath. Constipated of late Not covid vaccinationt to date Prefers to be treated in [facility] Hasn't told anyone- father turns 90 on Friday and is independent. Daughter 2 grandchildren. 21 and 15. He plans to tell them following the visit today when he has a little bit more information. Social History/Support Network: Home situation: . Lives in [facility] [place]. Lives alone. Has a daughter who lives nearby and WEmergycey contact is daughter Cramen Corrales Employment: Retired. Previously worked in the [employer] department Tobacco use: 61-nhrz-qrna smoking history. Quit in 2013. Alcohol use: Quit drinking in 2019. 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 Previously [employer] Distress: No reported service: [place] . No connection to [facility] for himself but father goes there and he hasbeen impressed. Likes hunting and being in the outdoors. Very active in youth baseball soccer and softball. 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 Family History: Mother- at age 43 from [...] atrial fibrillation, hypertension, hyperlipidemia, depression with a 82-ibux-bdtm smoking history who quit in 2013 who [...] chest 11/01/21 Bronchoscopy EBUS-TBNA The Olympus EBUS (BF-[id number]) scope was inserted, lymph node inspection undertaken [...] EGFR or ALK variants identified. Treatment Course: No flowsheet data found. Patient Active Problem List Diagnosis Date Noted ??? Primary malignant neoplasm of left lower lobe of lung 11/30/2021 ??? COPD (chronic obstructive pulmonary disease) 10/23/2021 ??? Pulmonary hypertension 10/23/2021 ??? Sleep apnea 10/23/2021 ??? Atrial fibrillation 10/23/2021 ??? Depression 10/23/2021 ??? Hypertension 10/23/2021 ??? Hyperlipidemia 10/23/2021 Allergies Allergen Reactions ??? Codeine Phosphate Nausea And Vomiting ??? Penicillins Hives Medications 11/30/21 0914 Medication Sig Taking? albuteroL 90 mcg/actuation HFA [...] mg by mouth 2 times daily. Yes levoFLOXacin (Levaquin) 750 mg Tablet Take 750 mg by mouth daily. buPROPion (WELLBUTRIN SR) 100 mg 12 hr tablet 100 MG = 1 Tablet(s), PO, Once daily X 3 days then Twice daily I reviewed the problem list, allergies, medications, past medical history, social history and familyhistory within the EPIC encounter. Pertinent details are noted above. Pertinent positives and negative from the Review of Systems are as summarized above in the HPI. Physical Exam: Wt Readings from Last 3 Encounters: 11/30/21 125 kg (275 lb 9.6 oz) 11/01/21 127 kg (280 lb) 10/24/21 125.1 kg (275 lb 11.2 oz) Temp Readings from Last 3 Encounters: 11/30/21 36.8 ??C (98.2 ??F) (Temporal) 11/01/21 36.3 ??C (97.3 ??F) (Temporal) 10/24/21 36.3 ??C (97.3 ??F) (Temporal) BP Readings from Last 3 Encounters: 11/30/21 138/76 11/01/21 (!) 146/102 10/24/21 (!) 145/92 Pulse Readings from Last 3 Encounters: 11/30/21 100 11/01/21 99 10/24/21 100 Body surface area is 2.48 meters squared. Wt Readings from Last 3 Encounters: 11/30/21 125 kg (275 lb 9.6 oz) 11/01/21 127 kg (280 lb) 10/24/21 125.1 kg (275 lb 11.2 oz) KPS Score ECOG Grade Definition 90-100 [...] selfcare; totally confined to bed or chair Constitutional: Oriented to person, place, and time. No distress. Appears well- developed. Due to hischronic back issues he walks hesitantly and requires assistance getting up onto the examination table HENT: Mouth/Throat: No oral ulcers or exudates Eyes: No scleral icterus. Cardiovascular: Normal rate [...] Thought content normal. Review of Laboratory Data: Recent Results (from the past 72 hour(s)) Comprehensive metabolic panel (non-fasting) Result Value Ref Range Glucose Lvl 130 65 - 199 mg/dL BUN 12 10 - 20 mg/dL Creatinine 0.94 0.80 - 1.50 mg/dL Sodium 138 135 - 145 mmol/L Potassium 4.6 3.5 - 5.0 mmol/L Chloride 99 98 - 107 mmol/L CO2 29 22 - 31 mmol/L Anion Gap 10 5 - 15 mmol/L Calcium 9.2 8.5 - 10.5 mg/dL Total Protein 7.4 6.1 - 8.0 g/dL Albumin 4.7 3.2 - 5.2 g/dL AST 18 0 - 39 unit/L ALT 19 0 - 55 unit/L Alk Phos 93 40 - 130 unit/L Total Bilirubin 0.7 0.2 - 1.3 mg/dL Estimated GFR 89 >=60 mL/min/1.73 m?? Lactate Dehydrogenase Result Value Ref Range LDH 170 110 - 220 unit/L Hemogram Result Value Ref Range WBC 10.1 (H) 4.0 - 9.5 x10(3)/mcL RBC 6.12 (H) 4.58 - 5.54 x10(6)/mcL Hemoglobin 18.2 (H) 13.7 - 16.5 g/dL Hematocrit 53.8 (H) 40.5 - 48.5 % MCV 87.9 82.9 - 93.1 fL MCH 29.7 27.5 - 32.1 pg MCHC 33.8 32.0 - 35.7 g/dL Platelets 263 145 - 357 x10(3)/mcL RDWSD 42.5 36.0 - 45.0 fL RDWCV 13.2 11.4 - 13.8 % MPV 9.5 7.6 - 12.9 fL nRBC % Auto 0.0 % nRBC Abs Auto 0.000 0.000 - 0.000 x10(3)/mcL Differential, Automated Result Value Ref Range Neutrophils % 70.3 % Neutr Abs (ANC) 7.10 (H) 1.70 - 6.10 x10(3)/mcL Lymphocytes % 16.5 % Lymphocytes Abs 1.7 0.9 - 3.2 x10(3)/mcL Monocytes % 6.9 % Monocyte Abs 0.7 0.3 - 0.9 x10(3)/mcL Eosinophils % 4.5 % Eosinophils Abs 0.4 0.0 - 0.4 x10(3)/mcL Basophils % 0.8 % Basophils Abs 0.1 0.0 - 0.1 x10(3)/mcL Immature Gran % 1.00 % Sharon Gran Abs 0.10 (H) 0.00 - 0.04 x10(3)/mcL Review of Imaging Data: I personally reviewed the reports and images in the studies as detailed in the oncology overview above. Review of Pathology Data: I personally reviewed the reports of the pathology as detailed in the oncology overview above. documented in this encounter Plan of Treatment Upcoming Encounters Date Type Specialty Care Team Description 02/18/2022 Office Visit Hematology and Oncology Iain Rachel MD [facility] DR HEMATOLOGY/[place] [address] Whit Sung APRN [facility] HEMATOLOGY [place] [address] 02/18/2022 Infusion Hematology and Oncology Scheduled Referrals Name Type Priority Associated Order Schedule Diagnoses Referral to Outpatient Referral Routine NSCLC of left lung Or dered: Hematology and 11/06/2021 Oncology documented as of this encounter Visit Diagnoses Diagnosis Primary malignant neoplasm of left lower lobe of lung Malignant neoplasm of lower lobe, bronch us, or lung documented in this encounter Care Teams Quality Process Engineer Relationship Specialty Start Date End Date None PCP - General 10/25/21 None documented as of this encounter
--- OUTSIDE RECORDS SUMMARY | 2022-02-15 01:04 | XMS_ITS | Encounter Summary ---
:1955 Author Organization [facility] [place] [address] Care Team Providers Name Role Phone None Primary Care Provider Unavailable Reason for Referral Diagnostic Test (Emergency) - Closed Specialty Diagnoses / Procedures Referred By Contact Refer red To Contact Radiology Diagnoses Pre-operative cardiovascular examination, high risk surgery Malignant neoplasm of bronchus of left lower lobe Sheldon Corrales MD [facility] Rad Nuclear Med Procedures NM Lung Perfusion Spect/[place] [address] [place] [address] Phone: Fax: Referral ID Status Reason Start Date Expiration Date Visits V isits Requested Authorized [id number] Closed Specialty 11/28/2021 05/31/2023 1 1 Service Requested Reason for Visit Diagnostic Test (Emergency) - Closed Specialty Diagnoses / Procedures Referred By Contact Refer red To Contact Radiology Diagnoses Pre-operative cardiovascular examination, high risk surgery Malignant neoplasm of bronchus of left lower lobe Sheldon Corrales MD [facility] Rad Nuclear Med Procedures NM Lung Perfusion Spect/[place] [address] [place] [address] Phone: Fax: Referral ID Status Reason Start Date Expiration Date Visits V isits Requested Authorized [id number] Closed Specialty 11/28/2021 05/31/2023 1 1 Service Requested Encounter Details Date Type Department Care Team Description 12/03/2021 Hospital Encounter Nuclear Medicine at [facility] Sheldon M, Pre-operative cardiovascular examination, high risk surgery; Bessie Baez MD Malignant neoplasm of bronchus of left l ower lobe [facility] [place] [phone] [phone] Social History Tobacco Use Types Packs/Day Years [...] and Oncology Iain Rachel MD [facility] DR HEMATOLOGY/[place] [address] Whit Sung APRN [facility] [address] [place] [address] 02/18/2022 Infusion Hematology and Oncology documented as of this encounter Procedures Procedure Name Priority Date/Time Associated Diagnosis Comme nts NM LUNG PERFUSION STAT 12/03/2021 3:29 PM Pre-operative Res ults for this SPECT/CT EDT cardiovascular procedure are in examination, high risk the r esults surgery section. Malignant neoplasm of bronchus of left lower lobe documented in this encounter Results NM Lung Perfusion Spect/CT [...] who have questions please contact the health overnight caregiver that requested your imaging first. ? Electronically signed by: Ender Schultz MD, [facility] ([phone]), at 12/04/2021 9:33 AM Narrative 12/04/2021 9:33 AM EDT EXAMINATION: NM [...] ho have questions please contact the health overnight caregiver that requested your imaging first. Electronically signed by: Ender Schultz MD, [facility] ([phone]), at 12/04/2021 9:33 AM Sheldon Corrales MD IMG NM ORDERABLES documented in this encounter Visit Diagnoses Diagnosis Pre-operative cardiovascular examination , high risk surgery Pre-operative cardiovascular examination Malignant neoplasm of bronchus of left l ower lobe documented in this encounter Administered Medications Inactive Administered Medications - up to 3 most recent administrations Medication Order MAR Action Action Date Dose Rate Site technetium (Tc-99m) Given 12/03/2021 2:48 PM EDT 4 mCi Right Arm macroaggregated albumin (MAA) injection 0-5 mCi 0-5 mCi, Intravenous, ONCE PRN, 1 dose, Starting on Fri12/03/21 at 1448, Until Fri12/03/21 at 1448, Per Protocol, Radiology Contrast, Routine documented in this encounter Care Teams Material Flow Engineer Relationship Specialty Start Date End Date None PCP - General 10/25/21 None documented as of this encounter
--- OUTSIDE RECORDS SUMMARY | 2022-02-15 01:04 | XMS_ITS | Encounter Summary ---
:1955 Author Organization [facility] [place] [address] Care Team Providers Name Role Phone None Primary Care Provider Unavailable Reason for Referral Diagnostic Test (Routine) - Closed Specialty Diagnoses / Procedures Referred By Contact Refer red To Contact Radiology Diagnoses Malignant neoplasm of bronchus of left lower lobe Sheldon Corrales MD [facility] Rad Ct Scan Procedures CT Chest w Contrast [facility] [place] [address] [place] [address] Referral ID Status Reason Start Date Expiration Date Visits V isits Requested Authorized [id number] Closed Specialty 11/30/2021 01/28/2022 1 1 Service Requested Reason for Visit Diagnostic Test (Routine) - Closed Specialty Diagnoses / Procedures Referred By Contact Refer red To Contact Radiology Diagnoses Malignant neoplasm of bronchus of left lower lobe Sheldon Corrales MD [facility] Rad Ct Scan Procedures CT Chest w Contrast [facility] [place] [address] [place] [address] Referral ID Status Reason Start Date Expiration Date Visits V isits Requested Authorized [id number] Closed Specialty 11/30/2021 01/28/2022 1 1 Service Requested Encounter Details Date Type Department Care Team Description 11/30/[address] Scan at [facility] Sheldon Corrales, Malignant neoplasm [facility] of bronchus of left [facility] [address] [place], [place] [phone] [address] Social History Tobacco Use Types Packs/Day Years [...] [facility] DR HEMATOLOGY/[place] [address] Whit Sung APRN [facility] [place] [address] 02/18/2022 Infusion Hematology and Oncology documented as of this encounter Procedures Procedure Name Priority Date/Time Associated Diagnosis Comme nts CT CHEST W CONTRAST Routine 11/30/2021 2:28 PM Malignant neopl asm Results for this EDT of bronchus of left procedur e are in lower lobe the results section. documented in this encounter Results CT Chest w Contrast [...] who have questions please contact the health floor care specialist that requested your imaging first. ? Electronically signed by: Adrianna Meneses, [facility] ([phone]), at 11/30/2021 5:29 PM Narrative 11/30/2021 5:29 [...] images were generat ed. COMPARISON: Study from [facility] dated 10/16/2021 FINDINGS: Pulmonary parenchyma: Emphysema. [...] images were generat ed. COMPARISON: Study from [facility] dated 10/16/2021 FINDINGS: Pulmonary parenchyma: Emphysema. [...] ho have questions please contact the health floor care specialist that requested your imaging first. Sheldon Corrales MD IMG CT ORDERABLES documented in this encounter Visit Diagnoses Diagnosis Malignant neoplasm of bronchus of left l ower lobe documented in this encounter Administered Medications Inactive Administered Medications - up to 3 most recent administrations Medication Order MAR Action Action Date Dose Rate Site iohexoL (Omnipaque) (350 mg/mL) Given 11/30/2021 2:28 PM EDT 60 mLs solution 0-200 mL 0-200 mL, Intravenous, ONCE PRN, 1 dose, Starting on Fri11/30/21 at 1428, Until Fri11/30/21 at 1428, Per Protocol, Warning Vesicant/Irritant Medication , Radiology Contrast, Routine documented in this encounter Care Teams Thermometer Tester Relationship Specialty Start Date End Date None PCP - General 10/25/21 None documented as of this encounter
--- OUTSIDE RECORDS SUMMARY | 2022-02-15 01:06 | XMS_ITS | Encounter Summary ---
:1955 Author Organization [facility] Address [address] [place] [address] Care Team Providers Name Role Phone Unavailable Primary Care Provider Unavailable Encounter Details Date Type Department Care Team Description 07/29/2014 Results Only [facility] Alex Shaikh, [facility] [place] [address] (Wo rk) Social History Tobacco Use Types Packs/Day Years Used Date Never Assessed Sex Assigned at Date Recorded Not on file documented as of this encounter Plan of Treatment Not on filedocumented as of this encounter Procedures Procedure Name Priority Date/Time Associated Diagnosis Comme [facility] SURGICAL PATHOLOGY Routine 07/29/2014 6:47 EDT Re sults for this procedure are i n the results section. documented in this encounter Results SURGICAL PATHOLOGY (07/29/2014 6:47 EDT) Pathology Report: SURGICAL PATHOLOGY REPORT [facility] Reports generated via electronic interface contain dami ginal data; LABORATORY however they are lacking the format of the original re port. SERVICES Caution should be taken when reading/interpreting unfo rmatted reports. Name: ? BIPIN ROWLEY ? Accession #: ? [id number] ? : ? 1955 (Age: 59) ??M ? Collect Date: ? 07/29/2014 ? Location: ? [facility] ? Receive Date: ? 015 ? Provider: ALEX SHAIKH DO Copy to: MARIA ELENA HUBBARD MD ? Final Pathologic Diagnosis: A. COLON, DESCENDING POLYP, BIOPSY: - ??Hyperplastic polyp. B. COLON, SIGMOID POLYP AT 30 CM, BIOPSIES: - ??Fragments of hyperplastic polyp. C. COLON, SIGMOID POLYP AT 25 CM, POLYPECTOMY: - ??Tubulovillous adenoma. D. COLON, DISTAL SIGMOID POLYPS, BIOPSIES: - ??Fragments of hyperplastic polyp(s). E. RECTUM, POLYP, BIOPSY: - ??Hyperplastic polyp. Document reviewed and electronically signed by: WALLACE HERMAN MD Report ??Date: 08/01/2014 18:09 By the signature above, the attending physician certif ies that he/she has personally conducted a gross and/or microscopic examin ation of the described specimens and rendered or confirmed the above diagnosi s. Specimen(s) Received: A. ??Descending colon polyp (#1) B. ??Sigmoid polyp 30 cm (#2) C. ??Sigmoid polyp 25 cm (#3) D. ??Distal sigmoid polyps x3 (#4) E. ??Rectal polyp (#5) Clinical History: Screening Gross Description: A. ?Received in formalin labelled with proper p atient identification (initials S, M) and descending colon polyp is a sing le pink-baez tissue fragment (0.3 x 0.3 x 0.2 cm). Submitted intact in A1. B. ?Received in formalin labelled with proper p atient identification (initials S, M) and sigmoid polyp are two pink-baez tissues (0.2 x 0.2 x 0.2 cm and 0.3 x 0.2 x 0.2 cm). Entirely submitted in B1. C. ?Received in formalin labelled with proper p atient identification (initials S, M) and sigmoid polyps 25 cm is a single pink-baez polypoid tissue (1.0 x 0.9 x 0.5 cm). The margin is inked blue, the sp ecimen is serially sectioned and entirely submitted in C1 and C2. D. ?Received in formalin labelled with proper p atient identification (initials S, M) and distal sigmoid polyp x3 are four pink-baez polypoid tissues (0.2 x 0.2 x 0.2 cm to 0.4 x 0.4 x 0.3 cm). The margins are inked blue on the largest tissue. Entirely submitted as follows: BLOCK CEDILLO D1- ??smaller tissue fragments D2- ??largest tissue, bisected E. ?Received in formalin labelled with proper p atient identification (initials S, M) and rectal polyp is a single pink-baez polypoid tissue (0.5 x 0.4 x 0.3 cm). The margin is inked blue, the specimen is bisected and entirely submitted in E1. Rosaura Jonas 08/01/2014 08:45 AM End of Report Specimen Performing Organization Address City/State/ZIP Code Phon e Number [facility] [address] [place] [id number] SERVICES documented in this encounter Visit Diagnoses Not on filedocumented in this encounter
--- OUTSIDE RECORDS SUMMARY | 2022-02-15 01:06 | XMS_ITS | Encounter Summary ---
:1955 Author Organization [facility] Address [address] [place] [id number] Care Team Providers Name Role Phone James Calle MD Primary Care Provider Encounter Details Date Type Department Care Team Description 02/09/2021 Lab Requisition [facility] Outr Resulting Lab, Pathology & Laboratory Provider [facility] [address], [place] [id number] Social History Tobacco Use Types Packs/Day Years Used Date Never Assessed Sex Assigned at Date Recorded Not on file documented as of this encounter Plan of Treatment Not on filedocumented as of this encounter Procedures Procedure Name Priority Date/Time Associated Diagnosis Comme nts IGE Routine 02/09/2021 10:30 EDT Results for this procedure are i n the results section . documented in this encounter Results IGE (02/09/2021 10:30 EDT) Pathologist Sig nature IgE 127 <158 IU/mL [facility] Specimen Blood - Venous blood (substance) Performing Organization Address City/State/ZIP Code Phon e Number [facility] [address] [place] [address] SERVICES documented in this encounter Visit Diagnoses Not on filedocumented in this encounter Care Teams Cold Molding Press Operator Relationship Specialty Start Date End Date James Calle MD PCP - General 08/02/[address] [place] [id number] documented as of this encounter
--- OUTSIDE RECORDS SUMMARY | 2022-02-15 01:06 | XMS_ITS | Clinical Summary ---
:1955 Author Organization [facility] Address [address] [place] [address] Care Team Providers Name Role Phone James Calle MD Primary Care Provider Social History Tobacco Use Types Packs/Day Years Used Date Never Assessed Sex Assigned at Date Recorded Not on file Plan of Treatment Health Maintenance Due Date Last Done Comments Hepatitis C Screen 1955 COVID-19 Vaccine (1) 1959 Fall Risk Screening 2019 Care Teams Automatic Buffing Wheel Former Relationship Specialty Start Date End Date James Calle MD PCP - General 08/02/[address] [place] [id number]
[2022-02-15] MEDS: Omnipaque 350 MG/ML 500 ML BTL-Imaging package 70 ML IJ (13:18)
--- NOTE | 2022-02-15 13:19 | DI.CT_ITS ---
Exam(s) CT CHEST W EXAM: CT CHEST W CLINICAL HISTORY: LUNG CA,C34.32,ASSESS TREATMENT RESPONSE. TECHNIQUE: Multi planar reconstructions were performed. CONTRAST MATERIAL: Omnipaque 350; 70 cc COMPARISON: CT CT CHEST WO from 10/16/2021 FINDINGS: CHEST: LUNGS: Again noted is a previously described mass in the left lower lobe infrahilar region. The size of this malignant-appearing mass appears similar to the previous study, perhaps minimally smaller.. There are no new additional left lung findings nor pleural effusion. There are no significant focal findings in the opposite-right lung. No pleural effusions on either side. MEDIASTINUM: Left hilar adenopathy is again noted. Right hilum unremarkable. Small lymph nodes in t he subcarinal region are noted but without gross lymphadenopathy at this level. No supraclavicular a denopathy. No axillary adenopathy. Visualized thyroid unremarkable. CARDIAC: Heart size is normal. There is a very small pericardial effusion now evident anteriorly.Huey iber of the thoracic aorta is within normal limits. VISUALIZED UPPER ABDOMEN:The previously described nodule in the right adrenal gland is again noted an d appears stable size. The opposite-left adrenal gland remains unremarkable. Visualized liver exhib its few small cysts in the right hepatic lobe. No obvious metastatic lesions. Spleen size is normal . There is no ascites. OSSEOUS: No significant osseous lesions.No fractures.. IMPRESSION: 1. Stable appearance of the left infrahilar mass with minimal if any significant change compared to 0 10/16/2021 CT scan. Perhaps very minimally smaller. No new lung nodules nor pleural effusions. No i ncrease in amount of adenopathy in the left hilum and no new adenopathy evident. 2. There is a small pericardial effusion now evident. 3. Stable 3.5 cm size right adrenal nodule. Left adrenal gland remains unremarkable. RADIATION DOSE DELIVERED: 896.26mGy.cm Total DLP DATA REPOSITORY: All CT scans at this facility are submitted to the National Radiology Data Registry (NRDR) Dose Index Registry (DIR) with the [employer] (ACR). RADIATION OPTIMIZATION: All CT scans at this facility use at least one of these dose optimization te chniques: automated exposure control; mA and/or kV adjustment per patient size (includes targeted exa ms where dose is matched to clinical indication); or iterative reconstruction.
== END ==
PROVIDERS: PCP Nurse Practitioner Family; Visit Provider Internal Medicine Medical Oncology
DX: C34.32 Malignant neoplasm of lower lobe, left bronchus or lung (principal); E27.8 Other specified disorders of adrenal gland
CPT/HCPCS: 71260

== ENCOUNTER 2022-02-18 14:49 | Outpatient (CLI) | payer MEDICARE, BC, SELFPAY ==
[2022-02-18 09:23] LABS: Abs Immature Grans 0.02 10^3/uL (0.0-0.06); Absolute Basophil Count 0.01 10^3/uL (0.0-0.2); Absolute Eosinophil Count 0.02 10^3/uL (0.0-0.7); Absolute Lymphocyte Count 0.45 10^3/uL (1.2-3.4); Absolute Monocyte Count 0.37 10^3/uL (0.1-0.8); Absolute Neutrophil Count 1.19 10^3/uL (1.2-6.7); Basophils % 0.5; HCT 33.4 % (40.0-50.0); HGB 11.4 g/dL (13.5-17.5); Lymphocytes % 21.8; MCH 31.7 pg (27.0-33.0); MCHC 34.1 % (32.0-36.0); MCV 93 fL (80-95); MPV 9.3 fL (8.0-11.0); Neutrophils % 57.7; Platelet Count 178 10^3/uL (130-400); RDW 19.8 % (11.8-14.1); RDW-SD 60.5 fL; WBC 2.06 10^3/uL (4.4-10.8)
[2022-02-18 09:50] LABS: ALT 25 U/L (16-63); AST 16 U/L (15-37); Albumin 3.5 g/dL (3.4-5.0); Alkaline Phosphatase 88 U/L (46-116); Anion Gap 5.8 mmol/L (3-11); BUN 11 mg/dL (7-18); Bilirubin, Total 0.7 mg/dL (0.2-1.0); CO2 30.2 mmol/L (21.0-32.0); CREATININE 1.1 mg/dL (0.70-1.30); Calcium 8.9 mg/dL (8.5-10.1); Chloride 106 mmol/L (98-107); Estimated GFR 73.58 (mL/min/1.73m2); Glucose 123 mg/dL (74-106); Potassium 4.6 mmol/L (3.5-5.1); Sodium 142 mmol/L (136-145); TSH 2.18 uIU/mL (0.36-3.74); Total Protein 6.8 g/dL (6.4-8.2)
== END 2022-02-18 14:50 | disposition home or self-care (01) ==
LOC: LBO 14:50
PROVIDERS: PCP Nurse Practitioner Family; Visit Provider Internal Medicine Medical Oncology
DX: C34.32 Malignant neoplasm of lower lobe, left bronchus or lung (principal); Z79.899 Other long term (current) drug therapy
CPT/HCPCS: 36415; 80053; 84443; 85025

== ENCOUNTER 2022-03-18 12:51 | Outpatient (CLI) | payer MEDICARE, BC, SELFPAY ==
[2022-03-18 09:36] LABS: TSH 1.51 uIU/mL (0.36-3.74)
[2022-03-18 11:01] LABS: Absolute Basophil Count 0.07 10^3/uL (0.0-0.2); Absolute Eosinophil Count 0.62 10^3/uL (0.0-0.7); Absolute Lymphocyte Count 0.73 10^3/uL (1.2-3.4); Absolute Monocyte Count 0.77 10^3/uL (0.1-0.8); Absolute Neutrophil Count 6.82 10^3/uL (1.2-6.7); Basophils % 0.8; Eosinophils % 6.8; HGB 12.9 g/dL (13.5-17.5); Immature Grans % 1.1; MCH 32.1 pg (27.0-33.0); MCHC 33.1 % (32.0-36.0); MCV 97 fL (80-95); MPV 9.7 fL (8.0-11.0); Monocytes % 8.5; Neutrophils % 74.8; Platelet Count 389 10^3/uL (130-400); RBC 4.02 10^6/uL (4.36-5.78); RDW 16.9 % (11.8-14.1); RDW-SD 60.7 fL; WBC 9.11 10^3/uL (4.4-10.8)
[2022-03-18 11:09] LABS: ALT 21 U/L (16-63); AST 22 U/L (15-37); Albumin 3.2 g/dL (3.4-5.0); Alkaline Phosphatase 101 U/L (46-116); Anion Gap 7.5 mmol/L (3-11); BUN 15 mg/dL (7-18); Bilirubin, Total 0.4 mg/dL (0.2-1.0); CO2 29.5 mmol/L (21.0-32.0); Calcium 8.9 mg/dL (8.5-10.1); Chloride 102 mmol/L (98-107); Estimated GFR 82.49 (mL/min/1.73m2); Glucose 127 mg/dL (74-106); Potassium 4.7 mmol/L (3.5-5.1); Sodium 139 mmol/L (136-145); Total Protein 7.2 g/dL (6.4-8.2)
== END 2022-03-18 12:52 | disposition home or self-care (01) ==
LOC: LBO 12:51
PROVIDERS: PCP Nurse Practitioner Family; Visit Provider Internal Medicine Medical Oncology
DX: Z79.899 Other long term (current) drug therapy (principal); C34.32 Malignant neoplasm of lower lobe, left bronchus or lung
CPT/HCPCS: 36415; 80053; 84443; 85025

== ENCOUNTER 2022-04-16 04:02 | Outpatient (CLI) | payer MEDICARE, BC, SELFPAY ==
[2022-04-16 12:02] LABS: Abs Immature Grans 0.04 10^3/uL (0.0-0.06); Absolute Basophil Count 0.06 10^3/uL (0.0-0.2); Absolute Eosinophil Count 0.34 10^3/uL (0.0-0.7); Absolute Lymphocyte Count 1.15 10^3/uL (1.2-3.4); Absolute Monocyte Count 0.72 10^3/uL (0.1-0.8); Absolute Neutrophil Count 8.98 10^3/uL (1.2-6.7); Basophils % 0.5; HCT 47.1 % (40.0-50.0); HGB 15.3 g/dL (13.5-17.5); Immature Grans % 0.4; Lymphocytes % 10.2; MCH 30.4 pg (27.0-33.0); MCHC 32.5 % (32.0-36.0); MCV 94 fL (80-95); MPV 9.3 fL (8.0-11.0); Monocytes % 6.4; Neutrophils % 79.5; Platelet Count 257 10^3/uL (130-400); RBC 5.04 10^6/uL (4.36-5.78); RDW-SD 48.2 fL; WBC 11.29 10^3/uL (4.4-10.8)
[2022-04-16 12:30] LABS: ALT 18 U/L (16-63); AST 17 U/L (15-37); Albumin 3.8 g/dL (3.4-5.0); Alkaline Phosphatase 103 U/L (46-116); Anion Gap 6.4 mmol/L (3-11); BUN 10 mg/dL (7-18); Bilirubin, Total 0.6 mg/dL (0.2-1.0); CO2 28.6 mmol/L (21.0-32.0); CREATININE 1.1 mg/dL (0.70-1.30); Calcium 9.3 mg/dL (8.5-10.1); Chloride 102 mmol/L (98-107); Estimated GFR 73.58 (mL/min/1.73m2); Glucose 123 mg/dL (74-106); Potassium 4.5 mmol/L (3.5-5.1); Sodium 137 mmol/L (136-145); TSH 2.84 uIU/mL (0.36-3.74); Total Protein 7.6 g/dL (6.4-8.2)
== END 2022-04-16 04:03 | disposition home or self-care (01) ==
PROVIDERS: PCP Nurse Practitioner Family; Visit Provider Internal Medicine Medical Oncology
DX: Z79.899 Other long term (current) drug therapy (principal); C34.32 Malignant neoplasm of lower lobe, left bronchus or lung
CPT/HCPCS: 36415; 80053; 84443; 85025

== ENCOUNTER 2022-05-13 02:59 | Outpatient (CLI) | payer MEDICARE, BC, SELFPAY ==
[2022-05-13 10:19] LABS: Abs Immature Grans 0.05 10^3/uL (0.0-0.06); Absolute Basophil Count 0.05 10^3/uL (0.0-0.2); Absolute Eosinophil Count 0.28 10^3/uL (0.0-0.7); Absolute Lymphocyte Count 0.92 10^3/uL (1.2-3.4); Absolute Monocyte Count 0.57 10^3/uL (0.1-0.8); Absolute Neutrophil Count 5.93 10^3/uL (1.2-6.7); Basophils % 0.6; Eosinophils % 3.6; HGB 15.9 g/dL (13.5-17.5); Immature Grans % 0.6; Lymphocytes % 11.8; MCH 29.2 pg (27.0-33.0); MCHC 33.1 % (32.0-36.0); MCV 88 fL (80-95); MPV 8.8 fL (8.0-11.0); Monocytes % 7.3; Neutrophils % 76.1; Platelet Count 232 10^3/uL (130-400); RBC 5.45 10^6/uL (4.36-5.78); RDW 13.8 % (11.8-14.1); RDW-SD 44.8 fL
[2022-05-13 10:47] LABS: ALT 20 U/L (16-63); AST 15 U/L (15-37); Albumin 3.9 g/dL (3.4-5.0); Alkaline Phosphatase 102 U/L (46-116); BUN 14 mg/dL (7-18); Bilirubin, Total 0.6 mg/dL (0.2-1.0); CREATININE 1.2 mg/dL (0.70-1.30); Calcium 9.5 mg/dL (8.5-10.1); Chloride 102 mmol/L (98-107); Estimated GFR 65.87 (mL/min/1.73m2); Glucose 124 mg/dL (74-106); Potassium 4.5 mmol/L (3.5-5.1); Sodium 138 mmol/L (136-145); TSH 1.96 uIU/mL (0.36-3.74); Total Protein 7.6 g/dL (6.4-8.2)
== END 2022-05-13 03:00 | disposition home or self-care (01) ==
LOC: LBO 02:59
PROVIDERS: Visit Provider Internal Medicine Medical Oncology
DX: Z79.899 Other long term (current) drug therapy (principal); C34.32 Malignant neoplasm of lower lobe, left bronchus or lung
CPT/HCPCS: 36415; 80053; 84443; 85025

== ENCOUNTER 2022-05-15 02:50 | Outpatient (CLI) | payer MEDICARE, BC, SELFPAY ==
--- NOTE | 2022-05-15 | DI.CT_ITS ---
Exam(s) CT CHEST W EXAM: CT CHEST W CLINICAL HISTORY: LLL LUNG CA,C34.32,3 MONTH F/U TECHNIQUE: Imaging Protocol: Axial computed tomography images with coronal and sagittal reformatted images were created and reviewed CONTRAST MATERIAL: Intravenous: Omnipaque 350 Contrast volume:structured data ml. COMPARISON: CT CT CHEST WO from 10/16/[address] CHEST W from 02/15/2022 FINDINGS: Pulmonary parenchyma: Mild interval decrease in size of previously noted mass in the posterior left i nfrahilar region. Mildly increased densities in the adjacent lung of the left lower lobe compared wi th the previous exam in the related to radiation change. Mild left pleural thickening increasing fro m prior exam. Tracheobronchial tree: No bronchiectasis or mucous plugging. Mediastinum and Bettina: Slight interval decrease in size left hilar lymph node. Pleura: No effusion or pneumothorax. Heart: The heart is mildly dilated. Mild coronary artery calcifications are seen. Aorta: Thoracic aorta non-dilated. Upper abdomen: . Stable size and appearance low-density circumscribed right adrenal mass. Bones: Degenerative changes. No lytic or blastic lesions. Soft tissues: Unremarkable. IMPRESSION: Mild interval decrease in size left infrahilar mass. Mildly increased adjacent pulmonary densities a nd left pleural thickening DC secondary to radiation change. RADIATION DOSE DELIVERED: 800.21mGy.cm Total DLP DATA REPOSITORY: All CT scans at this facility are submitted to the National Radiology Data Registry (NRDR) Dose Index Registry (DIR) with the [employer] (ACR). RADIATION OPTIMIZATION: All CT scans at this facility use at least one of these dose optimization te chniques: automated exposure control; mA and/or kV adjustment per patient size (includes targeted exa ms where dose is matched to clinical indication); or iterative reconstruction.
[2022-05-15] MEDS: Omnipaque 350 MG/ML 500 ML BTL-Imaging package IJ (13:08)
[2022-05-15] MEDS: Normal Saline Flush 10 ML SYR IJ (13:09)
[2022-05-15] MEDS: Normal Saline - Diluent 50 ML VIAL IJ (13:09)
== END 2022-05-15 03:10 ==
PROVIDERS: Visit Provider Internal Medicine Medical Oncology
DX: C34.32 Malignant neoplasm of lower lobe, left bronchus or lung (principal); Z92.3 Personal history of irradiation; J98.4 Other disorders of lung
CPT/HCPCS: 71260

== ENCOUNTER 2022-06-10 02:38 | Outpatient (CLI) | payer MEDICARE, BC, SELFPAY ==
[2022-06-10 09:24] LABS: Abs Immature Grans 0.05 10^3/uL (0.0-0.06); Absolute Basophil Count 0.07 10^3/uL (0.0-0.2); Absolute Eosinophil Count 0.38 10^3/uL (0.0-0.7); Absolute Lymphocyte Count 1.01 10^3/uL (1.2-3.4); Absolute Monocyte Count 0.61 10^3/uL (0.1-0.8); Absolute Neutrophil Count 5.49 10^3/uL (1.2-6.7); Basophils % 0.9; HCT 49.5 % (40.0-50.0); HGB 16.2 g/dL (13.5-17.5); Immature Grans % 0.7; Lymphocytes % 13.3; MCHC 32.7 % (32.0-36.0); MCV 89 fL (80-95); MPV 9.2 fL (8.0-11.0); Neutrophils % 72.1; Platelet Count 219 10^3/uL (130-400); RBC 5.59 10^6/uL (4.36-5.78); RDW 14.6 % (11.8-14.1); RDW-SD 47.1 fL; WBC 7.61 10^3/uL (4.4-10.8)
[2022-06-10 09:48] LABS: ALT 26 U/L (16-63); AST 16 U/L (15-37); Albumin 3.7 g/dL (3.4-5.0); Alkaline Phosphatase 103 U/L (46-116); Anion Gap 5.1 mmol/L (3-11); BUN 10 mg/dL (7-18); Bilirubin, Total 0.5 mg/dL (0.2-1.0); CO2 31.9 mmol/L (21.0-32.0); Calcium 9.1 mg/dL (8.5-10.1); Chloride 103 mmol/L (98-107); Estimated GFR 81.98 (mL/min/1.73m2); Glucose 124 mg/dL (74-106); Potassium 4.9 mmol/L (3.5-5.1); Sodium 140 mmol/L (136-145); Total Protein 7.3 g/dL (6.4-8.2)
== END 2022-06-10 02:39 | disposition home or self-care (01) ==
LOC: LBO 02:38
PROVIDERS: Visit Provider Internal Medicine Medical Oncology
DX: Z79.899 Other long term (current) drug therapy (principal); C34.32 Malignant neoplasm of lower lobe, left bronchus or lung
CPT/HCPCS: 36415; 80053; 84443; 85025

== ENCOUNTER 2022-07-08 10:20 | Outpatient (CLI) | payer MEDICARE, BC, SELFPAY ==
[2022-07-08 09:37] LABS: Abs Immature Grans 0.05 10^3/uL (0.0-0.06); Absolute Basophil Count 0.06 10^3/uL (0.0-0.2); Absolute Eosinophil Count 0.31 10^3/uL (0.0-0.7); Absolute Monocyte Count 0.61 10^3/uL (0.1-0.8); Absolute Neutrophil Count 5.57 10^3/uL (1.2-6.7); Basophils % 0.8; Eosinophils % 4.2; HCT 50.5 % (40.0-50.0); HGB 16.8 g/dL (13.5-17.5); Immature Grans % 0.7; Lymphocytes % 9.6; MCH 29.1 pg (27.0-33.0); MCHC 33.3 % (32.0-36.0); MCV 88 fL (80-95); MPV 8.8 fL (8.0-11.0); Monocytes % 8.4; Neutrophils % 76.3; Platelet Count 194 10^3/uL (130-400); RBC 5.77 10^6/uL (4.36-5.78); RDW 15.1 % (11.8-14.1); RDW-SD 47.6 fL
[2022-07-08 10:15] LABS: ALT 26 U/L (16-63); AST 18 U/L (15-37); Albumin 3.9 g/dL (3.4-5.0); Alkaline Phosphatase 102 U/L (46-116); BUN 13 mg/dL (7-18); Bilirubin, Total 0.7 mg/dL (0.2-1.0); CREATININE 1.2 mg/dL (0.70-1.30); Calcium 8.8 mg/dL (8.5-10.1); Chloride 99 mmol/L (98-107); Estimated GFR 65.87 (mL/min/1.73m2); Glucose 130 mg/dL (74-106); Potassium 4.9 mmol/L (3.5-5.1); Sodium 134 mmol/L (136-145); TSH 2.04 uIU/mL (0.36-3.74); Total Protein 7.6 g/dL (6.4-8.2)
== END 2022-07-08 10:21 | disposition home or self-care (01) ==
LOC: LBO 10:21
PROVIDERS: Visit Provider Internal Medicine Medical Oncology
DX: C34.32 Malignant neoplasm of lower lobe, left bronchus or lung (principal); Z79.899 Other long term (current) drug therapy
CPT/HCPCS: 36415; 80053; 84443; 85025

== ENCOUNTER 2022-08-02 00:43 | Outpatient (CLI) | payer MEDICARE, BC, SELFPAY ==
[2022-08-02] MEDS: Omnipaque 350 MG/ML 500 ML BTL-Imaging package 100 ML IJ (14:20)
--- NOTE | 2022-08-02 14:26 | DI.CT_ITS ---
Exam(s) CT CHEST W EXAM: CT CHEST W CLINICAL HISTORY: LLL LUNG CA, C34.32, ASSESS TREATMENT RESPONSE. TECHNIQUE: Multi planar reconstructions were performed. CONTRAST MATERIAL: Omnipaque 350; 75 cc COMPARISON: CT CT CHEST LUNG CANCER SCREEN from 08/30/[address] CHEST W from 02/15/[address] CHEST W from 05/15/2022 FINDINGS: CHEST: LUNGS: Compared to 05/15/2022 there is been slight further mild decrease in size of the left para-inf rahilar mass. Mount of pleural based infiltrate in the left lower lobe is similar to the previous st udy. No significant size pleural effusion. There are no new findings in the opposite-right lung. No findings in trachea and mainstem bronchi. MEDIASTINUM: No new hilar adenopathy nor new mediastinal adenopathy. No supraclavicular nor axillary adenopathy. Visualized thyroid gland appears unremarkable. Esophagus is not dilated. No hiatal he rnia evident. CARDIAC: Heart size is normal. There is no pericardial effusion.Caliber of the thoracic aorta is wit hin normal limits. VISUALIZED UPPER ABDOMEN:Right adrenal gland mass appears unchanged, measuring 4 by 3 cm. Left adren al gland remains unremarkable. Spleen size normal. Small cyst or hemangioma in the medial right hep atic lobe is unchanged. OSSEOUS: No significant osseous lesions.. IMPRESSION: 1. Compared to the CT scan of 05/15/2022 there has been interval further minimal decrease in size of the left infrahilar mass. There is persistent subpleural infiltrate and pleural thickening over the left lower lobe again noted. No significant pleural effusion. 2. No increasing hilar nor mediastinal adenopathy evident. 3. Stable 4 x 3 cm hypodense right adrenal mass. Left adrenal gland remains unremarkable. RADIATION DOSE DELIVERED: 1,021.31mGy.cm Total DLP DATA REPOSITORY: All CT scans at this facility are submitted to the National Radiology Data Registry (NRDR) Dose Index Registry (DIR) with the [employer] (ACR). RADIATION OPTIMIZATION: All CT scans at this facility use at least one of these dose optimization te chniques: automated exposure control; mA and/or kV adjustment per patient size (includes targeted exa ms where dose is matched to clinical indication); or iterative reconstruction.
[2022-08-02] MEDS: Normal Saline Flush 10 ML SYR IVP (14:28)
== END 2022-08-02 01:03 ==
LOC: DI 00:44
PROVIDERS: Visit Provider Internal Medicine Medical Oncology
DX: C34.32 Malignant neoplasm of lower lobe, left bronchus or lung (principal)
CPT/HCPCS: 71260

== ENCOUNTER 2022-08-05 11:32 | Outpatient (CLI) | payer MEDICARE, BC, SELFPAY ==
[2022-08-05 09:29] LABS: Abs Immature Grans 0.12 10^3/uL (0.0-0.06); Absolute Basophil Count 0.08 10^3/uL (0.0-0.2); Absolute Eosinophil Count 0.26 10^3/uL (0.0-0.7); Absolute Lymphocyte Count 0.87 10^3/uL (1.2-3.4); Absolute Monocyte Count 0.45 10^3/uL (0.1-0.8); Absolute Neutrophil Count 6.55 10^3/uL (1.2-6.7); Eosinophils % 3.1; HCT 45.7 % (40.0-50.0); HGB 15.3 g/dL (13.5-17.5); Immature Grans % 1.4; Lymphocytes % 10.4; MCH 29.3 pg (27.0-33.0); MCHC 33.5 % (32.0-36.0); MCV 87 fL (80-95); MPV 8.7 fL (8.0-11.0); Monocytes % 5.4; Neutrophils % 78.7; Platelet Count 310 10^3/uL (130-400); RBC 5.23 10^6/uL (4.36-5.78); RDW-SD 47.4 fL; WBC 8.33 10^3/uL (4.4-10.8)
[2022-08-05 09:52] LABS: ALT 30 U/L (16-63); AST 14 U/L (15-37); Albumin 3.5 g/dL (3.4-5.0); Alkaline Phosphatase 98 U/L (46-116); Anion Gap 4.8 mmol/L (3-11); BUN 13 mg/dL (7-18); Bilirubin, Total 0.6 mg/dL (0.2-1.0); CO2 30.2 mmol/L (21.0-32.0); CREATININE 1.2 mg/dL (0.70-1.30); Calcium 8.9 mg/dL (8.5-10.1); Chloride 102 mmol/L (98-107); Estimated GFR 65.87 (mL/min/1.73m2); Glucose 146 mg/dL (74-106); Potassium 4.4 mmol/L (3.5-5.1); Sodium 137 mmol/L (136-145); TSH 2.33 uIU/mL (0.36-3.74); Total Protein 7.3 g/dL (6.4-8.2)
[2022-08-05 14:31] LABS: TSH 2.33 uIU/mL (0.36-3.74)
== END 2022-08-05 11:33 | disposition home or self-care (01) ==
LOC: LBO 11:33
PROVIDERS: Visit Provider Internal Medicine Medical Oncology
DX: C34.32 Malignant neoplasm of lower lobe, left bronchus or lung (principal); Z79.899 Other long term (current) drug therapy
CPT/HCPCS: 36415; 80053; 84443; 85025

== ENCOUNTER 2022-09-02 11:28 | Outpatient (CLI) | payer MEDICARE, BC, SELFPAY ==
[2022-09-02 09:04] LABS: Abs Immature Grans 0.06 10^3/uL (0.0-0.06); Absolute Basophil Count 0.06 10^3/uL (0.0-0.2); Absolute Eosinophil Count 0.44 10^3/uL (0.0-0.7); Absolute Lymphocyte Count 1.24 10^3/uL (1.2-3.4); Absolute Monocyte Count 0.47 10^3/uL (0.1-0.8); Absolute Neutrophil Count 5.35 10^3/uL (1.2-6.7); Basophils % 0.8; Eosinophils % 5.8; HCT 50.6 % (40.0-50.0); HGB 16.9 g/dL (13.5-17.5); Immature Grans % 0.8; Lymphocytes % 16.3; MCH 30.2 pg (27.0-33.0); MCHC 33.4 % (32.0-36.0); MCV 91 fL (80-95); MPV 9.2 fL (8.0-11.0); Monocytes % 6.2; Neutrophils % 70.1; Platelet Count 231 10^3/uL (130-400); RBC 5.59 10^6/uL (4.36-5.78); RDW 15.6 % (11.8-14.1); RDW-SD 50.7 fL; WBC 7.62 10^3/uL (4.4-10.8)
[2022-09-02 09:25] LABS: ALT 29 U/L (16-63); AST 18 U/L (15-37); Albumin 3.9 g/dL (3.4-5.0); Alkaline Phosphatase 93 U/L (46-116); Anion Gap 7.4 mmol/L (3-11); BUN 14 mg/dL (7-18); Bilirubin, Total 0.7 mg/dL (0.2-1.0); CO2 28.6 mmol/L (21.0-32.0); CREATININE 1.3 mg/dL (0.70-1.30); Chloride 102 mmol/L (98-107); Estimated GFR 59.84 (mL/min/1.73m2); Glucose 155 mg/dL (74-106); Potassium 3.9 mmol/L (3.5-5.1); Sodium 138 mmol/L (136-145); TSH 1.73 uIU/mL (0.36-3.74); Total Protein 7.7 g/dL (6.4-8.2)
== END 2022-09-02 11:29 | disposition home or self-care (01) ==
LOC: LBO 11:28
PROVIDERS: Visit Provider Internal Medicine Medical Oncology
DX: Z79.899 Other long term (current) drug therapy (principal); C34.32 Malignant neoplasm of lower lobe, left bronchus or lung
CPT/HCPCS: 36415; 80053; 84443; 85025

== ENCOUNTER 2022-09-30 10:35 | Outpatient (CLI) | payer MEDICARE, BC, SELFPAY ==
[2022-09-30 09:38] LABS: Abs Immature Grans 0.05 10^3/uL (0.0-0.06); Absolute Basophil Count 0.07 10^3/uL (0.0-0.2); Absolute Eosinophil Count 0.36 10^3/uL (0.0-0.7); Absolute Lymphocyte Count 1.03 10^3/uL (1.2-3.4); Absolute Monocyte Count 0.49 10^3/uL (0.1-0.8); Absolute Neutrophil Count 5.44 10^3/uL (1.2-6.7); Basophils % 0.9; Eosinophils % 4.8; HCT 50.1 % (40.0-50.0); HGB 17.1 g/dL (13.5-17.5); Immature Grans % 0.7; Lymphocytes % 13.8; MCH 30.6 pg (27.0-33.0); MCHC 34.1 % (32.0-36.0); MCV 90 fL (80-95); MPV 8.8 fL (8.0-11.0); Monocytes % 6.6; Neutrophils % 73.2; Platelet Count 203 10^3/uL (130-400); RBC 5.58 10^6/uL (4.36-5.78); RDW 14.4 % (11.8-14.1); RDW-SD 47.1 fL; WBC 7.44 10^3/uL (4.4-10.8)
[2022-09-30 10:06] LABS: ALT 29 U/L (16-63); AST 18 U/L (15-37); Albumin 3.9 g/dL (3.4-5.0); Alkaline Phosphatase 87 U/L (46-116); Anion Gap 5.4 mmol/L (3-11); BUN 15 mg/dL (7-18); Bilirubin, Total 0.7 mg/dL (0.2-1.0); CO2 31.6 mmol/L (21.0-32.0); CREATININE 1.1 mg/dL (0.70-1.30); Calcium 9.1 mg/dL (8.5-10.1); Chloride 101 mmol/L (98-107); Estimated GFR 73.12 (mL/min/1.73m2); Glucose 139 mg/dL (74-106); Potassium 4.5 mmol/L (3.5-5.1); Sodium 138 mmol/L (136-145); TSH 1.88 uIU/mL (0.36-3.74); Total Protein 7.5 g/dL (6.4-8.2)
== END 2022-09-30 10:36 | disposition home or self-care (01) ==
LOC: LBO 10:36
PROVIDERS: Visit Provider Internal Medicine Medical Oncology
DX: C34.32 Malignant neoplasm of lower lobe, left bronchus or lung (principal); Z79.899 Other long term (current) drug therapy
CPT/HCPCS: 36415; 80053; 84443; 85025

== ENCOUNTER 2022-09-30 12:19 | Emergency (ER) | payer MEDICARE, BC, SELFPAY ==
[2022-09-30] VITALS (8 sets, daily range): BP systolic 110–135; BP diastolic 56–92; PULSE 64–178; RESP 13–22; O2SAT 92–96
--- NOTE | 2022-09-30 12:15 | RT.EKG_ITS ---
APPROVED REPORT Exam: Resting ECG Reason for Exam: afib Patient Location: E HR:109 bpm ECG Measurements Heart Rate 109 AXIS MS 143 P 56 QRSd 87 QRS 86 QT 374 T 60 QTc 503 Conclusion Sinus tachycardia...rate> 99 Anteroseptal infarct, age indeterminate...Q >35mS, T neg, V1-V2 Prolonged QT interval...QTc >500mS
--- NOTE | 2022-09-30 12:30 | DI.RAD_ITS ---
Exam(s) XR PORTABLE CHEST AP EXAM: XR PORTABLE CHEST AP CLINICAL HISTORY: palpitations TECHNIQUE: 2D digital imaging was performed. COMPARISON: CR XR PORTABLE CHEST AP from 01/07/[address] CHEST W from 08/02/2022 FINDINGS: Lung bases are poorly penetrated. LUNGS: No gross infiltrate. No pleural abnormality seen. HEART: Mildly enlarged. AORTA: Normal diameter. BONES: Unremarkable for age. Soft tissues: Unremarkable. IMPRESSION: Limited exam. No acute findings. DATA REPOSITORY: RADIATION DOSE DELIVERED:
--- NOTE | 2022-09-30 12:41 | ED.GENADUL_ITS ---
Discharge Plan Disposition Patient Disposition: Against Medical Advice Condition: Serious Discharge Details Clinical Impression: Atrial flutter with rapid ventricular response Primary Care Provider: None,None ED Provider: Bipin Oakley Home Meds and New Rx's Prescriptions: Continued Spiriva Respimat 2.5 mcg/actuation mist 2 inh inhalation QAM Qty: 3 12RF metoprolol succinate [Toprol XL] 100 MG tablet extended release 24 hr 100 mg PO BID Eliquis 5 mg tablet 5 mg PO BID budesonide-formoterol [Symbicort] 160-4.5 mcg/actuation HFA aerosol inhaler 2 puff Inhalation BID Qty: 30.6 12RF albuterol sulfate [Ventolin HFA] 90 mcg/actuation HFA aerosol inhaler 2 puff IH .COMPLEX PRN (Reason: shortness of breath or wheezing) Qty: 25.5 12RF Rx Instructions: 2 puffs inhaled every 4-6 hours PRN; diltiazem HCl 120 mg capsule,extended release 24 hr 120 mg PO DAILY Qty: 30 0RF Discharge Instructions Instructions: A-fib (Atrial Fibrillation) (ED) Additional Instructions: Follow up with your primary care provider as soon as possible If you .feel more ill, have severe pain or difficulty breathing return to the emergency department Medical Decision Making 67 yo male with hx of afib on apixiban, lung cancer, who comes in with chief complaint of feeling his heart beating fast for 2 days. HE states he ran out of his daily diltiazem Friday and his symptoms started Friday. Denies chest pressure, dyspnea, n/v, fevers, chills. He arrives speaking clearly and appears well, ambulating without evidence of dyspnea. His ekg showed sinus tachycardia but on the tele monitor he is intermittently going into what appears aflutter with rates of 150-160. HE has clear lungs, no jvd, no leg swelling or calf tenderness. HIs presentation and tele monitor is consistent with afib/flutter with rvr, will treat with dilt and monitor. HE had cmp and cbc earlier today which was unremarkable. Will obtain troponin as well as mag and coags. labs with mild elevation of his troponin, likely demand from being in afib/flutter for 2 days at high rates. His HR is now 70's in afib. He denies chest pain or dyspnea. I recommended at the minimum repeating a delta troponin and possible admission for monitoring. HE declines both options and requests d/c now. He is caox4 speaking clearly and has capacity to make his own decisions. HE understands risks of leaving including potential for and permanent disability and verbalizes understanding of these risks. He is leaving AGAINST MEDICAL ADVISE. He is planning to f/u wit his pcp jon and states he has oral diliazem at his pharmacy and is planning to go and pick it up today. He understands he can return at any time if he changes his mind Differential Diagnosis Differential Diagnosis: afib/flutter, nstemi Medical Records Medical records reviewed: Yes I reviewed the patient's medical records. Imaging Data Radiologic Study: Attestation: I personally reviewed and interpreted this imaging study as follows: Imaging: X-Ray Radiologist's impression: no acute findings Lab Data Lab results reviewed: Yes I reviewed the patient's lab results. ECG Data Attestation: I personally reviewed and interpreted this ECG (s) as follows: Prior ECG tracings: available for review Interpretation: sinus tach, rate of 109, pr 143, no stemi HPI General Mode of arrival: ambulatory . Date/Time Provider Initiated Documentation: 09/30/22 12:21 . Limitations to Documentation: no limitations . Information obtained by: patient . History of Present Illness 67 year old M presents to the emergency department with the chief complaint of rapid heart rate, described as moderate, Patient started experiencing this day(s) (2) and it has been constant. No relieving factors improve symptom(s), No exacerbating factors reported . Patient notes denies cough and fever/chills. Patient did receive the following treatments prior to arrival, none Related Data Home Medications Medication Instructions Recorded Confirmed metoprolol succinate 100 mg 100 mg PO BID 07/07/14 08/19/22 tablet,extended release 24 hr (Toprol XL) apixaban 5 mg tablet (Eliquis) 5 mg PO BID 05/04/19 08/19/22 budesonide-formoterol HFA 160 2 puff inhalation BID #30.6 grams 10/26/21 08/19/22 mcg-4.5 mcg/actuation aerosol inhaler (Symbicort) diltiazem HCl 120 mg capsule,24 120 mg PO DAILY #30 caps 01/07/22 08/19/22 hr,extended release tiotropium bromide 2.5 2 inh inhalation QAM #3 ea 01/23/22 08/19/22 mcg/actuation mist for inhalation (Spiriva Respimat) albuterol sulfate 90 mcg/actuation 2 puff inhalation .COMPLEX PRN 08/26/22 aerosol inhaler (Ventolin HFA) shortness of breath or wheezing #25.5 grams Previous Rx's Medication Instructions Recorded budesonide-formoterol HFA 160 2 puff inhalation BID #30.6 grams 10/26/21 mcg-4.5 mcg/actuation aerosol inhaler (Symbicort) diltiazem HCl 120 mg capsule,24 120 mg PO DAILY #30 caps 01/07/22 hr,extended release tiotropium bromide 2.5 2 inh inhalation QAM #3 ea 01/23/22 mcg/actuation mist for inhalation (Spiriva Respimat) albuterol sulfate 90 mcg/actuation 2 puff inhalation .COMPLEX PRN 08/26/22 aerosol inhaler (Ventolin HFA) shortness of breath or wheezing #25.5 grams Allergies Allergy/AdvReac Type Severity Reaction Status Date / Time fluoxetine Allergy rash Unverified 08/19/22 11:41 Penicillins Allergy rash Unverified 08/19/22 11:41 codeine AdvReac N/V, Unverified 08/19/22 11:41 fatigue General Stated Complaint: Palpitatns VIKI: 2 Review of Systems All systems reviewed & are unremarkable except as noted in HPI and below Constitutional Constitutional: Denies chills, Denies fever(s) and Denies weakness Cardiovascular Cardiovascular: Denies dyspnea Respiratory Respiratory: Denies cough and Denies dyspnea Gastrointestinal Gastrointestinal: Denies abdominal pain, Denies nausea and Denies vomiting Musculoskeletal Musculoskeletal: Denies joint swelling Neurologic Neurologic: Denies weakness PFSH All Active Problems (Updated 09/30/22 @ 14:10 by Bipin Oakley MD) Atrial flutter with rapid ventricular response (Acute) Non-small cell carcinoma of lung, stage 3 (Acute) Personal history of nicotine dependence (Acute) Pulmonary hypertension (Acute) Sleep apnea (Acute) Atrial fibrillation (Chronic) COPD (chronic obstructive pulmonary disease) (Chronic) Medical History (Updated 09/30/22 @ 14:10 by Bipin Oakley MD) Anal condyloma Atrial fibrillation Cervical disc disorder with radiculopathy COPD (chronic obstructive pulmonary disease) Depression ETOH abuse Hyperlipidemia Hypertension Impaired fasting glucose Lung mass Surgical History Fulguration, Anal Warts Repair, Hypospadious Social History Smoking/Tobacco Use Status: Former Tobacco Use Smoking risk assessment performed?: Yes Alcohol Intake: former Drug use: Never Substance use type: does not use Do you feel safe at home: Yes Do you feel safe in your relationship?: Yes Additional Social history: quit smoking 8 years ago 37 months sober from alcohol Exam Const General: no acute distress Orientation: alert HENMT Head: normal to inspection Ears: external ears normal General nose exam: external nose normal Mouth: moist mucous membranes Eyes General: appearance normal, both eyes and all related structures Neck Neck: normal visual inspection Resp Effort & Inspection: normal respiratory effort and able to speak in complete sentences Auscultation: clear to auscultation bilaterally Cardio Jugular venous pressure: no JVD Rate: tachycardic Heart Sounds: no murmurs Skin General skin exam: no rashes or lesions noted Neuro General: patient alert and patient oriented x3 Extrem General: normal to inspection Psych Mental Status: mental status grossly normal Course Vital Signs Vital signs: Vital Signs Pulse 141 H 09/30/22 12:23 Respiratory Rate 22 09/30/22 12:23 Blood Pressure 135/92 H 09/30/22 12:23 Pulse Oximetry 96 09/30/22 12:23 Pulse 141 H 09/30/22 12:23 Respiratory Rate 22 09/30/22 12:23 Respiratory Effort Short of Breath 09/30/22 12:27 Blood Pressure 135/92 H 09/30/22 12:23 Blood Pressure Position Sitting 09/30/22 12:23 Pulse Oximetry 96 09/30/22 12:23 Oxygen Delivery Method Room Air 09/30/22 12:23 Oxygen Flow Rate 0 09/30/22 12:23 Critical Care Time Critical Care Time Critical Care Time: Yes Total Critical Care Time: 45 Attestation: time spent initiating IV diltiazem in a patient with aflutter with rapid ventricular response and needing frequent reassessments and hemodynamic monitoring with the potential to deteriorate at any time
[2022-09-30] MEDS: Normal Saline 1,000 ML 1000 ML IV (12:45)
[2022-09-30] MEDS: dilTIAZem 25 MG/5 ML VIAL 20 MG IVP (12:48)
[2022-09-30] MEDS: dilTIAZem CD 120 MG CAPCR PO (13:00)
[2022-09-30 13:28] LABS: PTT Activated 26.2 sec (21.5-31.9); Prothrombin Time 10.1 sec (9.3-11.0)
[2022-09-30 13:35] LABS: Troponin I 119 ng/L (<or=60)
[2022-09-30 13:45] LABS: Abs Immature Grans 0.05 10^3/uL (0.0-0.06); Absolute Basophil Count 0.08 10^3/uL (0.0-0.2); Absolute Eosinophil Count 0.34 10^3/uL (0.0-0.7); Absolute Lymphocyte Count 1.03 10^3/uL (1.2-3.4); Absolute Monocyte Count 0.49 10^3/uL (0.1-0.8); Absolute Neutrophil Count 5.85 10^3/uL (1.2-6.7); Eosinophils % 4.3; Immature Grans % 0.6; Lymphocytes % 13.1; MCH 29.9 pg (27.0-33.0); MCV 88 fL (80-95); MPV 9.4 fL (8.0-11.0); Monocytes % 6.3; Neutrophils % 74.7; Platelet Count 234 10^3/uL (130-400); RBC 5.69 10^6/uL (4.36-5.78); RDW 14.4 % (11.8-14.1); RDW-SD 45.4 fL; WBC 7.84 10^3/uL (4.4-10.8)
== END 2022-09-30 14:35 | disposition left against medical advice (07) ==
PROVIDERS: Emergency Provider Emergency Medicine
DX: I48.20 Chronic atrial fibrillation, unspecified (principal)
CPT/HCPCS: 36415; 80053; 93005; 96361; 96374; 99291; 71045; 83735; 84443; 84484; 85025; 85610; 85730; 93010

== ENCOUNTER 2022-10-07 03:16 | Outpatient (CLI) | payer MEDICARE, BC, SELFPAY ==
[2022-10-07 08:10] LABS: Abs Immature Grans 0.02 10^3/uL (0.0-0.06); Absolute Basophil Count 0.08 10^3/uL (0.0-0.2); Absolute Eosinophil Count 0.43 10^3/uL (0.0-0.7); Absolute Lymphocyte Count 1.09 10^3/uL (1.2-3.4); Absolute Monocyte Count 0.61 10^3/uL (0.1-0.8); Absolute Neutrophil Count 5.78 10^3/uL (1.2-6.7); Eosinophils % 5.4; HCT 49.7 % (40.0-50.0); HGB 16.8 g/dL (13.5-17.5); Immature Grans % 0.2; Lymphocytes % 13.6; MCH 30.7 pg (27.0-33.0); MCHC 33.8 % (32.0-36.0); MCV 91 fL (80-95); MPV 8.8 fL (8.0-11.0); Monocytes % 7.6; Neutrophils % 72.2; Platelet Count 208 10^3/uL (130-400); RBC 5.48 10^6/uL (4.36-5.78); RDW 14.3 % (11.8-14.1); WBC 8.01 10^3/uL (4.4-10.8)
[2022-10-07 08:50] LABS: ALT 28 U/L (16-63); AST 15 U/L (15-37); Albumin 3.7 g/dL (3.4-5.0); Alkaline Phosphatase 87 U/L (46-116); Anion Gap 7.6 mmol/L (3-11); BUN 12 mg/dL (7-18); Bilirubin, Total 0.7 mg/dL (0.2-1.0); CO2 29.4 mmol/L (21.0-32.0); CREATININE 1.2 mg/dL (0.70-1.30); Calcium 8.7 mg/dL (8.5-10.1); Chloride 103 mmol/L (98-107); Estimated GFR 65.87 (mL/min/1.73m2); Glucose 123 mg/dL (74-106); Potassium 4.2 mmol/L (3.5-5.1); Sodium 140 mmol/L (136-145); Total Protein 7.2 g/dL (6.4-8.2)
== END 2022-10-07 03:17 | disposition home or self-care (01) ==
LOC: LBO 03:16
PROVIDERS: Visit Provider Internal Medicine Medical Oncology
DX: C34.32 Malignant neoplasm of lower lobe, left bronchus or lung (principal); Z79.899 Other long term (current) drug therapy
CPT/HCPCS: 36415; 80053; 84443; 85025

== ENCOUNTER 2022-10-23 02:05 | Outpatient (CLI) | payer MEDICARE, BC, SELFPAY ==
--- NOTE | 2022-10-23 11:00 | DI.CT_ITS ---
Exam(s) CT CHEST W EXAM: CT CHEST W CLINICAL HISTORY: NSCLC, LT LOWER LOBE, C34.32. TECHNIQUE: Multi planar reconstructions were performed. CONTRAST MATERIAL: Omnipaque 350; 70 cc COMPARISON: CT CT CHEST W from 08/02/2022 FINDINGS: CHEST: LUNGS: The appearance of the left hilar-infrahilar mass and infiltrate remains relatively stable when compared 08/02/2022. Perhaps minimally increased. The amount of infiltrate more peripherally in le ft lower lobe has also slightly further increased. There is trace left pleural fluid.. No new findi ngs in the left upper lobe. No new right lung findings. No pleural effusion on the right side. MEDIASTINUM: No new mediastinal adenopathy. No adenopathy in the right hilum. Left infrahilar lymph adenopathy appears unchanged. Visualized thyroid unremarkable. CARDIAC: Heart size is normal. There is no pericardial effusion.Moderate coronary artery calcificati on noted. Caliber of the thoracic aorta is within normal limits. VISUALIZED UPPER ABDOMEN:Previously described 4.2 x 3.1 cm hypodense mass in the right adrenal remain s unchanged. Left adrenal gland remains unremarkable. Small hypodensity in the medial right hepatic lobe again noted which is probably a small hemangioma. OSSEOUS: No significant osseous lesions.No fractures.. IMPRESSION: 1. Compared to the CT scan of 08/02/2022 there is subtle further increase in size of the left para-in frahilar infiltrate and more peripheral left lower lobe infiltrate. Main left infrahilar mass densit y-adenopathy appears unchanged. No new findings in the opposite-right lung. 2. Stable unchanged size of the 4.2 x 3.1 cm mass in the right adrenal gland. No new findings in the left adrenal gland. 3. RADIATION DOSE DELIVERED: 836.58mGy.cm Total DLP DATA REPOSITORY: All CT scans at this facility are submitted to the National Radiology Data Registry (NRDR) Dose Index Registry (DIR) with the [employer] (ACR). RADIATION OPTIMIZATION: All CT scans at this facility use at least one of these dose optimization te chniques: automated exposure control; mA and/or kV adjustment per patient size (includes targeted exa ms where dose is matched to clinical indication); or iterative reconstruction.
[2022-10-23] MEDS: Normal Saline - Diluent 50 ML VIAL IJ (11:06)
[2022-10-23] MEDS: Omnipaque 350 MG/ML 500 ML BTL-Imaging package IJ (11:06)
== END 2022-10-23 02:25 ==
LOC: DI 02:06
PROVIDERS: Visit Provider Nurse Practitioner Family
DX: C34.32 Malignant neoplasm of lower lobe, left bronchus or lung (principal); D35.01 Benign neoplasm of right adrenal gland; R91.8 Other nonspecific abnormal finding of lung field
CPT/HCPCS: 71260

== ENCOUNTER 2022-11-08 12:44 | Outpatient (CLI) | payer MEDICARE, BC, SELFPAY ==
[2022-11-08 13:03] LABS: Abs Immature Grans 0.06 10^3/uL (0.0-0.06); Absolute Basophil Count 0.08 10^3/uL (0.0-0.2); Absolute Eosinophil Count 0.31 10^3/uL (0.0-0.7); Absolute Lymphocyte Count 0.89 10^3/uL (1.2-3.4); Absolute Monocyte Count 0.56 10^3/uL (0.1-0.8); Absolute Neutrophil Count 7.22 10^3/uL (1.2-6.7); Basophils % 0.9; Eosinophils % 3.4; HCT 49.8 % (40.0-50.0); HGB 16.9 g/dL (13.5-17.5); Immature Grans % 0.7; Lymphocytes % 9.8; MCH 30.4 pg (27.0-33.0); MCHC 33.9 % (32.0-36.0); MCV 90 fL (80-95); MPV 9.5 fL (8.0-11.0); Monocytes % 6.1; Neutrophils % 79.1; Platelet Count 206 10^3/uL (130-400); RBC 5.56 10^6/uL (4.36-5.78); RDW 13.9 % (11.8-14.1); RDW-SD 46.2 fL; WBC 9.12 10^3/uL (4.4-10.8)
[2022-11-08 13:29] LABS: ALT 23 U/L (16-63); AST 14 U/L (15-37); Albumin 3.7 g/dL (3.4-5.0); Alkaline Phosphatase 92 U/L (46-116); Anion Gap 7.3 mmol/L (3-11); BUN 12 mg/dL (7-18); Bilirubin, Total 0.7 mg/dL (0.2-1.0); CO2 30.7 mmol/L (21.0-32.0); Chloride 101 mmol/L (98-107); Estimated GFR 81.98 (mL/min/1.73m2); Glucose 128 mg/dL (74-106); Potassium 4.4 mmol/L (3.5-5.1); Sodium 139 mmol/L (136-145); TSH 2.19 uIU/mL (0.36-3.74)
== END 2022-11-08 12:45 | disposition home or self-care (01) ==
LOC: LBO 12:46
PROVIDERS: Visit Provider Internal Medicine Medical Oncology
DX: C34.32 Malignant neoplasm of lower lobe, left bronchus or lung (principal); Z79.899 Other long term (current) drug therapy
CPT/HCPCS: 36415; 80053; 84443; 85025

== ENCOUNTER 2022-11-08 15:00 | Emergency (ER) | payer MEDICARE, BC, SELFPAY ==
[2022-11-08] VITALS (37 sets, daily range): BP systolic 110–158; BP diastolic 74–95; PULSE 97–129; RESP 12–27; TEMP 36.8; O2SAT 88–94
--- NOTE | 2022-11-08 15:00 | RT.EKG_ITS ---
APPROVED REPORT Exam: Resting ECG Reason for Exam: Patient Location: E HR:101 bpm ECG Measurements Heart Rate 101 AXIS HI 174 P 34 QRSd 100 QRS 80 QT 368 T 52 QTc 478 Conclusion Sinus tachycardia...rate> 99 Low voltage, extremity leads...all extremity leads <0.5mV Borderline ST depression, anterior leads...ST <-0.07mV, V2-V4
--- NOTE | 2022-11-08 15:47 | ED.GENADUL_ITS ---
Discharge Plan Disposition Patient Disposition: Home Discharge Details Clinical Impression: Burning chest pain Primary Care Provider: Vickie,Local ED Provider: Bipin Oakley Home Meds and New Rx's Prescriptions: Continued Spiriva Respimat 2.5 mcg/actuation mist 2 inh inhalation QAM Qty: 3 12RF metoprolol succinate [Toprol XL] 100 MG tablet extended release 24 hr 100 mg PO BID Eliquis 5 mg tablet 5 mg PO BID budesonide-formoterol [Symbicort] 160-4.5 mcg/actuation HFA aerosol inhaler 2 puff Inhalation BID Qty: 30.6 12RF albuterol sulfate [Ventolin HFA] 90 mcg/actuation HFA aerosol inhaler 2 puff IH .COMPLEX PRN (Reason: shortness of breath or wheezing) Qty: 25.5 12RF Rx Instructions: 2 puffs inhaled every 4-6 hours PRN; diltiazem HCl 120 mg capsule,extended release 24 hr 120 mg PO DAILY Qty: 30 0RF Discharge Instructions Additional Instructions: Your blood work did not show concerning findings at this time Follow up as scheduled with cardiology as scheduled IF you feel more ill, have severe worsening pain, difficulty breathing or fevers return to the emergency department Medical Decision Making 67 yo male with hx of copd, afib, htn, hld, lung cancer undergoing chemotherapy who comes inafter he prsented to the cancer center earlier for his chemotherapy and when they reviewed ROS questions with him he voiced a month long issue of having burning in his chest when he eats and usually resolves within 5 minutes. No pain with exertion, no diaphoresis, no n/v. He arrives stable speaking clearly in no ditress. CAOx4, denies pain now. He has clear lungs, soft nontender abdomen, no leg swelling or calf tenderness. Suspect gastritis vs gerd but given his age and risk factors will obtain troponin and check cbc,cmp,lipase. Had normal appearing aorta on CT chest earlier this month so doubt dissection. He has no dyspnea or pleuritic chest pain so doubt PE. pt's initial labs unremarkable, xray read as left lower lobe infiltrate, patient denies cough or fevers so doubt pneumonia, could be from his underlying cancer and do not feel antibiotics indicated. PT stable, discussed results with him and offered admission for obs which he declined, is willing to wait for second troponin. Did have a run of afib with rate of 140 but resolved without intervention within a minute and is back in sinus, was asymptomatic during this second troponin negative, again declines obs admission which I feel is reasonable given reassuring workup and two negative troponins, he states he has cardiology appointment on Friday, return precautions given Differential Diagnosis Differential Diagnosis: gastritis,esophagitis, gerd Medical Records Medical records reviewed: Yes I reviewed the patient's medical records. Imaging Data Radiologic Study: Attestation: I personally reviewed and interpreted this imaging study as follows: Imaging: X-Ray Radiologist's impression: FINDINGS: 2 views: Heart size is normal.? The mediastinum is not widened. Right lung is clear.? However, there is some infiltrate in the left lower lobe superior segment.? No obvious pleural effusions.? No pneumothorax.? No fractures. IMPRESSION: Left lower lobe infiltrate.? Lab Data Lab results reviewed: Yes I reviewed the patient's lab results. ECG Data Attestation: I personally reviewed and interpreted this ECG (s) as follows: Prior ECG tracings: available for review Interpretation: sinus tachycardia, rate of 100, pr 174, nostemi 2nd ekg sinus rate of 99 pr 157 no stemi HPI General Mode of arrival: ambulatory . Date/Time Provider Initiated Documentation: 11/08/22 15:11 . Limitations to Documentation: no limitations . Information obtained by: patient . History of Present Illness 67 year old M presents to the emergency department with the chief complaint of chest burning, described as moderate, and it has been intermittent. No relieving factors improve symptom(s), No exacerbating factors reported . Related Data Home Medications Medication Instructions Recorded Confirmed metoprolol succinate 100 mg 100 mg PO BID 07/07/14 11/08/22 tablet,extended release 24 hr (Toprol XL) apixaban 5 mg tablet (Eliquis) 5 mg PO BID 05/04/19 11/08/22 budesonide-formoterol HFA 160 2 puff inhalation BID #30.6 grams 10/26/21 11/08/22 mcg-4.5 mcg/actuation aerosol inhaler (Symbicort) diltiazem HCl 120 mg capsule,24 120 mg PO DAILY #30 caps 01/07/22 11/08/22 hr,extended release tiotropium bromide 2.5 2 inh inhalation QAM #3 ea 01/23/22 11/08/22 mcg/actuation mist for inhalation (Spiriva Respimat) albuterol sulfate 90 mcg/actuation 2 puff inhalation .COMPLEX PRN 08/26/22 11/08/22 aerosol inhaler (Ventolin HFA) shortness of breath or wheezing #25.5 grams Previous Rx's Medication Instructions Recorded budesonide-formoterol HFA 160 2 puff inhalation BID #30.6 grams 10/26/21 mcg-4.5 mcg/actuation aerosol inhaler (Symbicort) diltiazem HCl 120 mg capsule,24 120 mg PO DAILY #30 caps 01/07/22 hr,extended release tiotropium bromide 2.5 2 inh inhalation QAM #3 ea 01/23/22 mcg/actuation mist for inhalation (Spiriva Respimat) albuterol sulfate 90 mcg/actuation 2 puff inhalation .COMPLEX PRN 08/26/22 aerosol inhaler (Ventolin HFA) shortness of breath or wheezing #25.5 grams Allergies Allergy/AdvReac Type Severity Reaction Status Date / Time fluoxetine Allergy rash Unverified 08/19/22 11:41 Penicillins Allergy rash Unverified 08/19/22 11:41 codeine AdvReac N/V, Unverified 08/19/22 11:41 fatigue General Stated Complaint: Chest Pain VIKI: 3 Review of Systems All systems reviewed & are unremarkable except as noted in HPI and below Constitutional Constitutional: Denies chills, Denies fever(s) and Denies weakness Cardiovascular Cardiovascular: Denies chest pain and Denies dyspnea Respiratory Respiratory: Denies cough and Denies dyspnea Gastrointestinal Gastrointestinal: Denies abdominal pain, Denies nausea and Denies vomiting Musculoskeletal Musculoskeletal: Denies joint swelling Integumentary/Breasts Skin/Breast: Denies rash Neurologic Neurologic: Denies weakness PFSH All Active Problems (Updated 11/08/22 @ 19:17 by Bipin Okaley MD) Burning chest pain (Acute) Non-small cell carcinoma of lung, stage 3 (Acute) Personal history of nicotine dependence (Acute) Pulmonary hypertension (Acute) Sleep apnea (Acute) Atrial fibrillation (Chronic) COPD (chronic obstructive pulmonary disease) (Chronic) Medical History (Updated 11/08/22 @ 19:17 by Bipin Oakley MD) Anal condyloma Atrial fibrillation Cervical disc disorder with radiculopathy COPD (chronic obstructive pulmonary disease) Depression ETOH abuse Hyperlipidemia Hypertension Impaired fasting glucose Lung mass Left lower lung mass cancer Surgical History Fulguration, Anal Warts Repair, Hypospadious Social History (Updated 10/22/22 @ 14:26 by Мария Warner RN, RN) Smoking/Tobacco Use Status: Former Tobacco Use Quit Date: 04/14/14 Pack-years: 60 Smoking risk assessment performed?: Yes Alcohol Intake: former Year quit: 2018 Drug use: Never Substance use type: does not use Do you feel safe at home: Yes Do you feel safe in your relationship?: Yes Additional Social history: quit smoking 8 years ago 37 months sober from alcohol Exam Const General: no acute distress Orientation: alert HENMT Head: normal to inspection Ears: external ears normal General nose exam: external nose normal Mouth: moist mucous membranes Eyes General: appearance normal, both eyes and all related structures Neck Neck: normal visual inspection Resp Effort & Inspection: normal respiratory effort and able to speak in complete sentences Auscultation: clear to auscultation bilaterally Cardio Jugular venous pressure: no JVD Rate: regular rate Heart Sounds: no murmurs GI Palpation: soft and nontender Skin General skin exam: no rashes or lesions noted Neuro General: patient alert and patient oriented x3 Extrem General: normal to inspection Psych Mental Status: mental status grossly normal Course Vital Signs Vital signs: Vital Signs Temperature 36.8 C 11/08/22 15:02 Pulse 100 H 11/08/22 15:02 Respiratory Rate 20 11/08/22 15:02 Blood Pressure 144/86 H 11/08/22 15:02 Pulse Oximetry 94 11/08/22 15:02 Temperature 36.8 C 11/08/22 15:02 Temperature Source Oral 11/08/22 15:02 Pulse 100 H 11/08/22 15:02 Respiratory Rate 20 11/08/22 15:02 Respiratory Effort Normal 11/08/22 15:26 Respiratory Depth Normal 11/08/22 15:26 Respiratory Pattern Normal 11/08/22 15:26 Blood Pressure 144/86 H 11/08/22 15:02 Blood Pressure Position Sitting 11/08/22 15:02 Pulse Oximetry 94 11/08/22 15:02 Oxygen Delivery Method Room Air 11/08/22 15:02 Oxygen Flow Rate 0 11/08/22 15:02 Pain Level 0 11/08/22 15:02
--- NOTE | 2022-11-08 16:00 | DI.RAD_ITS ---
Exam(s) XR CHEST 2V PA LATERAL EXAM: XR CHEST 2V PA LATERAL CLINICAL HISTORY: chest pain. TECHNIQUE: 2D digital imaging was performed. COMPARISON: CR XR PORTABLE CHEST AP from 09/30/2022 FINDINGS: 2 views: Heart size is normal. The mediastinum is not widened. Right lung is clear. However, there is some infiltrate in the left lower lobe superior segment. No obvious pleural effusions. No pneumothorax. No fractures. IMPRESSION: Left lower lobe infiltrate. DATA REPOSITORY: RADIATION DOSE DELIVERED:
[2022-11-08 16:01] LABS: Abs Immature Grans 0.09 10^3/uL (0.0-0.06); Absolute Basophil Count 0.07 10^3/uL (0.0-0.2); Absolute Eosinophil Count 0.28 10^3/uL (0.0-0.7); Absolute Lymphocyte Count 0.89 10^3/uL (1.2-3.4); Absolute Monocyte Count 0.61 10^3/uL (0.1-0.8); Basophils % 0.8; Eosinophils % 3.1; HCT 48.1 % (40.0-50.0); HGB 16.8 g/dL (13.5-17.5); Lymphocytes % 9.7; MCH 30.8 pg (27.0-33.0); MCHC 34.9 % (32.0-36.0); MCV 88 fL (80-95); MPV 8.8 fL (8.0-11.0); Monocytes % 6.7; Neutrophils % 78.7; Platelet Count 202 10^3/uL (130-400); RBC 5.45 10^6/uL (4.36-5.78); RDW 13.9 % (11.8-14.1); RDW-SD 44.5 fL; WBC 9.14 10^3/uL (4.4-10.8)
[2022-11-08 16:17] LABS: PTT Activated 26.4 sec (21.5-31.9)
[2022-11-08 16:29] LABS: ALT 23 U/L (16-63); AST 13 U/L (15-37); Albumin 3.7 g/dL (3.4-5.0); Alkaline Phosphatase 90 U/L (46-116); Anion Gap 8.3 mmol/L (3-11); BUN 12 mg/dL (7-18); Bilirubin, Total 0.7 mg/dL (0.2-1.0); CO2 28.7 mmol/L (21.0-32.0); CREATININE 0.9 mg/dL (0.70-1.30); Calcium 8.8 mg/dL (8.5-10.1); Chloride 102 mmol/L (98-107); Estimated GFR 93.03 (mL/min/1.73m2); Glucose 115 mg/dL (74-106); Magnesium 1.8 mg/dL (1.8-2.4); Sodium 139 mmol/L (136-145); Troponin I < 50 ng/L (<or=60)
[2022-11-08 16:34] LABS: TSH (W/Ref FT4) 1.89 uIU/mL (0.36-3.74)
--- NOTE | 2022-11-08 18:00 | RT.EKG_ITS ---
APPROVED REPORT Exam: Resting ECG Reason for Exam: Tachycardia Patient Location: E HR:99 bpm ECG Measurements Heart Rate 99 AXIS LA 157 P 64 QRSd 93 QRS 75 QT 388 T 55 QTc 499 Conclusion Sinus rhythm...normal P axis, V-rate 60- 99 Probable left atrial enlargement...P >50mS, <-0.10mV V1 ST elevation, consider inferior injury...ST >0.08mV, II III aVF
[2022-11-08 18:52] LABS: Troponin I < 50 ng/L (<or=60)
== END 2022-11-08 19:24 | disposition home or self-care (01) ==
PROVIDERS: Emergency Provider Emergency Medicine
DX: R07.9 Chest pain, unspecified (principal); R00.0 Tachycardia, unspecified; I48.91 Unspecified atrial fibrillation; J44.9 Chronic obstructive pulmonary disease, unspecified; I10 Essential (primary) hypertension; E78.5 Hyperlipidemia, unspecified; C34.90 Malignant neoplasm of unspecified part of unspecified bronchus or lung; Z92.21 Personal history of antineoplastic chemotherapy; Z87.891 Personal history of nicotine dependence
CPT/HCPCS: 36415; 80053; 93005; 99284; 71046; 83735; 84443; 84484; 85025; 85610; 85730; 93010; 99283

== ENCOUNTER 2022-11-11 08:49 | Outpatient (CLI) | payer MEDICARE, BC, SELFPAY ==
--- NOTE | 2022-11-11 08:45 | RT.EKG_ITS ---
APPROVED REPORT Exam: Resting ECG Reason for Exam: afib Patient Location: O HR:87 bpm ECG Measurements Heart Rate 87 AXIS IN [id number] P [id number] QRSd 104 QRS 81 QT 358 T 41 QTc 431 Conclusion Atrial fibrillation...? atrial activity Borderline right axis deviation...QRS axis ( 81, 90) Low voltage, extremity and precordial leads...extremity<0.5mV, precordial<1.0mV
== END 2022-11-11 08:50 | disposition home or self-care (01) ==
LOC: DI.CARD 08:50
PROVIDERS: Visit Provider Internal Medicine Cardiovascular Disease
DX: I48.91 Unspecified atrial fibrillation (principal)
CPT/HCPCS: 93010

== ENCOUNTER → 2022-11-11 13:48 | Outpatient (BNVA) | payer MEDICARE, BC, SELFPAY | PROVIDERS: Visit Provider Internal Medicine Cardiovascular Disease | DX: R07.89 Other chest pain (principal); Z79.01 Long term (current) use of anticoagulants; C34.32 Malignant neoplasm of lower lobe, left bronchus or lung; J44.9 Chronic obstructive pulmonary disease, unspecified; I48.91 Unspecified atrial fibrillation | CPT/HCPCS: 93005; 99203; 99214 ==

== ENCOUNTER 2022-11-13 03:27 | Outpatient (CLI) | payer MEDICARE, BC, SELFPAY ==
[2022-11-13 10:09] LABS: Abs Immature Grans 0.05 10^3/uL (0.0-0.06); Absolute Eosinophil Count 0.27 10^3/uL (0.0-0.7); Absolute Lymphocyte Count 0.94 10^3/uL (1.2-3.4); Absolute Monocyte Count 0.62 10^3/uL (0.1-0.8); Basophils % 1.2; Eosinophils % 3.3; HCT 51.6 % (40.0-50.0); HGB 17.9 g/dL (13.5-17.5); Immature Grans % 0.6; Lymphocytes % 11.6; MCH 30.8 pg (27.0-33.0); MCHC 34.7 % (32.0-36.0); MCV 89 fL (80-95); MPV 9.3 fL (8.0-11.0); Monocytes % 7.7; Neutrophils % 75.6; Platelet Count 220 10^3/uL (130-400); RBC 5.81 10^6/uL (4.36-5.78); RDW 13.8 % (11.8-14.1); RDW-SD 44.4 fL; WBC 8.08 10^3/uL (4.4-10.8)
[2022-11-13 10:32] LABS: ALT 21 U/L (16-63); AST 13 U/L (15-37); Albumin 3.5 g/dL (3.4-5.0); Alkaline Phosphatase 90 U/L (46-116); Anion Gap 8.6 mmol/L (3-11); BUN 11 mg/dL (7-18); Bilirubin, Total 0.8 mg/dL (0.2-1.0); CO2 28.4 mmol/L (21.0-32.0); Chloride 102 mmol/L (98-107); Estimated GFR 81.98 (mL/min/1.73m2); Glucose 133 mg/dL (74-106); Potassium 4.6 mmol/L (3.5-5.1); Sodium 139 mmol/L (136-145); TSH 1.54 uIU/mL (0.36-3.74); Total Protein 7.4 g/dL (6.4-8.2)
== END 2022-11-13 03:28 | disposition home or self-care (01) ==
PROVIDERS: Visit Provider Internal Medicine Medical Oncology
DX: Z79.899 Other long term (current) drug therapy (principal); C34.32 Malignant neoplasm of lower lobe, left bronchus or lung
CPT/HCPCS: 36415; 80053; 84443; 85025

== ENCOUNTER 2022-11-25 03:46 | Outpatient (CLI) | payer MEDICARE, BC, SELFPAY ==
[2022-11-25 09:15] LABS: Abs Immature Grans 0.05 10^3/uL (0.0-0.06); Absolute Basophil Count 0.08 10^3/uL (0.0-0.2); Absolute Lymphocyte Count 1.02 10^3/uL (1.2-3.4); Absolute Monocyte Count 0.64 10^3/uL (0.1-0.8); Absolute Neutrophil Count 5.54 10^3/uL (1.2-6.7); Eosinophils % 5.2; HCT 51.3 % (40.0-50.0); HGB 17.3 g/dL (13.5-17.5); Immature Grans % 0.6; Lymphocytes % 13.2; MCH 30.5 pg (27.0-33.0); MCHC 33.7 % (32.0-36.0); MCV 90 fL (80-95); MPV 9.2 fL (8.0-11.0); Monocytes % 8.3; Neutrophils % 71.7; Platelet Count 218 10^3/uL (130-400); RBC 5.68 10^6/uL (4.36-5.78); RDW 13.7 % (11.8-14.1); RDW-SD 45.7 fL; WBC 7.73 10^3/uL (4.4-10.8)
[2022-11-25 09:57] LABS: ALT 24 U/L (16-63); AST 14 U/L (15-37); Albumin 3.7 g/dL (3.4-5.0); Alkaline Phosphatase 97 U/L (46-116); Anion Gap 5.3 mmol/L (3-11); BUN 15 mg/dL (7-18); Bilirubin, Total 0.7 mg/dL (0.2-1.0); CO2 30.7 mmol/L (21.0-32.0); CREATININE 1.2 mg/dL (0.70-1.30); Calcium 9.2 mg/dL (8.5-10.1); Chloride 102 mmol/L (98-107); Estimated GFR 65.87 (mL/min/1.73m2); Glucose 123 mg/dL (74-106); Potassium 4.8 mmol/L (3.5-5.1); Sodium 138 mmol/L (136-145); TSH 2.06 uIU/mL (0.36-3.74); Total Protein 7.3 g/dL (6.4-8.2)
== END 2022-11-25 03:47 | disposition home or self-care (01) ==
LOC: LBO 03:46
PROVIDERS: Visit Provider Internal Medicine Medical Oncology
DX: C34.32 Malignant neoplasm of lower lobe, left bronchus or lung (principal); Z79.899 Other long term (current) drug therapy
CPT/HCPCS: 36415; 80053; 84443; 85025

== ENCOUNTER → 2022-11-26 00:46 | Outpatient (CLI) | payer MEDICARE, BC, SELFPAY ==
--- NOTE | 2022-11-26 07:35 | DI.NM_ITS ---
APPROVED REPORT Exam: Pharmacologic Patient Location: Out-Patient Room/Bed: Stress Nurse: Ayana Wilson RN Ordering Provider:CRISTIAN ALVARADO, Contact Number: [phone] BMI: 39.32 Baseline Rhythm: Atrial Fibrillation Comment: Patient noted to go into ? a flutter as well as NSR Indications: Atypical chest pain Medical History Medical History: Lung CA stage 2, nicotine dependence, pulm HTN, sleep apnea, afib, COPD, depression, HLD, HTN, ETOH abuse (3 years sober). Cardiac Medications: Toprol XL, diltiazem, apixiban, Allergies: Fluoxetine, penicillins, codeine Cardiac Risk Factors: HTN, HLD, COPD, previous smoker, asthma, obesity Previous Cardiac Procedures: None Pretest Chest Pain Characteristics: None Exercise History: None Physical Disabilities: None Lung Sounds: Diminished throughout Heart Sounds: Irregular Stress Test Details Test: Pharmacologic stress testing performed using 0.4 mg of regadenoson per 5 mL given IV over 10 s econds. Reason for pharmacologic stress test: Significant artifact. Nuclear Acquisition: Rest Tc-99m/Stress Tc-99m 1 day Rest Isotope: Tc-99m Sestamibi. Dose: 12.0 Date: 11/26/2022 Injection Time: 1103 Stress Isotope: Tc-99m Sestamibi. Dose: 36.0 Date: 11/26/2022 Injection Time: 1312 HR Resting HR Supine: 72 bpm Max Heart Rate (APMHR): 152.386493 bpm Resting HR Standin bpm Target HR (85% APMHR): 129.397759 bpm Max HR Achieved: 103 bpm % of APMHR: 67.76 Recovery HR: 98 bpm BP Resting BP Supine: 126/83 mmHg Resting BP Standin/76 mmHg Max BP: 140/90 mmHg Recovery BP: 138/84 mmHg ECG Resting ECG: Atrial Fibrillation Ectopy: Rare PVC Stress ECG: a flutter ST Change: Nondiagnostic low heart rate Arrhythmia: Occasional PVC Recovery ECG: Atrial Flutter Recovery ST Change: Nondiagnostic low heart rate Clinical Stress Symptoms: Moderate dyspnea Angina Score: None Rate Pressure Product: [id number] Stress ECG Conclusion 1. Resting electrocardiogram showed atrial flutter vertical axis poor R wave progression 2. Patient underwent testing using pharmacologic stress with regadenoson 3. The heart rate achieved was 68% of predicted for age 4. The electrocardiographic portion of the test was nondiagnostic 5. See MPI report Stress Test Summary STAGE HR BP SpO2 Symptoms NOTES Supine 72 126/83 Standing 95 116/76 1 min post Lexiscan injection 97 110/84 3 min post Lexiscan injection 98 140/90 6 min post Lexiscan injection 98 138/84 MPI Conclusion Myocardial perfusion is normal. There is no ischemia or evidence of prior infarction Ejection fraction is 58% with normal wall motion Radiologist Interpretation Radiologist agrees with It Infrastructure Architect's Interpretation. Radiologist Interpretation by: Rocio Abbasi MD Interpretation Date/Time: 11/26/2022 15:31:16
[2022-11-26] MEDS: Regadenoson 0.4 MG/5 ML SYR IVP (13:00)
== END ==
PROVIDERS: Visit Provider Internal Medicine Cardiovascular Disease
DX: I48.91 Unspecified atrial fibrillation (principal)
CPT/HCPCS: 78452; 93016; 93018; 93017; J2785

== ENCOUNTER 2022-12-09 02:33 | Outpatient (CLI) | payer MEDICARE, BC, SELFPAY ==
[2022-12-09 09:50] LABS: Abs Immature Grans 0.05 10^3/uL (0.0-0.06); Absolute Basophil Count 0.08 10^3/uL (0.0-0.2); Absolute Eosinophil Count 0.39 10^3/uL (0.0-0.7); Absolute Lymphocyte Count 0.89 10^3/uL (1.2-3.4); Absolute Monocyte Count 0.53 10^3/uL (0.1-0.8); Absolute Neutrophil Count 5.44 10^3/uL (1.2-6.7); Basophils % 1.1; Eosinophils % 5.3; HGB 17.2 g/dL (13.5-17.5); Immature Grans % 0.7; Lymphocytes % 12.1; MCH 30.2 pg (27.0-33.0); MCHC 33.7 % (32.0-36.0); MCV 90 fL (80-95); MPV 9.1 fL (8.0-11.0); Monocytes % 7.2; Neutrophils % 73.6; Platelet Count 227 10^3/uL (130-400); RBC 5.69 10^6/uL (4.36-5.78); RDW 13.9 % (11.8-14.1); RDW-SD 45.6 fL; WBC 7.38 10^3/uL (4.4-10.8)
[2022-12-09 10:24] LABS: ALT 32 U/L (16-63); AST 17 U/L (15-37); Albumin 3.7 g/dL (3.4-5.0); Alkaline Phosphatase 85 U/L (46-116); Anion Gap 4.9 mmol/L (3-11); BUN 15 mg/dL (7-18); Bilirubin, Total 0.7 mg/dL (0.2-1.0); CO2 33.1 mmol/L (21.0-32.0); CREATININE 1.1 mg/dL (0.70-1.30); Calcium 9.2 mg/dL (8.5-10.1); Chloride 100 mmol/L (98-107); Estimated GFR 73.12 (mL/min/1.73m2); Glucose 125 mg/dL (74-106); Potassium 4.6 mmol/L (3.5-5.1); Sodium 138 mmol/L (136-145); TSH 1.61 uIU/mL (0.36-3.74); Total Protein 7.2 g/dL (6.4-8.2)
== END 2022-12-09 02:34 | disposition home or self-care (01) ==
LOC: LBO 02:34
PROVIDERS: Visit Provider Internal Medicine Medical Oncology
DX: C34.32 Malignant neoplasm of lower lobe, left bronchus or lung (principal); Z79.899 Other long term (current) drug therapy
CPT/HCPCS: 36415; 80053; 84443; 85025

== ENCOUNTER → 2022-12-19 12:40 | Outpatient (BNVA) | payer MEDICARE, BC, SELFPAY | PROVIDERS: Visit Provider Internal Medicine Cardiovascular Disease | DX: I48.91 Unspecified atrial fibrillation (principal); Z79.01 Long term (current) use of anticoagulants; C34.92 Malignant neoplasm of unspecified part of left bronchus or lung; J44.9 Chronic obstructive pulmonary disease, unspecified; I10 Essential (primary) hypertension | CPT/HCPCS: 99214 ==

== ENCOUNTER 2023-01-06 01:59 | Outpatient (CLI) | payer MEDICARE, BC, SELFPAY ==
[2023-01-06 09:24] LABS: Abs Immature Grans 0.05 10^3/uL (0.0-0.06); Absolute Basophil Count 0.07 10^3/uL (0.0-0.2); Absolute Eosinophil Count 0.37 10^3/uL (0.0-0.7); Absolute Lymphocyte Count 0.79 10^3/uL (1.2-3.4); Absolute Monocyte Count 0.51 10^3/uL (0.1-0.8); Absolute Neutrophil Count 5.29 10^3/uL (1.2-6.7); Eosinophils % 5.2; HCT 53.2 % (40.0-50.0); HGB 17.8 g/dL (13.5-17.5); Immature Grans % 0.7; Lymphocytes % 11.2; MCH 29.8 pg (27.0-33.0); MCHC 33.5 % (32.0-36.0); MCV 89 fL (80-95); MPV 9.2 fL (8.0-11.0); Monocytes % 7.2; Neutrophils % 74.7; Platelet Count 206 10^3/uL (130-400); RBC 5.97 10^6/uL (4.36-5.78); RDW 13.7 % (11.8-14.1); RDW-SD 44.9 fL; WBC 7.08 10^3/uL (4.4-10.8)
[2023-01-06 09:47] LABS: ALT 24 U/L (16-63); AST 14 U/L (15-37); Albumin 3.7 g/dL (3.4-5.0); Alkaline Phosphatase 93 U/L (46-116); Anion Gap 7.8 mmol/L (3-11); BUN 14 mg/dL (7-18); Bilirubin, Total 0.8 mg/dL (0.2-1.0); CO2 28.2 mmol/L (21.0-32.0); CREATININE 1.2 mg/dL (0.70-1.30); Calcium 9.5 mg/dL (8.5-10.1); Chloride 102 mmol/L (98-107); Estimated GFR 65.87 (mL/min/1.73m2); Glucose 142 mg/dL (74-106); Potassium 4.4 mmol/L (3.5-5.1); Sodium 138 mmol/L (136-145); TSH 1.72 uIU/mL (0.36-3.74); Total Protein 7.3 g/dL (6.4-8.2)
== END 2023-01-06 02:00 | disposition home or self-care (01) ==
LOC: LBO 01:59
PROVIDERS: Visit Provider Internal Medicine Medical Oncology
DX: C34.32 Malignant neoplasm of lower lobe, left bronchus or lung (principal); Z79.899 Other long term (current) drug therapy
CPT/HCPCS: 36415; 80053; 84443; 85025

== ENCOUNTER → 2023-03-17 03:20 | Outpatient (CLI) | payer MEDICARE, BC, SELFPAY ==
[2023-03-17 12:26] LABS: Abs Immature Grans 0.05 10^3/uL (0.0-0.06); Absolute Basophil Count 0.07 10^3/uL (0.0-0.2); Absolute Eosinophil Count 0.35 10^3/uL (0.0-0.7); Absolute Lymphocyte Count 0.84 10^3/uL (1.2-3.4); Absolute Monocyte Count 0.56 10^3/uL (0.1-0.8); Absolute Neutrophil Count 6.17 10^3/uL (1.2-6.7); Basophils % 0.9; Eosinophils % 4.4; HCT 53.7 % (40.0-50.0); HGB 18.1 g/dL (13.5-17.5); Immature Grans % 0.6; Lymphocytes % 10.4; MCHC 33.7 % (32.0-36.0); MCV 89 fL (80-95); MPV 9.4 fL (8.0-11.0); Neutrophils % 76.7; Platelet Count 253 10^3/uL (130-400); RBC 6.04 10^6/uL (4.36-5.78); RDW 13.5 % (11.8-14.1); RDW-SD 44.2 fL; WBC 8.04 10^3/uL (4.4-10.8)
[2023-03-17 12:40] LABS: Diff Comment Diff Reviewed; RBC Morphology Normal
[2023-03-17 12:54] LABS: ALT 25 U/L (16-63); AST 18 U/L (15-37); Albumin 3.8 g/dL (3.4-5.0); Alkaline Phosphatase 103 U/L (46-116); Anion Gap 5.9 mmol/L (3-11); BUN 14 mg/dL (7-18); Bilirubin, Total 0.8 mg/dL (0.2-1.0); CO2 32.1 mmol/L (21.0-32.0); CREATININE 1.1 mg/dL (0.70-1.30); Calcium 9.7 mg/dL (8.5-10.1); Chloride 100 mmol/L (98-107); Estimated GFR 73.12 (mL/min/1.73m2); Glucose 132 mg/dL (74-106); Potassium 4.6 mmol/L (3.5-5.1); Sodium 138 mmol/L (136-145); TSH 2.34 uIU/mL (0.36-3.74)
[2023-03-17] MEDS: Omnipaque 350 MG/ML 500 ML BTL-Imaging package 70 ML IJ (13:12)
[2023-03-17] MEDS: Normal Saline - Diluent 50 ML VIAL IJ (13:13)
--- NOTE | 2023-03-17 13:30 | DI.CT_ITS ---
Exam(s) CT CHEST W EXAM: CT CHEST W CLINICAL HISTORY: LUNG CANCER C34.32 ASSESS TREATMENT RESPONSE. TECHNIQUE: Multi planar reconstructions were performed. CONTRAST MATERIAL: Omnipaque 350; 75 cc COMPARISON: CT CT CHEST W from 10/23/2022 FINDINGS: CHEST: LUNGS: The previously described left lower lobe lung findings are again noted. There is no progressi on from previous. There is an additional spiculated nodular density in the left lower lobe measuring approximately 2.3 x 1.5 cm, larger than previous. Other findings are stable and there are no pleura l effusions. No for new findings in the opposite-right lung. The amount of left hilar adenopathy ap pears unchanged. No new endobronchial findings in this region. No pleural effusion. In the opposite-right lung there are mild benign-appearing increased markings in the medial segment o f the right middle lobe again noted. No new infiltrates. No pleural effusions. MEDIASTINUM: There is no hilar nor mediastinal adenopathy. Visualized thyroid unremarkable. CARDIAC: Heart size is normal. There is no pericardial effusion.Caliber of the thoracic aorta is wit hin normal limits. VISUALIZED UPPER ABDOMEN:Right adrenal mass is again noted, unchanged in size, measuring approximatel y 4.2 x 3.1 cm, unchanged. Left adrenal gland remains unremarkable. OSSEOUS: No significant osseous lesions.Fractures.. IMPRESSION: 1. No significant improvement in the previously described left lower lobe findings. Slight increase in amount of nodular infiltrate in the left lower lobe. Left hilum remains unchanged. 2. Right lung remains clear. No new intrathoracic adenopathy. 3. Previously described 4.2 x 3.1 cm the right adrenal mass is unchanged. RADIATION DOSE DELIVERED: Total DLP DATA REPOSITORY: All CT scans at this facility are submitted to the National Radiology Data Registry (NRDR) Dose Index Registry (DIR) with the [employer] (ACR). RADIATION OPTIMIZATION: All CT scans at this facility use at least one of these dose optimization te chniques: automated exposure control; mA and/or kV adjustment per patient size (includes targeted exa ms where dose is matched to clinical indication); or iterative reconstruction.
== END ==
PROVIDERS: Visit Provider Internal Medicine Medical Oncology
DX: Z79.899 Other long term (current) drug therapy (principal); Z12.2 Encounter for screening for malignant neoplasm of respiratory organs
CPT/HCPCS: 80053; 71260; 84443; 85025

== ENCOUNTER → 2023-04-04 08:59 | Outpatient (BNVA) | payer MEDICARE, BC, SELFPAY | PROVIDERS: Visit Provider Student in an Organized Health Care Education/Training Program | DX: J44.9 Chronic obstructive pulmonary disease, unspecified (principal); I27.20 Pulmonary hypertension, unspecified; C34.90 Malignant neoplasm of unspecified part of unspecified bronchus or lung; G47.30 Sleep apnea, unspecified; Z87.891 Personal history of nicotine dependence | CPT/HCPCS: 99214 ==

== ENCOUNTER → 2023-06-23 02:30 | Outpatient (CLI) | payer MEDICARE, BC, SELFPAY ==
[2023-06-23 12:25] LABS: Abs Immature Grans 0.03 10^3/uL (0.0-0.06); Absolute Basophil Count 0.06 10^3/uL (0.0-0.2); Absolute Eosinophil Count 0.25 10^3/uL (0.0-0.7); Absolute Lymphocyte Count 0.84 10^3/uL (1.2-3.4); Absolute Monocyte Count 0.52 10^3/uL (0.1-0.8); Absolute Neutrophil Count 5.44 10^3/uL (1.2-6.7); Basophils % 0.8; Eosinophils % 3.5; HCT 50.5 % (40.0-50.0); HGB 16.8 g/dL (13.5-17.5); Immature Grans % 0.4; Lymphocytes % 11.8; MCH 29.8 pg (27.0-33.0); MCHC 33.3 % (32.0-36.0); MCV 90 fL (80-95); MPV 9.1 fL (8.0-11.0); Monocytes % 7.3; Neutrophils % 76.2; Platelet Count 220 10^3/uL (130-400); RBC 5.63 10^6/uL (4.36-5.78); RDW 14.6 % (11.8-14.1); WBC 7.14 10^3/uL (4.4-10.8)
[2023-06-23 12:49] LABS: ALT 28 U/L (16-63); AST 17 U/L (15-37); Albumin 3.6 g/dL (3.4-5.0); Alkaline Phosphatase 101 U/L (46-116); BUN 17 mg/dL (7-18); Bilirubin, Total 0.8 mg/dL (0.2-1.0); CREATININE 1.3 mg/dL (0.70-1.30); Calcium 8.6 mg/dL (8.5-10.1); Chloride 103 mmol/L (98-107); Estimated GFR 59.47 (mL/min/1.73m2); FREE T4 1.31 ng/dL (0.76-1.46); Glucose 117 mg/dL (74-106); Potassium 4.4 mmol/L (3.5-5.1); Sodium 140 mmol/L (136-145); TSH 1.54 uIU/Ml (0.36-3.74); Total Protein 7.1 g/dL (6.4-8.2)
[2023-06-23] MEDS: Omnipaque 350 MG/ML 100 ML BTL 70 ML IJ (13:10)
[2023-06-23] MEDS: Normal Saline - Diluent 50 ML VIAL IJ (13:12)
--- NOTE | 2023-06-23 13:20 | DI.CT_ITS ---
Exam(s) CT CHEST W EXAM: CT CHEST W CLINICAL HISTORY: LEFT LOWER LOBE LUNG CANCER C34.32 ASSESS RESPONSE TECHNIQUE: Imaging Protocol: Axial computed tomography images with coronal and sagittal reformatted images were created and reviewed CONTRAST MATERIAL: Intravenous: Omnipaque 350Contrast volume:70 mL. COMPARISON: CT CT CHEST W from 05/15/[address] CHEST W from 08/02/[address] CHEST W from 10/23/[address] CHEST W from 03/17/2023 FINDINGS: Tracheobronchial tree: Patent where visualized. Pulmonary parenchyma: Emphysematous changes are present in the lungs. The left infrahilar mass and a denopathy appears stable in size. There has been interval decrease in size of the left pleural effus ion which remains small. There is again seen interstitial thickening in the left upper and left lowe r lobes. No new focal consolidating infiltrates are seen. There is a persistent opacity measuring 1 .7 cm in the left lung base (series 3, image 315). No new infiltrates are seen. Mediastinum and Bettina: No dominant adenopathy or fluid collection. The esophagus is unremarkable. Sta ble mediastinal lymph nodes. Thyroid gland: Unremarkable. Pleura: No right pleural effusion. No pneumothorax. Heart: Mild cardiomegaly. Coronary artery calcifications are present. No pericardial effusion. Aorta: Thoracic aorta non-dilated. Atherosclerotic calcification is noted. No evidence of dissection . Pulmonary arteries: Due to the timing of the bolus, peripheral pulmonary artery evaluation is subopti mal. No large central pulmonary embolus is seen. Upper abdomen: Stable right adrenal nodule. Lymph nodes: Within normal limits. Bones: Within normal limits for the patient's age. Soft tissues: Gynecomastia. IMPRESSION: 1. Stable size of the left infrahilar mass and adenopathy. Stable left lower lobe opacity. 2. Interval decrease in size of the left pleural effusion. 3. No new pulmonary infiltrates. 4. Stable right adrenal nodule. RADIATION DOSE DELIVERED: Total DLP DATA REPOSITORY: All CT scans at this facility are submitted to the National Radiology Data Registry (NRDR) Dose Index Registry (DIR) with the [employer] (ACR). RADIATION OPTIMIZATION: All CT scans at this facility use at least one of these dose optimization te chniques: automated exposure control; mA and/or kV adjustment per patient size (includes targeted exa ms where dose is matched to clinical indication); or iterative reconstruction.
== END ==
PROVIDERS: Nurse Practitioner Family; PCP Family Medicine; Visit Provider Internal Medicine Medical Oncology
DX: Z79.899 Other long term (current) drug therapy (principal); C34.32 Malignant neoplasm of lower lobe, left bronchus or lung
CPT/HCPCS: 80053; 71260; 84439; 84443; 85025; J3490

== ENCOUNTER → 2023-08-08 16:19 | Outpatient (CLI) | payer MEDICARE, BC, SELFPAY ==
--- NOTE | 2023-08-08 | DI.RAD_ITS ---
Exam(s) XR CHEST 2V PA LATERAL EXAM: XR CHEST 2V PA LATERAL CLINICAL HISTORY: COPD, MALIGNANT NEOP. OF LOWER LOBE L BRONCHUS C34.32 TECHNIQUE: 2D digital imaging was performed of the chest. Two images were obtained. PA and lateral views were obtained. COMPARISON: CR XR CHEST 2V PA LATERAL from 11/08/2022 FINDINGS: MEDIASTINUM: Normal. HEART: Normal. PULMONARY VASCULATURE: Normal. LUNGS: The mass in the left lower lobe posteriorly is unchanged. No new focal infiltrates are seen. The lungs are hyperinflated suggesting underlying COPD. PLEURAL SPACE: No pleural effusion or pneumothorax. BONE:Within normal limits for the patient's age. OTHER FINDINGS:Normal. IMPRESSION: No change in appearance of the findings in the left lower lobe. No acute pulmonary process. DATA REPOSITORY: RADIATION DOSE DELIVERED:
== END ==
PROVIDERS: PCP Family Medicine; Visit Provider Family Medicine
DX: J44.9 Chronic obstructive pulmonary disease, unspecified (principal)
CPT/HCPCS: 71046

== ENCOUNTER → 2023-09-16 03:56 | Outpatient (CLI) | payer MEDICARE, BC, SELFPAY ==
--- NOTE | 2023-09-16 | DI.CT_ITS ---
Exam(s) CT CHEST W EXAM: CT CHEST W CLINICAL HISTORY: ASSESS RESPONSE TO TREATMENT 9 MONTHS POST COMPLETION, LLL LUNG CA, C34.32. TECHNIQUE: Multi planar reconstructions were performed. CONTRAST MATERIAL: Omnipaque 350; 75 cc COMPARISON: CT CT CHEST W from 06/23/2023 CR XR CHEST 2V PA LATERAL from 08/08/2023 FINDINGS: CHEST: LUNGS: Previously present subpleural infiltrate in the left upper lobe is mostly resolved. The left infrahilar infiltrate-mass is relatively stable in size. It is not significantly decreased in size and there is an associated small left pleural effusion which appears slightly larger than pre vious. The amount of interstitial infiltrate in left lower lobe has decreased. There are no new sig nificant focal findings in the opposite-right hemithorax. Also no pleural effusion on the right side . There are no new findings in the trachea and mainstem bronchi. MEDIASTINUM: Left infrahilar adenopathy unchanged. Mild subcarinal adenopathy is also unchanged. Ri ght hilum unremarkable. No adenopathy in the anterior mediastinal fat. Visualized thyroid gland [place] ears unremarkable. CARDIAC: Heart size is normal. There is no pericardial effusion.Caliber of the thoracic aorta is wit hin normal limits. VISUALIZED UPPER ABDOMEN:Left adrenal gland unremarkable. Nodule in the right adrenal gland is uncha nged in size, measuring approximately are a 4 by 3 cm. OSSEOUS: No significant osseous lesions.No fractures evident.. IMPRESSION: 1. Compared to prior CT scan of 06/23/2023 the size of the right hilar-infrahilar infiltrate-mass and left hilar adenopathy is unchanged. There is less interstitial infiltrate in left lung but the size of the small left pleural effusion has slightly increased. 2. There are no significant findings in the right hemithorax. 3. The size of the right adrenal nodule is unchanged, measuring 4 x 3 cm. RADIATION DOSE DELIVERED: 789.91mGy.cm Total DLP DATA REPOSITORY: All CT scans at this facility are submitted to the National Radiology Data Registry (NRDR) Dose Index Registry (DIR) with the [employer] (ACR). RADIATION OPTIMIZATION: All CT scans at this facility use at least one of these dose optimization te chniques: automated exposure control; mA and/or kV adjustment per patient size (includes targeted exa ms where dose is matched to clinical indication); or iterative reconstruction.
[2023-09-16 12:11] LABS: Abs Immature Grans 0.04 10^3/uL (0.0-0.06); Absolute Basophil Count 0.06 10^3/uL (0.0-0.2); Absolute Eosinophil Count 0.29 10^3/uL (0.0-0.7); Absolute Lymphocyte Count 0.63 10^3/uL (1.2-3.4); Absolute Monocyte Count 0.52 10^3/uL (0.1-0.8); Absolute Neutrophil Count 4.97 10^3/uL (1.2-6.7); Basophils % 0.9 %; Eosinophils % 4.5 %; HCT 46.3 % (40.0-50.0); HGB 15.5 g/dL (13.5-17.5); Immature Grans % 0.6 %; Lymphocytes % 9.7 %; MCH 30.5 pg (27.0-33.0); MCHC 33.5 % (32.0-36.0); MCV 91 fL (80-95); Neutrophils % 76.3 %; Platelet Count 252 10^3/uL (130-400); RBC 5.08 10^6/uL (4.36-5.78); RDW 14.3 % (11.8-14.1); RDW-SD 47.9 fL; WBC 6.51 10^3/uL (4.4-10.8)
[2023-09-16 12:22] LABS: ALT 34 U/L (16-63); AST 18 U/L (15-37); Albumin 3.5 g/dL (3.4-5.0); Alkaline Phosphatase 105 U/L (46-116); Anion Gap 7.5 mmol/L (3-11); BUN 11 mg/dL (7-18); Bilirubin, Total 0.7 mg/dL (0.2-1.0); CO2 26.5 mmol/L (21.0-32.0); CREATININE 1.1 mg/dL (0.70-1.30); Calcium 8.7 mg/dL (8.5-10.1); Chloride 103 mmol/L (98-107); Estimated GFR 72.67 (mL/min/1.73m2); Glucose 113 mg/dL (74-106); Potassium 4.6 mmol/L (3.5-5.1); Sodium 137 mmol/L (136-145); Total Protein 6.7 g/dL (6.4-8.2)
[2023-09-16 12:28] LABS: NT-proBNP 3148 pg/mL (<300)
[2023-09-16] MEDS: Omnipaque 350 MG/ML 100 ML BTL IJ (12:51)
[2023-09-16] MEDS: Normal Saline - Diluent 50 ML VIAL IJ (12:51)
== END ==
PROVIDERS: Family Medicine; PCP Family Medicine; Visit Provider Internal Medicine Medical Oncology
DX: C34.32 Malignant neoplasm of lower lobe, left bronchus or lung (principal); F10.10 Alcohol abuse, uncomplicated
CPT/HCPCS: 80053; 71260; 83880; 85025; J3490

== ENCOUNTER 2023-12-16 02:18 | Outpatient (CLI) | payer MEDICARE, BC, SELFPAY ==
--- NOTE | 2023-12-16 | DI.CT_ITS ---
Exam(s) CT CHEST W EXAM: CT CHEST W CLINICAL HISTORY: CANCER OF LEFT LOWER LOB OF LUNG, C34.32 TECHNIQUE: Imaging Protocol: Axial computed tomography images with coronal and sagittal reformatted images were created and reviewed CONTRAST MATERIAL: Intravenous: Omnipaque 350Contrast volume:70 mL. COMPARISON: CT CT CHEST W from 09/16/2023 FINDINGS: Tracheobronchial tree: Patent where visualized. There is persistent narrowing/obstruction of the air way to the left lower lobe. No bronchiectasis. Pulmonary parenchyma: The obstructing left hilar and infrahilar mass appears stable compared to the p rior examination. There is persistent loss of volume of the left lower lobe. There is persistent sc arring of the left major fissure which is unchanged. No new pulmonary infiltrates are seen. No new pulmonary nodules are seen. The lungs appear hyperlucent suggesting underlying COPD. Mediastinum and Bettina: The mediastinum is unchanged. The esophagus is unremarkable. Thyroid gland: Unremarkable. Pleura: There is a persistent small left pleural effusion. No significant right pleural effusion. N o pneumothorax. Heart: The heart is not dilated. Coronary artery calcifications are present. No pericardial effusion . Aorta: Thoracic aorta non-dilated. Atherosclerotic calcification is present. No evidence of dissecti on. Pulmonary arteries: No pulmonary emboli are identified. Upper abdomen: There is a stable right adrenal nodule. Lymph nodes: No axillary or supraclavicular adenopathy. Bones: Within normal limits for the patient's age. No aggressive osseous lesions are seen. Soft tissues: Bilateral gynecomastia. IMPRESSION: 1. Stable appearance of the chest. Stable left central mass and small left pleural effusion. 2. No acute pulmonary process. RADIATION DOSE DELIVERED: 249.01mGy.cm Total DLP DATA REPOSITORY: All CT scans at this facility are submitted to the National Radiology Data Registry (NRDR) Dose Index Registry (DIR) with the [employer] (ACR). RADIATION OPTIMIZATION: All CT scans at this facility use at least one of these dose optimization te chniques: automated exposure control; mA and/or kV adjustment per patient size (includes targeted exa ms where dose is matched to clinical indication); or iterative reconstruction.
[2023-12-16 07:59] LABS: Abs Immature Grans 0.03 10^3/uL (0.0-0.06); Absolute Basophil Count 0.05 10^3/uL (0.0-0.2); Absolute Eosinophil Count 0.24 10^3/uL (0.0-0.7); Absolute Lymphocyte Count 0.66 10^3/uL (1.2-3.4); Absolute Neutrophil Count 6.41 10^3/uL (1.2-6.7); Basophils % 0.6 %; HCT 47.9 % (40.0-50.0); Immature Grans % 0.4 %; Lymphocytes % 8.3 %; MCH 30.9 pg (27.0-33.0); MCHC 33.4 % (32.0-36.0); MCV 93 fL (80-95); MPV 8.9 fL (8.0-11.0); Monocytes % 7.5 %; Neutrophils % 80.2 %; Platelet Count 245 10^3/uL (130-400); RBC 5.18 10^6/uL (4.36-5.78); RDW 13.8 % (11.8-14.1); RDW-SD 47.1 fL; WBC 7.99 10^3/uL (4.4-10.8)
[2023-12-16 08:24] LABS: ALT 19 U/L (16-63); AST 17 U/L (15-37); Albumin 3.4 g/dL (3.4-5.0); Alkaline Phosphatase 115 U/L (46-116); Anion Gap 7.3 mmol/L (3-11); BUN 11 mg/dL (7-18); Bilirubin, Total 0.88 mg/dL (0.2-1.0); CO2 26.7 mmol/L (21.0-32.0); Chloride 105 mmol/L (98-107); Estimated GFR 81.47 (mL/min/1.73m2); Glucose 120 mg/dL (74-106); Potassium 4.3 mmol/L (3.5-5.1); Sodium 139 mmol/L (136-145); Total Protein 6.9 g/dL (6.4-8.2)
[2023-12-16] MEDS: Omnipaque 350 MG/ML 100 ML BTL IJ (08:37)
[2023-12-16] MEDS: Normal Saline - Diluent 50 ML VIAL IJ (08:38)
== END 2023-12-16 02:38 ==
LOC: DI 02:18
PROVIDERS: PCP Family Medicine; Visit Provider Internal Medicine Medical Oncology
DX: C34.32 Malignant neoplasm of lower lobe, left bronchus or lung (principal)
CPT/HCPCS: 80053; 71260; 85025; J3490

== ENCOUNTER 2024-04-23 00:24 | Outpatient (CLI) | payer MEDICARE, BC, SELFPAY ==
[2024-04-23 11:18] LABS: Abs Immature Grans 0.04 10^3/uL (0.0-0.06); Absolute Basophil Count 0.05 10^3/uL (0.0-0.2); Absolute Eosinophil Count 0.17 10^3/uL (0.0-0.7); Absolute Lymphocyte Count 0.72 10^3/uL (1.2-3.4); Absolute Monocyte Count 0.51 10^3/uL (0.1-0.8); Absolute Neutrophil Count 4.69 10^3/uL (1.2-6.7); Basophils % 0.8 %; Eosinophils % 2.8 %; HCT 46.7 % (40.0-50.0); HGB 15.2 g/dL (13.5-17.5); Immature Grans % 0.6 %; Lymphocytes % 11.7 %; MCH 29.7 pg (27.0-33.0); MCHC 32.5 % (32.0-36.0); MCV 91 fL (80-95); MPV 8.4 fL (8.0-11.0); Monocytes % 8.3 %; Neutrophils % 75.8 %; Platelet Count 241 10^3/uL (130-400); RBC 5.11 10^6/uL (4.36-5.78); RDW 16.7 % (11.8-14.1); RDW-SD 56.8 fL; WBC 6.18 10^3/uL (4.4-10.8)
[2024-04-23 11:35] LABS: ALT 21 U/L (16-63); AST 14 U/L (15-37); Albumin 3.5 g/dL (3.4-5.0); Alkaline Phosphatase 132 U/L (46-116); Anion Gap 4.9 mmol/L (3-11); BUN 21 mg/dL (7-18); Bilirubin, Total 0.95 mg/dL (0.2-1.0); CO2 33.1 mmol/L (21.0-32.0); CREATININE 1.3 mg/dL (0.70-1.30); Calcium 9.2 mg/dL (8.5-10.1); Chloride 103 mmol/L (98-107); Glucose 100 mg/dL (74-106); Potassium 5.4 mmol/L (3.5-5.1); Sodium 141 mmol/L (136-145); Total Protein 7.1 g/dL (6.4-8.2)
[2024-04-23] MEDS: Normal Saline - Diluent 50 ML VIAL IJ (11:48)
[2024-04-23] MEDS: Omnipaque 350 MG/ML 100 ML BTL 70 ML IJ (11:50)
--- NOTE | 2024-04-23 11:55 | DI.CT_ITS ---
Exam(s) CT CHEST W EXAM: CT CHEST W CLINICAL HISTORY: C34.32 Primary CA of left lower lobe of lung TECHNIQUE: Imaging Protocol: Axial computed tomography images with coronal and sagittal reformatted images were created and reviewed. Computer aided detection (CAD) was utilized. CONTRAST MATERIAL: Intravenous: Omnipaque 350Contrast volume:70 mL. COMPARISON: CT CT CHEST W from 12/16/2023 FINDINGS: Tracheobronchial tree: Patent where visualized. No evidence of bronchiectasis. Pulmonary parenchyma: There is a stable non calcified 3 mm nodule in the right lower lobe (series 8, image 124.). Centrilobular emphysematous changes are present. There are calcified granulomas presen t.. There is now complete collapse of the left lower lobe. Mediastinum and Bettina: No dominant adenopathy or fluid collection. The esophagus is unremarkable. Thyroid gland: Unremarkable. Pleura: There has been interval increase in size of the left pleural effusion which is small to moder ate. No right pleural effusion. No pneumothorax. Heart: The heart is not dilated. Coronary artery calcifications are present. No pericardial effusion . Aorta: Thoracic aorta non-dilated. There is no evidence of dissection. Atherosclerotic calcification is present. Pulmonary arteries: No pulmonary emboli are identified. Upper abdomen: There is a stable right adrenal nodule. Lymph nodes: Within normal limits. Bones: Within normal limits for the patient's age. Soft tissues: There is bilateral gynecomastia. IMPRESSION: 1. Interval complete collapse of the left lower lobe. 2. Slight interval increase in the left pleural effusion which is small to moderate in size. 3. Stable pulmonary nodules. 4. Stable right adrenal nodule. RADIATION DOSE DELIVERED: 232.23mGy.cm Total DLP DATA REPOSITORY: All CT scans at this facility are submitted to the National Radiology Data Registry (NRDR) Dose Index Registry (DIR) with the [employer] ([employer]). RADIATION OPTIMIZATION: All CT scans at this facility use at least one of these dose optimization te chniques: automated exposure control; mA and/or kV adjustment per patient size (includes targeted exa ms where dose is matched to clinical indication); or iterative reconstruction.
== END 2024-04-23 00:44 ==
PROVIDERS: PCP Family Medicine; Visit Provider Nurse Practitioner Family
DX: C34.32 Malignant neoplasm of lower lobe, left bronchus or lung (principal)
CPT/HCPCS: 80053; 71260; 83735; 85025; J3490

== ENCOUNTER 2024-04-26 03:11 | Outpatient (CLI) | payer MEDICARE, BC, SELFPAY ==
[2024-04-26 09:02] LABS: Abs Immature Grans 0.03 10^3/uL (0.0-0.06); Absolute Basophil Count 0.06 10^3/uL (0.0-0.2); Absolute Eosinophil Count 0.25 10^3/uL (0.0-0.7); Absolute Lymphocyte Count 0.88 10^3/uL (1.2-3.4); Absolute Monocyte Count 0.54 10^3/uL (0.1-0.8); Absolute Neutrophil Count 5.29 10^3/uL (1.2-6.7); Basophils % 0.9 %; Eosinophils % 3.5 %; HCT 48.2 % (40.0-50.0); HGB 15.7 g/dL (13.5-17.5); Immature Grans % 0.4 %; Lymphocytes % 12.5 %; MCH 29.9 pg (27.0-33.0); MCHC 32.6 % (32.0-36.0); MCV 92 fL (80-95); MPV 8.9 fL (8.0-11.0); Monocytes % 7.7 %; Platelet Count 213 10^3/uL (130-400); RBC 5.25 10^6/uL (4.36-5.78); RDW 16.9 % (11.8-14.1); RDW-SD 56.6 fL; WBC 7.05 10^3/uL (4.4-10.8)
[2024-04-26 09:03] LABS: ALT 18 U/L (16-63); AST 13 U/L (15-37); Albumin 3.4 g/dL (3.4-5.0); Alkaline Phosphatase 127 U/L (46-116); Anion Gap 5.1 mmol/L (3-11); BUN 16 mg/dL (7-18); CO2 31.9 mmol/L (21.0-32.0); CREATININE 1.1 mg/dL (0.70-1.30); Calcium 9.1 mg/dL (8.5-10.1); Chloride 99 mmol/L (98-107); Estimated GFR 72.22 (mL/min/1.73m2); Glucose 102 mg/dL (74-106); Potassium 4.3 mmol/L (3.5-5.1); Sodium 136 mmol/L (136-145); Total Protein 7.1 g/dL (6.4-8.2)
== END 2024-04-26 03:12 | disposition home or self-care (01) ==
PROVIDERS: Internal Medicine Medical Oncology; PCP Family Medicine; Visit Provider Nurse Practitioner Family
DX: C34.32 Malignant neoplasm of lower lobe, left bronchus or lung (principal)
CPT/HCPCS: 36415; 80053; 83735; 85025

== ENCOUNTER 2024-07-05 02:12 | Outpatient (CLI) | payer MEDICARE, BC, SELFPAY ==
[2024-07-05 12:26] LABS: Abs Immature Grans 0.03 10^3/uL (0.0-0.06); Absolute Basophil Count 0.06 10^3/uL (0.0-0.2); Absolute Eosinophil Count 0.19 10^3/uL (0.0-0.7); Absolute Lymphocyte Count 0.91 10^3/uL (1.2-3.4); Absolute Neutrophil Count 6.56 10^3/uL (1.2-6.7); Basophils % 0.7 %; Eosinophils % 2.3 %; HCT 48.2 % (40.0-50.0); Immature Grans % 0.4 %; Lymphocytes % 10.9 %; MCH 30.2 pg (27.0-33.0); MCHC 33.2 % (32.0-36.0); MCV 91 fL (80-95); MPV 8.9 fL (8.0-11.0); Monocytes % 7.2 %; Neutrophils % 78.5 %; Platelet Count 268 10^3/uL (130-400); RDW 13.9 % (11.8-14.1); RDW-SD 46.5 fL; WBC 8.35 10^3/uL (4.4-10.8)
[2024-07-05 12:52] LABS: ALT 13 U/L (16-63); AST 21 U/L (15-37); Albumin 3.3 g/dL (3.4-5.0); Alkaline Phosphatase 129 U/L (46-116); Anion Gap 6.9 mmol/L (3-11); BUN 19 mg/dL (7-18); Bilirubin, Total 0.9 mg/dL (0.2-1.0); CO2 29.1 mmol/L (21.0-32.0); CREATININE 1.1 mg/dL (0.70-1.30); Calcium 9.2 mg/dL (8.5-10.1); Chloride 103 mmol/L (98-107); Estimated GFR 72.22 (mL/min/1.73m2); Glucose 107 mg/dL (74-106); Magnesium 2.3 mg/dL; Potassium 4.7 mmol/L (3.5-5.1); Sodium 139 mmol/L (136-145); Total Protein 7.4 g/dL (6.4-8.2)
[2024-07-05] MEDS: Omnipaque 350 MG/ML 100 ML BTL 70 ML IJ (13:16)
--- NOTE | 2024-07-05 13:20 | DI.CT_ITS ---
Exam(s) CT CHEST W EXAM: CT CHEST W CLINICAL HISTORY: LT LOWER LOBE LUNG CANCER C34.22 ASSESS TREATMENT RESPONSE. TECHNIQUE: Multi planar reconstructions were performed. CONTRAST MATERIAL: Omnipaque 350; 75 cc COMPARISON: CT CT CHEST WO from 10/16/[address] CHEST W from 03/17/[address] CHEST W from 04/23/2024 FINDINGS: CHEST: LUNGS: There is now complete collapse of the left lower lobe and subtotal collapse of the left upper lobe, and the size of left pleural effusion has significantly increased from the study of 04/23/2024. There is occlusion of the left mainstem bronchus 2.2 cm distal to its origin. Leftward shift of me diastinal structures is again noted. There is compensatory over inflation of the opposite-right lung again noted. The previously described nodule in the anterior basal segment of the right lower lobe appears to have slightly increased in size, presently measuring 1.1 x 0.8 cm. There are no new tammy tional right lung nodules and there is no right-sided pleural effusion. Right mainstem bronchus is c lear. MEDIASTINUM: Mass/lung collapse is contiguous with the left hilum and difficult to assess for left hi lar adenopathy. There is no prominent subcarinal adenopathy. Right hilum appears unremarkable. Vis ualized thyroid unremarkable. CARDIAC: Heart size is upper normal. There is no pericardial effusion.Caliber of the thoracic aorta is within normal limits. VISUALIZED UPPER ABDOMEN:There is a right adrenal nodule measuring 4.2 cm AP by 3.2 cm wide by 3.8 cm craniocaudal. This is unchanged from 04/23/2024 and also unchanged from CT scan of March 2023. OSSEOUS: No significant osseous lesions.No fractures.. IMPRESSION: 1. Significant further deterioration in the left hemithorax/left lung as described above. There is n ow complete collapse of the left lower lobe and almost complete collapse of the left upper lobe and t he size of the left pleural effusion has significantly further increased. 2. Slight increased size of right lower lobe nodule. There is no pleural effusion on the right side 3. Continued stable appearance of 4.2 cm hypodense right adrenal nodule. This may not be metastatic, given that it has not increased in size since at least March [address]23 CT scan RADIATION DOSE DELIVERED: 231.48mGy.cm Total DLP DATA REPOSITORY: All CT scans at this facility are submitted to the National Radiology Data Registry (NRDR) Dose Index Registry (DIR) with the [employer] ([employer]). RADIATION OPTIMIZATION: All CT scans at this facility use at least one of these dose optimization te chniques: automated exposure control; mA and/or kV adjustment per patient size (includes targeted exa ms where dose is matched to clinical indication); or iterative reconstruction.
== END 2024-07-05 02:32 ==
LOC: DI 02:12
PROVIDERS: Nurse Practitioner Family; PCP Family Medicine; Visit Provider Internal Medicine Medical Oncology
DX: C34.32 Malignant neoplasm of lower lobe, left bronchus or lung (principal)
CPT/HCPCS: 80053; 71260; 83735; 85025; J3490

== ENCOUNTER 2024-08-12 19:09 | Inpatient (IN) | payer MEDICARE, BC, SELFPAY ==
[2024-08-12] VITALS (31 sets, daily range): BP systolic 103–163; BP diastolic 60–92; PULSE 69–126; RESP 8–34; TEMP 36.9–37.1; O2SAT 90–100
--- NOTE | 2024-08-12 19:00 | RT.EKG_ITS ---
APPROVED REPORT Exam: Resting ECG Reason for Exam: dyspnea Patient Location: E HR:113 bpm ECG Measurements Heart Rate 113 AXIS PA [id number] P [id number] QRSd 104 QRS 129 QT 287 T 82 QTc 394 Conclusion Atrial fibrillation...V-rate 99-174, irreg A-activity Paired ventricular premature complexes...sequence of 2 V complexes Right axis deviation...QRS axis ( 91,269) Low voltage, extremity and precordial leads...extremity<0.5mV, precordial<1.0mV Repol abnrm suggests ischemia, diffuse leads...ST-T neg, ant/lat/inf ST elevation, consider inferior injury...ST >0.08mV, II III aVF
--- NOTE | 2024-08-12 19:15 | DI.CT_ITS ---
Exam(s) CT CHEST PE CTA EXAM: CT CHEST PE CTA CLINICAL HISTORY: shortness of breath, lung cancer. TECHNIQUE: Imaging Protocol: Axial CT angiography was performed with multi-slice acquisition and mu lti-planar reconstructions as well as axial, coronal and sagittal MIP reconstructions. Computer aided detection (CAD) was utilized. CONTRAST MATERIAL: Intravenous: Omnipaque 350 Contrast volume:100 ml COMPARISON: CT CT CHEST W from 04/23/[address] CHEST W from 07/05/2024 FINDINGS: Pulmonary Arteries: No evidence of filling defect to suggest pulmonary emboli. Mediastinum and Bettina: No dominant adenopathy or fluid collection. Pulmonary parenchyma/pleura: Continued increase in size of left pleural effusion, now occupying the e ntire left hemithorax. Worsening of bare-cm-lqrky midline shift. Complete collapse of left lung. W orsening of attenuation of vessels extending to the left lower lobe. Left mainstem bronchus is occlu ded the either with mucous or extension of mass. No discrete left sided mass is visualized due to cr oup complete left lung collapse. There is again nodule noted at the right lower lobe which is increa sed in size to 1.4 cm compared with 1.1 cm on the prior exam. Heart: The heart is not dilated. Mild coronary artery calcifications are seen. Aorta: Thoracic aorta non-dilated. Not well opacified with contrast. No gross evidence of dissectio n. Mild atherosclerotic changes. Upper abdomen: No further increase in size of right adrenal mass measuring 4.5 cm compared to 4.2 cm on the prior exam. Bones: Unremarkable for age.No destructive lesions are identified. Tubes, Catheters, and Lines: None Soft tissues: Unremarkable. IMPRESSION: No evidence of pulmonary embolism. Significant interval increase in size of left pleural effusion and significant worsening of left-to-r ight midline shift. Complete collapse of the left lung with motion of the left main bronchus. Increased size of right lower lobe nodule. Increased size of right adrenal metastasis. RADIATION DOSE DELIVERED: 172.89mGy.cm Total DLP DATA REPOSITORY: All CT scans at this facility are submitted to the National Radiology Data Registry (NRDR) Dose Index Registry (DIR) with the [employer] (ACR). RADIATION OPTIMIZATION: All CT scans at this facility use at least one of these dose optimization te chniques: automated exposure control; mA and/or kV adjustment per patient size (includes targeted exa ms where dose is matched to clinical indication); or iterative reconstruction.
--- NOTE | 2024-08-12 19:31 | W.ED.GENAD ---
Discharge Plan Disposition Patient Disposition: Admit to [facility] Condition: Stable Discharge Details Clinical Impression: Acute hypoxemic respiratory failure, COPD with exacerbation, Pleural effusion Primary Care Provider: Semaj Avila ED Provider: Bipin Oakley Home Meds and New Rx's Prescriptions: No Action metoprolol succinate [Toprol XL] 100 MG tablet extended release 24 hr 100 mg PO BID Eliquis 5 mg tablet 5 mg PO BID albuterol sulfate [Ventolin HFA] 90 mcg/actuation HFA aerosol inhaler 2 puff IH .COMPLEX PRN (Reason: shortness of breath or wheezing) Qty: 25.5 12RF Rx Instructions: 2 puffs inhaled every 4-6 hours PRN; budesonide-formoterol 160-4.5 mcg/actuation HFA aerosol inhaler See Rx Instructions .ROUTE .COMPLEX Qty: 30.6 12RF Dose Instruction: INHALE TWO PUFFS BY MOUTH TWICE A DAY Rx Instructions: INHALE TWO PUFFS BY MOUTH TWICE A DAY Spiriva Respimat 2.5 mcg/actuation mist 2 inh inhalation QAM Qty: 3 12RF diltiazem HCl 120 mg capsule,extended release 24 hr 120 mg PO DAILY Qty: 30 0RF HPI General Mode of arrival: EMS. Date/Time Provider Initiated Documentation: 08/12/24 19:16. Limitations to Documentation: no limitations. Information obtained by: patient. History of Present Illness 69 year old M presents to the emergency department with the chief complaint of shortness of breath, described as moderate, Patient started experiencing this day(s) (2) and it has been constant. No relieving factors improve symptom(s), No exacerbating factors reported . Patient notes cough and shortness of breath; denies chest pain and fever/chills. Patient did receive the following treatments prior to arrival, none Related Data Home Medications ?Medication ?Instructions ?Recorded ?Confirmed metoprolol succinate 100 mg 100 mg PO BID 07/07/14 08/12/24 tablet,extended release 24 hr (Toprol XL) apixaban 5 mg tablet (Eliquis) 5 mg PO BID 05/04/19 08/12/24 diltiazem HCl 120 mg capsule,24 120 mg PO DAILY #30 caps 01/07/22 08/12/24 hr,extended release albuterol sulfate 90 mcg/actuation 2 puff inhalation .COMPLEX PRN 09/02/23 08/12/24 aerosol inhaler (Ventolin HFA) shortness of breath or wheezing #25.5 grams budesonide-formoterol HFA 160 See Rx Instructions .Route 02/04/24 08/12/24 mcg-4.5 mcg/actuation aerosol .COMPLEX #30.6 grams inhaler tiotropium bromide 2.5 2 inh inhalation QAM #3 ea 02/04/24 08/12/24 mcg/actuation mist for inhalation (Spiriva Respimat) Previous Rx's ?Medication ?Instructions ?Recorded diltiazem HCl 120 mg capsule,24 120 mg PO DAILY #30 caps 01/07/22 hr,extended release albuterol sulfate 90 mcg/actuation 2 puff inhalation .COMPLEX PRN 09/02/23 aerosol inhaler (Ventolin HFA) shortness of breath or wheezing #25.5 grams budesonide-formoterol HFA 160 See Rx Instructions .Route 02/04/24 mcg-4.5 mcg/actuation aerosol .COMPLEX #30.6 grams inhaler tiotropium bromide 2.5 2 inh inhalation QAM #3 ea 02/04/24 mcg/actuation mist for inhalation (Spiriva Respimat) Allergies Allergy/AdvReac Type Severity Reaction Status Date / Time fluoxetine Allergy rash Verified 08/12/24 19:15 Penicillins Allergy rash Verified 08/12/24 19:15 codeine AdvReac N/V, Verified 08/12/24 19:15 fatigue General Stated Complaint: SOB VIKI: 3 Review of Systems All systems reviewed & are unremarkable except as noted in HPI and below Constitutional Constitutional: Denies chills, Denies fever(s) and Denies weakness Cardiovascular Cardiovascular: Denies chest pain and Reports dyspnea Respiratory Respiratory: Reports cough and Reports dyspnea Gastrointestinal Gastrointestinal: Denies abdominal pain, Denies nausea and Denies vomiting Neurologic Neurologic: Denies weakness Psychiatric Psychiatric: Denies depression Exam Const General: no acute distress Orientation: alert HENUT Head: normal to inspection Ears: external ears normal General nose exam: external nose normal Mouth: moist mucous membranes Eyes General: appearance normal, both eyes and all related structures Neck Neck: normal visual inspection Resp Effort & Inspection: normal respiratory effort and able to speak in complete sentences Auscultation: diminished lung sounds, rhonchi and wheezes Cardio Rate: regular rate Skin General skin exam: no rashes or lesions noted Neuro General: patient alert and patient oriented x3 Extrem General: normal to inspection Psych Mental Status: mental status grossly normal Course Vital Signs Vital signs: Vital Signs Temperature 37.1 C 08/12/24 19:10 Pulse 106 H 08/12/24 19:10 Respiratory Rate 25 H 08/12/24 19:10 Blood Pressure 138/86 08/12/24 19:10 Pulse Oximetry 94 08/12/24 19:10 Temperature 37.1 C 08/12/24 19:10 Pulse 106 H 08/12/24 19:10 Respiratory Rate 25 H 08/12/24 19:10 Blood Pressure 138/86 08/12/24 19:10 Blood Pressure Position Supine 08/12/24 19:10 Pulse Oximetry 94 08/12/24 19:10 Oxygen Delivery Method Room Air 08/12/24 19:10 Oxygen Flow Rate 0 08/12/24 19:10 Pain Level 0 08/12/24 19:10 Comment placed on room air on arrival 08/12/24 19:10 Medical Decision Making 69-year-old male with a history of COPD, lung cancer and on a CT in June had significant collapse of his left upper and lower lobes on CT and also pleural effusion and states he is due to have a paracentesis on August 18 comes in with 2 days of worsening shortness of breath and cough. Denies any fevers or chest pain. He was noted to be in the low 80s on room air which is new for him. He is alert oriented answering questions appropriately. He is only able to speak in 4-5 word sentences at a time. He does have wheezing at the apices, diminished lung sounds at the base on the left side, has rhonchi at the base of the right lobe. I suspect multiple etiologies for symptoms including pleural effusion, collapsed lung from his cancer and also possibly COPD and pneumonia. Will proceed with CBC, CMP, troponins treat symptoms with DuoNeb and Solu-Medrol and obtain a CTA of the chest to evaluate for PE, pleural effusions, infiltrates Labs without significant emergent findings, CTA on my read shows significant pleural effusion similar when he has CAT scan in June. He feels significantly better after DuoNeb and still has wheezing, ordered another DuoNeb. Awaiting vRad read but likely will plan for admission and possibly have a thoracentesis tomorrow with general surgery. Spoke with Dr. Aragon who will plan to see the patient in the morning. Patient still feels significantly better. CTA read shows continued large left pleural effusion and continued collapse of left pulmonary parenchyma similar to prior CT in June. Spoke with Dr. Calle who will plan to admit the patient. Differential Diagnosis Differential Diagnosis: copd, pneumonia, pleural effusion, PE Medical Records Medical records reviewed: Yes I reviewed the patient's medical records. Imaging Data Radiologic Study: Attestation: I personally reviewed and interpreted this imaging study as follows: Imaging: CT Scan Radiologist's impression: IMPRESSION: 1. Large left pleural effusion with complete collapse of the left pulmonary parenchyma and mass effect causing rightward mediastinal shift. 2. Redemonstration of left pulmonary mass, however not well evaluated due to significant pleural effusion. 3. Soft tissue within the left mainstem bronchus may be secondary to fluid versus extension of mass. 4. Stable appearance of 6 mm right pulmonary nodule, possibly metastasis. 5. No definite evidence of pulmonary embolism. Heterogeneous appearance of the left pulmonary artery is thought to represent mixing artifact. 6. Slight interval increase in right adrenal gland mass, concerning for metastatic disease. Lab Data Lab results reviewed: Yes I reviewed the patient's lab results. ECG Data Attestation: I personally reviewed and interpreted this ECG (s) as follows: Prior ECG tracings: available for review Interpretation: motion artifact, afib, rate of 113 no stemi Quality:SDOH Health Related Social Needs: No Data to Display [facility] All Active Problems (Updated 08/12/24 @ 21:54 by James Calle) Acute on chronic respiratory failure with hypoxia and hypercapnia (Acute) Non-small cell carcinoma of left lung, stage 4 (Chronic) Pleural effusion (Chronic) COPD with exacerbation (Acute) Acute hypoxemic respiratory failure (Acute) Non-small cell carcinoma of lung, stage 3 (Acute) Personal history of nicotine dependence (Acute) Pulmonary hypertension (Chronic) Sleep apnea (Acute) Atrial fibrillation (Chronic) COPD (chronic obstructive pulmonary disease) (Chronic) Medical History Lung mass Left lower lung mass cancer ETOH abuse Impaired fasting glucose Atrial fibrillation Hypertension Anal condyloma COPD (chronic obstructive pulmonary disease) Cervical disc disorder with radiculopathy Hyperlipidemia Depression Surgical History Repair, Hypospadious Fulguration, Anal Warts Social History Smoking/Tobacco Use Status: Former Tobacco Use Quit Date: 04/14/14 Pack-years: 60 Smoking risk assessment performed?: Yes Alcohol Intake: former Year quit: 2019 Drug use: Never Substance use type: does not use Housing: house Do you feel safe at home: Yes Do you feel safe in your relationship?: Yes Additional Social history: quit smoking 8 years ago 37 months sober from alcohol
[2024-08-12 19:32] LABS: BE (Venous) 4 mmol/L (-2-3); HCO3 (Venous) 31 mmol/L (23-28); O2 Sat (Venous) 44 %; TCO2 (Venous) 29 mmol/L (24-29); pH (Venous) 7.28 (7.31-7.41); pO2 (Venous) 32 mmHg
[2024-08-12 19:33] LABS: Absolute Basophil Count 0.04 10^3/uL (0.0-0.2); Absolute Eosinophil Count 0.01 10^3/uL (0.0-0.7); Absolute Lymphocyte Count 0.45 10^3/uL (1.2-3.4); Absolute Monocyte Count 0.64 10^3/uL (0.1-0.8); Absolute Neutrophil Count 9.12 10^3/uL (1.2-6.7); Basophils % 0.4 %; Eosinophils % 0.1 %; HCT 46.8 % (40.0-50.0); HGB 15.1 g/dL (13.5-17.5); Lymphocytes % 4.3 %; MCH 29.9 pg (27.0-33.0); MCHC 32.3 % (32.0-36.0); MCV 93 fL (80-95); MPV 9.4 fL (8.0-11.0); Monocytes % 6.2 %; Platelet Count 358 10^3/uL (130-400); RBC 5.05 10^6/uL (4.36-5.78); RDW 16.9 % (11.8-14.1); RDW-SD 54.4 fL; WBC 10.36 10^3/uL (4.4-10.8); pCO2 (Venous) 67 mmHg (41-51)
[2024-08-12] MEDS: methylPREDNISolone SUCC 125 MG VIAL IVP (19:47)
[2024-08-12] MEDS: Albuterol/Ipratropium 3 ML UPD VIAL UPD ×2 (19:47→21:06)
[2024-08-12 20:13] LABS: COVID-19 PCR Negative (Negative); Influenza A PCR Negative (Negative); Influenza B PCR Negative (Negative); RSV PCR Negative (Negative); Source Nasopharynx
[2024-08-12 20:32] LABS: INR 1.5 (0.9-1.1); PTT Activated 27.9 sec (20.6-30.2); Prothrombin Time 14.9 sec (9.1-11.1)
[2024-08-12] MEDS: Omnipaque 350 MG/ML 100 ML BTL IJ (20:32)
[2024-08-12] MEDS: Normal Saline - Diluent 50 ML VIAL IJ (20:33)
[2024-08-12 20:37] LABS: ALT 29 U/L (16-63); AST 24 U/L (15-37); Albumin 3.8 g/dL (3.4-5.0); Alkaline Phosphatase 97 U/L (46-116); Anion Gap 7.1 mmol/L (3-11); BUN 62 mg/dL (7-18); Bilirubin, Total 1.5 mg/dL (0.2-1.0); CO2 31.9 mmol/L (21.0-32.0); Calcium 9.8 mg/dL (8.5-10.1); Chloride 97 mmol/L (98-107); Estimated GFR 35.24 (mL/min/1.73m2); Glucose 108 mg/dL (74-106); Magnesium 2.4 mg/dL (1.8-2.4); NT-proBNP 4890 pg/mL (<300); Potassium 4.6 mmol/L (3.5-5.1); Sodium 136 mmol/L (136-145); Troponin I 44 ng/L (<or=76)
[2024-08-12] MEDS: HYDROmorphone 2 MG/ML SYR 1 MG IVP (21:04)
--- NOTE | 2024-08-12 21:15 | DI.VRAD_ITS ---
PROCEDURE INFORMATION: Exam: CTA Chest With Contrast Exam date and time: 08/12/2024 8:30 PM Age: 69 years old Clinical indication: Shortness of breath, lung cancer TECHNIQUE: Imaging protocol: Computed tomographic angiography of the chest with contrast. Exam focused on the arteries. 3D rendering (Not supervised by radiologist): MIP and/or 3D reconstructed images were created by the technologist. Contrast material: OMNIPAQUE 350; Contrast volume: 100 ml; Contrast route: INTRAVENOUS (IV); COMPARISON: CT CHEST W 07/05/2024 1:07 PM FINDINGS: Pulmonary arteries: No definite evidence of pulmonary embolism. Heterogeneous appearance of the left pulmonary artery may be secondary to contrast mixing artifact. Aorta: No aortic aneurysm. Veins: There is complete cutoff of the left pulmonary veins secondary to adjacent mass. Trachea: There is complete collapse of the left pulmonary bronchial tree. Lungs: There is a large left pleural effusion noted with complete atelectasis of the left lung. Right parenchymal malignancy is not well evaluated on this scan secondary to compression from adjacent pleural effusion. There is redemonstration of a 1.4 cm ill-defined nodule in the right lower lobe (image 47, series 6). Pleural spaces: The left pleural effusion is significantly increased since the prior examination, and is now encompassing most of the left hemithorax. There is a mediastinal shift to the right secondary to large pleural effusion. Heart: No cardiomegaly. No pericardial effusion. Lymph nodes: No enlarged lymph nodes. Adrenal glands: There has been interval increase in size of right adrenal gland mass measuring approximately 4.5 cm, previously 4.1 cm (image 60, series 6), possibly representing metastatic disease. Bones/joints: No acute fracture. Soft tissues: There is soft tissue noted throughout the left mainstem bronchus, possibly fluid versus extension of malignancy. IMPRESSION: 1. Large left pleural effusion with complete collapse of the left pulmonary parenchyma and mass effect causing rightward mediastinal shift. 2. Redemonstration of left pulmonary mass, however not well evaluated due to significant pleural effusion. 3. Soft tissue within the left mainstem bronchus may be secondary to fluid versus extension of mass. 4. Stable appearance of 6 mm right pulmonary nodule, possibly metastasis. 5. No definite evidence of pulmonary embolism. Heterogeneous appearance of the left pulmonary artery is thought to represent mixing artifact. 6. Slight interval increase in right adrenal gland mass, concerning for metastatic disease. Dictated and Authenticated by: Gabbie Orellana MD. Orderin Cele Voss MD
--- NOTE | 2024-08-12 21:25 | HPE_ITS ---
Date of service: 08/12/24 Time of Service: 21:25 Assessment and Plan Assessment and plan (1) Acute on chronic respiratory failure with hypoxia and hypercapnia: Start date: 08/12/24 Status: Acute Assessment and plan: This is a 62-[id number]-old gentleman presenting with acute hypoxemia usually being on room air. He has a large left pleural effusion which is intermittently drained with plans for being drained next week. CT scanning of the chest does reveal enlargement of the pleural effusion and persistence of left lung cancer which may be spreading locally. Pneumonia cannot be ruled out completely and patient will be covered for community-acquired pneumonia while being treated acutely for COPD exacerbation. Surgery will be consulted for left pleural effusion and possible earlier thoracentesis. Avoid narcotics with patient being oversedated. Benzodiazepines should also be avoided. He remains a full code. (2) COPD with exacerbation: Start date: 08/12/24 Status: Acute Assessment and plan: Patient has a history of previous tobacco use quitting years ago as he has alcohol. He is on inhalers for controller therapy and rescue therapy with now has acute hypoxemia used to be on room air. He does have respiratory acidosis and hypercapnia which is stable without positive pressure treatment. He will be treated for COPD exacerbation and cover for possible early pneumonia with large pleural effusion obscuring tumor and possibly infiltrate. Solu-Medrol was given will be continued converting to prednisone and patient also will have more frequent nebulizer treatments. (3) Pleural effusion: Status: Chronic Assessment and plan: Large left pleural effusion associated with lung cancer with planned therapeutic thoracentesis which may be done sooner if surgery agrees. (4) Non-small cell carcinoma of left lung, stage 4: Status: Chronic Assessment and plan: Patient is continuing treatment with prognosis poor. He is a full code. (5) Pulmonary hypertension: Status: Chronic Assessment and plan: Patient is not on diuretics presently and this will be monitored closely. Avoid fluid overload. (6) Atrial fibrillation: Status: Chronic Assessment and plan: Continue Eliquis and outpatient medical therapy. Slightly tachycardic with acute pulmonary process, telemetry while hospitalized. (7) Hypertension: Assessment and plan: Continue outpatient medical therapy adjust as needed. History of Present Illness History of Present Illness Chief Complaint: Cough and progressive shortness of breath for 2 days. Narrative: This is a 69-year-old male patient who does have non-small cell lung cancer in the left lung which is called obstruction of the left lung field with a progressive pleural effusion and plan therapeutic thoracentesis next week. He has a previous smoker and has COPD. He complains of cough which has been dry with progressive shortness of breath prompting visit to the ED. He is usually not on oxygen at home and was requiring oxygen in the ED. VBG did show hypercapnia with respiratory acidosis and hypoxemia. CT of the chest revealed his left tumor which appears to be possibly progressing and a left pleural effusion which appears markedly increased by comparison to CT of the chest in June 2024. There was no infiltrate seen on imaging but were postobstructive atelectasis with the tumor. The tumor also may be progressing into the bronchus. There was no noted PE and patient is on Eliquis chronically for atrial fibrillation. He had a chest pain and had no ischemic changes on his EKG with negative troponins. The patient was given Solu-Medrol with nebulizers in the ED and did have some improvement of his dyspnea the patient is speaking in short sentences in the ED. He did receive Dilaudid 1 mg IV for left chest pain associated with his effusion and cancer and at the time I saw the patient he was oversedated by that injection. He did respond to Narcan and was more alert. He continues to speak in short sentences and continues to require O2. VBG was repeated and he did not have an elevation change in his pCO2. He was admitted for his new onset hypoxemia with acute hypoxic and hypercapnic respiratory failure with possible postobstructive pneumonia but at least a large pleural effusion which may need tapping. The patient is on Eliquis and this may need to be held if thoracentesis is entertained. Surgery was consulted. He also has an elevated PT/INR secondary to what appears to be chronic liver disease with an elevated total bilirubin and having previous history of alcohol abuse. Patient will be admitted for IV Solu-Medrol, positive pressure treatment with a history of sleep apnea if he is awake enough after his Dilaudid IV dose is cleared, and more frequent nebulizer treatments. He does remain a full code with poor prognosis. This should be reviewed by palliative care. Review of Systems Narrative: 13 point review of systems otherwise unrevealing or stable. The patient does have chronic peripheral edema with some element of right-sided heart failure. PFSH All Active Problems (Updated 08/12/24 @ 21:54 by James Calle) Acute on chronic respiratory failure with hypoxia and hypercapnia (Acute) Non-small cell carcinoma of left lung, stage 4 (Chronic) Pleural effusion (Chronic) COPD with exacerbation (Acute) Acute hypoxemic respiratory failure (Acute) Non-small cell carcinoma of lung, stage 3 (Acute) Personal history of nicotine dependence (Acute) Pulmonary hypertension (Chronic) Sleep apnea (Acute) Atrial fibrillation (Chronic) COPD (chronic obstructive pulmonary disease) (Chronic) Medical History Lung mass Left lower lung mass cancer ETOH abuse Impaired fasting glucose Atrial fibrillation Hypertension Anal condyloma COPD (chronic obstructive pulmonary disease) Cervical disc disorder with radiculopathy Hyperlipidemia Depression Surgical History Repair, Hypospadious Fulguration, Anal Warts Social History Smoking/Tobacco Use Status: Former Tobacco Use Quit Date: 04/14/14 Pack-years: 60 Smoking risk assessment performed?: Yes Alcohol Intake: former Year quit: 2018 Drug use: Never Substance use type: does not use Housing: apartment Do you feel safe at home: Yes Do you feel safe in your relationship?: Yes Additional Social history: quit smoking 8 years ago 37 months sober from alcohol Meds Allergies and Home Medications Allergies Allergy/AdvReac Type Severity Reaction Status Date / Time fluoxetine Allergy rash Verified 08/12/24 19:15 Penicillins Allergy rash Verified 08/12/24 19:15 codeine AdvReac N/V, Verified 08/12/24 19:15 fatigue Home Medications ?Medication ?Instructions ?Recorded ?Confirmed ?Type metoprolol succinate 100 mg 100 mg PO BID 07/07/14 08/12/24 History tablet,extended release 24 hr (Toprol XL) apixaban 5 mg tablet (Eliquis) 5 mg PO BID 05/04/19 08/12/24 History diltiazem HCl 120 mg capsule,24 120 mg PO DAILY #30 caps 01/07/22 08/12/24 Rx hr,extended release albuterol sulfate 90 mcg/actuation 2 puff inhalation .COMPLEX PRN 09/02/23 08/12/24 Rx aerosol inhaler (Ventolin HFA) shortness of breath or wheezing #25.5 grams budesonide-formoterol HFA 160 See Rx Instructions .Route 02/04/24 08/12/24 Rx mcg-4.5 mcg/actuation aerosol .COMPLEX #30.6 grams inhaler tiotropium bromide 2.5 2 inh inhalation QAM #3 ea 02/04/24 08/12/24 Rx mcg/actuation mist for inhalation (Spiriva Respimat) Exam Narrative Exam Narrative: General: Patient appears older than stated age and chronically ill, markedly sedated with eyes rolled back upon approach but he does awaken. After Narcan he was much more awake. He is in moderate distress from his dyspnea. He is alert and oriented at least to person and place. HEENT: Normocephalic, coarsened facial features, eyes with pupils equal and reactive light symmetrically and sclera slightly icteric. Oropharynx with dry mucosa and fair dentition. Neck: Supple without JVD. Back: Kyphotic without CVA tenderness. Lungs: Marked decreased aeration of the left hemithorax, fair aeration over the right hemithorax with increased expiratory phase and expiratory wheeze diffusely. Coarse crackles over the right hemithorax without focalizing. Rhonchi and upper airway noise with patient having gurgly respirations which appear to be upper airway secretions. He is not coughing but not producing sputum but is maintaining his airway. Heart: Tachycardic rate with irregularly irregular rhythm, distant heart sounds with no appreciable murmur or gallop. Abdomen: Obese contour, soft and nontender with no palpable hepatosplenomegaly. Bowel sounds positive in all quadrants. Genitalia/rectal: Exam deferred. Extremities: 3+ soft edema both legs, ankles and over feet with no cyanosis or clubbing. Fair capillary refill. Skin: Pale, warm and dry. Neuro: Cranial nerves II through XII appear to be grossly intact, no focalized motor deficits and no tremor. Patient is arousable but sedated after Dilaudid injection. Psych: Sedated with affect and mood not interpretable. No abnormal thought processes when awake. Remote and recent memory not testable. Results Imaging Imaging Studies: Exam: CTA Chest With Contrast Exam date and time: 08/12/2024 8:30 PM Age: 69 years old Clinical indication: Shortness of breath, lung cancer COMPARISON: CT CHEST W 07/05/2024 1:07 PM FINDINGS: Pulmonary arteries: No definite evidence of pulmonary embolism. Heterogeneous appearance of the left pulmonary artery may be secondary to contrast mixing artifact. Aorta: No aortic aneurysm. Veins: There is complete cutoff of the left pulmonary veins secondary to adjacent mass. Trachea: There is complete collapse of the left pulmonary bronchial tree. Lungs: There is a large left pleural effusion noted with complete atelectasis of the left lung. Right parenchymal malignancy is not well evaluated on this scan secondary to compression from adjacent pleural effusion. There is redemonstration of a 1.4 cm ill-defined nodule in the right lower lobe (image 47, series 6). Pleural spaces: The left pleural effusion is significantly increased since the prior examination, and is now encompassing most of the left hemithorax. There is a mediastinal shift to the right secondary to large pleural effusion. Heart: No cardiomegaly. No pericardial effusion. Lymph nodes: No enlarged lymph nodes. Adrenal glands: There has been interval increase in size of right adrenal gland mass measuring approximately 4.5 cm, previously 4.1 cm (image 60, series 6), possibly representing metastatic disease. Bones/joints: No acute fracture. Soft tissues: There is soft tissue noted throughout the left mainstem bronchus, possibly fluid versus extension of malignancy. IMPRESSION: 1. Large left pleural effusion with complete collapse of the left pulmonary parenchyma and mass effect causing rightward mediastinal shift. 2. Redemonstration of left pulmonary mass, however not well evaluated due to significant pleural effusion. 3. Soft tissue within the left mainstem bronchus may be secondary to fluid versus extension of mass. 4. Stable appearance of 6 mm right pulmonary nodule, possibly metastasis. 5. No definite evidence of pulmonary embolism. Heterogeneous appearance of the left pulmonary artery is thought to represent mixing artifact. 6. Slight interval increase in right adrenal gland mass, concerning for metastatic disease. Labs 08/13/24 05:35 08/13/24 05:35 Labs: Laboratory Results - last 24 hr 08/12/24 08/12/24 19:20 20:09 WBC 10.36 RBC 5.05 Hgb 15.1 Hct 46.8 MCV 93 MCH 29.9 MCHC 32.3 RDW 16.9 H Plt Count 358 MPV 9.4 Immature Gran % 1.0 Neutrophils % 88.0 Lymphocytes % 4.3 Monocytes % 6.2 Eosinophils % 0.1 Basophils % 0.4 Nucleated RBC % 0.0 Absolute Neutrophils 9.12 H Absolute Lymphocytes 0.45 L Absolute Monocytes 0.64 Absolute Eosinophils 0.01 Absolute Basophils 0.04 PT Cancelled 14.9 H INR Cancelled 1.5 H APTT Cancelled 27.9 VBG pH 7.28 L VBG pCO2 67 H* VBG pO2 32 VBG HCO3 31 H VBG Total CO2 29 VBG O2 Saturation 44 VBG Base Excess 4 H Sodium Cancelled 136 Potassium Cancelled 4.6 Chloride Cancelled 97 L Carbon Dioxide Cancelled 31.9 Anion Gap Cancelled 7.1 BUN Cancelled 62 H Creatinine Cancelled 2.0 H Est GFR (CKD-EPI 2020) Cancelled 35.24 Glucose Cancelled 108 H Calcium Cancelled 9.8 Magnesium Cancelled 2.4 Total Bilirubin Cancelled 1.5 H AST Cancelled 24 ALT Cancelled 29 Alkaline Phosphatase Cancelled 97 Troponin I Cancelled 44 NT-Pro-B Natriuret Pep Cancelled 4890 H Total Protein Cancelled 7.0 Albumin Cancelled 3.8 COVID-19 Source Nasopharynx SARS-CoV-2 (PCR) Negative Influenza Type A (PCR) Negative Influenza Type B (PCR) Negative RSV (PCR) Negative Last Vital Signs Temp 36.9 C 08/12/24 20:14 Pulse 106 H 08/12/24 20:14 Resp 25 H 08/12/24 20:14 BP 113/77 08/12/24 20:14 Pulse Ox 94 08/12/24 20:14 Time Spent Time spent with Patient: >75 minutes Time was spent: preparing to see the patient(eg.review tests), obtaining and/or reviewing separately otained hiistory, ordering medications,tests, procedures, referring, communicating with other health client care specialist, indepentently interpreting results and care coordination
[2024-08-12] MEDS: cefTRIAXone 2 GM/50 ML BAG IVPB (21:39)
[2024-08-12 21:40] LABS: Troponin I 43 ng/L (<or=76)
[2024-08-12 23:43] LABS: Troponin I 45 ng/L (<or=76)
[2024-08-12 23:44] LABS: BE (Venous) -1 mmol/L (-2-3); HCO3 (Venous) 27 mmol/L (23-28); O2 Sat (Venous) 95 %; TCO2 (Venous) 24 mmol/L (24-29); pH (Venous) 7.24 (7.31-7.41); pO2 (Venous) 89 mmHg
[2024-08-12 23:47] LABS: pCO2 (Venous) 63 mmHg (41-51)
[2024-08-13] VITALS (76 sets, daily range): BP systolic 88–117; BP diastolic 55–84; PULSE 59–152; RESP 6–28; TEMP 35.9–36.8; O2SAT 79–95
[2024-08-13] MEDS: Naloxone 0.4 MG/ML VIAL IVP (00:28)
[2024-08-13] MEDS: Normal Saline Flush 10 ML SYR IVP ×5 (00:28→22:00)
[2024-08-13] MEDS: Albuterol/Ipratropium 3 ML UPD VIAL UPD ×3 (00:29→23:46)
[2024-08-13] MEDS: DOXYCYCLINE 100 MG in Normal Saline 100 ML IVPB ×3 (00:29→23:36)
[2024-08-13] MEDS: methylPREDNISolone SUCC 125 MG VIAL 80 MG IVP ×3 (05:18→20:09)
[2024-08-13 06:27] LABS: HGB 14.3 g/dL (13.5-17.5); MCH 30.2 pg (27.0-33.0); MCHC 31.8 % (32.0-36.0); MCV 95 fL (80-95); MPV 9.5 fL (8.0-11.0); Platelet Count 354 10^3/uL (130-400); RBC 4.74 10^6/uL (4.36-5.78); RDW 16.9 % (11.8-14.1); RDW-SD 57.7 fL; WBC 11.76 10^3/uL (4.4-10.8)
[2024-08-13 07:02] LABS: ALT 28 U/L (16-63); AST 20 U/L (15-37); Albumin 3.8 g/dL (3.4-5.0); Alkaline Phosphatase 99 U/L (46-116); Anion Gap 12.2 mmol/L (3-11); BUN 62 mg/dL (7-18); Bilirubin, Total 1.3 mg/dL (0.2-1.0); CO2 29.8 mmol/L (21.0-32.0); CREATININE 1.9 mg/dL (0.70-1.30); Calcium 9.7 mg/dL (8.5-10.1); Chloride 96 mmol/L (98-107); Estimated GFR 37.48 (mL/min/1.73m2); Glucose 150 mg/dL (74-106); Potassium 4.8 mmol/L (3.5-5.1); Sodium 138 mmol/L (136-145); Total Protein 7.3 g/dL (6.4-8.2)
--- NOTE | 2024-08-13 08:33 | INITIAL_ITS ---
Date of service: 08/13/24 Time of Service: 08:33 Care Management Initial Assmt Initial Assessment Reason for Hospitalization: Acute hypoxemic respiratory failure, COPD with exacerbation, Pleural effusion Functional Status/Living Situation Patient Presentation: Bipin was awake and lying in bed when CM met with him. He engages in conversation and the volume of his voice is very light. He had 1500 cc's removed during the thoracetesis feels a lot better than when he first came in and states that he hasn't felt well enough to eat or get out of bed in several days. Bipin shared with CM the care he is being provided and all the staff here all been exceptional. Per pt, he feels well supported by family in the community and repports that his daughter Carmen lives locally and is very supportive; and reports that he would want her to be his HCA; stating that she is his #1 and holds up his index finger. Town of Residence: [place] Resides with: Alone Significant Other/Family: Local Natural Supports: Daughter Kathryn Corrales (and Kenrick) Ailin Pena (former KELVIN) and Joshua (Grandson) live next door Granddaughter Robert Employment Status: Retired Instrumental Activities of Daily Living (ADLs): Requires support (ADL/IADl's due to severe health decline r/t stage 4 lung cancer) Activities/Hobbies/SocialSupport: Enjoys sports (especially watching his Grandchildren Robert and Jean.) Medications Medication Management: No Issues/Barriers identified Physical Functioning/Mobility Assistive Device: Unable to walk at this time Advance Directives Advance Directives: Do you have an Advance Directive: N 07/21/14 15:26 AD On File at [facility]: N 01/04/13 11:27 Date Asked 08/12/24 08/12/24 20:33 AD Date Reviewed COLST On File at [facility] COLST Date Scanned Code Status Resuscitation Status Full Code Portal Pt does not currently have a portal and education provided: Yes Insurance Coverage/Financial Issues Insurance: Medicare Part A & B - [id number] /[facility] - [id number] Care Team Visit Care Team Role Provider Type Semaj Avila Primary Care Provider NON-[facility] STAFF PHYSICIAN Gael Aragon MD Other Providers [facility] STAFF PHYSICIAN Bipin Oakley MD Emergency Provider [facility] STAFF PHYSICIAN James Calle Admit Provider NON-[facility] STAFF PHYSICIAN Attending Provider Discharge Potential Discharge Needs: PCP F/U Appt and Surgical F/U Appt Anticipated Barriers to Discharge: None Identified Patient/Family Education Needs: Review discharge instructions, discuss Ask Me Three Plan: Bipin is currently a full code and is being closely monitored and treated in the ; transfer to a tertiary hospital is being discussed. Palliative is consulted to review goals of care in the setting of stage 4 lung cancer. Disch arge considerations to follow and will be dependent on goals of care. Social Determinants of Health Screening Social Determinants of health last assessed in clinic: 08/13/24 Will the Patient Participate in the Screening?: Unable to obtain Do you worry about having a steady place to live?: choose not to answer Problems where you live: no known problems In the past 12 months, have you had to go without electric, gas, oil or water in your home?: no Has lack of transportation kept you from medical appointments or from doing things needed for daily living?: no Has anyone in your life made you feel unsafe or unsupported?: choose not to answer How hard is it for you to pay for the very basics like food, housing, medical care, and heating? Would you say it is:: Not hard at all Do you want help finding or keeping work or a job?: I do not need or want help If for any reason you need help with day-to-day activities such as bathing, preparing meals, shopping, managing finances, etc., do you get the help you need?: I get all the help I need How often do you feel lonely or isolated from those around you?: Never Do you speak a language other than Romansh at home?: No Does the patient want assistance with any of the above?: No Comments: Information from Daughter Kathryn Corrales secondary to patient difficultly speaking in more than 1-2 word phases, and denial about any health issues Health Related Social Needs Health related social needs details: lives alone but his grandson and ex-son in law live next door. Daughter also very involved in his care . PFSH All Active Problems (Updated 08/12/24 @ 21:54 by James Calle) Acute on chronic respiratory failure with hypoxia and hypercapnia (Acute) Non-small cell carcinoma of left lung, stage 4 (Chronic) Pleural effusion (Chronic) COPD with exacerbation (Acute) Acute hypoxemic respiratory failure (Acute) Non-small cell carcinoma of lung, stage 3 (Acute) Personal history of nicotine dependence (Acute) Pulmonary hypertension (Chronic) Sleep apnea (Acute) Atrial fibrillation (Chronic) COPD (chronic obstructive pulmonary disease) (Chronic) Medical History Lung mass Left lower lung mass cancer ETOH abuse Impaired fasting glucose Atrial fibrillation Hypertension Anal condyloma COPD (chronic obstructive pulmonary disease) Cervical disc disorder with radiculopathy Hyperlipidemia Depression Surgical History Repair, Hypospadious Fulguration, Anal Warts Social History Smoking/Tobacco Use Status: Former Tobacco Use Quit Date: 04/14/14 Pack-years: 60 Smoking risk assessment performed?: Yes Alcohol Intake: former Year quit: 2019 Drug use: Never Substance use type: does not use Housing: apartment Do you feel safe at home: Yes Do you feel safe in your relationship?: Yes Additional Social history: quit smoking 8 years ago 37 months sober from alcohol
[2024-08-13] MEDS: Budesonide/Formoterol 160/4.5 6 GM 60 PUFF INH IH (08:44)
[2024-08-13] MEDS: Metoprolol CR 100 MG TABCR PO ×2 (09:10→20:10)
[2024-08-13] MEDS: Apixaban 5 MG TAB PO ×2 (09:11→20:28)
[2024-08-13] MEDS: dilTIAZem CD 120 MG CAPCR PO (09:12)
--- NOTE | 2024-08-13 09:30 | DI.US_ITS ---
APPROVED REPORT EXAM: Comprehensive 2D, Doppler, and color-flow Echocardiogram Patient Location: In-Patient Room/Bed: 219R Indications: Right heart failure with large left pleural Conclusion Technically difficult study Normal left ventricular wall thickness chamber size and systolic function. Ejection fraction is 55 t o 60%. Wall motion appears normal Dilated right ventricle with moderate hypokinesis Left atrium is moderately dilated. Right atrium is severely dilated There are no structural valvular abnormalities There is severe tricuspid regurgitation. Estimated right ventricular systolic pressure is 95 mmHg Wall motion Left Ventricle The left ventricle is normal size. The left ventricular systolic function is normal. The left ventric ular ejection fraction is within the normal range. There is normal left ventricular wall thickness. T here is normal LV segmental wall motion. There is no ventricular septal defect visualized. LVEF is 55 -60%. Right Ventricle Right ventricle is severely dilated. Right ventricle is moderately hypokinetic. Atria Left atrium is moderately dilated. Right atrium is severely dilated. The interatrial septum is intact with no evidence for an atrial septal defect. Aortic Valve The aortic valve is normal in structure. Aortic valve is trileaflet. There is no aortic valvular sten osis. Mitral Valve The mitral valve is normal in structure. No evidence of mitral valve stenosis. Trace mitral regurgita tion. Tricuspid Valve The tricuspid valve is normal in structure. There is no tricuspid valve stenosis. Severe tricuspid re gurgitation. The RVSP is 94.7 mmHg. Pulmonic Valve The pulmonary valve is normal in structure. There is no pulmonic valvular stenosis. There is no pulmo lashaun valvular regurgitation. Great Vessels The aortic root is normal in size. The ascending aorta is normal in size. Aortic arch is not well vis ualized. The IVC is normal in size. The IVC collapses <50% with inspiration. Pericardium There is no pericardial effusion. Large left pleural effusion. 2D Dimensions IVSD d PLAX 0.66 cm M: 0.6-1.2 Ao Root d 3.33 cm M: 3.1 - 3.7 LVPW d PLAX 0.73 cm M: 0.6 - 1.2 Ao Asc Diam d 3.29 cm M: 2.6 - 3.4 LVID d PLAX 4.09 cm M: 4.2 - 5.8 IVC Diam exp d SLAX 2.4 cm LVDs 2.91 cm M: 2.5 - 4.0 LV EF Teichholz 56.0 % FS 28.88 % LV EDV (Teich) 73.6 mL LV ESV (Teich) 32.4 mL Stroke Vol Index (Teich) 19.45 M-Mode TAPSE 1.31 cm (M/F) >1.7 LV Volumes - Method of Disks (Oshea's) Single Plane 2D LV Volumes Biplane 2D LV Volumes LV EDV A4C 62.1 mL LV EDV BP 63.72 mL M: 62 - 150 LV ESV A4C 27.9 mL LV ESV BP 27.6 mL LVEF(%) A4C 55.1 % LVEF(%) BP 56.64 % M: 52 - 72 LV EDV A2C 64.9 mL LV EDV BP Index 30.05 mL/m2 M: 34 - 74 LV ESV A2C 25.5 mL SV BP LVEF(%) A2C 60.7 % SV Index LA Volume LA Length A4C 5.3 cm LA Length A2C LA Area A4C s 22.69 cm2 LA Area A2C s LA Vol A4C A-L 82.11 mL LA Vol A2C A-L LA Vol Biplane A-L LA Vol A4C MOD 74.6 mL LA Vol A2C MOD LA Vol BP MOD RA Volume RA Area A4C 26.7 cm2 RA ESV A4C (A-L) 111.6mL RA Vol/BSA A4C A-L RA Length A4C 5.4 cm RA ESV A4C (MOD) 104.5mL LV Diastology MV E' medial 0.097 (>0.07 m/s) MV E Vmax 0.87 (0.4-1.3 m/s) MV E' lateral 0.116 (>0.1 m/s) Aortic Valve AoV Vmax 1.15 m/s LVOT Vmax 0.69 m/s AoV Peak Grad 5.3 mmHg LVOT Peak Grad 1.9 mmHg AoV Area (Vmax) 1.89 cm2 LVOT VTI 0.110 m AoV VTI 0.173 m LVOT Mean Grad 1.1 mmHg AoV Mean Regino. 0.82 m/s LVOT SV 34.47 mL AoV Mean Grad 2.9 mmHg LVOT Diam s 1.95 cm AoV Area (VTI) 2.00 cm2 AV Regurg Peak Gr. 5.27 mmHg Velocity Ratio 0.60 Pulmonary Valve PV Vmax 1.16 (0.5-1.5 m/s) RVOT Vmax 0.57 m/s PV Peak Grad 5.4 mmHg RVOT Peak Gr. 1.3 mmHg PV Mean Regino 0.76 m/s RVOT VTI 0.084 m PV Mean Grad 2.6 mmHg RVOT Mean Gr. 0.6 mmHg Tricuspid Valve RA Pressure 8.00 mmHg TR Vmax 4.65 m/s TV S' 0.09 m/s TR Peak Grad 86.6 mmHg RVSP (TR) 94.7 mmHg
[2024-08-13] MEDS: Lidocaine 2% Jelly 11 ML SYR (10:29)
--- NOTE | 2024-08-13 10:54 | W.SURGCON ---
Date of service: 08/13/24 Time of Service: 10:54 Assessment and Plan Assessment and plan (1) Pleural effusion: Status: Chronic Assessment and plan: 69-year-old man with a left-sided pleural effusion that may be acutely larger than it is usually/chronically. This is certainly a malignant effusion in the setting of lung cancer. Unclear if there is a component of CHF as well considering a very elevated BNP. We can certainly drain some of the fluid in hopes of giving him some symptom relief. I will not drain all of it off because it is very large?volume and it is unclear to me how long it has been sitting like this. I want to avoid risks of flash pulmonary edema, which would probably kill him in his current state. He may need to consider a Pleurx catheter if this is going on for a long period of time. Overall plan: Ultrasound?guided left pleural effusion. History of Present Illness Narrative: The patient is a 69-year-old man who has advanced lung cancer. He has had left-sided effusion that reportedly has been drained previously. Somehow this has recently gotten worse. He is struggling to breathe without additional oxygen. Cross-sectional imaging showed large left-sided effusion with some shift. He is on Plavix and blood thinners. [facility] All Active Problems (Updated 08/12/24 @ 21:54 by James Calle) Acute on chronic respiratory failure with hypoxia and hypercapnia (Acute) Non-small cell carcinoma of left lung, stage 4 (Chronic) Pleural effusion (Chronic) COPD with exacerbation (Acute) Acute hypoxemic respiratory failure (Acute) Non-small cell carcinoma of lung, stage 3 (Acute) Personal history of nicotine dependence (Acute) Pulmonary hypertension (Chronic) Sleep apnea (Acute) Atrial fibrillation (Chronic) COPD (chronic obstructive pulmonary disease) (Chronic) Medical History Lung mass Left lower lung mass cancer ETOH abuse Impaired fasting glucose Atrial fibrillation Hypertension Anal condyloma COPD (chronic obstructive pulmonary disease) Cervical disc disorder with radiculopathy Hyperlipidemia Depression Surgical History Repair, Hypospadious Fulguration, Anal Warts Social History Smoking/Tobacco Use Status: Former Tobacco Use Quit Date: 04/14/14 Pack-years: 60 Smoking risk assessment performed?: Yes Alcohol Intake: former Year quit: 2019 Drug use: Never Substance use type: does not use Housing: apartment Do you feel safe at home: Yes Do you feel safe in your relationship?: Yes Additional Social history: quit smoking 8 years ago 37 months sober from alcohol Exam Narrative Exam Narrative: Gen: Non-toxic, he is interactive but appears weak and older than stated age. He is not cachectic but beginning to show signs of cachexia. His breathing seems mildly labored. Neuro: Alert and oriented x3 Psych: Reasonable mood and affect but tired. Seemingly good insight and understanding. Chest: No crepitus. Heart: irregular slightly tachycardic rate. Results Last Vital Signs Temp 96.6 F L 08/13/24 08:11 Pulse 101 H 08/13/24 09:00 Resp 13 08/13/24 09:00 BP 109/79 08/13/24 08:11 Pulse Ox 95 08/13/24 09:00 Labs 08/13/24 05:35 08/13/24 05:35 Labs: Laboratory Results - last 24 hr 08/12/24 08/12/24 08/12/24 19:20 20:09 21:16 WBC 10.36 RBC 5.05 Hgb 15.1 Hct 46.8 MCV 93 MCH 29.9 MCHC 32.3 RDW 16.9 H Plt Count 358 MPV 9.4 Immature Gran % 1.0 Neutrophils % 88.0 Lymphocytes % 4.3 Monocytes % 6.2 Eosinophils % 0.1 Basophils % 0.4 Nucleated RBC % 0.0 Absolute Neutrophils 9.12 H Absolute Lymphocytes 0.45 L Absolute Monocytes 0.64 Absolute Eosinophils 0.01 Absolute Basophils 0.04 PT Cancelled 14.9 H INR Cancelled 1.5 H APTT Cancelled 27.9 VBG pH 7.28 L VBG pCO2 67 H* VBG pO2 32 VBG HCO3 31 H VBG Total CO2 29 VBG O2 Saturation 44 VBG Base Excess 4 H Sodium Cancelled 136 Potassium Cancelled 4.6 Chloride Cancelled 97 L Carbon Dioxide Cancelled 31.9 Anion Gap Cancelled 7.1 BUN Cancelled 62 H Creatinine Cancelled 2.0 H Est GFR (CKD-EPI 2020) Cancelled 35.24 Glucose Cancelled 108 H Calcium Cancelled 9.8 Magnesium Cancelled 2.4 Total Bilirubin Cancelled 1.5 H AST Cancelled 24 ALT Cancelled 29 Alkaline Phosphatase Cancelled 97 Troponin I Cancelled 44 43 NT-Pro-B Natriuret Pep Cancelled 4890 H Total Protein Cancelled 7.0 Albumin Cancelled 3.8 COVID-19 Source Nasopharynx SARS-CoV-2 (PCR) Negative Influenza Type A (PCR) Negative Influenza Type B (PCR) Negative RSV (PCR) Negative 08/12/24 08/12/24 08/13/24 23:00 23:39 05:35 WBC 11.76 H RBC 4.74 Hgb 14.3 Hct 45.0 MCV 95 MCH 30.2 MCHC 31.8 L RDW 16.9 H Plt Count 354 MPV 9.5 Immature Gran % Neutrophils % Lymphocytes % Monocytes % Eosinophils % Basophils % Nucleated RBC % Absolute Neutrophils Absolute Lymphocytes Absolute Monocytes Absolute Eosinophils Absolute Basophils PT INR APTT VBG pH 7.24 L VBG pCO2 63 H* VBG pO2 89 VBG HCO3 27 VBG Total CO2 24 VBG O2 Saturation 95 VBG Base Excess -1 Sodium 138 Potassium 4.8 Chloride 96 L Carbon Dioxide 29.8 Anion Gap 12.2 H BUN 62 H Creatinine 1.9 H Est GFR (CKD-EPI 2020) 37.48 Glucose 150 H Calcium 9.7 Magnesium Total Bilirubin 1.3 H AST 20 ALT 28 Alkaline Phosphatase 99 Troponin I 45 NT-Pro-B Natriuret Pep Total Protein 7.3 Albumin 3.8 COVID-19 Source SARS-CoV-2 (PCR) Influenza Type A (PCR) Influenza Type B (PCR) RSV (PCR)
[2024-08-13 11:21] LABS: Bilirubin Small (Negative); Blood Negative (Negative); Clarity Clear (Clear); Glucose Negative (Negative); Ketones Negative (Negative); Leukocyte Esterase Negative (Negative); Nitrite Negative (Negative); pH 5.5 (5-8)
[2024-08-13 11:35] LABS: Bacteria Moderate HPF (Negative); Epithelial Cells Rare HPF (Negative); Other Cells Few Renal (Negative)
[2024-08-13 11:36] LABS: Crystals Moderate Amorphous HPF (Negative); Mucus Moderate (Negative)
[2024-08-13 11:37] LABS: C & S Indicated? No; Casts 20-50 Hyaline LPF (Negative)
--- NOTE | 2024-08-13 13:33 | PGE_ITS ---
Date of Service Date of service: 08/13/24 Time of Service: 13:35 Assessment and Plan Assessment and plan (1) Acute on chronic respiratory failure with hypoxia and hypercapnia: Start date: 08/12/24 Status: Acute Assessment and plan: This is a [id number]-old gentleman presenting with acute hypoxemia usually being on room air. He has a large left pleural effusion which is intermittently drained with plans for being drained next week. CT scanning of the chest does reveal enlargement of the pleural effusion and persistence of left lung cancer which may be spreading locally. Pneumonia cannot be ruled out completely and patient will be covered for community-acquired pneumonia while being treated acutely for COPD exacerbation. Surgery will be consulted for left pleural effusion and possible earlier thoracentesis. Avoid narcotics with patient being oversedated. Benzodiazepines should also be avoided. He remains a full code. 08/13/24 S/P thoracentesis. Monitor vitals and mental status (2) COPD with exacerbation: Start date: 08/12/24 Status: Acute Assessment and plan: Patient has a history of previous tobacco use quitting years ago as he has alcohol. He is on inhalers for controller therapy and rescue therapy with now has acute hypoxemia used to be on room air. He does have respiratory acidosis and hypercapnia which is stable without positive pressure treatment. He will be treated for COPD exacerbation and cover for possible early pneumonia with large pleural effusion obscuring tumor and possibly infiltrate. Solu-Medrol was given will be continued converting to prednisone and patient also will have more frequent nebulizer treatments. (3) Pleural effusion: Status: Chronic Assessment and plan: Large left pleural effusion associated with lung cancer with planned therapeutic thoracentesis which may be done sooner if surgery agrees. 08/13/24 s/p thoracentesis. Monitor vitals and mental status (4) Non-small cell carcinoma of left lung, stage 4: Status: Chronic Assessment and plan: Patient is continuing treatment with prognosis poor. He is a full code. 08/13/24 Awaiting input from palliative care. (5) Pulmonary hypertension: Status: Chronic Assessment and plan: Patient is not on diuretics presently and this will be monitored closely. Avoid fluid overload. (6) Atrial fibrillation: Status: Chronic Assessment and plan: Continue Eliquis and outpatient medical therapy. Slightly tachycardic with acute pulmonary process, telemetry while hospitalized. 08/13/24 Pt does have an elevated HR but there is also a concern about acute bleeding in the pleural space based on thoracentesis. Will need to have a discussion with his daughter (medical POA) in regards to his retirement plans of care (7) Hypertension: Assessment and plan: Continue outpatient medical therapy adjust as needed. 08/13/24 Pt is actually fairly hypotensive. Subjective Subjective Interval history since last seen: PT seen and examined in his room this am. POC d/w bedside nurse during MDR. Palliative care is going to see Exam Narrative Exam Narrative: heent-ncat mmm eomi perrla neck-no lad no jvd cv-rrr no mrg pulm-decreased breath sounds left vs right abd-sntnd ext-no cce bilat somnolent Objective Last Vital Signs Temp 36.8 C 08/13/24 11:00 Pulse 87 08/13/24 12:01 Resp 13 08/13/24 12:01 BP 96/55 L 08/13/24 12:01 Pulse Ox 95 08/13/24 12:01 Laboratory Results - last 24 hr 08/12/24 08/12/24 08/12/24 19:20 20:09 21:16 WBC 10.36 RBC 5.05 Hgb 15.1 Hct 46.8 MCV 93 MCH 29.9 MCHC 32.3 RDW 16.9 H Plt Count 358 MPV 9.4 Immature Gran % 1.0 Neutrophils % 88.0 Lymphocytes % 4.3 Monocytes % 6.2 Eosinophils % 0.1 Basophils % 0.4 Nucleated RBC % 0.0 Absolute Neutrophils 9.12 H Absolute Lymphocytes 0.45 L Absolute Monocytes 0.64 Absolute Eosinophils 0.01 Absolute Basophils 0.04 PT Cancelled 14.9 H INR Cancelled 1.5 H APTT Cancelled 27.9 VBG pH 7.28 L VBG pCO2 67 H* VBG pO2 32 VBG HCO3 31 H VBG Total CO2 29 VBG O2 Saturation 44 VBG Base Excess 4 H Sodium Cancelled 136 Potassium Cancelled 4.6 Chloride Cancelled 97 L Carbon Dioxide Cancelled 31.9 Anion Gap Cancelled 7.1 BUN Cancelled 62 H Creatinine Cancelled 2.0 H Est GFR (CKD-EPI 2020) Cancelled 35.24 Glucose Cancelled 108 H Calcium Cancelled 9.8 Magnesium Cancelled 2.4 Total Bilirubin Cancelled 1.5 H AST Cancelled 24 ALT Cancelled 29 Alkaline Phosphatase Cancelled 97 Troponin I Cancelled 44 43 NT-Pro-B Natriuret Pep Cancelled 4890 H Total Protein Cancelled 7.0 Albumin Cancelled 3.8 Urine Color Urine Clarity Urine pH Ur Specific [place] Urine Protein Urine Ketones Urine Blood Urine Nitrite Urine Bilirubin Urine Urobilinogen Ur Leukocyte Esterase Urine RBC Urine WBC Ur Epithelial Cells Urine Crystals Urine Bacteria Urine Casts Urine Mucus Urine Other Ur Culture Indicated? Urine Glucose COVID-19 Source Nasopharynx SARS-CoV-2 (PCR) Negative Influenza Type A (PCR) Negative Influenza Type B (PCR) Negative RSV (PCR) Negative 08/12/24 08/12/24 08/13/24 23:00 23:39 05:35 WBC 11.76 H RBC 4.74 Hgb 14.3 Hct 45.0 MCV 95 MCH 30.2 MCHC 31.8 L RDW 16.9 H Plt Count 354 MPV 9.5 Immature Gran % Neutrophils % Lymphocytes % Monocytes % Eosinophils % Basophils % Nucleated RBC % Absolute Neutrophils Absolute Lymphocytes Absolute Monocytes Absolute Eosinophils Absolute Basophils PT INR APTT VBG pH 7.24 L VBG pCO2 63 H* VBG pO2 89 VBG HCO3 27 VBG Total CO2 24 VBG O2 Saturation 95 VBG Base Excess -1 Sodium 138 Potassium 4.8 Chloride 96 L Carbon Dioxide 29.8 Anion Gap 12.2 H BUN 62 H Creatinine 1.9 H Est GFR (CKD-EPI 2020) 37.48 Glucose 150 H Calcium 9.7 Magnesium Total Bilirubin 1.3 H AST 20 ALT 28 Alkaline Phosphatase 99 Troponin I 45 NT-Pro-B Natriuret Pep Total Protein 7.3 Albumin 3.8 Urine Color Urine Clarity Urine pH Ur Specific [place] Urine Protein Urine Ketones Urine Blood Urine Nitrite Urine Bilirubin Urine Urobilinogen Ur Leukocyte Esterase Urine RBC Urine WBC Ur Epithelial Cells Urine Crystals Urine Bacteria Urine Casts Urine Mucus Urine Other Ur Culture Indicated? Urine Glucose COVID-19 Source SARS-CoV-2 (PCR) Influenza Type A (PCR) Influenza Type B (PCR) RSV (PCR) 08/13/24 10:49 WBC RBC Hgb Hct MCV MCH MCHC RDW Plt Count MPV Immature Gran % Neutrophils % Lymphocytes % Monocytes % Eosinophils % Basophils % Nucleated RBC % Absolute Neutrophils Absolute Lymphocytes Absolute Monocytes Absolute Eosinophils Absolute Basophils PT INR APTT VBG pH VBG pCO2 VBG pO2 VBG HCO3 VBG Total CO2 VBG O2 Saturation VBG Base Excess Sodium Potassium Chloride Carbon Dioxide Anion Gap BUN Creatinine Est GFR (CKD-EPI 2020) Glucose Calcium Magnesium Total Bilirubin AST ALT Alkaline Phosphatase Troponin I NT-Pro-B Natriuret Pep Total Protein Albumin Urine Color Yellow Urine Clarity Clear Urine pH 5.5 Ur Specific [place] 1.020 Urine Protein 30 H Urine Ketones Negative Urine Blood Negative Urine Nitrite Negative Urine Bilirubin Small H Urine Urobilinogen 1.0 H Ur Leukocyte Esterase Negative Urine RBC 3-5 H Urine WBC 5-10 Ur Epithelial Cells Rare Urine Crystals Moderate Amorphous Urine Bacteria Moderate Urine Casts 20-50 Hyaline Urine Mucus Moderate Urine Other Few Renal Ur Culture Indicated? No Urine Glucose Negative COVID-19 Source SARS-CoV-2 (PCR) Influenza Type A (PCR) Influenza Type B (PCR) RSV (PCR) Time Spent with Patient Time Spent with Patient: 25-34 minutes Time was spent: preparing to see the patient(eg.review tests), obtaining and/or reviewing separately otained hiistory, ordering medications,tests, procedures, referring, communicating with other health physician primary care sports medicine, indepentently interpreting results, counseling the patient and care coordination
--- NOTE | 2024-08-13 14:32 | W.PM.OP ---
Operative Note Operative Note Refer to Anesthesia Record Procedure Description: Procedure: Ultrasound-guided left thoracocentesis Surgeon: Rj Aragon Assist: None Anesthesia: local 1% Lidocaine (10cc) Anesthesiologist: None Indication: Recurrent pleural effusion in setting of known lung cancer. Findings: 1600cc thin but dark, hemorrhagic fluid removed. I suspect he has had some bleeding in his pleural cavity (probably bleeding tumor in setting of Plavix and anticoagulation) which has acutely increased the volume of the chronic pleural effusion. I relayed the findings verbally, in person, to the hospitalist team taking care of him. In particular I expressed my belief that he has probably had some intrapleural bleeding in the setting of being anticoagulated and on antiplatelet therapy. Now that some volume has been removed, he may continue to bleed into that space. (In theory) Complications: None Estimated Blood Loss: Minimal Specimens removed: Fluid removed but not sent for cytology or testing Grafts or implants: No Procedure in detail: Written consent was obtained from the patient who was in agreement the risks, the benefits and indications for the procedure. The patient was seated and upright and the site was marked by ultrasonography. A timeout was performed. When we were all in agreement we began the procedure. Local anesthetic was injected just over the rib at the left posterior lateral back. A small stab incision was made. The needle/catheter complex was advanced overtop of the rib and pleural fluid was aspirated upon entrance into the chest cavity. The catheter was left in place while the needle was removed. I removed all of the fluid by hand using the 50 cc syringe. 1600cc was removed. I anticipate/calculate that quite a bit more fluid remains in his left chest but I do not recommend doing more than this volume at 1 time. The catheter was then removed, there were no complications, a sterile dressing was placed overtop. The sponge, instrument and sharps count was correct x3 at the end of the procedure. The patient tolerated the procedure well. Date of Procedure: 08/13/24
--- NOTE | 2024-08-13 15:41 | PHA.REVIEW2 ---
Pharmacy Admission Review Admission Clinical Review Admission Pharmacy Review: Acute on chronic respiratory failure with hypoxia and hypercapnia (Acute) COPD with exacerbation (Acute) fluoxetine Allergy (Verified 08/12/24 19:15) rash Penicillins Allergy (Verified 08/12/24 19:15) rash codeine Adverse Reaction (Verified 08/12/24 19:15) N/V, fatigue Resuscitation Status Full Code Height 5 ft 7 in Weight 97.7 kg Comments Comments/Follow Ups: Watch BP, HR, SCr, labs, for culture results and for med changes (possible renal dose adjustments). Pharmacy Admission Review Renal Dosing Renal Dosing: BUN 62 mg/dL (7-18) H 08/13/24 05:35 Creatinine 1.9 mg/dL (0.70-1.30) H 08/13/24 05:35 Medications needing adjustments: Reviewed (Crcl ~40.2 mL/min current meds are okay) Anticoagulation Anticoagulation: Hgb 14.3 g/dL (13.5-17.5) 08/13/24 05:35 Hct 45.0 % (40.0-50.0) 08/13/24 05:35 Plt Count 354 10^3/uL (130-400) 08/13/24 05:35 INR 1.5 (0.9-1.1) H 08/12/24 20:09 Creatinine 1.9 mg/dL (0.70-1.30) H 08/13/24 05:35 DVT Prophylaxis: N/A Therapeutic Anticoagulation: Reviewed Medications: Apixaban Opiate Usage Evaluate Pain Scale/Pains Meds: N/A Relevant Labs Relevant Labs: Sodium 138 mmol/L (136-145) 08/13/24 05:35 Potassium 4.8 mmol/L (3.5-5.1) 08/13/24 05:35 Chloride 96 mmol/L (98-107) L 08/13/24 05:35 Magnesium 2.4 mg/dL (1.8-2.4) 08/12/24 20:09 Electrolytes, C-Reactive P, ESR: Reviewed DM Control DM Control: Glucose 150 mg/dL (74-106) H 08/13/24 05:35 DM Control: Reviewed (No diabetes in med history, no recent A1c.) Cardiac Review Cardiac Review: Troponin I 45 ng/L (<or=76) 08/12/24 23:00 NT-Pro-B Natriuret Pep 4890 pg/mL (<300) H 08/12/24 20:09 BP, HR, EF%: Reviewed (BP has been up and down some and HR has been normal to high so far this admission. EF 55-60% per ECHO report.) QTc Review QTc: Reviewed (QTc 394 from EKG done on admission) IV to PO Switch IV Medications: Reviewed Home Meds Home Med List reviewed: Reviewed Relevent Home Meds Not ordered & why?: tiotropium Current Meds Current Medication Order Review: Reviewed Pharmacy Antibiotic Review Relevant Labs: WBC 11.76 10^3/uL (4.4-10.8) H 08/13/24 05:35 Temperature 36.8 C Temperature 35.9 C Pharmacy Antibiotic Activity: C/S review and Reviewed, no change Comments: Blood cultures are pending. Ceftriaxone and doxycycline ordered to cover for possible pneumonia. Comments Comments/Follow Ups: Watch BP, HR, SCr, labs, for culture results and for med changes (possible renal dose adjustments).
--- NOTE | 2024-08-13 16:56 | CHAPLAIN ---
I had a brief visit with Bipin. He was resting in bed, seemed tired and out of breath when talking. I explained my role and offered support. He said he's in touch with his daughter. He met with Soraya Clemente from Palliative Care today and changed his code status to DNR/DNI
[2024-08-13] MEDS: cefTRIAXone 1 GM/50 ML BAG IVPB (22:00)
[2024-08-14] VITALS (16 sets, daily range): BP systolic 99–116; BP diastolic 61–75; PULSE 60–82; RESP 3–20; TEMP 36.1–36.9; O2SAT 2–98
[2024-08-14] MEDS: LORazepam 0.5 MG TAB PO (00:02)
[2024-08-14] MEDS: methylPREDNISolone SUCC 125 MG VIAL 80 MG IVP ×3 (04:08→19:58)
[2024-08-14] MEDS: Albuterol/Ipratropium 3 ML UPD VIAL UPD ×3 (05:39→19:20)
--- NOTE | 2024-08-14 06:00 | W.PC.ACHO ---
Registration Status: Primary Language: Preferred Language: ED Information & Data Chief Complaint SOB 08/12/24 20:14 Chief Complaint SOB 08/12/24 19:36 Triage Note increased SOB today due for 08/12/24 19:10 pleurocentesis on august 18. placed on 4 liters nasal cannula sats brought from 80 % to 99 in ambulance. axox3 increased WOB upon arrival Medical / Surgical History (Last Reviewed 08/12/24 @ 21:26 by James Calle) Lung mass ETOH abuse Impaired fasting glucose Atrial fibrillation Hypertension Anal condyloma COPD (chronic obstructive pulmonary disease) Cervical disc disorder with radiculopathy Hyperlipidemia Depression (Last Reviewed 08/12/24 @ 21:26 by James Calle) Repair, Hypospadious Fulguration, Anal Warts Most Recent Vital Signs Temperature 36.1 C L 08/14/24 04:26 Temperature Source Temporal Artery Scan 08/14/24 04:26 Pulse 60 08/14/24 05:45 Pulse 83 08/13/24 18:01 Respiratory Rate 20 08/14/24 05:39 Respiratory Effort Short of Breath, Incrsd Work of Breathing 08/13/24 00:00 Respiratory Depth Deep 08/13/24 00:00 Respiratory Pattern Bradypnea 08/13/24 00:00 Blood Pressure 116/75 08/14/24 04:26 Blood Pressure Mean 88 08/14/24 04:26 Blood Pressure Position Supine 08/12/24 19:10 Pulse Oximetry 92 08/14/24 05:39 Respiratory End-tidal CO2 15 08/12/24 23:02 Oxygen Delivery Method Nasal Cannula 08/14/24 05:39 Oxygen Flow Rate 2.5 08/14/24 05:39 Pain Level 0 08/14/24 04:26 Comment placed on room air on arrival 08/12/24 19:10 Allergies fluoxetine Allergy (Verified 08/12/24 19:15) rash Penicillins Allergy (Verified 08/12/24 19:15) rash codeine Adverse Reaction (Verified 08/12/24 19:15) N/V, fatigue Precautions Isolation Standard precaution 08/12/24 20:14 Active Medications Generic Name Dose Route Start Last Admin Trade Name Freq PRN Reason Stop Dose Admin Albuterol/Ipratropium 3 ml 08/13/24 00:00 08/14/24 05:39 Albuterol/Ipratropium 3 Ml Upd Vial UPD 3 ml Q6H AZAEL Administration Apixaban 5 mg 08/13/24 08:30 08/13/24 20:28 Apixaban 5 Mg Tab PO 5 mg BID AZAEL Administration Budesonide/Formoterol Fumarate 2 puff 08/13/24 08:30 08/13/24 20:11 Budesonide/Formoterol 160/4.5 6 Gm 60 Puff Inh IH Not Given BID AZAEL Diltiazem HCl 120 mg 08/13/24 08:30 08/13/24 09:12 Diltiazem Cd 120 Mg Capcr PO 120 mg DAILY AZAEL Administration Ceftriaxone Sodium/Dextrose 1 gm in 50 mls @ 100 mls/hr 08/13/24 22:00 08/13/24 22:30 Rocephin IVPB Infused Q24H AZAEL Infusion Doxycycline Hyclate 100 mg/ 100 mls @ 100 mls/hr 08/13/24 00:00 08/14/24 00:59 Sodium Chloride IVPB Infused Q12H AZAEL Infusion Methylprednisolone Sodium Succinate 80 mg 08/13/24 04:00 08/14/24 04:08 Methylprednisolone Succ 125 Mg Vial IVP 80 mg Q8H AZAEL Administration Metoprolol Succinate 100 mg 08/13/24 08:30 08/13/24 20:10 Metoprolol Cr 100 Mg Tabcr PO 100 mg BID AZAEL Administration Sodium Chloride 0 ml 08/12/24 19:09 08/13/24 22:00 Normal Saline Flush 10 Ml Syr IVP 20 ml PRN PRN Administration Sodium Chloride 0 ml 08/12/24 20:00 08/13/24 20:25 Normal Saline Flush 10 Ml Syr IVP 20 ml BID AZAEL Administration IV IV Catheter Type [] Saline Lock IV Catheter Type [Left Saline Lock Antecubital] IV Catheter Gauge [] 22 IV Catheter Gauge [Left 18 Antecubital] Diagnostics 08/14/24 08/13/24 08/13/24 Range/Units 05:35 10:49 05:35 WBC Pending 11.76 H (4.4-10.8) 10^3/uL RBC Pending 4.74 (4.36-5.78) 10^6/uL Hgb Pending 14.3 (13.5-17.5) g/dL Hct Pending 45.0 (40.0-50.0) % MCV Pending 95 (80-95) fL MCH Pending 30.2 (27.0-33.0) pg MCHC Pending 31.8 L (32.0-36.0) % RDW Pending 16.9 H (11.8-14.1) % Plt Count Pending 354 (130-400) 10^3/uL MPV Pending 9.5 (8.0-11.0) fL Immature Gran % Pending Neutrophils % Pending Lymphocytes % Pending Monocytes % Pending Eosinophils % Pending Basophils % Pending Absolute Neutrophils Pending Absolute Lymphocytes Pending Absolute Monocytes Pending Absolute Eosinophils Pending Absolute Basophils Pending VBG pH Pending VBG pCO2 Pending VBG pO2 Pending VBG HCO3 Pending VBG Total CO2 Pending VBG O2 Saturation Pending VBG Base Excess Pending Sodium Pending 138 (136-145) mmol/L Potassium Pending 4.8 (3.5-5.1) mmol/L Chloride Pending 96 L (98-107) mmol/L Carbon Dioxide Pending 29.8 (21.0-32.0) mmol/L Anion Gap Pending 12.2 H (3-11) mmol/L BUN Pending 62 H (7-18) mg/dL Creatinine Pending 1.9 H (0.70-1.30) mg/dL Est GFR (CKD-EPI 2020) Pending 37.48 (mL/min/1.73m2) Glucose Pending 150 H (74-106) mg/dL Calcium Pending 9.7 (8.5-10.1) mg/dL Total Bilirubin Pending 1.3 H (0.2-1.0) mg/dL AST Pending 20 (15-37) U/L ALT Pending 28 (16-63) U/L Alkaline Phosphatase Pending 99 (46-116) U/L Total Protein Pending 7.3 (6.4-8.2) g/dL Albumin Pending 3.8 (3.4-5.0) g/dL Urine Color Yellow (Yellow) Urine Clarity Clear (Clear) Urine pH 5.5 (5-8) Ur Specific [place] 1.020 (1.005-1.025) Urine Protein 30 H (Neg-Trace) mg/dL Urine Ketones Negative (Negative) mg/dL Urine Blood Negative (Negative) Urine Nitrite Negative (Negative) Urine Bilirubin Small H (Negative) Urine Urobilinogen 1.0 H (Up to 0.2) mg/dL Ur Leukocyte Esterase Negative (Negative) Urine RBC 3-5 H (0-2) HPF Urine WBC 5-10 (0-5) HPF Ur Epithelial Cells Rare (Negative) HPF Urine Crystals Moderate Amorphous (Negative) HPF Urine Bacteria Moderate (Negative) HPF Urine Casts 20-50 Hyaline (Negative) LPF Urine Mucus Moderate (Negative) Urine Other Few Renal (Negative) Ur Culture Indicated? No Urine Glucose Negative (Negative) mg/dL 08/12/24 22:39 Blood Culture - Preliminary Blood NO GROWTH 24 HOURS 08/12/24 23:00 Blood Culture - Preliminary Blood NO GROWTH 24 HOURS Intake and Output - 24 Hour Total 08/12/24 19:07 thru 08/14/24 04:14 Intake Total 980 Output Total 2755 Balance -1775 Weight 59.466 kg Intake: IV 400 Oral 580 Output: Drainage 1500 Left Mid Posterior Chest 1500 Urine 1255 Other: Urine Color Dark Hilda Urine Appearance Clear Comment Has not voided for past 24 hours, ambrosio to be placed this AM Urinary Catheter Urinary Catheter Date of 08/13/24 Insertion [Urethral (Ambrosio)] Time of insertion [Urethral ( 11:10 Ambrosio)] Falls Risk Assessment History of Falls No History 08/13/24 00:00 Contributing Factors Impairments,Medications 08/13/24 00:00 Ambulatory Aids Independent 08/12/24 20:14 Tubes/Lines With any additional score 08/13/24 00:00 Gait Evaluation No gait disturbance 08/12/24 20:14 Cognition Cognitive impairment 08/13/24 00:00 Fall Total Score 41 08/13/24 00:00 Level of Risk Moderate Risk 08/13/24 00:00 Problems (Last Reviewed 08/12/24 @ 21:26 by James Calle) Acute on chronic respiratory failure with hypoxia and hypercapnia (Acute) Non-small cell carcinoma of left lung, stage 4 (Chronic) Pleural effusion (Chronic) COPD with exacerbation (Acute) Pulmonary hypertension (Chronic) Atrial fibrillation (Chronic) v v v v v v v v v Sending and/or Receiving Nurses: Please use comment section below to note any information pertinent to the patient hand-off not included above. Information / Comments: Report received from: James, RN. Patient is alert and oriented x 3. HR irregular, a-fib. 3+ pitting edema to BLE- TEDS in place. Tachypneic on 4L NC, none at baseline. Left lung hunter are absent. He is weak, DNR/DNI. Pills whole in pudding. Ambrosio cath in place- dark urine. May be transferred to [facility] for further treatment.
[2024-08-14 06:51] LABS: BE (Venous) 9 mmol/L (-2-3); HCO3 (Venous) 34 mmol/L (23-28); O2 Sat (Venous) 48 %; TCO2 (Venous) 31 mmol/L (24-29); pH (Venous) 7.35 (7.31-7.41); pO2 (Venous) 29 mmHg
[2024-08-14 06:52] LABS: Abs Immature Grans 0.09 10^3/uL (0.0-0.06); Absolute Basophil Count 0.01 10^3/uL (0.0-0.2); Absolute Eosinophil Count 0.11 10^3/uL (0.0-0.7); Absolute Lymphocyte Count 0.24 10^3/uL (1.2-3.4); Absolute Monocyte Count 0.48 10^3/uL (0.1-0.8); Absolute Neutrophil Count 11.26 10^3/uL (1.2-6.7); Basophils % 0.1 %; Eosinophils % 0.9 %; HCT 43.7 % (40.0-50.0); HGB 13.9 g/dL (13.5-17.5); Immature Grans % 0.7 %; MCHC 31.8 % (32.0-36.0); MCV 94 fL (80-95); MPV 9.1 fL (8.0-11.0); Monocytes % 3.9 %; Neutrophils % 92.4 %; Platelet Count 229 10^3/uL (130-400); RBC 4.63 10^6/uL (4.36-5.78); RDW-SD 55.9 fL; WBC 12.19 10^3/uL (4.4-10.8)
[2024-08-14 06:54] LABS: pCO2 (Venous) 63 mmHg (41-51)
--- NOTE | 2024-08-14 07:00 | DI.RAD_ITS ---
Exam(s) XR PORTABLE CHEST AP EXAM: XR PORTABLE CHEST AP CLINICAL HISTORY: lung mass TECHNIQUE: 2D digital imaging was performed. COMPARISON: CT CT CHEST PE CTA from 08/12/2024 FINDINGS: LUNGS: Complete opacification of the left hemithorax is again noted. Similar [id number] midline s hift. No abnormalities visible in the right lung. The right costophrenic angle is not fully include d on the film. HEART: Left heart obscured by large left pleural effusion. AORTA: Normal diameter. Arch calcified. BONES: Unremarkable for age. Soft tissues: Unremarkable. IMPRESSION: Stable appearance of large left pleural effusion and midline shift. DATA REPOSITORY: RADIATION DOSE DELIVERED:
[2024-08-14 07:14] LABS: ALT 21 U/L (16-63); AST 19 U/L (15-37); Albumin 3.6 g/dL (3.4-5.0); Alkaline Phosphatase 89 U/L (46-116); Anion Gap 8.2 mmol/L (3-11); BUN 63 mg/dL (7-18); Bilirubin, Total 1.1 mg/dL (0.2-1.0); CO2 32.8 mmol/L (21.0-32.0); CREATININE 1.6 mg/dL (0.70-1.30); Calcium 9.4 mg/dL (8.5-10.1); Chloride 98 mmol/L (98-107); Estimated GFR 46.06 (mL/min/1.73m2); Glucose 127 mg/dL (74-106); Potassium 4.6 mmol/L (3.5-5.1); Sodium 139 mmol/L (136-145); Total Protein 6.7 g/dL (6.4-8.2)
[2024-08-14] MEDS: dilTIAZem CD 120 MG CAPCR PO (08:18)
[2024-08-14] MEDS: Apixaban 5 MG TAB PO ×2 (08:18→20:00)
[2024-08-14] MEDS: Normal Saline Flush 10 ML SYR IVP ×3 (08:18→19:59)
[2024-08-14] MEDS: Budesonide/Formoterol 160/4.5 6 GM 60 PUFF INH IH ×2 (08:41→20:09)
--- NOTE | 2024-08-14 08:59 | DI.VRAD_ITS ---
PROCEDURE INFORMATION: Exam: XR Chest Exam date and time: 08/14/2024 8:43 AM Age: 69 years old Clinical indication: Other: Lung mass TECHNIQUE: Imaging protocol: Radiologic exam of the chest. Views: 1 view. COMPARISON: CT CHEST PE CTA 08/12/2024 8:30 PM FINDINGS: Lungs: Complete opacification of the left hemithorax. Pleural spaces: No large pleural effusion seen. Heart/Mediastinum: No cardiomegaly. Bones/joints: No acute abnormality. IMPRESSION: Complete opacification of the left hemithorax. Dictated and Authenticated by: Vaishnavi Alexander MD. Orderin Andry Ibarra MD
--- NOTE | 2024-08-14 11:00 | W.PM.DS.N ---
Date of service: 08/14/24 Time of Service: 11:00 DS: Diagnosis Discharge Diagnosis (1) Pleural effusion: Status: Chronic Discharge Plan Disposition Specific Acute Inpt Facility: [facility] Condition: Stable Condition: Stable Discharge Details Reason For Visit: Acute hypoxic/hypercapnic respiratory failure, STRIKER OFF Admit Date/Time: 08/12/24 21:52 Admit Provider: James Calle Attending Provider: James Calle Primary Care Provider: Semaj Avila [facility] Course Hospital Course: History of Present Illness Chief Complaint: Cough and progressive shortness of breath for 2 days. Narrative: This is a 69-year-old male patient who does have non-small cell lung cancer in the left lung which is called obstruction of the left lung field with a progressive pleural effusion and plan therapeutic thoracentesis next week. He has a previous smoker and has COPD. He complains of cough which has been dry with progressive shortness of breath prompting visit to the ED. He is usually not on oxygen at home and was requiring oxygen in the ED. VBG did show hypercapnia with respiratory acidosis and hypoxemia. CT of the chest revealed his left tumor which appears to be possibly progressing and a left pleural effusion which appears markedly increased by comparison to CT of the chest in June 2024. There was no infiltrate seen on imaging but were postobstructive atelectasis with the tumor. The tumor also may be progressing into the bronchus. There was no noted PE and patient is on Eliquis chronically for atrial fibrillation. He had a chest pain and had no ischemic changes on his EKG with negative troponins. The patient was given Solu-Medrol with nebulizers in the ED and did have some improvement of his dyspnea the patient is speaking in short sentences in the ED. He did receive Dilaudid 1 mg IV for left chest pain associated with his effusion and cancer and at the time I saw the patient he was oversedated by that injection. He did respond to Narcan and was more alert. He continues to speak in short sentences and continues to require O2. VBG was repeated and he did not have an elevation change in his pCO2. He was admitted for his new onset hypoxemia with acute hypoxic and hypercapnic respiratory failure with possible postobstructive pneumonia but at least a large pleural effusion which may need tapping. The patient is on Eliquis and this may need to be held if thoracentesis is entertained. Surgery was consulted. He also has an elevated PT/INR secondary to what appears to be chronic liver disease with an elevated total bilirubin and having previous history of alcohol abuse. Patient will be admitted for IV Solu-Medrol, positive pressure treatment with a history of sleep apnea if he is awake enough after his Dilaudid IV dose is cleared, and more frequent nebulizer treatments. He does remain a full code with poor prognosis. This should be reviewed by palliative care. Assessment and plan (1) Acute on chronic respiratory failure with hypoxia and hypercapnia: Start date: 08/12/24 Status: Acute Assessment and plan: This is a [id number]-old gentleman presenting with acute hypoxemia usually being on room air. He has a large left pleural effusion which is intermittently drained with plans for being drained next week. CT scanning of the chest does reveal enlargement of the pleural effusion and persistence of left lung cancer which may be spreading locally. Pneumonia cannot be ruled out completely and patient will be covered for community-acquired pneumonia while being treated acutely for COPD exacerbation. Surgery will be consulted for left pleural effusion and possible earlier thoracentesis. Avoid narcotics with patient being oversedated. Benzodiazepines should also be avoided. He remains a full code. (2) COPD with exacerbation: Start date: 08/12/24 Status: Acute Assessment and plan: Patient has a history of previous tobacco use quitting years ago as he has alcohol. He is on inhalers for controller therapy and rescue therapy with now has acute hypoxemia used to be on room air. He does have respiratory acidosis and hypercapnia which is stable without positive pressure treatment. He will be treated for COPD exacerbation and cover for possible early pneumonia with large pleural effusion obscuring tumor and possibly infiltrate. Solu-Medrol was given will be continued converting to prednisone and patient also will have more frequent nebulizer treatments. (3) Pleural effusion: Status: Chronic Assessment and plan: Large left pleural effusion associated with lung cancer with planned therapeutic thoracentesis which may be done sooner if surgery agrees. (4) Non-small cell carcinoma of left lung, stage 4: Status: Chronic Assessment and plan: Patient is continuing treatment with prognosis poor. He is a full code. (5) Pulmonary hypertension: Status: Chronic Assessment and plan: Patient is not on diuretics presently and this will be monitored closely. Avoid fluid overload. (6) Atrial fibrillation: Status: Chronic Assessment and plan: Continue Eliquis and outpatient medical therapy. Slightly tachycardic with acute pulmonary process, telemetry while hospitalized. (7) Hypertension: Assessment and plan: Continue outpatient medical therapy adjust as needed. Operative Note Operative Note Refer to Anesthesia Record Procedure Description: Procedure: Ultrasound-guided left thoracocentesis Surgeon: Rj Aragon Assist: None Anesthesia: local 1% Lidocaine (10cc) Anesthesiologist: None Indication: Recurrent pleural effusion in setting of known lung cancer. Findings: 1600cc thin but dark, hemorrhagic fluid removed. I suspect he has had some bleeding in his pleural cavity (probably bleeding tumor in setting of Plavix and anticoagulation) which has acutely increased the volume of the chronic pleural effusion. I relayed the findings verbally, in person, to the hospitalist team taking care of him. In particular I expressed my belief that he has probably had some intrapleural bleeding in the setting of being anticoagulated and on antiplatelet therapy. Now that some volume has been removed, he may continue to bleed into that space. (In theory) Complications: None Estimated Blood Loss: Minimal Specimens removed: Fluid removed but not sent for cytology or testing Grafts or implants: No Procedure in detail: Written consent was obtained from the patient who was in agreement the risks, the benefits and indications for the procedure. The patient was seated and upright and the site was marked by ultrasonography. A timeout was performed. When we were all in agreement we began the procedure. Local anesthetic was injected just over the rib at the left posterior lateral back. A small stab incision was made. The needle/catheter complex was advanced overtop of the rib and pleural fluid was aspirated upon entrance into the chest cavity. The catheter was left in place while the needle was removed. I removed all of the fluid by hand using the 50 cc syringe. 1600cc was removed. I anticipate/calculate that quite a bit more fluid remains in his left chest but I do not recommend doing more than this volume at 1 time. The catheter was then removed, there were no complications, a sterile dressing was placed overtop. The sponge, instrument and sharps count was correct x3 at the end of the procedure. The patient tolerated the procedure well. This is a 6-year-old gentleman with a known history of lung cancer who presents with worsening shortness of breath over the last week or so as well as decreasing endurance. While he was being worked up in the ED he was noted that he had left-sided pleural effusion that was essentially 100% was admitted for evaluation and treatment. The patient did get a thoracentesis with that procedure note attached above. Unfortunately did not get much relief and a repeat chest x-ray did indicate complete opacification of the left lung. On 13 August I reached out to [facility] and was able to speak with one of their oncologist Dr. Spears who recommended repeat exam and if he was capacity to transfer for higher level of care including oncology, pulmonology, and possible interventional radiology. I did discuss the case with the patient and he still wants treatment for the purpose of cure. I will attach his radiographic exams as well. At the time of discharge his pleural fluid results are not available. The patient was accepted in transfer by Dr. Rosenthal of the hospitalist service. Patient was treated for possible pneumonia on admission but I do not see this as a ongoing problem. The patient does have a mild elevation in his white count but this has to be viewed in light of steroid use. CT chest 08/12/24 IMPRESSION: No evidence of pulmonary embolism. Significant interval increase in size of left pleural effusion and significant worsening of [id number] midline shift. Complete collapse of the left lung with motion of the left main bronchus. Increased size of right lower lobe nodule. Increased size of right adrenal metastasis. Echo 08/13/24 Conclusion Technically difficult study Normal left ventricular wall thickness chamber size and systolic function. Ejection fraction is 55 to 60%. Wall motion appears normal Dilated right ventricle with moderate hypokinesis Left atrium is moderately dilated. Right atrium is severely dilated There are no structural valvular abnormalities There is severe tricuspid regurgitation. Estimated right ventricular systolic pressure is 95 mmHg CXR 08/14/24 FINDINGS: Lungs: Complete opacification of the left hemithorax. Pleural spaces: No large pleural effusion seen. Heart/Mediastinum: No cardiomegaly. Bones/joints: No acute abnormality. IMPRESSION: Complete opacification of the left hemithorax. Home Meds and New Rx's Prescriptions: Continued metoprolol succinate [Toprol XL] 100 MG tablet extended release 24 hr 100 mg PO BID Eliquis 5 mg tablet 5 mg PO BID albuterol sulfate [Ventolin HFA] 90 mcg/actuation HFA aerosol inhaler 2 puff IH .COMPLEX PRN (Reason: shortness of breath or wheezing) Qty: 25.5 12RF Rx Instructions: 2 puffs inhaled every 4-6 hours PRN; budesonide-formoterol 160-4.5 mcg/actuation HFA aerosol inhaler See Rx Instructions .ROUTE .COMPLEX Qty: 30.6 12RF Dose Instruction: INHALE TWO PUFFS BY MOUTH TWICE A DAY Rx Instructions: INHALE TWO PUFFS BY MOUTH TWICE A DAY Spiriva Respimat 2.5 mcg/actuation mist 2 inh inhalation QAM Qty: 3 12RF diltiazem HCl 120 mg capsule,extended release 24 hr 120 mg PO DAILY Qty: 30 0RF DS: Summary Time Spent with Patient providing and/or coordinating discharge services: Greater than 30 minutes Status at Discharge Functional status at discharge: independent ambulation Overall status at discharge: patient is not back to baseline Mental Status: mental status grossly normal Speech and Movement: speech and movement normal Mood: congruent mood Affect: normal affect Quality:SDOH Health Related Social Needs: Health related social needs details lives alone but his grandson and ex-son in law live next door. Daughter also very involved in his care . Health related social needs details: lives alone but his grandson and ex-son in law live next door. Daughter also very involved in his care . Exam Psych Mental Status: mental status grossly normal Speech and Movement: speech and movement normal Mood: congruent mood Affect: normal affect DS: Data Vitals/I&O Vitals and I&O: Vital Signs Temperature 36.9 C 08/14/24 07:43 Temperature Source Temporal Artery Scan 08/14/24 07:43 Pulse 61 08/14/24 07:43 Pulse 83 08/13/24 18:01 Respiratory Rate 12 08/14/24 07:43 Respiratory Effort Short of Breath, Incrsd Work of Breathing 08/13/24 00:00 Respiratory Depth Deep 08/13/24 00:00 Respiratory Pattern Bradypnea 08/13/24 00:00 Blood Pressure 99/61 L 08/14/24 07:43 Blood Pressure Mean 73 08/14/24 07:43 Blood Pressure Position Supine 08/12/24 19:10 Pulse Oximetry 88 L 08/14/24 09:05 Respiratory End-tidal CO2 15 08/12/24 23:02 Oxygen Delivery Method Nasal Cannula 08/14/24 09:05 Oxygen Flow Rate 2 08/14/24 09:05 Pain Level 0 08/14/24 04:26 Comment RN notified 08/14/24 07:43 Intake & Output 08/13/24 08/13/24 08/14/24 11:59 23:59 11:59 Intake Total 270 / 880 610 / 880 100 / 100 Output Total 280 / 2480 2200 / 2480 275 / 275 Balance -10 / -1600 -1590 / -1600 -175 / -175 Weight 97.7 kg 93.468 kg Intake: IV 150 / 300 150 / 300 100 / 100 Oral 120 / 580 460 / 580 Output: Drainage 1500 / 1500 Left Mid Posterior Chest 1500 / 1500 Urine 280 / 980 700 / 980 275 / 275 Other: Urine Color Dark Hilda Light Hilda Dark Hilda Urine Appearance Clear Clear Clear Comment Has not voided for past 24 hours, ambrosio to be placed this AM Stool Size Smear Stool Characteristics Soft Brown Data Completed and Pending Labs on day of discharge: Labs from last 24 hours 08/14/24 06:45: WBC 12.19 H, RBC 4.63, Hgb 13.9, Hct 43.7, MCV 94, MCH 30.0, MCHC 31.8 L, RDW 17.0 H, Plt Count 229, MPV 9.1, Immature Gran % 0.7, Neutrophils % 92.4, Lymphocytes % 2.0, Monocytes % 3.9, Eosinophils % 0.9, Basophils % 0.1, Nucleated RBC % 0.0, Absolute Neutrophils 11.26 H, Absolute Lymphocytes 0.24 L, Absolute Monocytes 0.48, Absolute Eosinophils 0.11, Absolute Basophils 0.01, VBG pH 7.35, VBG pCO2 63 H*, VBG pO2 29, VBG HCO3 34 H, VBG Total CO2 31 H, VBG O2 Saturation 48, VBG Base Excess 9 H, Sodium 139, Potassium 4.6, Chloride 98, Carbon Dioxide 32.8 H, Anion Gap 8.2, BUN 63 H, Creatinine 1.6 H, Est GFR (CKD-EPI 2020) 46.06, Glucose 127 H, Calcium 9.4, Total Bilirubin 1.1 H, AST 19, ALT 21, Alkaline Phosphatase 89, Total Protein 6.7, Albumin 3.6 08/13/24 10:49: Urine Color Yellow, Urine Clarity Clear, Urine pH 5.5, Ur Specific [place] 1.020, Urine Protein 30 H, Urine Ketones Negative, Urine Blood Negative, Urine Nitrite Negative, Urine Bilirubin Small H, Urine Urobilinogen 1.0 H, Ur Leukocyte Esterase Negative, Urine RBC 3-5 H, Urine WBC 5-10, Ur Epithelial Cells Rare, Urine Crystals Moderate Amorphous, Urine Bacteria Moderate, Urine Casts 20-50 Hyaline, Urine Mucus Moderate, Urine Other Few Renal, Ur Culture Indicated? No, Urine Glucose Negative Preliminary micro results at discharge 08/12/24 22:39 Blood Blood Culture - Preliminary NO GROWTH 24 HOURS 08/12/24 23:00 Blood Blood Culture - Preliminary NO GROWTH 24 HOURS PFSH All Active Problems (Updated 08/12/24 @ 21:54 by James Calle) Acute on chronic respiratory failure with hypoxia and hypercapnia (Acute) Non-small cell carcinoma of left lung, stage 4 (Chronic) Pleural effusion (Chronic) COPD with exacerbation (Acute) Acute hypoxemic respiratory failure (Acute) Non-small cell carcinoma of lung, stage 3 (Acute) Personal history of nicotine dependence (Acute) Pulmonary hypertension (Chronic) Sleep apnea (Acute) Atrial fibrillation (Chronic) COPD (chronic obstructive pulmonary disease) (Chronic) Medical History Lung mass Left lower lung mass cancer ETOH abuse Impaired fasting glucose Atrial fibrillation Hypertension Anal condyloma COPD (chronic obstructive pulmonary disease) Cervical disc disorder with radiculopathy Hyperlipidemia Depression Surgical History Repair, Hypospadious Fulguration, Anal Warts Social History Smoking/Tobacco Use Status: Former Tobacco Use Quit Date: 04/14/14 Pack-years: 60 Smoking risk assessment performed?: Yes Alcohol Intake: former Year quit: 2019 Drug use: Never Substance use type: does not use Housing: apartment Do you feel safe at home: Yes Do you feel safe in your relationship?: Yes Additional Social history: quit smoking 8 years ago 37 months sober from alcohol Time Spent with Patient Time Spent with Patient: 45-69 minutes Time was spent: preparing to see the patient(eg.review tests), obtaining and/or reviewing separately otained hiistory, ordering medications,tests, procedures, referring, communicating with other health managed care analyst, indepentently interpreting results, counseling the patient and care coordination
--- NOTE | 2024-08-14 11:06 | PCNE_ITS ---
Date of service: 08/13/24 Time of Service: 15:30 History of Present Illness Narrative: Jason was seen in his ICU room for Palliative consultation. He was alone at the time of the visit. He is a 69 year old man with acute on chronic respiratory failure in the setting of stage IV non-small cell lung cancer. He is currently in the ICU. He was seen by surgery and had thoracentesis with 1500mL withdrawn. He reports feeling better but he appears to have significantly increased respiratory effort. He cannot speak in complete sentences. He is more SOB when he tries to talk. He had to stop talking to breathe frequently. He denies pain at present. He states he wants to continue to be seen by Palliative care. He reports that he had a very hard winter. He was not able to get out. He has been spending all of his time in his chair. He has lost about 50# over the last few months. He is very weak. His goal is to make it to his grandson, Joshua's high school graduation on 09/19/24. Discussed goals of care. He is agreeable to transfer to [facility]. He feels he needs to keep fighting to make it to the graduation. Discussed CODE status, he is clear he wishes to be a DNR/DNI. COLST completed. When asked if he wants me to share this with his daughter, Kathryn, he states, well it is still new, right, and states that if she asks, I can share but prefers that I do not bring it up. He named Kathryn to be his HCA, documentation completed. He names Kathryn and his ex-, Rosaura Miller as his major support people. He also names Rosaura's , Benjie. Assessment and Plan Assessment and plan (1) Acute on chronic respiratory failure with hypoxia and hypercapnia: Start date: 08/12/24 Status: Acute (2) COPD with exacerbation: Start date: 08/12/24 Status: Acute (3) Pleural effusion: Status: Chronic Assessment and plan: Large left pleural effusion associated with lung cancer. (4) Non-small cell carcinoma of left lung, stage 4: Status: Chronic (5) Pulmonary hypertension: Status: Chronic (6) Atrial fibrillation: Status: Chronic Assessment and plan: On eliquis. Consider stopping in the setting of blood noted in fluid extracted via thoracentesis. (7) Hypertension: Assessment and plan: He is hypotensive at this time. (8) Palliative care encounter: Status: Acute Assessment and plan: Jason was seen in his ICU room for Palliative consultation. He was alone at the time of the visit. He is a 69 year old man with acute on chronic respiratory failure in the setting of stage IV non-small cell lung cancer. He is currently in the ICU. He was seen by surgery and had thoracentesis with 1600mL withdrawn. He reports feeling better but he appears to have significantly increased respiratory effort. He cannot speak in complete sentences. He is more SOB when he tries to talk. He had to stop talking to breathe frequently. He denies pain at present. He reports that he had a very hard winter. He was not able to get out. He has been spending all of his time in his chair. He has lost about 50# over the last few months. He is very weak. His goal is to make it to his grandson, Joshua's high school graduation on 09/19/24. Phone call to his daughter/HCA, Kathryn. Reviewed hospital course thus far. She states she feels overwhelmed. She is not happy with his care at [facility]. She hopes for transfer to [facility] where his care team is. She is advised she can visit him in ICU. She was thankful for Palliative seeing him. (9) Advanced care planning/counseling discussion: Status: Acute Assessment and plan: Discussed goals of care. He is agreeable to transfer to [facility]. He feels he needs to keep fighting to make it to the graduation. Discussed CODE status, he is clear he wishes to be a DNR/DNI. COLST completed. When asked if he wants me to share this with his daughter, Kathryn, he states, well it is still new, right, and states that if she asks, I can share but prefers that I do not bring it up. He named Kathryn to be his HCA, documentation completed. He names Kathryn and his ex-, Rosaura Miller as his major support people. He also names Rosaura's , Benjie. Discussed the option of comfort focused care/hospice. He wishes to continue with Palliative, including palliative f/u if he is able to get back home after this hospitalization. Will have the office follow him and offer Palliative f/u if he makes it back home. Review of Systems Narrative: Per HPI PFSH All Active Problems (Updated 08/19/24 @ 15:38 by Soraya Clemente NP) Advanced care planning/counseling discussion (Acute) Palliative care encounter (Acute) Acute on chronic respiratory failure with hypoxia and hypercapnia (Acute) Non-small cell carcinoma of left lung, stage 4 (Chronic) Pleural effusion (Chronic) COPD with exacerbation (Acute) Acute hypoxemic respiratory failure (Acute) Non-small cell carcinoma of lung, stage 3 (Acute) Personal history of nicotine dependence (Acute) Pulmonary hypertension (Chronic) Sleep apnea (Acute) Atrial fibrillation (Chronic) COPD (chronic obstructive pulmonary disease) (Chronic) Medical History Lung mass Left lower lung mass cancer ETOH abuse Impaired fasting glucose Atrial fibrillation Hypertension Anal condyloma COPD (chronic obstructive pulmonary disease) Cervical disc disorder with radiculopathy Hyperlipidemia Depression Surgical History Repair, Hypospadious Fulguration, Anal Warts Social History Smoking/Tobacco Use Status: Former Tobacco Use Quit Date: 04/14/14 Pack-years: 60 Smoking risk assessment performed?: Yes Alcohol Intake: former Year quit: 2019 Drug use: Never Substance use type: does not use Housing: apartment Do you feel safe at home: Yes Do you feel safe in your relationship?: Yes Additional Social history: quit smoking 8 years ago 37 months sober from alcohol Exam Narrative Exam Narrative: General: older man, lying in hospital bed, severely increased WOB, cannot speak in complete sentences. He appears to be in acute distress. He is alert and oriented. He engages in the visit but frequently stops talking due to SOB. When he takes a break, he says, keep talking. He appears to be losing weight. HEENT: normocephalic, atraumatic, EOMI, mmm Neck: supple Respiratory: he appears to be SOB, increased WOB. Unable to speak in complete sentences. Ext: moves all 4 extremities, pitting edema to BLEs. Results Last Vital Signs Temp 36.9 C 08/14/24 07:43 Pulse 61 08/14/24 07:43 Resp 12 08/14/24 07:43 BP 99/61 L 08/14/24 07:43 Pulse Ox 88 L 08/14/24 09:05 Labs 08/14/24 06:45 08/14/24 06:45 Labs: Laboratory Results - last 24 hr 08/13/24 08/14/24 10:49 06:45 WBC 12.19 H RBC 4.63 Hgb 13.9 Hct 43.7 MCV 94 MCH 30.0 MCHC 31.8 L RDW 17.0 H Plt Count 229 MPV 9.1 Immature Gran % 0.7 Neutrophils % 92.4 Lymphocytes % 2.0 Monocytes % 3.9 Eosinophils % 0.9 Basophils % 0.1 Nucleated RBC % 0.0 Absolute Neutrophils 11.26 H Absolute Lymphocytes 0.24 L Absolute Monocytes 0.48 Absolute Eosinophils 0.11 Absolute Basophils 0.01 VBG pH 7.35 VBG pCO2 63 H* VBG pO2 29 VBG HCO3 34 H VBG Total CO2 31 H VBG O2 Saturation 48 VBG Base Excess 9 H Sodium 139 Potassium 4.6 Chloride 98 Carbon Dioxide 32.8 H Anion Gap 8.2 BUN 63 H Creatinine 1.6 H Est GFR (CKD-EPI 2020) 46.06 Glucose 127 H Calcium 9.4 Total Bilirubin 1.1 H AST 19 ALT 21 Alkaline Phosphatase 89 Total Protein 6.7 Albumin 3.6 Urine Color Yellow Urine Clarity Clear Urine pH 5.5 Ur Specific [place] 1.020 Urine Protein 30 H Urine Ketones Negative Urine Blood Negative Urine Nitrite Negative Urine Bilirubin Small H Urine Urobilinogen 1.0 H Ur Leukocyte Esterase Negative Urine RBC 3-5 H Urine WBC 5-10 Ur Epithelial Cells Rare Urine Crystals Moderate Amorphous Urine Bacteria Moderate Urine Casts 20-50 Hyaline Urine Mucus Moderate Urine Other Few Renal Ur Culture Indicated? No Urine Glucose Negative Time Spent Time Spent with Patient Time Spent(min): 122
--- NOTE | 2024-08-14 11:28 | CMDISCH_ITS ---
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 Visits: 1 Answers: Total Score: 11 Risk of Readmission: High Risk Care Management Discharge Plan Reason for Hospitalization: Acute hypoxic respiratory failure Discharge Plan: [place] requires medical management at a tertiary facility and has been accepted by [facility] [place], pending bed availability. EMS will be coordinated by nursing. Patient/Family Education Needs: Review transfer instructions, discuss ask me three. Services Needed at Discharge: Transportation (EMS) SDOH Health Related Social Needs: Health related social needs details lives alone but hi s grandson and ex- son in law live next door. Daughter also very involved in his care . Health related social needs details: lives alone but his grandson and ex-son in law live next door. Daughter also very involved in his care .
[2024-08-14] MEDS: DOXYCYCLINE 100 MG in Normal Saline 100 ML IVPB (12:13)
[2024-08-14] MEDS: Acetaminophen 325 MG TAB PO (13:41)
[2024-08-14] MEDS: oxyCODONE 10 MG TAB PO (15:30)
[2024-08-14] MEDS: Metoprolol CR 100 MG TABCR PO (20:00)
--- NOTE | 2024-08-14 20:44 | W.PC.ACHO ---
Registration Status: Primary Language: Preferred Language: ED Information & Data Chief Complaint SOB 08/12/24 20:14 Chief Complaint SOB 08/12/24 19:36 Triage Note increased SOB today due for 08/12/24 19:10 pleurocentesis on august 18. placed on 4 liters nasal cannula sats brought from 80 % to 99 in ambulance. axox3 increased WOB upon arrival Medical / Surgical History (Last Reviewed 08/12/24 @ 21:26 by James Calle) Lung mass ETOH abuse Impaired fasting glucose Atrial fibrillation Hypertension Anal condyloma COPD (chronic obstructive pulmonary disease) Cervical disc disorder with radiculopathy Hyperlipidemia Depression (Last Reviewed 08/12/24 @ 21:26 by James Calle) Repair, Hypospadious Fulguration, Anal Warts Most Recent Vital Signs Temperature 36.5 C 08/14/24 19:50 Temperature Source Temporal Artery Scan 08/14/24 19:50 Pulse 82 08/14/24 19:50 Pulse 83 08/13/24 18:01 Respiratory Rate 15 08/14/24 19:50 Respiratory Effort Short of Breath, Incrsd Work of Breathing 08/13/24 00:00 Respiratory Depth Deep 08/13/24 00:00 Respiratory Pattern Bradypnea 08/13/24 00:00 Blood Pressure 109/73 08/14/24 19:50 Blood Pressure Mean 85 08/14/24 19:50 Blood Pressure Position Supine 08/12/24 19:10 Pulse Oximetry 92 08/14/24 19:50 Respiratory End-tidal CO2 15 08/12/24 23:02 Oxygen Delivery Method Nasal Cannula 08/14/24 19:50 Oxygen Flow Rate 2 08/14/24 19:50 Pain Level 0 08/14/24 19:50 Comment pt unavailable at this time due to trying to get IV access. 08/14/24 12:35 Allergies fluoxetine Allergy (Verified 08/12/24 19:15) rash Penicillins Allergy (Verified 08/12/24 19:15) rash codeine Adverse Reaction (Verified 08/12/24 19:15) N/V, fatigue Precautions Isolation Standard precaution 08/12/24 20:14 Active Medications Generic Name Dose Route Start Last Admin Trade Name Freq PRN Reason Stop Dose Admin Acetaminophen 0 mg 08/12/24 23:38 08/14/24 13:41 Acetaminophen 325 Mg Tab PO 650 mg Q4H PRN PRN Administration Albuterol/Ipratropium 3 ml 08/13/24 00:00 08/14/24 19:20 Albuterol/Ipratropium 3 Ml Upd Vial UPD 3 ml Q6H AZAEL Administration Apixaban 5 mg 08/13/24 08:30 08/14/24 20:00 Apixaban 5 Mg Tab PO 5 mg BID AZAEL Administration Budesonide/Formoterol Fumarate 2 puff 08/13/24 08:30 08/14/24 20:09 Budesonide/Formoterol 160/4.5 6 Gm 60 Puff Inh IH 2 puff BID AZAEL Administration Diltiazem HCl 120 mg 08/13/24 08:30 08/14/24 08:18 Diltiazem Cd 120 Mg Capcr PO 120 mg DAILY AZAEL Administration Ceftriaxone Sodium/Dextrose 1 gm in 50 mls @ 100 mls/hr 08/13/24 22:00 08/13/24 22:30 Rocephin IVPB Infused Q24H AZAEL Infusion Doxycycline Hyclate 100 mg/ 100 mls @ 100 mls/hr 08/13/24 00:00 08/14/24 13:25 Sodium Chloride IVPB Infused Q12H AZAEL Infusion Methylprednisolone Sodium Succinate 80 mg 08/13/24 04:00 08/14/24 19:58 Methylprednisolone Succ 125 Mg Vial IVP 80 mg Q8H AZAEL Administration Metoprolol Succinate 100 mg 08/13/24 08:30 08/14/24 20:00 Metoprolol Cr 100 Mg Tabcr PO 100 mg BID AZAEL Administration Oxycodone HCl 10 mg 08/14/24 14:30 08/14/24 15:30 Oxycodone 10 Mg Tab PO 10 mg Q6H PRN PRN Administration Sodium Chloride 0 ml 08/12/24 19:09 08/14/24 12:12 Normal Saline Flush 10 Ml Syr IVP 20 ml PRN PRN Administration Sodium Chloride 0 ml 08/12/24 20:00 08/14/24 19:59 Normal Saline Flush 10 Ml Syr IVP 10 ml BID AZAEL Administration IV IV Catheter Type [Right Saline Lock Forearm] IV Catheter Type [Left Hand] Saline Lock IV Catheter Type [Left Saline Lock Antecubital] IV Catheter Gauge [Right 20 Forearm] IV Catheter Gauge [Left Hand] 22 IV Catheter Gauge [Left 18 Antecubital] Diagnostics 08/14/24 Range/Units 06:45 WBC 12.19 H (4.4-10.8) 10^3/uL RBC 4.63 (4.36-5.78) 10^6/uL Hgb 13.9 (13.5-17.5) g/dL Hct 43.7 (40.0-50.0) % MCV 94 (80-95) fL MCH 30.0 (27.0-33.0) pg MCHC 31.8 L (32.0-36.0) % RDW 17.0 H (11.8-14.1) % Plt Count 229 (130-400) 10^3/uL MPV 9.1 (8.0-11.0) fL Immature Gran % 0.7 % Neutrophils % 92.4 % Lymphocytes % 2.0 % Monocytes % 3.9 % Eosinophils % 0.9 % Basophils % 0.1 % Nucleated RBC % 0.0 (0.0-0.3) % Absolute Neutrophils 11.26 H (1.2-6.7) 10^3/uL Absolute Lymphocytes 0.24 L (1.2-3.4) 10^3/uL Absolute Monocytes 0.48 (0.1-0.8) 10^3/uL Absolute Eosinophils 0.11 (0.0-0.7) 10^3/uL Absolute Basophils 0.01 (0.0-0.2) 10^3/uL VBG pH 7.35 (7.31-7.41) VBG pCO2 63 H* (41-51) mmHg VBG pO2 29 mmHg VBG HCO3 34 H (23-28) mmol/L VBG Total CO2 31 H (24-29) mmol/L VBG O2 Saturation 48 % VBG Base Excess 9 H (-2-3) mmol/L Sodium 139 (136-145) mmol/L Potassium 4.6 (3.5-5.1) mmol/L Chloride 98 (98-107) mmol/L Carbon Dioxide 32.8 H (21.0-32.0) mmol/L Anion Gap 8.2 (3-11) mmol/L BUN 63 H (7-18) mg/dL Creatinine 1.6 H (0.70-1.30) mg/dL Est GFR (CKD-EPI 2020) 46.06 (mL/min/1.73m2) Glucose 127 H (74-106) mg/dL Calcium 9.4 (8.5-10.1) mg/dL Total Bilirubin 1.1 H (0.2-1.0) mg/dL AST 19 (15-37) U/L ALT 21 (16-63) U/L Alkaline Phosphatase 89 (46-116) U/L Total Protein 6.7 (6.4-8.2) g/dL Albumin 3.6 (3.4-5.0) g/dL 08/12/24 22:39 Blood Culture - Preliminary Blood NO GROWTH 24 HOURS 08/12/24 23:00 Blood Culture - Preliminary Blood NO GROWTH 24 HOURS Intake and Output - 24 Hour Total 08/12/24 19:07 thru 08/14/24 18:50 Intake Total 1180 Output Total 3355 Balance -2175 Weight 93.468 kg Intake: IV 500 Oral 680 Output: Drainage 1500 Left Mid Posterior Chest 1500 Urine 1855 Other: Urine Color Dark Hilda Dark Red Urine Appearance Sediment Comment Has not voided for past 24 hours, ambrosio to be placed this AM Stool Size Smear Stool Characteristics Soft Brown Urinary Catheter Urinary Catheter Date of 08/13/24 Insertion [Urethral (Ambrosio)] Time of insertion [Urethral ( 11:10 Ambrosio)] Falls Risk Assessment History of Falls No History 08/13/24 00:00 Contributing Factors Impairments,Medications 08/13/24 00:00 Ambulatory Aids Independent 08/12/24 20:14 Tubes/Lines With any additional score 08/13/24 00:00 Gait Evaluation No gait disturbance 08/12/24 20:14 Cognition Cognitive impairment 08/13/24 00:00 Fall Total Score 41 08/13/24 00:00 Level of Risk Moderate Risk 08/13/24 00:00 Problems (Last Reviewed 08/12/24 @ 21:26 by James Calle) Acute on chronic respiratory failure with hypoxia and hypercapnia (Acute) Non-small cell carcinoma of left lung, stage 4 (Chronic) Pleural effusion (Chronic) COPD with exacerbation (Acute) Pulmonary hypertension (Chronic) Atrial fibrillation (Chronic) v v v v v v v v v Sending and/or Receiving Nurses: Please use comment section below to note any information pertinent to the patient hand-off not included above. Information / Comments: Patient is comfortable at this moment, ambrosio inserted, and IV 20g right hand. Report received from: Ayana Montana RN
--- NOTE | 2024-08-16 06:49 | NUR.NOTE ---
Accessed chart to reconcile orders for EKG with EKG?s in [facility]. Duplicate order cancelled. Nursing Note:
== END 2024-08-14 22:05 | disposition short-term general hospital (02) | DRG 180 ==
LOC: ER 23:43 → ICU 08-13 01:01 → MS 08-13 21:20
PROVIDERS: Admitting Provider Family Medicine; Emergency Provider Emergency Medicine; PCP Family Medicine; Responsible Provider Hospitalist; Visit Provider Family Medicine
DX: C34.92 Malignant neoplasm of unspecified part of left bronchus or lung (principal); J18.9 Pneumonia, unspecified organism; J96.21 Acute and chronic respiratory failure with hypoxia; J96.22 Acute and chronic respiratory failure with hypercapnia; J91.0 Malignant pleural effusion; J44.1 Chronic obstructive pulmonary disease with (acute) exacerbation; J98.11 Atelectasis; J44.0 Chronic obstructive pulmonary disease with (acute) lower respiratory infection; I27.20 Pulmonary hypertension, unspecified; I48.0 Paroxysmal atrial fibrillation; I10 Essential (primary) hypertension; Z79.02 Long term (current) use of antithrombotics/antiplatelets; Z87.891 Personal history of nicotine dependence; G47.30 Sleep apnea, unspecified; R73.01 Impaired fasting glucose; F32.A Depression, unspecified; E78.5 Hyperlipidemia, unspecified; K76.9 Liver disease, unspecified; F10.11 Alcohol abuse, in remission
CPT/HCPCS: 32555; 00123; 36415; 71275; 80053; 82805; 85027; 87040; 87637; 93005; 93306; 94640; 94761; 96365; 96366; 96375; 99222; 99285; 71045; 81003; 81015; 83735; 83880; 84484; 85025; 85610; 85730; 93010; 94664; 94760; 99223; 99232; 99239; J0696; J1171; J2919; J3490; J7620